=== PATIENT | male | born 1965 | race Caucasian/White ===

== ENCOUNTER → 2017-02-18 | Outpatient (CLI) | payer OTHER ==
[2017-02-18 09:14] VITALS: TEMP 98.8; BMI 50.3
[2017-02-18 09:39] VITALS: BP 145/82; PULSE 68; RESP 16
[2017-02-18 11:05] LABS: CHCM 33.1; HCT 45.1 % (39.0-53.0); HDW 2.45; MCH 29.2 pg (25.0-35.0); MCHC 33.2 g/dL (31.0-37.0); MCV 88.1 fL (80.0-100.0); Mean Platelet Volume 6.6; RBC 5.13 m/uL (4.30-5.90); RDW 13.2 % (11.5-15.5); WBC 9.7 k/uL (3.8-10.6)
[2017-02-18 11:14] LABS: INR 1.1 (<1.2); Partial Thromboplastin Time 22.5 sec (22.0-30.0); Prothrombin Time 10.7 sec (9.0-12.0)
[2017-02-18 12:15] LABS: ALT 42 U/L (21-72); AST 31 U/L (17-59); Alkaline Phosphatase 89 U/L (38-126); Anion Gap 10 mmol/L; Blood Urea Nitrogen 15 mg/dL (9-20); Calcium 9.1 mg/dL (8.4-10.2); Carbon Dioxide 24 mmol/L (22-30); Chloride 108 mmol/L (98-107); Cholesterol 209 mg/dL (<200); Glucose 101 mg/dL (74-99); HDL Cholesterol 40 mg/dL (40-60); Iron 99 ug/dL (49-181); Non-African American GFR(MDRD) >60 (>60 ml/min/1.73 sqM); Phosphorus 4.4 mg/dL (2.5-4.5); Potassium 4.2 mmol/L (3.5-5.1); Sodium 142 mmol/L (137-145); Total Bilirubin 0.5 mg/dL (0.2-1.3); Total Protein 6.8 g/dL (6.3-8.2)
[2017-02-18 12:25] LABS: % Iron Saturation 27.6 % (20-50); Total Iron Binding Capacity 359 ug/dL (261-462)
[2017-02-18 13:02] LABS: Hemoglobin A1C 5.3 % (4.2-6.1)
[2017-02-18 13:04] LABS: Vitamin B12 690 pg/mL (239-931)
[2017-02-23 17:37] LABS: Selenium 155 mcg/L (63-160)
--- NOTE | 2017-03-07 13:42 | P.PN ---
Progress Note - Text DATE OF SERVICE: 02/18/2017 CHIEF COMPLAINT: Followup sleeve gastrectomy. HISTORY OF PRESENT ILLNESS: Niles Bacon is a 50-year-old gentleman who is status post sleeve gastrectomy January 14, 2015. He is 2 years out from his sleeve gastrectomy. His highest weight was 607 pounds as of August 2014. His body mass index was as high as 87.3. Today he comes in weighing 351 pounds. He has lost 28 pounds in 1 year. He reports being fairly active on his job. His body mass index is reduced from 87.3 to 50.4 lifetime. His lifetime weight loss is 256 pounds. Total percent excess weight loss is 59%. He comes in today with persistent complaints of panniculitis. Since being in the program over 2 years ago, he takes daily prescribed antifungal powders to control his symptoms however now it has become progressively worse and poorly controlled. He seeking a panniculectomy. He's maintaining at least 90 g of protein intake. He is drinking alcoholic beverages since his tequila to self medicate for chronic pain of the neck including left shoulder and hands. He also reports chronic lower back pain from the weight of his pannus. PAST MEDICAL HISTORY: 1. Super morbid obesity, highest BMI 87.1 2. Depression. 3. Gastroesophageal reflux disease. 4. Hypertension. 5. Osteoarthritis. 6. Chronic lower back pain. 7. Thyroid disorder. 8. Anxiety. 9. 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 10. Panniculitis. PAST SURGICAL HISTORY: 1. EGD. 2. Status post sleeve gastrectomy. MEDICATIONS: 1. Multivitamin. 2. Drisdol. ALLERGIES: Denies. SOCIAL HISTORY: Lifelong nontobacco user. He is . FAMILY HISTORY: Pertinent for heart disease including morbid obesity. REVIEW OF SYSTEMS: MUSCULOSKELETAL: Developed sciatica. Reports severe lower back pain from weight of pannus. Also reports left shoulder pain and neck pain. GASTROINTESTINAL: Reports gastroesophageal reflux disease is resolved. No reports of dumping syndrome. PSYCH: History of bipolar disorder and depression. He is chemically sensitive. No suicidal ideation. CONSTITUTIONAL: Highest weight of 607 pounds. Highest body mass index of 87.1. [place] body weight of 173 pounds. Lifetime percent excess weight loss of 59 %. Initially weight in the bariatric program at 486 pounds. His lifetime weight loss is 256 pounds. Otherwise, from the time of his procedure his weight loss is 135 pounds. CARDIOVASCULAR: Denies any active hypertensive medications or medications for dyslipidemia. HEENT: No dysphagia. No troubles with vision or hearing. HEMATOLOGIC: Has a personal history of chronically elevated white blood cell count including chronic infections. Also has history of lupus in his family. ENDOCRINE: Denies any diabetes. He does have history of thyroid disorder. CARDIOVASCULAR: Denies any heart attack or recent chest pain. RESPIRATORY: Has obstructive sleep apnea, now improved since surgery. No reports of asthma. NEURO: Denies any stroke or seizure disorders. SKIN: Chronic panniculitis. No skin cancer. PHYSICAL EXAM: VITAL SIGNS: 5 foot 10, 351 pounds. Body mass index is 50.4 Vital Signs Temp 98.8 F 02/18/17 09:08 Pulse 68 02/18/17 09:08 Resp 16 02/18/17 09:08 BP 145/82 02/18/17 09:08 Pulse Ox GENERAL: Well-developed male in no acute distress. ABDOMEN: Pannus over 40+ pounds. Pannus extends over knees by over 12 inches. Hyperemia including hyperpigmentation identified. No palpable incisional hernias along prior bariatric site. Soft, nontender, nondistended. knees. Hyperemia consistent moderate panniculitis. HEENT: Hears conversational speech. Moist buccal mucosa. Extraocular movements were grossly intact. No nasal drainage. NECK: Supple without lymphadenopathy. CHEST: Unlabored respirations, equal bilateral excursions. CARDIOVASCULAR: Regular rate and rhythm. 2+ radial pulses. MUSCULOSKELETAL: Bilateral lower extremity edema with 1+. No clubbing cyanosis or edema. NEURO: No focal or lateralizing signs. Cranial nerves II-12 grossly intact. PSYCH: Appropriate affect. Alert and oriented to person, place, and time. LABS: Pending. ASSESSMENT: 1. Morbid obesity due to excess calories. 2. Body mass index lifetime reduced from 87.1 down to 50.4. 3. Status post sleeve gastrectomy. 4. Chronic leukocytosis. 5. Gastroesophageal reflux disease resolved. 6. Chronic panniculitis. 7. History of massive weight loss, lifetime over 256 pounds. 8. Hypertensive heart disease. 9. History of vitamin D deficiency. 10. Chronic osteoarthritis of the lower back with degenerative joint disease. 11. Obstructive sleep apnea. 12. Chronic lower back pain. 13. Secondary hyperparathyroidism. 14. Hypercholesterolemia. 15. 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 16. Alcohol abuse. 17. Insomnia. PLAN: 1. Upon further discussion regarding his tequila use, he is using this to self medicate for his chronic neck and back pain. Recommend referral to a pain center. 2. Separately, he reports increased numbness along the left shoulder and hand. This may be caused by a nerve radiculopathy. Recommend referral to orthospine or neuro medical communication specialist. 3. He is 1 year out from his last visit otherwise 2 years from his index operation of sleeve gastrectomy. Willl need bariatric labs. 4. He has long-standing panniculitis including moderate size pannus over 40+ pounds. He is at increased risk for blood loss including bleeding, infection, cosmetic deformity, need for further surgery, chronic pain and postoperative seroma. He does not any blood products. As such, recommend evaluation for underlying anemia. 5. He has chronic pain and would recommend correction and treatment of his chronic pain prior to his panniculectomy. 6. Inpatient hospitalization at minimum overnight with increased risks from super morbid obesity and potential blood loss. 7. Recommend 2 week high protein low caloric diet for optimal perioperative recovery. 8. Follow-up in [place]. ADDENDUM LABS: Chronic leukocytosis resolved. Elevated triglyceride, elevated total cholesterol, elevated LDL. Elevated PTH. Recommend calcium 1200 mg daily. Laboratory Last Values WBC 9.7 k/uL (3.8-10.6) 02/18/17 10:40 RBC 5.13 m/uL (4.30-5.90) 02/18/17 10:40 Hgb 15.0 gm/dL (13.0-17.5) 02/18/17 10:40 Hct 45.1 % (39.0-53.0) 02/18/17 10:40 MCV 88.1 fL (80.0-100.0) 02/18/17 10:40 MCH 29.2 pg (25.0-35.0) 02/18/17 10:40 MCHC 33.2 g/dL (31.0-37.0) 02/18/17 10:40 RDW 13.2 % (11.5-15.5) 02/18/17 10:40 Plt Count 323 k/uL (150-450) 02/18/17 10:40 PT 10.7 sec (9.0-12.0) 02/18/17 10:40 INR 1.1 (<1.2) 02/18/17 10:40 APTT 22.5 sec (22.0-30.0) 02/18/17 10:40 Sodium 142 mmol/L (137-145) 02/18/17 10:40 Potassium 4.2 mmol/L (3.5-5.1) 02/18/17 10:40 Chloride 108 mmol/L (98-107) H 02/18/17 10:40 Carbon Dioxide 24 mmol/L (22-30) 02/18/17 10:40 Anion Gap 10 mmol/L 02/18/17 10:40 BUN 15 mg/dL (9-20) 02/18/17 10:40 Creatinine 0.70 mg/dL (0.66-1.25) 02/18/17 10:40 Est GFR (MDRD) Af Amer >60 (>60 ml/min/1.73 sqM) 02/18/17 10:40 Est GFR (MDRD) Non-Af >60 (>60 ml/min/1.73 sqM) 02/18/17 10:40 Glucose 101 mg/dL (74-99) H 02/18/17 10:[address] Glu mg/dL 105 mg/dL 02/18/17 10:40 Hemoglobin A1c 5.3 % (4.2-6.1) 02/18/17 10:40 Calcium 9.1 mg/dL (8.4-10.2) 02/18/17 10:40 Phosphorus 4.4 mg/dL (2.5-4.5) 02/18/17 10:40 Magnesium 2.0 mg/dL (1.6-2.3) 02/18/17 10:40 Iron 99 ug/dL (49-181) 02/18/17 10:40 TIBC 359 ug/dL (261-462) 02/18/17 10:40 % Saturation 27.6 % (20-50) 02/18/17 10:40 Ferritin 45.4 ng/mL (22.0-322.0) 02/18/17 10:40 Total Bilirubin 0.5 mg/dL (0.2-1.3) 02/18/17 10:40 AST 31 U/L (17-59) 02/18/17 10:40 ALT 42 U/L (21-72) 02/18/17 10:40 Alkaline Phosphatase 89 U/L (38-126) 02/18/17 10:40 Total Protein 6.8 g/dL (6.3-8.2) 02/18/17 10:40 Albumin 4.2 g/dL (3.5-5.0) 02/18/17 10:40 Prealbumin 29.0 mg/dL (18.0-42.0) 02/18/17 10:40 Triglycerides 164 mg/dL (<150) H 02/18/17 10:40 Cholesterol 209 mg/dL (<200) H 02/18/17 10:40 LDL Cholesterol, Calc 136 mg/dL (0-99) H 02/18/17 10:40 HDL Cholesterol 40 mg/dL (40-60) 02/18/17 10:40 Vitamin A 67 ug/dL (38-106) 02/18/17 10:40 Vitamin B1 58 ug/L (38-122) 02/18/17 10:40 Vitamin B12 690 pg/mL (239-931) 02/18/17 10:40 Vitamin D 25-Hydroxy 52.3 ng/mL (30.0-100.0) 02/18/17 10:40 Folate 22.0 ng/mL 02/18/17 10:40 TSH 1.940 mIU/L (0.465-4.680) 02/18/17 10:40 PTH Intact 76.0 pg/mL (14.0-72.0) H 02/18/17 10:40 Copper 914 ug/L (665-1480) 02/18/17 10:40 Selenium 155 mcg/L (63-160) 02/18/17 10:40 Zinc 78 ug/dL (60-130) 02/18/17 10:40
== END | disposition home or self-care (01) ==
LOC: BARWHC3 08:52
PROVIDERS: ATTEND Surgery Plastic and Reconstructive Surgery
DX: E66.01 Morbid (severe) obesity due to excess calories (principal); D72.829 Elevated white blood cell count, unspecified; M79.3 Panniculitis, unspecified; I11.9 Hypertensive heart disease without heart failure; M51.36 Other intervertebral disc degeneration, lumbar region; M47.816 Spondylosis without myelopathy or radiculopathy, lumbar region; G47.33 Obstructive sleep apnea (adult) (pediatric); E78.00 Pure hypercholesterolemia, unspecified; F31.9 Bipolar disorder, unspecified; F10.10 Alcohol abuse, uncomplicated; E21.1 Secondary hyperparathyroidism, not elsewhere classified; D50.9 Iron deficiency anemia, unspecified; K90.9 Intestinal malabsorption, unspecified; E55.9 Vitamin D deficiency, unspecified; K74.1 Hepatic sclerosis; N19 Unspecified kidney failure; K50.90 Crohn's disease, unspecified, without complications; G47.00 Insomnia, unspecified; Z98.84 Bariatric surgery status; Z68.43 Body mass index [BMI] 50.0-59.9, adult
CPT/HCPCS: 84255; 84134; 84425; 80061; 80053; 82607; 82728; 83036; 82525; 82746; 83540; 83550; 83735; 84100; 84443; 84590; 84630; 85027; 85610; 85730; 82306; 83970; G0463; 99211

== ENCOUNTER → 2017-06-23 | Outpatient (CLI) | payer OTHER ==
[2017-06-23 13:49] VITALS: PULSE 56; RESP 18
--- NOTE | 2017-06-23 14:48 | P.HPIM ---
History of Present Illness H&P Date: 06/23/17 Chief Complaint: neck, arm, and left flank pain This is a 52-year-old patient referred by Dr. Mcarthur for chronic pain in neck and left arm, and low back with some radiation to right leg. Patient has undergone bariatric surgery and has lost over 300 pounds, but still has significant pannus in his abdomen and BMI is still greater than 45. Patient has been taking medications from primary care physician including [place] and Flexeril medications without relief. Patient denies adverse drug effects from medications. Patient also denies new-onset weakness, bowel/bladder incontinence , or any other signs or symptoms of cauda equina syndrome. There are no signs of acute intoxication, and no indications of medication diversion or overuse. Patient notes that pain worsens significantly with turning his head and lifting , and improves with rest and occasionally with medication. Patient has a history of self-medicating with alcohol in the past. Patient has used several types of medications for pain, including NSAIDS, OPIOIDS, TRAMADOL, and BENZODIAZEPINES. Patient HAS NOT had surgery. Patient HAS NOT had injections previously. Patient HAS NOT had physical therapy recently. In addition to above, 13-point review of systems is also negative for chest pain , shortness of breath, changes in vision, changes in hearing, new onset weakness , abdominal pain, diarrhea, extreme fatigue, malaise, fever, skin changes, homicidal or suicidal ideation, or bowel or bladder incontinence. Vital Signs: Reviewed in EMR Gen: WDWN, AAOx3, NAD HEENT: NCAT, EOMI, hearing grossly normal Pulm: resp unlabored Abd: soft, NT, ND Neck: supple, trachea midline ROM in flexion cervical spine: reduced ROM in extension cervical spine: reduced Cervical paravertebral tenderness: + Cervical Facet tenderness: + L side, neg R side Spurling's: + L side Upper extremity: decreased county director strength secondary to pain Thoracic spine: palpable mass over left proximal scapula, tender to palpation Neuro: CN II-XII grossly intact, muscle strength lower extremities PRESERVED Past Medical History Past Medical History: Diabetes Mellitus, Hypertension Additional Past Medical History / Comment(s): CHRONIC BACK PAIN which has increased significantly with major weight loss, sciatica, bronchitis, arthritis , borderline thyroid issues, History of Any Multi-Drug Resistant Organisms: None Reported Past Surgical History: No Surgical Hx Reported Additional Past Surgical History / Comment(s): EGD Past Anesthesia/Blood Transfusion Reactions: No Reported Reaction Additional Past Anesthesia/Blood Transfusion Reaction / Comment(s): HAS NEVER HAD GENERAL ANESTHESIA Past Psychological History: Anxiety, Bipolar, Depression, Panic Disorder Smoking Status: Never smoker Past Alcohol Use History: Rare Past Drug Use History: None Reported - Past Family History Father Family Medical History: Hypertension Additional Family Medical History / Comment(s): mental disease, violent disorders Mother Family Medical History: Hypertension Medications and Allergies Home Medications Medication Instructions Recorded Confirmed Type Multivitamins, Thera [Theragran] 1 each PO DAILY 02/14/15 06/23/17 History Cholecalciferol (Vitamin D3) 10,000 unit PO DAILY 02/18/17 06/23/17 History [Vitamin D3] Baclofen 10 mg PO BID PRN #60 tab 06/23/17 Rx Allergies Allergy/AdvReac Type Severity Reaction Status Date / Time No Known Allergies Allergy Verified 06/23/17 13:31 Physical Exam Vitals: Vital Signs Pulse Resp 06/23/17 13:36 56 L 18 Intake and Output 06/22/17 06/23/17 06/23/17 22:59 06:59 14:59 Other: Weight 156.036 kg Patient Weight 06/24/17 06:59 Weight 156.036 kg Results Comments: MRI cervical spine without contrast demonstrates a lipoma at the C5 through T1 levels with the left posterior subcutaneous tissues measuring 83 mm in greatest craniocaudal dimension, by 34 mm in greatest AP dimension, by 79 mm in greatest transverse dimensions. There is uncovertebral joint hypertrophy at the C3-C4, C4-C5, C5-C6, C6-C7 levels. There is also a moderate broad-based central extrusion with 4 mm of cranial and caudal migration of the disc at the C6-C7 level. There is mild central canal stenosis with severe left and moderate to severe right neural foraminal narrowing with mild to moderate uncovertebral joint hypertrophy. At the C4-C5 level there is also mild bilateral facet hypertrophy with severe right and moderate to severe left neural foraminal narrowing. Assessment and Plan (1) Morbid obesity with BMI of 45.0-49.9, adult Current Visit: Yes Status: Chronic Code(s): E66.01 - MORBID (SEVERE) OBESITY DUE TO EXCESS CALORIES; Z68.42 - BODY MASS INDEX (BMI) 45.0-49.9, ADULT SNOMED Code(s): 567285068 (2) Cervical spondylosis with myelopathy Current Visit: Yes Status: Chronic Code(s): M47.12 - OTHER SPONDYLOSIS WITH MYELOPATHY, CERVICAL REGION SNOMED Code(s): 54005780 (3) Panniculitis Current Visit: No Status: Chronic Code(s): M79.3 - PANNICULITIS, UNSPECIFIED SNOMED Code(s): 59452599 Plan: 1. Explanation: Opioid and psychological risk scores were reviewed. Diagnoses , prognoses, and multiple treatment options including but not limited to physical therapy, interventional therapies, adjuvant medical therapies, narcotic medication therapies, and surgery were discussed with the patient and all questions were answered to the patient's satisfaction. 2. Opioid agreement: no opioids prescribed today 3. Counseling: The patient was counseled extensively on BODY MASS INDEX, EXERCISE. Specifically, the patient was instructed regarding the importance of weight control, and exercise in the context of both chronic pain and overall health. 4. Procedures: consider left cervical MBB when patient completes elbow bursa surgery 5. Consultations: none 6. Investigations: none 7. Medications: baclofen 10 mg #60 with one refill for spasm 8. Disposition: f/u for re-eval in 6 weeks after elbow surgery Time with Patient: Greater than 30
== END | disposition home or self-care (01) ==
LOC: PNWHC3 13:01
PROVIDERS: ATTEND Anesthesiology
DX: G89.29 Other chronic pain (principal); M54.2 Cervicalgia; M47.12 Other spondylosis with myelopathy, cervical region; M79.3 Panniculitis, unspecified; E66.01 Morbid (severe) obesity due to excess calories; Z68.42 Body mass index [BMI] 45.0-49.9, adult; Z98.84 Bariatric surgery status
CPT/HCPCS: 99211

== ENCOUNTER → 2017-08-04 | Outpatient (CLI) | payer OTHER ==
[2017-08-04 13:18] VITALS: BP 153/83; PULSE 55; RESP 18; TEMP 98.6
--- NOTE | 2017-08-04 14:28 | P.PN ---
Progress Note - Text Progress Note Date: 08/04/17 This is a 52-year-old male with history of neck pain with radiation to the left upper extremity with numbness and tingling in the first 3 fingers. The patient feels that he is losing his fine hand movement. The MRI of the cervical spine showed severe neural foraminal stenosis at the C6-C7 level with cervical spondylosis too. 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 The patient feels that his pain is getting better however just mildly. He has very mild tenderness at the cervical paravertebral area and in the left trapezius muscle. He denies taking any anticoagulants. At this point and since the pain has been getting better I recommend that the patient rates for a few weeks and may try physical therapy but if this pain is still bothering him and then we can plan on doing cervical epidural steroid injection in the left paramedian approach at the C7-T1 level. We might have some technical problems with the injection due to the patient's large lipoma in the area. The procedure was explained to the patient including possible complications like infection spinal cord injury paralysis and even and he is agreeable to trying this procedure if his pain does not get better.
== END | disposition home or self-care (01) ==
LOC: PNWHC3 12:39
PROVIDERS: ATTEND Anesthesiology
DX: M99.71 Connective tissue and disc stenosis of intervertebral foramina of cervical region (principal); M47.812 Spondylosis without myelopathy or radiculopathy, cervical region; D17.79 Benign lipomatous neoplasm of other sites
CPT/HCPCS: 99211

== ENCOUNTER → 2018-04-06 | Outpatient (CLI) | payer OTHER ==
--- NOTE | 2018-04-06 16:24 | P.PN ---
Subjective Progress Note Date: 04/06/18 DATE OF SERVICE: 04/06/2018 CHIEF COMPLAINT: Follow-up sleeve gastrectomy. HISTORY OF PRESENT ILLNESS: Niles Bacon is a 52-year-old gentleman who is status post sleeve gastrectomy January 14, 2015. He is 3 years out from his sleeve gastrectomy. His highest weight was 607 pounds as of August 2014. His body mass index was as high as 87.3. Today he comes in weighing 341 pounds from 351 pounds, 1 year ago. He has lost another 9 pounds in 1 year. He has severe back pain from his pannus that extends below his knees. He has been on Nystatin powder beyond 2 years of treatment. He reports difficulty with grooming. His body mass index is reduced from 87.3 to 49.1 lifetime. His lifetime weight loss is 266 pounds. Total percent excess weight loss is 61%. PAST MEDICAL HISTORY: 1. Super morbid obesity, highest BMI 87.1 2. Depression. 3. Gastroesophageal reflux disease. 4. Hypertension. 5. Osteoarthritis. 6. Chronic lower back pain. 7. Thyroid disorder. 8. Anxiety. 9. 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 10. Panniculitis. PAST SURGICAL HISTORY: 1. EGD. 2. Status post sleeve gastrectomy. MEDICATIONS: 1. Multivitamin. 2. Drisdol. ALLERGIES: Denies. SOCIAL HISTORY: Lifelong nontobacco user. He is . FAMILY HISTORY: Pertinent for heart disease including morbid obesity. REVIEW OF SYSTEMS: MUSCULOSKELETAL: Developed sciatica. Reports severe lower back pain from weight of pannus. Also reports left shoulder pain and neck pain. GASTROINTESTINAL: Reports gastroesophageal reflux disease is resolved. No reports of dumping syndrome. PSYCH: History of bipolar disorder and depression. He is chemically sensitive. No suicidal ideation. CONSTITUTIONAL: Highest weight of 607 pounds. Highest body mass index of 87.1. [place] body weight of 173 pounds. CARDIOVASCULAR: Denies any active hypertensive medications or medications for dyslipidemia. HEENT: No dysphagia. No troubles with vision or hearing. HEMATOLOGIC: Has a personal history of chronically elevated white blood cell count including chronic infections. Also has history of lupus in his family. ENDOCRINE: Denies any diabetes. He does have history of thyroid disorder. CARDIOVASCULAR: Denies any heart attack or recent chest pain. RESPIRATORY: Has obstructive sleep apnea, now improved since surgery. No reports of asthma. NEURO: Denies any stroke or seizure disorders. SKIN: Chronic panniculitis. No skin cancer. PHYSICAL EXAM: VITAL SIGNS: 5 foot 10, 341 pounds. Body mass index is 49.1 Vital Signs Temp 98.1 F 04/06/18 17:09 Pulse 51 L 04/06/18 17:09 Resp BP 154/83 04/06/18 17:09 Pulse Ox GENERAL: Well-developed male in no acute distress. ABDOMEN: Pannus over 40+ pounds. Pannus extends over knees by over 12 inches. Hyperemia including hyperpigmentation identified. No palpable incisional hernias along prior bariatric site. Soft, nontender, nondistended. knees. Hyperemia consistent moderate panniculitis. HEENT: Hears conversational speech. Moist buccal mucosa. Extraocular movements were grossly intact. No nasal drainage. NECK: Supple without lymphadenopathy. CHEST: Unlabored respirations, equal bilateral excursions. CARDIOVASCULAR: Regular rate and rhythm. 2+ radial pulses. MUSCULOSKELETAL: Bilateral lower extremity edema with 1+. No clubbing cyanosis or edema. NEURO: No focal or lateralizing signs. Cranial nerves II-12 grossly intact. PSYCH: Appropriate affect. Alert and oriented to person, place, and time. SKIN: Well perfused. Good skin turgor. LABS: Pending. ASSESSMENT: 1. Morbid obesity due to excess calories. 2. Body mass index lifetime reduced from 87.1 down to 50.4. 3. Status post sleeve gastrectomy. 4. Chronic leukocytosis. 5. Gastroesophageal reflux disease resolved. 6. Chronic panniculitis. 7. History of massive weight loss, lifetime over 256 pounds. 8. Hypertensive heart disease. 9. History of vitamin D deficiency. 10. Chronic osteoarthritis of the lower back with degenerative joint disease. 11. Obstructive sleep apnea. 12. Chronic lower back pain. 13. Secondary hyperparathyroidism. 14. Hypercholesterolemia. 15. 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 16. Alcohol abuse. 17. Insomnia. PLAN: 1. Panniculectomy advised for chronic panniculitis despite medical treatment beyond 2 years. Additionally he has severe chronic lower back pain requiring pain specialist from the size of his pannus weighing over 40+ pounds. 2. Recommend 2 week protein diet for optimal recovery 3. Panniculectomy packet including benefits and risks of bleeding, flap failure , infection, need for further surgery were described. Additional images needed. 4. Recommend bariatric metabolic panel to correct iron deficiency including macro and micronutrient deficiencies. 5. Inpatient hospitalization also described 6. He is at high surgical risk for complications with BMI over 40 and size of pannus over 40+ pounds for postoperative seromas. Laboratory Last Values WBC 13.4 k/uL (3.8-10.6) H 04/06/18 16:42 RBC 5.33 m/uL (4.30-5.90) 04/06/18 16:42 Hgb 15.2 gm/dL (13.0-17.5) 04/06/18 16:42 Hct 46.3 % (39.0-53.0) 04/06/18 16:42 MCV 86.8 fL (80.0-100.0) 04/06/18 16:42 MCH 28.6 pg (25.0-35.0) 04/06/18 16:42 MCHC 32.9 g/dL (31.0-37.0) 04/06/18 16:42 RDW 13.5 % (11.5-15.5) 04/06/18 16:42 Plt Count 328 k/uL (150-450) 04/06/18 16:42 PT 10.4 sec (9.0-12.0) 04/06/18 16:42 INR 1.1 (<1.2) 04/06/18 16:42 APTT 23.6 sec (22.0-30.0) 04/06/18 16:42 Sodium 141 mmol/L (135-145) 04/06/18 16:42 Potassium 4.4 mmol/L (3.5-5.5) 04/06/18 16:42 Chloride 106 mmol/L (96-109) 04/06/18 16:42 Carbon Dioxide 27.4 mmol/L (21.6-31.8) 04/06/18 16:42 Anion Gap 7.60 mmol/L (4.00-12.00) 04/06/18 16:42 BUN 10.0 mg/dL (9.0-27.0) 04/06/18 16:42 Creatinine 0.7 mg/dL (0.6-1.5) 04/06/18 16:42 Est GFR (CKD-EPI)AfAm 127.5 (60.0-200.0) 04/06/18 16:42 Est GFR (CKD-EPI)NonAf 110.0 (60.0-200.0) 04/06/18 16:42 BUN/Creatinine Ratio 14.29 Ratio (12.00-20.00) 04/06/18 16:42 Glucose 90 mg/dL (70-110) 04/06/18 16:[address] Glu mg/dL 111 04/06/18 16:42 Hemoglobin A1c 5.5 % (4.0-6.0) 04/06/18 16:42 Calcium 9.1 mg/dL (8.7-10.3) 04/06/18 16:42 Phosphorus 4.2 mg/dL (2.4-5.1) 04/06/18 16:42 Magnesium 2.0 mg/dL (1.5-2.4) 04/06/18 16:42 Iron 70 ug/dL (65-175) 04/06/18 16:42 TIBC 397 ug/dL (228-460) 04/06/18 16:42 Iron Saturation 17.63 (15.00-50.00) 04/06/18 16:42 Ferritin 32.8 ng/mL (22.0-322.0) 04/06/18 16:42 Total Bilirubin 0.6 mg/dL (0.3-1.2) 04/06/18 16:42 AST 31 U/L (14-35) 04/06/18 16:42 ALT 23 U/L (10-49) 04/06/18 16:42 Alkaline Phosphatase 73 U/L (41-126) 04/06/18 16:42 Total Protein 6.5 g/dL (6.2-8.2) 04/06/18 16:42 Albumin 4.60 g/dL (3.80-4.90) 04/06/18 16:42 Globulin 1.9 g/dL (2.1-3.7) L 04/06/18 16:42 Albumin/Globulin Ratio 2.42 g/dL (1.20-2.10) H 04/06/18 16:42 Prealbumin 34.0 mg/dL (18.0-42.0) 04/06/18 16:42 Triglycerides 219.0 mg/dL (0.0-149.0) H 04/06/18 16:42 Cholesterol 194 mg/dL (0-200) 04/06/18 16:42 LDL Cholesterol, Calc 112.2 mg/dL (0.0-131.0) 04/06/18 16:42 VLDL Cholesterol, Calc 43.80 mg/dL (5.00-40.00) H 04/06/18 16:42 HDL Cholesterol 38.0 mg/dL (40.0-60.0) L 04/06/18 16:42 Cholesterol/HDL Ratio 5.11 04/06/18 16:42 Vitamin A 65 ug/dL (38-106) 04/06/18 16:42 Vitamin B1 96 ug/L (38-122) 04/06/18 16:42 Vitamin B12 1156.0 pg/mL (200.0-944.0) H 04/06/18 16:42 Vitamin D 25-Hydroxy 38.3 ng/mL (30.0-100.0) 04/06/18 16:42 Folate 23.0 ng/mL 04/06/18 16:42 TSH 1.360 uIU/mL (0.350-5.500) 04/06/18 16:42 PTH Intact 71.8 pg/mL (14.0-72.0) 04/06/18 16:42 Copper 1487 ug/L (665-1480) H 04/06/18 16:42 Selenium 155 mcg/L (63-160) 04/06/18 16:42 Zinc 77 ug/dL (60-130) 04/06/18 16:42 Objective - Labs CBC & Chem 7: 04/06/18 16:42 04/06/18 16:42
[2018-04-06 17:03] LABS: HCT 46.3 % (39.0-53.0); HGB 15.2 gm/dL (13.0-17.5); MCH 28.6 pg (25.0-35.0); MCHC 32.9 g/dL (31.0-37.0); MCV 86.8 fL (80.0-100.0); Mean Platelet Volume 7.6; Platelet Count 328 k/uL (150-450); RBC 5.33 m/uL (4.30-5.90); RDW 13.5 % (11.5-15.5); WBC 13.4 k/uL (3.8-10.6)
[2018-04-06 17:10] LABS: INR 1.1 (<1.2); Partial Thromboplastin Time 23.6 sec (22.0-30.0); Prothrombin Time 10.4 sec (9.0-12.0)
[2018-04-06 17:12] VITALS: BP 154/83; PULSE 51; TEMP 98.1; BMI 49.0
[2018-04-07 03:33] LABS: Iron Saturation 17.63 (15.00-50.00)
[2018-04-07 03:36] LABS: Albumin 4.6 g/dL (3.80-4.90); Albumin/Globulin Ratio 2.42 (1.20-2.10); Anion Gap 7.6 mmol/L (4.00-12.00); Calcium 9.1 mg/dL (8.7-10.3); Carbon Dioxide 27.4 mmol/L (21.6-31.8); Globulin 1.9 g/dL (2.1-3.7); LDL Cholesterol,Calculated 112.2 mg/dL (0.0-131.0); Phosphorus 4.2 mg/dL (2.4-5.1); Potassium 4.4 mmol/L (3.5-5.5); Total Bilirubin 0.6 mg/dL (0.3-1.2); Total Protein 6.5 g/dL (6.2-8.2); VLDL Calculation 43.8 mg/dL (5.00-40.00)
[2018-04-07 03:42] LABS: Vitamin D 25 Hydroxy 38.3 ng/mL (30.0-100.0)
[2018-04-07 03:57] LABS: Hemoglobin A1C 5.5 % (4.0-6.0); Parathyroid Hormone Intact 71.8 pg/mL (14.0-72.0)
[2018-04-07 12:21] LABS: Zinc, Serum 77 ug/dL (60-130)
[2018-04-08 05:45] LABS: Vitamin A 65 ug/dL (38-106)
[2018-04-08 12:02] LABS: Vitamin B1 96 ug/L (38-122)
[2018-04-09 13:46] LABS: Selenium 155 mcg/L (63-160)
== END | disposition home or self-care (01) ==
LOC: BARWHC3 14:49
PROVIDERS: ATTEND Surgery Plastic and Reconstructive Surgery
DX: M79.3 Panniculitis, unspecified (principal); E66.01 Morbid (severe) obesity due to excess calories; Z98.84 Bariatric surgery status
CPT/HCPCS: 84255; 84134; 84425; 80061; 80053; 82607; 82728; 82525; 82746; 83540; 83550; 83735; 84100; 84443; 84590; 84630; 85027; 85610; 85730; 82306; 83970; 83036; 36415; G0463; 99211

== ENCOUNTER → 2018-07-20 | Outpatient (CLI) | payer OTHER ==
[2018-07-20 16:02] VITALS: BP 165/82; PULSE 66; TEMP 98.1; BMI 48.9
--- NOTE | 2018-07-20 16:22 | P.PN ---
Subjective Progress Note Date: 07/20/18 DATE OF SERVICE: 07/20/2018 CHIEF COMPLAINT: Panniculitis HISTORY OF PRESENT ILLNESS: Niles Bacon is a 53-year-old gentleman who is status post sleeve gastrectomy January 14, 2015. He is 4 years out from his sleeve gastrectomy. His highest weight was 607 pounds as of August 2014. His body mass index was as high as 87.3. He comes in with severe panniculitis including weight of pannus over 40+ pounds. He has failed systemic and local treatments of his panniculitis. Additionally, the weight of his pannus pulls and displaces his lower back. His pannus interferes with his activities of daily living including dressing, bathing, and hygiene. He is evaluating for a panniculectomy Today he comes in weighing 340 pounds from 341 pounds, 4 months ago. He has lost 1 pounds. His body mass index is reduced from 87.3 to 49.1 lifetime. His lifetime weight loss is 267 pounds. Total percent excess weight loss is 61%. PAST MEDICAL HISTORY: 1. Super morbid obesity, highest BMI 87.1 2. Depression. 3. Gastroesophageal reflux disease. 4. Hypertension. 5. Osteoarthritis. 6. Chronic lower back pain. 7. Thyroid disorder. 8. Anxiety. 9. 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 10. Panniculitis. 11. Persistent leukocytosis PAST SURGICAL HISTORY: 1. EGD. 2. Status post sleeve gastrectomy. MEDICATIONS: 1. Multivitamin. 2. Drisdol. ALLERGIES: Denies. SOCIAL HISTORY: Lifelong nontobacco user. He is . FAMILY HISTORY: Pertinent for heart disease including morbid obesity. REVIEW OF SYSTEMS: MUSCULOSKELETAL: Has sciatica. Reports severe lower back pain from weight of pannus. GASTROINTESTINAL: Reports gastroesophageal reflux disease is resolved. No reports of dumping syndrome. PSYCH: History of bipolar disorder and depression. He is chemically sensitive. No suicidal ideation. CONSTITUTIONAL: Highest weight of 607 pounds. Highest body mass index of 87.1. [place] body weight of 173 pounds. CARDIOVASCULAR: Denies any active hypertensive medications or medications for dyslipidemia. HEENT: No dysphagia. No troubles with vision or hearing. HEMATOLOGIC: Has a personal history of chronically elevated white blood cell count including chronic infections. Also has history of lupus in his family. ENDOCRINE: Denies any diabetes. He does have history of thyroid disorder. CARDIOVASCULAR: Denies any heart attack or recent chest pain. RESPIRATORY: Has obstructive sleep apnea, now improved since surgery. No reports of asthma. NEURO: Denies any stroke or seizure disorders. SKIN: Chronic panniculitis. No skin cancer. PHYSICAL EXAM: VITAL SIGNS: 5 foot 10, 340 pounds. Body mass index is 48.9 Vital Signs Temp 98.1 F 07/20/18 14:45 Pulse 66 07/20/18 14:45 Resp BP 165/82 07/20/18 14:45 Pulse Ox GENERAL: Well-developed male in no acute distress. ABDOMEN: Pannus over 40+ pounds. Hyperemia consistent moderate panniculitis. Soft, non-distended. No palpable abdominal wall hernia. HEENT: Hears conversational speech. Moist buccal mucosa. Extraocular movements were grossly intact. No nasal drainage. NECK: Supple without lymphadenopathy. CHEST: Unlabored respirations, equal bilateral excursions. CARDIOVASCULAR: Regular rate and rhythm. 2+ radial pulses. MUSCULOSKELETAL: Bilateral lower extremity edema with 1+. No clubbing cyanosis or edema. NEURO: No focal or lateralizing signs. Cranial nerves II-12 grossly intact. PSYCH: Appropriate affect. Alert and oriented to person, place, and time. SKIN: Well perfused. Good skin turgor. LABS: Pending ASSESSMENT: 1. Morbid obesity due to excess calories. 2. Body mass index lifetime reduced from 87.1 down to 48.9. 3. Status post sleeve gastrectomy. 4. Chronic leukocytosis. 5. Gastroesophageal reflux disease resolved. 6. Chronic panniculitis. 7. History of massive weight loss, lifetime over 267 pounds. 8. Hypertensive heart disease. 9. History of vitamin D deficiency. 10. Chronic osteoarthritis of the lower back with degenerative joint disease. 11. Obstructive sleep apnea. 12. Chronic lower back pain. 13. Secondary hyperparathyroidism. 14. Hypercholesterolemia. 15. 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 16. Alcohol abuse. 17. Insomnia. PLAN: 1. Recommend panniculectomy for chronic panniculitis with concomittant severe lower back pain and uncontrolled symptoms despite systemic and local treatment including limitation of his activities of daily living. Anticipated resection of 40+ pounds described. 2. Recommend 2 week protein diet for optimal recovery 3. Risks of bleeding, needs for drains, flap failure, infection, need for further surgery were described. He is high risk for beth-operative complications with anticipated 40+ skin resection. 4. He also has persistent leukocytosis pre-existent and will need post-op antibiotics. 5. Inpatient hospitalization also described 6. He is Jehovah witness and wants no blood products 7. He reports high pain threshold where post-operative management was reviewed. Objective - Vital Signs Vital signs: Vital Signs Temp 98.1 F 07/20/18 14:45 Pulse 66 07/20/18 14:45 Resp BP 165/82 07/20/18 14:45 Pulse Ox Intake & Output 07/19/18 07/20/18 07/20/18 18:59 06:59 18:59 Weight 154.675 kg
== END | disposition home or self-care (01) ==
LOC: BARWHC3 14:43
PROVIDERS: ATTEND Surgery Plastic and Reconstructive Surgery
DX: E66.01 Morbid (severe) obesity due to excess calories (principal); K21.9 Gastro-esophageal reflux disease without esophagitis; M19.90 Unspecified osteoarthritis, unspecified site; G89.29 Other chronic pain; M54.5 Low back pain; F41.8 Other specified anxiety disorders; E07.9 Disorder of thyroid, unspecified; M79.3 Panniculitis, unspecified; D72.829 Elevated white blood cell count, unspecified; I11.9 Hypertensive heart disease without heart failure; R63.4 Abnormal weight loss; E55.9 Vitamin D deficiency, unspecified; G47.33 Obstructive sleep apnea (adult) (pediatric); N25.81 Secondary hyperparathyroidism of renal origin; E78.00 Pure hypercholesterolemia, unspecified; F10.10 Alcohol abuse, uncomplicated; Z98.84 Bariatric surgery status; Z79.899 Other long term (current) drug therapy; Z68.42 Body mass index [BMI] 45.0-49.9, adult
CPT/HCPCS: 99211

== ENCOUNTER → 2018-07-20 | Outpatient (CLI) | payer OTHER ==
[2018-07-20 15:25] LABS: ALT 39 U/L (21-72); AST 28 U/L (17-59); Albumin 4.2 g/dL (3.5-5.0); Alkaline Phosphatase 72 U/L (38-126); Anion Gap 6 mmol/L; Blood Urea Nitrogen 19 mg/dL (9-20); Calcium 9.1 mg/dL (8.4-10.2); Carbon Dioxide 29 mmol/L (22-30); Chloride 106 mmol/L (98-107); Glucose 94 mg/dL (74-99); Potassium 4.7 mmol/L (3.5-5.1); Sodium 141 mmol/L (137-145); Total Bilirubin 0.7 mg/dL (0.2-1.3); Total Protein 7.1 g/dL (6.3-8.2)
[2018-07-20 15:48] LABS: Basophils # (A) 0.1 k/uL (0-0.2); Basophils % (A) 1 %; Eosinophils # (A) 0.7 k/uL (0-0.7); Eosinophils % (A) 6 %; HCT 48.6 % (39.0-53.0); HGB 15.4 gm/dL (13.0-17.5); Lymphocytes # (A) 2.6 k/uL (1.0-4.8); Lymphocytes % (A) 24 %; MCH 27.6 pg (25.0-35.0); MCHC 31.6 g/dL (31.0-37.0); MCV 87.3 fL (80.0-100.0); Mean Platelet Volume 6.4; Monocytes # (A) 0.6 k/uL (0-1.0); Monocytes % (A) 6 %; Neutrophils # (A) 6.9 k/uL (1.3-7.7); Neutrophils % (A) 63 %; Platelet Count 333 k/uL (150-450); RBC 5.57 m/uL (4.30-5.90); RDW 13.6 % (11.5-15.5); WBC 11.1 k/uL (3.8-10.6)
== END | disposition home or self-care (01) ==
LOC: LABPAT 14:09
PROVIDERS: ATTEND Surgery Plastic and Reconstructive Surgery
DX: Z01.818 Encounter for other preprocedural examination (principal); Z01.812 Encounter for preprocedural laboratory examination
CPT/HCPCS: 80053; 85025; 93005

== ENCOUNTER → 2018-07-20 | Outpatient (CLI) | payer OTHER ==
--- NOTE | 2018-07-20 14:19 | XR ---
EXAMINATION TYPE: XR lumbar spine 2 or 3V DATE OF EXAM: 07/20/2018 CLINICAL HISTORY: pain TECHNIQUE: Three views of the lumbar spine are submitted. COMPARISON: None. FINDINGS: There are 5 lumbar type vertebral bodies identified. The lumbar spine shows satisfactory alignment w ithout evidence of acute fracture or dislocation. Vertebral body heights are within normal limits. Severe degenerative disc disease L3-4 through L5-S1. Vacuum disks noted. Ventral spondylosis and face t joint arthropathy noted. The overlying soft tissue appears unremarkable. IMPRESSION: No acute fracture or dislocation is seen in the lumbar spine. ICD 10 NO FRACTURE, INITIAL EVALUATION
== END ==
LOC: RADMRIMAIN 13:17
PROVIDERS: ATTEND Neurological Surgery
DX: G89.29 Other chronic pain (principal); M54.40 Lumbago with sciatica, unspecified side; M54.16 Radiculopathy, lumbar region
CPT/HCPCS: 72100

== ENCOUNTER 2018-07-25 07:19 | Inpatient (IN) | payer OTHER ==
--- NOTE | 2018-07-25 06:33 | P.GSHP ---
History of Present Illness H&P Date: 07/25/18 DATE OF SERVICE: 07/25/18 CHIEF COMPLAINT: Panniculitis. HISTORY OF PRESENT ILLNESS: Niles Bacon is a 53-year-old gentleman who is status post sleeve gastrectomy January 14, 2015. He is 3.5 years out from his sleeve gastrectomy. His highest weight was 607 pounds as of August 2014. His body mass index was as high as 87.3. Today he comes in weighing 339 pounds from 341 pounds, 4 months ago. He has lost another 2 pounds in 4 months. He has severe back pain from his pannus that extends below his knees. He has been on Nystatin powder beyond 2 years of treatment. He reports difficulty with grooming. His body mass index is reduced from 87.3 to 48.7 lifetime. His lifetime weight loss is 268 pounds. Total percent excess weight loss is 62%. PAST MEDICAL HISTORY: 1. Super morbid obesity, highest BMI 87.1 2. Depression. 3. Gastroesophageal reflux disease. 4. Hypertension. 5. Osteoarthritis. 6. Chronic lower back pain. 7. Thyroid disorder. 8. Anxiety. 9. 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 10. Panniculitis. PAST SURGICAL HISTORY: 1. EGD. 2. Status post sleeve gastrectomy. MEDICATIONS: 1. Multivitamin. 2. Drisdol. ALLERGIES: Denies. SOCIAL HISTORY: Lifelong nontobacco user. He is . FAMILY HISTORY: Pertinent for heart disease including morbid obesity. REVIEW OF SYSTEMS: MUSCULOSKELETAL: Developed sciatica. Reports severe lower back pain from weight of pannus. Also reports left shoulder pain and neck pain. GASTROINTESTINAL: Reports gastroesophageal reflux disease is resolved. No reports of dumping syndrome. PSYCH: History of bipolar disorder and depression. He is chemically sensitive. No suicidal ideation. CONSTITUTIONAL: Highest weight of 607 pounds. Highest body mass index of 87.1. [place] body weight of 173 pounds. CARDIOVASCULAR: Denies any active hypertensive medications or medications for dyslipidemia. HEENT: No dysphagia. No troubles with vision or hearing. HEMATOLOGIC: Has a personal history of chronically elevated white blood cell count including chronic infections. Also has history of lupus in his family. ENDOCRINE: Denies any diabetes. He does have history of thyroid disorder. CARDIOVASCULAR: Denies any heart attack or recent chest pain. RESPIRATORY: Has obstructive sleep apnea, now improved since surgery. No reports of asthma. NEURO: Denies any stroke or seizure disorders. SKIN: Chronic panniculitis. No skin cancer. PHYSICAL EXAM: VITAL SIGNS: 5 foot 10, 339 pounds. Body mass index is 48.8 GENERAL: Well-developed male in no acute distress. ABDOMEN: Pannus over 40+ pounds. Pannus extends over knees by over 12 inches. Hyperemia including hyperpigmentation identified. No palpable incisional hernias along prior bariatric site. Soft, nontender, nondistended. knees. Hyperemia consistent moderate panniculitis. HEENT: Hears conversational speech. Moist buccal mucosa. Extraocular movements were grossly intact. No nasal drainage. NECK: Supple without lymphadenopathy. CHEST: Unlabored respirations, equal bilateral excursions. CARDIOVASCULAR: Regular rate and rhythm. 2+ radial pulses. MUSCULOSKELETAL: Bilateral lower extremity edema with 1+. No clubbing cyanosis or edema. NEURO: No focal or lateralizing signs. Cranial nerves II-12 grossly intact. PSYCH: Appropriate affect. Alert and oriented to person, place, and time. SKIN: Well perfused. Good skin turgor. ASSESSMENT: 1. Morbid obesity due to excess calories. 2. Body mass index lifetime reduced from 87.1 down to 48.8 3. Status post sleeve gastrectomy. 4. Chronic leukocytosis. 5. Gastroesophageal reflux disease resolved. 6. Chronic panniculitis. 7. History of massive weight loss, lifetime over 268 pounds. 8. Hypertensive heart disease. 9. History of vitamin D deficiency. 10. Chronic osteoarthritis of the lower back with degenerative joint disease. 11. Obstructive sleep apnea. 12. Chronic lower back pain. 13. Secondary hyperparathyroidism. 14. Hypercholesterolemia. 15. 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 16. Alcohol abuse. 17. Insomnia. PLAN: 1. Panniculectomy advised for chronic panniculitis despite medical treatment beyond 2 years. Additionally he has severe chronic lower back pain requiring pain specialist from the size of his pannus weighing over 40+ pounds. 2. Recommend 2 week protein diet for optimal recovery 3. Panniculectomy packet including benefits and risks of bleeding, flap failure , infection, need for further surgery were described. Additional images needed. 4. Recommend bariatric metabolic panel to correct iron deficiency including macro and micronutrient deficiencies. 5. Inpatient hospitalization also described 6. He is at high surgical risk for complications with BMI over 40 and size of pannus over 40+ pounds for postoperative seromas. Past Medical History Past Medical History: Hypertension Additional Past Medical History / Comment(s): CHRONIC BACK PAIN which has increased significantly with major weight loss, sciatica, bronchitis, arthritis , borderline thyroid issues, NOT ON ANYTHING FOR B/P History of Any Multi-Drug Resistant Organisms: None Reported Past Surgical History: Bariatric Surgery Additional Past Surgical History / Comment(s): EGD. GASTRIC SLEEVE Past Anesthesia/Blood Transfusion Reactions: No Reported Reaction Additional Past Anesthesia/Blood Transfusion Reaction / Comment(s): HAS NEVER HAD GENERAL ANESTHESIA Smoking Status: Never smoker - Past Family History Father Family Medical History: Hypertension Additional Family Medical History / Comment(s): mental disease, violent disorders Mother Family Medical History: Hypertension Medications and Allergies Home Medications Medication Instructions Recorded Confirmed Type Multivitamins, Thera [Theragran] 1 each PO DAILY 02/14/15 07/20/18 History Cholecalciferol (Vitamin D3) 10,000 unit PO DAILY 02/18/17 07/20/18 History [Vitamin D3] Allergies Allergy/AdvReac Type Severity Reaction Status Date / Time No Known Allergies Allergy Verified 07/20/18 16:05
[~2018-07-25 07:19] MED LIST: DEXAMETHASONE SOD PHOSPHATE 10 MG/ML 1 ML VIAL IV ONE; ENOXAPARIN 40 MG/0.4 ML SYRINGE SQ ONE; HYDROmorphone 0.5 MG/0.5 ML SYRINGE IVP PRN; LIDOCAINE 1% 20 ML VIAL (10MG/ML) FOR IV START INTRADERMA PRN; MIDAZOLAM (PF) 2 MG/2 ML VIAL IV PRN; ONDANSETRON 4 MG/2 ML VIAL IVP ONE; ceFAZolin 3 GM in SODIUM CHLORIDE 0.9% 100 ML IVPB ONE; fentaNYL (PF) 50 MCG/ML 2 ML AMP IV PRN
[2018-07-25] MEDS: LACTATED RINGERS 1,000 ML IV SCH ×2 (08:30→21:30)
[2018-07-25] MEDS ORDERED: DEXAMETHASONE SOD PHOSPHATE 10 MG/ML 1 ML VIAL IV ONE (08:45)
[2018-07-25] MEDS ORDERED: ONDANSETRON 4 MG/2 ML VIAL IVP ONE (08:45)
[2018-07-25] MEDS ORDERED: SUCCINYLCHOLINE CHLORIDE 100 MG/5 ML SYR IV ONE (09:20)
[2018-07-25] MEDS ORDERED: HYDROmorphone (PF) 1 MG/ML ONE (09:20)
[2018-07-25] MEDS ORDERED: KETAMINE 10 MG/ML 20 ML VIAL ONE (09:20)
[2018-07-25] MEDS ORDERED: fentaNYL (PF) 50 MCG/ML 2 ML AMP ONE (09:20)
[2018-07-25] MEDS ORDERED: MIDAZOLAM 2 MG/2 ML VIAL ONE (09:20)
[2018-07-25] MEDS ORDERED: LIDOCAINE 1% INJ 10MG/ML (20 ML MDV) ONE (09:20)
[2018-07-25] MEDS ORDERED: PROPOFOL 10 MG/ML 20 ML VIAL IV ONE (09:20)
[2018-07-25] MEDS ORDERED: ROCURONIUM BROMIDE 10 MG/ML 10 ML VIAL IV ONE (09:20)
[2018-07-25] MEDS ORDERED: LACTATED RINGERS 1,000 ML IV ONE ×3 (11:00→13:27)
[2018-07-25] MEDS ORDERED: HYDROmorphone 1 MG/ML 1 ML SYRINGE IVP PRN (14:01)
[2018-07-25] MEDS ORDERED: ONDANSETRON 4 MG/2 ML VIAL IVP PRN (14:01)
--- NOTE | 2018-07-25 14:01 | P.OP ---
Date of Procedure: 07/25/18 Description of Procedure: SURGEON: ALAINA MAJANO MD PREOPERATIVE DIAGNOSES: 1. Morbid obesity due to excess calories. 2. Body mass index lifetime reduced from 87.1 down to 48.8 3. Status post sleeve gastrectomy. 4. Chronic leukocytosis. 5. Gastroesophageal reflux disease resolved. 6. Chronic panniculitis. 7. History of massive weight loss, lifetime over 268 pounds. 8. Hypertensive heart disease. 9. History of vitamin D deficiency. 10. Chronic osteoarthritis of the lower back with degenerative joint disease. 11. Obstructive sleep apnea. 12. Chronic lower back pain. 13. Secondary hyperparathyroidism. 14. Hypercholesterolemia. 15. 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 16. Alcohol abuse. 17. Insomnia. POSTOPERATIVE DIAGNOSES: 1. Morbid obesity due to excess calories. 2. Body mass index lifetime reduced from 87.1 down to 48.8 3. Status post sleeve gastrectomy. 4. Chronic leukocytosis. 5. Gastroesophageal reflux disease resolved. 6. Chronic panniculitis. 7. History of massive weight loss, lifetime over 268 pounds. 8. Hypertensive heart disease. 9. History of vitamin D deficiency. 10. Chronic osteoarthritis of the lower back with degenerative joint disease. 11. Obstructive sleep apnea. 12. Chronic lower back pain. 13. Secondary hyperparathyroidism. 14. Hypercholesterolemia. 15. 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 16. Alcohol abuse. 17. Insomnia. 18. Central adiposity OPERATION: 1. Panniculectomy, 33.3 pounds. ANESTHESIA: General ESTIMATED BLOOD LOSS: 200 mL SPECIMENS REMOVED: Pannus 33.3 pounds. COMPLICATIONS: None. CONDITION: Stable. DRAINS: Two #19 Jeff drains below abdominal flap extending through the pubis. OPERATIVE FINDINGS: 1. Pannus weighing 4.04 pounds, excised. INDICATIONS: Niles Bacon is a 53-year-old gentleman who is status post sleeve gastrectomy January 14, 2015. He is 3.5 years out from his sleeve gastrectomy. His highest weight was 607 pounds as of August 2014. His body mass index was as high as 87.3. Today he comes in weighing 339 pounds from 341 pounds, 4 months ago. He has lost another 2 pounds in 4 months. He has severe back pain from his pannus that extends below his knees. He has been on Nystatin powder beyond 2 years of treatment. He reports difficulty with grooming. His body mass index is reduced from 87.3 to 48.7 lifetime. His lifetime weight loss is 268 pounds. Total percent excess weight loss is 62%. Given his clinical symptoms, including massive weight loss, he elected for surgical intervention with a panniculectomy. Benefits and risks of the procedure including bleeding, infection, risk of flap failure, abdominal wall seromas, chronic pain were described at length. Informed consent was obtained. DESCRIPTION: In the preanesthesia care unit the patient was marked with an indelible marker. She had also been given heparin subcutaneously. The patient was brought into the operating room and laid in supine position. After general induction, a Red catheter was placed. The abdomen was then prepped and draped in standard sterile fashion using ChloraPrep. The skin was prepped as far laterally to the back, inferiorly to the upper thighs and superiorly to above the bilateral breasts. A timeout protocol was confirmed with the surgical team regarding patient's name , procedure to be performed, including preoperative medications. She had received Ancef 3 grams IV antibiotics. Once the time-out protocol was confirmed with the surgical team, the patient was re-marked with indelible marker whereby the midline of the xiphoid to the mons pubis was marked. The anterior/superior iliac spine along the bilateral hips was also marked. Approximately 8 cm above the pubis commissure a transverse incision was made for the inferior portion of the flap. Using a #10 blade, the incision was taken from the midline laterally to above the anterior/ superior iliac spine, initially on the left side of the patient and then on the right side of the patient. Electro-Bovie cautery was used to control for hemostasis. The dissection was taken down to the level of the fascia. Landmarks used were the xiphoid process as well as the bilateral costal margins for the superior margin. Care was taken to avoid any creation of dog ears during the dissection. Hemostasis was once again checked with electro-Bovie cautery and all defects were addressed. Attention was now brought to closure of the flap. Using stainless steel skin juanis, the midline was once again marked of the upper flap as well as the pubic commissure. The patient was placed in a flexed position of approximately 20 degrees at the hips. The pannus was extended inferiorly to the feet. The upper flap was created once the excess skin was excised. Again care was taken to avoid any dog ears along the lateral aspect of the incisions. Once excised, the pannus was weighed at 33.3 pounds. The upper and lower flaps were reapproximated at the midline and then laterally to the skin with skin juanis. Once reapproximated, the skin was closed in layers using 0 Vicryl for the superficial fascial system followed by running 3- 0 Monocryl for the deep dermis in a running subcuticular fashion. Prior to skin closure, two round #19 Jeff drains were placed underneath the flap and brought out just inferior to the incision along the pubis. Drain stitch using 2-0 nylon was placed. Once the incision was closed, bulb suction was attached. Hemostasis was checked. At the end of the procedure, the needle, sponge and instrument count was verified correct. Exofin tape was placed along the length of the incision. Optifoam dressings were applied over the incision and used as a drain sponge. The patient was then transferred to a hospital bed in a beach chair position. An abdominal binder was placed and marked. The patient was taken to the postanesthesia care unit in stable condition, awake and extubated.
[2018-07-25] MEDS ORDERED: NALOXONE 0.4 MG/ML 1 ML VIAL IV PRN (14:02)
[2018-07-25] MEDS ORDERED: HYDROmorphone 1 MG/ML 1 ML SYRINGE IVP ONE ×2 (14:19→14:25)
[2018-07-25 20:34] VITALS: RESP 16
[2018-07-25] MEDS: ACETAMINOPHEN IV (For NPO) 1,000 MG in EMPTY BAG 1 BAG IVPB SCH (22:04)
[2018-07-25] MEDS: ceFAZolin 3 GM in SODIUM CHLORIDE 0.9% 100 ML IVPB SCH (22:04)
[2018-07-25] MEDS: DEXTROSE 5%-0.9% NACL 1,000 ML IV SCH (22:05)
[2018-07-25 22:19] VITALS: BMI 48.0
[2018-07-26] MEDS: ACETAMINOPHEN IV (For NPO) 1,000 MG in EMPTY BAG 1 BAG IVPB SCH ×3 (02:31→13:15)
[2018-07-26] MEDS: DEXTROSE 5%-0.9% NACL 1,000 ML IV SCH ×2 (02:33→06:16)
[2018-07-26] MEDS: ceFAZolin 3 GM in SODIUM CHLORIDE 0.9% 100 ML IVPB SCH (04:22)
[2018-07-26] MEDS ORDERED: SODIUM FERRIC GLUCONAT-SUCROSE 125 MG in SODIUM CHLORIDE 0.9% 100 ML IVPB SCH (09:00)
[2018-07-26] MEDS ORDERED: ENOXAPARIN 40 MG/0.4 ML SYRINGE SQ SCH (09:00)
[2018-07-26] MEDS ORDERED: HYDROcodone/APAP 7.5-325MG 1 EACH TAB PO PRN (11:26)
--- NOTE | 2018-07-26 11:45 | P.DS ---
Providers Date of admission: 07/25/18 07:19 Expected date of discharge: 07/26/18 Attending physician: Dulce Mcarthur Primary care physician: [facility] Hospital Course: 53-year-old male who underwent panniculectomy on 07/25/[address] Mcarthur after massive weight loss of over 268 lbs and BMI reduction from 87.1 to 48.8. Patient is doing well postoperatively without immediate complications. Patients pain is tolerable. He is ambulating. Tolerating PO intake without nausea or vomiting. He is stable for discharge home today with NOEL drain x 2. Please see EMR for further hospital course details. DISCHARGE DIAGNOSIS: 1. Morbid obesity due to excess calories. 2. Body mass index lifetime reduced from 87.1 down to 48.8 3. Status post sleeve gastrectomy. 4. Chronic leukocytosis. 5. Gastroesophageal reflux disease resolved. 6. Chronic panniculitis. 7. History of massive weight loss, lifetime over 268 pounds. 8. Hypertensive heart disease. 9. History of vitamin D deficiency. 10. Chronic osteoarthritis of the lower back with degenerative joint disease. 11. Obstructive sleep apnea. 12. Chronic lower back pain. 13. Secondary hyperparathyroidism. 14. Hypercholesterolemia. 15. 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 16. Alcohol abuse. 17. Insomnia. 18. Central adiposity Nurse practitioner note has been reviewed by physician. Signing provider agrees with the documented findings, assessment, and plan of care. Plan - Discharge Summary Discharge Rx Participant: Yes New Discharge Prescriptions: New HYDROcodone/APAP 7.5-325MG [[place] 7.5-325] 1 tab PO Q4H PRN 3 Days #18 tab PRN Reason: Pain Docusate [Colace] 100 mg PO BID #30 capsule No Action Multivitamins, Thera [Theragran] 1 tab PO DAILY Cholecalciferol (Vitamin D3) [Vitamin D3] 10,000 unit PO DAILY Discharge Medication List Multivitamins, Thera [Theragran] 1 tab PO DAILY 02/14/15 [History] Cholecalciferol (Vitamin D3) [Vitamin D3] 10,000 unit PO DAILY 02/18/17 [History ] Docusate [Colace] 100 mg PO BID #30 capsule 07/26/18 [Rx] HYDROcodone/APAP 7.5-325MG [[place] 7.5-325] 1 tab PO Q4H PRN 3 Days #18 tab 07/26 [Rx] Follow up Appointment(s)/Referral(s): Dulce Mcarthur MD [STAFF PHYSICIAN] - 1 Week Patient Instructions/Handouts: [place]-Mckeon Drain Care (DC), [place] Drain Care (GEN) Activity/Diet/Wound Care/Special Instructions: No driving while taking [place] No lifting over 4 pounds Very light activity until you are reevaluated at your follow up appointment with your surgeon Keep a log of your NOEL drainage daily DO NOT REMOVE ABDOMINAL BINDER No showering. No baths No laying completely flat. Elevate your head 45 degrees while laying down.
[2018-07-26 14:29] VITALS: BP 176/74; PULSE 57; TEMP 97.7
[2018-07-26] MEDS: LACTATED RINGERS 1,000 ML IV SCH (15:13)
[2018-07-26 17:06] LABS: Basophils % (A) 0 %; Eosinophils # (A) 0.3 k/uL (0-0.7); Eosinophils % (A) 2 %; Lymphocytes # (A) 2.5 k/uL (1.0-4.8); Lymphocytes % (A) 20 %; MCH 28.5 pg (25.0-35.0); MCHC 31.7 g/dL (31.0-37.0); MCV 89.9 fL (80.0-100.0); Mean Platelet Volume 6.9; Monocytes # (A) 0.9 k/uL (0-1.0); Monocytes % (A) 7 %; Neutrophils # (A) 8.8 k/uL (1.3-7.7); Neutrophils % (A) 70 %; Platelet Count 272 k/uL (150-450); RBC 4.33 m/uL (4.30-5.90); RDW 13.8 % (11.5-15.5); WBC 12.7 k/uL (3.8-10.6)
[2018-07-26 17:08] LABS: HGB 12.4 gm/dL (13.0-17.5)
== END 2018-07-26 19:00 | disposition home or self-care (01) | DRG 607 ==
LOC: 2ORMAIN 07:19 → 4SSUR 17:45
PROVIDERS: ADMIT Surgery Plastic and Reconstructive Surgery; ATTEND Surgery Plastic and Reconstructive Surgery
PROC: 0HB7XZZ Excision of Abdomen Skin, External Approach (ICD-10-PCS; principal; 2018-07-25 08:55)
DX: M79.3 Panniculitis, unspecified (principal); N25.81 Secondary hyperparathyroidism of renal origin; E65 Localized adiposity; D72.829 Elevated white blood cell count, unspecified; E66.01 Morbid (severe) obesity due to excess calories; E78.00 Pure hypercholesterolemia, unspecified; F10.10 Alcohol abuse, uncomplicated; F31.9 Bipolar disorder, unspecified; G47.00 Insomnia, unspecified; G47.33 Obstructive sleep apnea (adult) (pediatric); G89.29 Other chronic pain; I11.9 Hypertensive heart disease without heart failure; K21.9 Gastro-esophageal reflux disease without esophagitis; M47.9 Spondylosis, unspecified; M54.30 Sciatica, unspecified side; Z82.49 Family history of ischemic heart disease and other diseases of the circulatory system; Z98.84 Bariatric surgery status; R63.4 Abnormal weight loss; E55.9 Vitamin D deficiency, unspecified; E07.9 Disorder of thyroid, unspecified
CPT/HCPCS: 85025; 86850; 86900; 86901

== ENCOUNTER → 2018-08-10 | Outpatient (CLI) | payer OTHER ==
[2018-08-10 16:50] VITALS: BP 189/109; PULSE 76; RESP 16; TEMP 98.2; BMI 45.8
--- NOTE | 2018-08-10 17:28 | P.PN ---
Subjective Progress Note Date: 08/10/18 DATE OF SERVICE: 08/10/2018 CHIEF COMPLAINT: Panniculitis HISTORY OF PRESENT ILLNESS: Niles Bacno is a 53-year-old gentleman who is status post sleeve gastrectomy January 14, 2015. He is 4 years out from his sleeve gastrectomy. His highest weight was 607 pounds as of August 2014. His body mass index was as high as 87.3. He had severe panniculitis and now is status post panniculectomy of 33 pounds skin removal. He is 2 weeks out from his panniculectomy. He is retaining fluid. No fevers or chills. He reports generalized swelling. Today he comes in weighing 318 pounds from 340 pounds, 3 weeks ago. He has lost 22 pounds. His body mass index is reduced from 87.3 to 45.8. His lifetime weight loss is 289 pounds. Total percent excess weight loss is 67%. PHYSICAL EXAM: VITAL SIGNS: 5 foot 10, 318 pounds. Body mass index is 45.8 Vital Signs Temp 98.2 F 08/10/18 16:34 Pulse 76 08/10/18 16:34 Resp 16 08/10/18 16:34 BP 189/109 08/10/18 16:34 Pulse Ox GENERAL: Well-developed male in no acute distress. ABDOMEN: Dressing removed of external OptiFoam. No cellulitis. NOEL serosanguinous. HEENT: Hears conversational speech. Moist buccal mucosa. Extraocular movements were grossly intact. No nasal drainage. NECK: Supple without lymphadenopathy. CHEST: Unlabored respirations, equal bilateral excursions. CARDIOVASCULAR: Regular rate and rhythm. 2+ radial pulses. MUSCULOSKELETAL: Bilateral lower extremity edema with 2+. No clubbing cyanosis or edema. NEURO: No focal or lateralizing signs. Cranial nerves II-12 grossly intact. PSYCH: Appropriate affect. Alert and oriented to person, place, and time. SKIN: Well perfused. Good skin turgor. ASSESSMENT: 1. Morbid obesity due to excess calories. 2. Body mass index lifetime reduced from 87.1 down to 45.8. 3. Status post sleeve gastrectomy. 4. Chronic leukocytosis. 5. Gastroesophageal reflux disease resolved. 6. Chronic panniculitis resolved with panniculectomy, 33 pounds 7. History of massive weight loss, lifetime over 289 pounds. 8. Hypertensive heart disease. 9. History of vitamin D deficiency. 10. Chronic osteoarthritis of the lower back with degenerative joint disease. 11. Obstructive sleep apnea. 12. Chronic lower back pain. 13. Secondary hyperparathyroidism. 14. Hypercholesterolemia. 15. 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 16. Alcohol abuse. 17. Insomnia. PLAN: 1. Dressing changed done. 2. Follow-up in 1 week. 3. Continue NOEL drains. Objective - Vital Signs Vital signs: Vital Signs Temp 98.2 F 08/10/18 16:34 Pulse 76 08/10/18 16:34 Resp 16 08/10/18 16:34 BP 189/109 08/10/18 16:34 Pulse Ox Intake & Output 08/09/18 08/10/18 08/10/18 18:59 06:59 18:59 Weight 144.696 kg
== END ==
LOC: BARWHC3 14:41
PROVIDERS: ATTEND Surgery Plastic and Reconstructive Surgery
DX: E66.01 Morbid (severe) obesity due to excess calories (principal); D72.829 Elevated white blood cell count, unspecified; I11.9 Hypertensive heart disease without heart failure; E55.9 Vitamin D deficiency, unspecified; G47.33 Obstructive sleep apnea (adult) (pediatric); G89.29 Other chronic pain; M47.896 Other spondylosis, lumbar region; E21.1 Secondary hyperparathyroidism, not elsewhere classified; E78.00 Pure hypercholesterolemia, unspecified; F31.9 Bipolar disorder, unspecified; F10.10 Alcohol abuse, uncomplicated; G47.00 Insomnia, unspecified; Z98.84 Bariatric surgery status; Z68.42 Body mass index [BMI] 45.0-49.9, adult
CPT/HCPCS: 99211

== ENCOUNTER → 2018-08-24 | Outpatient (CLI) | payer OTHER ==
--- NOTE | 2018-08-24 15:12 | P.PN ---
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 He is 4 years out from his sleeve gastrectomy. His highest weight was 607 pounds as of August 2014. His body mass index was as high as 87.3. He is status post panniculectomy of 33 pounds, 07/25/18. He is 1 month out from his panniculectomy. Today, he has lost more weight and is feeling great. NOEL left 75 mL and right of 25 mL. Daily amount 100+ daily serosanguinous. No infection. Today he comes in weighing 317 pounds from 318 pounds, 2 weeks ago. He has lost 1 pound in 2 weeks. His body mass index is reduced from 87.3 to 45.6. His lifetime weight loss is 290 pounds. Total percent excess weight loss is 67%. PHYSICAL EXAM: VITAL SIGNS: 5 foot 10, 318 pounds. Body mass index is 45.8 Vital Signs Temp 98.2 F 08/24/18 14:00 Pulse 55 L 08/24/18 14:00 Resp BP 159/89 08/24/18 14:00 Pulse Ox GENERAL: Well-developed male in no acute distress. ABDOMEN: Dressing and abdominal binder changed. HEENT: Hears conversational speech. Moist buccal mucosa. Extraocular movements were grossly intact. No nasal drainage. NECK: Supple without lymphadenopathy. CHEST: Unlabored respirations, equal bilateral excursions. CARDIOVASCULAR: Regular rate and rhythm. 2+ radial pulses. MUSCULOSKELETAL: Bilateral lower extremity edema with 1+. No clubbing cyanosis or edema. NEURO: No focal or lateralizing signs. Cranial nerves II-12 grossly intact. PSYCH: Appropriate affect. Alert and oriented to person, place, and time. SKIN: Well perfused. Good skin turgor. ASSESSMENT: 1. Morbid obesity due to excess calories. 2. Body mass index lifetime reduced from 87.1 down to 45.6. 3. Status post sleeve gastrectomy. 4. Chronic panniculitis resolved with panniculectomy, 33 pounds 5. History of massive weight loss, lifetime over 290 pounds. PLAN: 1. Follow up next week with nurse visit 2. Will need OptiFoam dressing 3. Recommend new large binder
[2018-08-25 12:27] VITALS: BP 159/89; PULSE 55; TEMP 98.2; BMI 45.6
== END | disposition home or self-care (01) ==
LOC: BARWHC3 13:30
PROVIDERS: ATTEND Surgery Plastic and Reconstructive Surgery
DX: E66.01 Morbid (severe) obesity due to excess calories (principal); R63.4 Abnormal weight loss; Z98.84 Bariatric surgery status; Z68.42 Body mass index [BMI] 45.0-49.9, adult
CPT/HCPCS: 99212

== ENCOUNTER → 2018-09-07 | Outpatient (CLI) | payer OTHER ==
[2018-09-07 13:20] VITALS: BP 169/91; PULSE 62; RESP 18; TEMP 98.9; BMI 44.8
--- NOTE | 2018-09-07 14:38 | P.PN ---
Subjective Progress Note Date: 09/07/18 DATE OF SERVICE: 09/07/2018 CHIEF COMPLAINT: Panniculitis HISTORY OF PRESENT ILLNESS: Niles Bacon is a 53-year-old gentleman who status post panniculectomy of 33 pounds, 07/25/18. He almost 2 months out from his panniculectomy. No infection. He needs another binder to fit snug. He has inadequate protein intake of 60 g. He needs at least 90 to 100 g. NOEL is still 60 to 100 daily. He reports chronic swimmers ears. His highest weight was 607 pounds as of August 2014. His body mass index was as high as 87.3. Today he comes in weighing 317 pounds from 318 pounds, 2 weeks ago. He has lost 1 pound in 2 weeks. His body mass index is reduced from 87.3 to 45.6. His lifetime weight loss is 290 pounds. Total percent excess weight loss is 67%. PHYSICAL EXAM: VITAL SIGNS: 5 foot 10, 318 pounds. Body mass index is 45.8 Vital Signs Temp 98.9 F 09/07/18 13:16 Pulse 62 09/07/18 13:16 Resp 18 09/07/18 13:16 BP 169/91 09/07/18 13:16 Pulse Ox 98 09/07/18 13:16 GENERAL: Well-developed male in no acute distress. ABDOMEN: Dressing changed around NOEL serosangiunous. HEENT: Hears conversational speech. Moist buccal mucosa. Extraocular movements were grossly intact. No nasal drainage. NECK: Supple without lymphadenopathy. CHEST: Unlabored respirations, equal bilateral excursions. CARDIOVASCULAR: Regular rate and rhythm. 2+ radial pulses. MUSCULOSKELETAL: Bilateral lower extremity edema with 1+. No clubbing cyanosis or edema. NEURO: No focal or lateralizing signs. Cranial nerves II-12 grossly intact. PSYCH: Appropriate affect. Alert and oriented to person, place, and time. SKIN: Well perfused. Good skin turgor. ASSESSMENT: 1. Morbid obesity due to excess calories. 2. Body mass index lifetime reduced from 87.1 down to 44.9. 3. Status post sleeve gastrectomy. 4. Chronic panniculitis resolved with panniculectomy, 33 pounds 5. History of massive weight loss, lifetime over 295 pounds. PLAN: 1. Follow up in 1 week. 2. Needs blood work for anemia Laboratory Last Values WBC 13.9 k/uL (3.8-10.6) H 09/07/18 14:50 RBC 4.98 m/uL (4.30-5.90) 09/07/18 14:50 Hgb 13.5 gm/dL (13.0-17.5) 09/07/18 14:50 Hct 42.1 % (39.0-53.0) 09/07/18 14:50 MCV 84.4 fL (80.0-100.0) D 09/07/18 14:50 MCH 27.0 pg (25.0-35.0) 09/07/18 14:50 MCHC 32.0 g/dL (31.0-37.0) 09/07/18 14:50 RDW 13.0 % (11.5-15.5) 09/07/18 14:50 Plt Count 463 k/uL (150-450) H 09/07/18 14:50 Sodium 142 mmol/L (135-145) 09/07/18 14:50 Potassium 4.6 mmol/L (3.5-5.5) 09/07/18 14:50 Chloride 106 mmol/L (96-109) 09/07/18 14:50 Carbon Dioxide 28.3 mmol/L (21.6-31.8) 09/07/18 14:50 Anion Gap 7.70 mmol/L (4.00-12.00) 09/07/18 14:50 BUN 15.0 mg/dL (9.0-27.0) 09/07/18 14:50 Creatinine 0.8 mg/dL (0.6-1.5) 09/07/18 14:50 Est GFR (CKD-EPI)AfAm 119.9 (60.0-200.0) 09/07/18 14:50 Est GFR (CKD-EPI)NonAf 103.4 (60.0-200.0) 09/07/18 14:50 BUN/Creatinine Ratio 18.75 Ratio (12.00-20.00) 09/07/18 14:50 Glucose 88 mg/dL (70-110) 09/07/18 14:50 Calcium 9.3 mg/dL (8.7-10.3) 09/07/18 14:50 Total Bilirubin 0.2 mg/dL (0.2-1.2) 09/07/18 14:50 AST 25 U/L (14-35) 09/07/18 14:50 ALT 23 U/L (10-49) 09/07/18 14:50 Alkaline Phosphatase 87 U/L (41-126) 09/07/18 14:50 Total Protein 6.0 g/dL (6.2-8.2) L 09/07/18 14:50 Albumin 4.20 g/dL (3.80-4.90) 09/07/18 14:50 Globulin 1.8 g/dL (1.6-3.3) 09/07/18 14:50 Albumin/Globulin Ratio 2.33 g/dL (1.60-3.17) 09/07/18 14:50 Objective - Vital Signs Vital signs: Vital Signs Temp 98.9 F 09/07/18 13:16 Pulse 62 09/07/18 13:16 Resp 18 09/07/18 13:16 BP 169/91 09/07/18 13:16 Pulse Ox 98 09/07/18 13:16 Intake & Output 09/06/18 09/07/18 09/07/18 18:59 06:59 18:59 Weight 141.793 kg - Labs CBC & Chem 7: 09/07/18 14:50 09/07/18 14:50
[2018-09-07 15:40] LABS: HCT 42.1 % (39.0-53.0); HGB 13.5 gm/dL (13.0-17.5); Mean Platelet Volume 7.4; Platelet Count 463 k/uL (150-450); RBC 4.98 m/uL (4.30-5.90); WBC 13.9 k/uL (3.8-10.6)
[2018-09-07 15:48] LABS: MCV 84.4 fL (80.0-100.0)
[2018-09-08 01:48] LABS: Albumin 4.2 g/dL (3.80-4.90); Albumin/Globulin Ratio 2.33 (1.60-3.17); Anion Gap 7.7 mmol/L (4.00-12.00); Calcium 9.3 mg/dL (8.7-10.3); Carbon Dioxide 28.3 mmol/L (21.6-31.8); Globulin 1.8 g/dL (1.6-3.3); Potassium 4.6 mmol/L (3.5-5.5); Total Bilirubin 0.2 mg/dL (0.2-1.2)
== END | disposition home or self-care (01) ==
LOC: BARWHC3 12:39
PROVIDERS: ATTEND Surgery Plastic and Reconstructive Surgery
DX: Z48.817 Encounter for surgical aftercare following surgery on the skin and subcutaneous tissue (principal); E66.01 Morbid (severe) obesity due to excess calories; R63.4 Abnormal weight loss; R77.9 Abnormality of plasma protein, unspecified; Z68.41 Body mass index [BMI] 40.0-44.9, adult; Z98.84 Bariatric surgery status
CPT/HCPCS: 80053; 85027; 36415; G0463; 99211

== ENCOUNTER → 2018-09-28 | Outpatient (CLI) | payer OTHER ==
[2018-09-28 15:38] VITALS: BP 176/90; PULSE 83; TEMP 98.6; BMI 45.6
--- NOTE | 2018-09-28 18:22 | P.PN ---
Subjective Progress Note Date: 09/28/18 Patient over 2 months out from panniculectomy still with moderate drainage of 50 to 100 mL serous bilateral JPs. He reports not feeling well. He reports being sick from an ear infection for over a month which is cause nausea including vomiting. No reports of fevers or chills. NOEL serous. JPs were stripped. ChloraPrep placed along the NOEL sites. Rest of incisions well granulated. No palpable seroma. Abdominal binder refitted snug and marked. Explicit instructions of tight fitting binder advised to decreased drainage from JPs. Patient encouraged to follow up primary care provider to treat ear infection including diuresis for generalized swelling. JPs to be discontinued next week. Objective - Vital Signs Vital signs: Vital Signs Temp 98.6 F 09/28/18 15:35 Pulse 83 09/28/18 15:35 Resp BP 176/90 09/28/18 15:35 Pulse Ox Intake & Output 09/27/18 09/28/18 09/28/18 18:59 06:59 18:59 Weight 144.242 kg
== END | disposition home or self-care (01) ==
LOC: BARWHC3 13:19
PROVIDERS: ATTEND Surgery Plastic and Reconstructive Surgery
DX: Z48.817 Encounter for surgical aftercare following surgery on the skin and subcutaneous tissue (principal); H66.90 Otitis media, unspecified, unspecified ear; R11.2 Nausea with vomiting, unspecified; Z98.890 Other specified postprocedural states; Z97.8 Presence of other specified devices
CPT/HCPCS: 99212

== ENCOUNTER → 2018-10-05 | Outpatient (CLI) | payer OTHER ==
[2018-10-05 14:25] VITALS: BP 175/91; PULSE 64; RESP 16; TEMP 98.5; BMI 45.9
--- NOTE | 2018-10-05 14:45 | P.PN ---
Subjective Progress Note Date: 10/05/18 DATE OF SERVICE: 10/05/2018 CHIEF COMPLAINT: Panniculitis HISTORY OF PRESENT ILLNESS: Niles Bacon is a 53-year-old gentleman who status post panniculectomy of 33 pounds, 07/25/18. He is doing much better. Drainage from NOEL is moderately decreased. NOEL drains are serous. He is on a diuretic with moderate improvement of his swelling. He is almost 3 months out from his panniculectomy. His highest weight was 607 pounds as of August 2014. His body mass index was as high as 87.3. Today he comes in weighing 319 pounds from 317 pounds, 1 week ago. He has gained 2 pounds in 1 week. His body mass index is reduced from 87.3 to 45.9. His lifetime weight loss is 288 pounds. Total percent excess weight loss is 66%. PHYSICAL EXAM: VITAL SIGNS: 5 foot 10, 319 pounds. Body mass index is 45.9 Vital Signs Temp 98.5 F 10/05/18 14:22 Pulse 64 10/05/18 14:22 Resp 16 10/05/18 14:22 BP 175/91 10/05/18 14:22 Pulse Ox GENERAL: Well-developed male in no acute distress. ABDOMEN: No cellulitis. NOEL serous and removed. No seromas. Abdominal binder re- positioned. HEENT: Hears conversational speech. Moist buccal mucosa. Extraocular movements were grossly intact. No nasal drainage. NECK: Supple without lymphadenopathy. CHEST: Unlabored respirations, equal bilateral excursions. CARDIOVASCULAR: Regular rate and rhythm. 2+ radial pulses. MUSCULOSKELETAL: Bilateral lower extremity edema with 2+. No clubbing cyanosis or edema. NEURO: No focal or lateralizing signs. Cranial nerves II-12 grossly intact. PSYCH: Appropriate affect. Alert and oriented to person, place, and time. SKIN: Well perfused. Good skin turgor. ASSESSMENT: 1. Morbid obesity due to excess calories. 2. Body mass index lifetime reduced from 87.1 down to 45.9 3. Status post sleeve gastrectomy. 4. Chronic panniculitis resolved with panniculectomy, 33 pounds 5. History of massive weight loss, lifetime over 288 pounds. PLAN: 1. Follow up next week for seroma evaluation post NOEL drain removal Objective - Vital Signs Vital signs: Vital Signs Temp 98.5 F 10/05/18 14:22 Pulse 64 10/05/18 14:22 Resp 16 10/05/18 14:22 BP 175/91 10/05/18 14:22 Pulse Ox Intake & Output 10/04/18 10/05/18 10/05/18 18:59 06:59 18:59 Weight 145.15 kg
== END | disposition home or self-care (01) ==
LOC: BARWHC3 13:47
PROVIDERS: ATTEND Surgery Plastic and Reconstructive Surgery
DX: Z48.815 Encounter for surgical aftercare following surgery on the digestive system (principal); E66.01 Morbid (severe) obesity due to excess calories; Z68.42 Body mass index [BMI] 45.0-49.9, adult; Z98.84 Bariatric surgery status; Z98.890 Other specified postprocedural states
CPT/HCPCS: 99202

== ENCOUNTER → 2018-10-12 | Outpatient (CLI) | payer OTHER ==
[2018-10-12 13:11] VITALS: BP 170/104; PULSE 74; TEMP 98.4; BMI 46.0
--- NOTE | 2018-10-12 14:31 | P.PN ---
Subjective Progress Note Date: 10/12/18 DATE OF SERVICE: 10/12/2018 CHIEF COMPLAINT: Panniculitis HISTORY OF PRESENT ILLNESS: Niles Bacon is a 53-year-old gentleman who status post panniculectomy of 33 pounds, 07/25/18. He reports constantly swelling of the lower extremities. He is drinking a bottle of wine every 1 to 2 days. His bowel movements are usually weekly. His highest weight was 607 pounds as of August 2014. His body mass index was as high as 87.3. Today he comes in weighing 320 pounds from 319 pounds, 1 week ago. He has gained 1 pound in 1 week. His body mass index is reduced from 87.3 to 46.1. His lifetime weight loss is 287 pounds. Total percent excess weight loss is 66% lifetime. PHYSICAL EXAM: VITAL SIGNS: 5 foot 10, 320 pounds. Body mass index is 46.1 Vital Signs Temp 98.4 F 10/12/18 13:06 Pulse 74 10/12/18 13:06 Resp BP 170/104 10/12/18 13:06 Pulse Ox GENERAL: Well-developed male in no acute distress. ABDOMEN: No cellulitis. Very minimal fluid. HEENT: Hears conversational speech. Moist buccal mucosa. Extraocular movements were grossly intact. No nasal drainage. NECK: Supple without lymphadenopathy. CHEST: Unlabored respirations, equal bilateral excursions. CARDIOVASCULAR: Regular rate and rhythm. 2+ radial pulses. MUSCULOSKELETAL: Bilateral lower extremity edema with 2+. NEURO: No focal or lateralizing signs. Cranial nerves II-12 grossly intact. PSYCH: Appropriate affect. Alert and oriented to person, place, and time. SKIN: Well perfused. Good skin turgor. ASSESSMENT: 1. Morbid obesity due to excess calories. 2. Body mass index lifetime reduced from 87.1 down to 46.1 3. Status post sleeve gastrectomy. 4. Chronic panniculitis resolved with panniculectomy, 33 pounds 5. History of massive weight loss, lifetime over 287 pounds. 6. Alcohol addiction. PLAN: 1. Recommend Lasix for generalized edema. 2. He has constipation. Recommend Miralax 3. Follow up in 2 weeks for any issues. Objective - Vital Signs Vital signs: Vital Signs Temp 98.4 F 05/08/19 13:06 Pulse 74 10/12/18 13:06 Resp BP 170/104 10/12/18 13:06 Pulse Ox Intake & Output 10/11/18 10/12/18 10/12/18 18:59 06:59 18:59 Weight 145.603 kg
== END ==
LOC: BARWHC3 12:42
PROVIDERS: ATTEND Surgery Plastic and Reconstructive Surgery
DX: E66.01 Morbid (severe) obesity due to excess calories (principal); R63.4 Abnormal weight loss; F10.20 Alcohol dependence, uncomplicated; K59.00 Constipation, unspecified; R60.0 Localized edema; Z98.84 Bariatric surgery status; Z68.42 Body mass index [BMI] 45.0-49.9, adult
CPT/HCPCS: 99212

== ENCOUNTER 2019-07-21 19:03 | Inpatient (IN) | payer OTHER ==
[2019-07-21] MEDS ORDERED: HEPARIN SODIUM,PORCINE 5,000 UNIT/ML 1 ML VIAL IV PRN (19:14)
[2019-07-21] MEDS ORDERED: HEPARIN SOD,PORK IN 0.45% NACL 25,000 UNIT in 0.45% NACL 1 250ML.BAG IV SCH (19:15)
[2019-07-21] MEDS ORDERED: HYDROmorphone 1 MG/ML 1 ML SYRINGE IVP STA (19:32)
[2019-07-21] MEDS ORDERED: ONDANSETRON 4 MG/2 ML VIAL IVP STA (19:32)
[2019-07-21] MEDS ORDERED: NITROGLYCERIN OINT 1 INCH/GM PACKET TOPICAL STA (19:32)
--- NOTE | 2019-07-21 19:36 | ED ---
Chest Pain HPI - General Chief Complaint: Chest Pain Stated Complaint: Chest Pain Time Seen by Provider: 07/21/19 19:06 Source: patient, RN/MD, EMS, RN notes reviewed, old records reviewed Mode of arrival: EMS - History of Present Illness Initial Comments: This is a 54-year-old male with a history of obesity status post. Surgery and panniculectomy as well as history diabetes and hypertension who states having intermittent chest pains for past several days some of the leg retrosternal pressure heaviness with some radiation to his neck and now is RSV states she also has neck problems or he has pain it radiates. The chest pain currently he states is reproducible which is different than the burning type indigestion or reflux-type pain he thought he was having. He was seen at [facility] only have evidence of a non-ST elevation myocardial infarction EKG showed no acute ST elevations he did have a troponin however of 4.44. He was transferred here for further evaluation. He's been having intermittent chest pain since then however is difficult to ascertain if there from the chest wall or of a cardiac origin. No current fevers chills nausea vomiting sweats or other symptoms he was given nitroglycerin at the other facility it did for brief period time drop his blood pressure he was given fluids. He's also was given aspirin. He is currently on heparin. MD Complaint: chest pain - Related Data Home Medications Medication Instructions Recorded Confirmed Calcium/Vitamin D3(Unknown Dose) 1 tab PO AC-TID 07/21/19 07/21/19 Liquid Chlorophyll 15 ml PO BID 07/21/19 07/21/19 Multivitamins, Thera [Multivitamin 1 tab PO AC-TID 07/21/19 07/21/19 (formulary)] Psyllium Husk 100% [Metamucil 6 gm PO BID 07/21/19 07/21/19 Packet] Vitamin A(Unknown Dose) 1 tab PO AC-TID 07/21/19 07/21/19 Allergies Allergy/AdvReac Type Severity Reaction Status Date / Time Milk Containing Products AdvReac Mild Nausea & Verified 07/21/19 19:42 [Dairy] Vomiting & Diarrhea Review of Systems ROS Statement: Those systems with pertinent positive or pertinent negative responses have been documented in the HPI. ROS Other: All systems not noted in ROS Statement are negative. EKG Findings - EKG Results: EKG: interpreted by ERMD, sinus rhythm (Sinus rhythm of 59 SC interval 124 QRS duration 90 QT since QTC 420/[address]-T wave configuration this is compared with an EKG dated 07/20/18 which looks consistent except for some flattening of the T-wave in V4 5 and 6.) Past Medical History Past Medical History: Hypertension Additional Past Medical History / Comment(s): CHRONIC BACK PAIN which has increased significantly with major weight loss, sciatica, bronchitis, arthritis, borderline thyroid issues, NOT ON ANYTHING FOR B/P History of Any Multi-Drug Resistant Organisms: None Reported Past Surgical History: Bariatric Surgery Additional Past Surgical History / Comment(s): EGD. GASTRIC SLEEVE PANNICULECTOMY 07-25-18 Past Anesthesia/Blood Transfusion Reactions: No Reported Reaction Additional Past Anesthesia/Blood Transfusion Reaction / Comment(s): HAS NEVER HAD GENERAL ANESTHESIA Past Psychological History: Anxiety, Bipolar, Depression, Panic Disorder Smoking Status: Never smoker Past Alcohol Use History: Rare Past Drug Use History: None Reported - Past Family History Father Family Medical History: Hypertension Additional Family Medical History / Comment(s): mental disease, violent disorders Mother Family Medical History: Hypertension General Exam - General Exam Comments Initial Comments: This is a well-developed well-nourished awake alert oriented 3 male General appearance: alert, in no apparent distress Head exam: Present: atraumatic, normocephalic, normal inspection Eye exam: Present: normal appearance, PERRL, EOMI. Absent: scleral icterus, conjunctival injection, periorbital swelling ENT exam: Present: normal exam, mucous membranes moist Neck exam: Present: normal inspection. Absent: tenderness, meningismus, lymphadenopathy Respiratory exam: Present: normal lung sounds bilaterally, chest wall tenderness (Reproducible tenderness palpation of the costosternal margins bilaterally no step-off or crepitation). Absent: respiratory distress, wheezes, rales, rhonchi, stridor Cardiovascular Exam: Present: normal rhythm, bradycardia, normal heart sounds. Absent: systolic murmur, diastolic murmur, rubs, gallop, clicks GI/Abdominal exam: Present: soft, normal bowel sounds. Absent: distended, tenderness, guarding, rebound, rigid Extremities exam: Present: normal inspection, full ROM, normal capillary refill. Absent: tenderness, pedal edema, joint swelling, calf tenderness Back exam: Present: normal inspection Neurological exam: Present: alert, oriented X3, CN II-XII intact Psychiatric exam: Present: normal affect, normal mood Skin exam: Present: warm, dry, intact, normal color. 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 I did discuss case with Dr. Boland and also with Dr. Harry. Patient be admitted continue with heparin low- dose aspirin low-dose beta katalina continued inpatient evaluation. Disposition Clinical Impression: Acute non-ST elevation myocardial infarction (NSTEMI) Disposition: ADMITTED IP TO THIS HOSP Condition: Fair Referrals: Rashid Price MD [Primary Care Provider] - 1-2 days
[2019-07-21] MEDS ORDERED: NITROGLYCERIN SL TABS 0.4 MG TAB SUBLINGUAL PRN (20:09)
[2019-07-21] MEDS: METOPROLOL TARTRATE 25 MG TAB PO SCH (20:29)
[2019-07-21] MEDS ORDERED: LORazepam 2 MG/ML INJ IV STA ×2 (20:54→22:19)
[2019-07-22] MEDS: NITROGLYCERIN OINT 1 INCH/GM PACKET TOPICAL SCH ×5 (00:03→17:06)
[2019-07-22] MEDS: MORPHINE SULFATE 4 MG/ML SYRINGE IVP PRN ×3 (00:03→12:43)
[2019-07-22 02:07] LABS: Basophils # (A) 0.1 k/uL (0-0.2); Basophils % (A) 1 %; Eosinophils # (A) 0.2 k/uL (0-0.7); Eosinophils % (A) 2 %; HCT 43.1 % (39.0-53.0); HGB 13.7 gm/dL (13.0-17.5); Lymphocytes # (A) 2.5 k/uL (1.0-4.8); Lymphocytes % (A) 20 %; MCH 26.6 pg (25.0-35.0); MCHC 31.8 g/dL (31.0-37.0); MCV 83.8 fL (80.0-100.0); Mean Platelet Volume 7.4; Monocytes # (A) 0.7 k/uL (0-1.0); Monocytes % (A) 6 %; Neutrophils % (A) 70 %; Platelet Count 312 k/uL (150-450); RBC 5.14 m/uL (4.30-5.90); RDW 13.6 % (11.5-15.5); WBC 12.8 k/uL (3.8-10.6)
[2019-07-22 02:15] LABS: Partial Thromboplastin Time 29.3 sec (22.0-30.0); Prothrombin Time 10.5 sec (9.0-12.0)
[2019-07-22 06:23] LABS: Basophils # (A) 0.1 k/uL (0-0.2); Basophils % (A) 0 %; Eosinophils # (A) 0.2 k/uL (0-0.7); Eosinophils % (A) 1 %; HCT 42.3 % (39.0-53.0); HGB 13.5 gm/dL (13.0-17.5); Lymphocytes # (A) 2.3 k/uL (1.0-4.8); Lymphocytes % (A) 19 %; MCH 26.9 pg (25.0-35.0); MCV 84.2 fL (80.0-100.0); Mean Platelet Volume 7.5; Monocytes # (A) 0.7 k/uL (0-1.0); Monocytes % (A) 6 %; Neutrophils # (A) 8.5 k/uL (1.3-7.7); Neutrophils % (A) 71 %; Platelet Count 329 k/uL (150-450); RBC 5.03 m/uL (4.30-5.90); RDW 13.4 % (11.5-15.5)
[2019-07-22 06:32] LABS: Cholesterol 173 mg/dL (<200); HDL Cholesterol 32 mg/dL (40-60); LDL Cholesterol,Calculated 115 mg/dL (0-99); Triglycerides 130 mg/dL (<150)
[2019-07-22] MEDS ORDERED: ATORVASTATIN 80 MG TAB PO STA (08:00)
[2019-07-22] MEDS ORDERED: HYDROmorphone 0.5 MG/0.5 ML SYRINGE IVP STA (08:03)
[2019-07-22] MEDS ORDERED: ALPRAZolam 0.25 MG TAB PO PRN (08:09)
[2019-07-22] MEDS: METOPROLOL TARTRATE 25 MG TAB PO SCH (08:15)
[2019-07-22] MEDS ORDERED: SODIUM CHLORIDE 0.9% 1,000 ML in EMPTY BAG 1 BAG IV ONE (08:30)
[2019-07-22] MEDS ORDERED: ASPIRIN 81 MG PO SCH (09:00)
[2019-07-22] MEDS ORDERED: ASPIRIN 325 MG TAB PO SCH (09:00)
[2019-07-22 09:07] LABS: Basophils # (A) 0.1 k/uL (0-0.2); Basophils % (A) 0 %; Eosinophils # (A) 0.2 k/uL (0-0.7); Eosinophils % (A) 2 %; HCT 41.5 % (39.0-53.0); HGB 13.5 gm/dL (13.0-17.5); Lymphocytes # (A) 2.8 k/uL (1.0-4.8); Lymphocytes % (A) 21 %; MCH 27.2 pg (25.0-35.0); MCHC 32.5 g/dL (31.0-37.0); MCV 83.7 fL (80.0-100.0); Monocytes # (A) 0.6 k/uL (0-1.0); Monocytes % (A) 5 %; Neutrophils # (A) 9.7 k/uL (1.3-7.7); Neutrophils % (A) 71 %; Platelet Count 332 k/uL (150-450); RBC 4.96 m/uL (4.30-5.90); RDW 13.3 % (11.5-15.5); WBC 13.7 k/uL (3.8-10.6)
[2019-07-22 09:28] LABS: ALT 25 U/L (4-49); AST 131 U/L (17-59); African American GFR (CKD) >90 (>60 ml/min/1.73 sqM); Albumin 3.7 g/dL (3.5-5.0); Alkaline Phosphatase 82 U/L (38-126); Anion Gap 8 mmol/L; Blood Urea Nitrogen 11 mg/dL (9-20); Calcium 8.5 mg/dL (8.4-10.2); Carbon Dioxide 24 mmol/L (22-30); Chloride 106 mmol/L (98-107); Glucose 100 mg/dL (74-99); Non-African American GFR(CKD) >90 (>60 ml/min/1.73 sqM); Sodium 138 mmol/L (137-145); Total Bilirubin 0.7 mg/dL (0.2-1.3); Total Protein 6.4 g/dL (6.3-8.2)
[2019-07-22] MEDS ORDERED: SODIUM CHLORIDE 0.9% 1,000 ML IV ONE (10:13)
[2019-07-22] MEDS ORDERED: VERAPAMIL 2.5 MG/ML 2 ML AMP ONE (10:14)
[2019-07-22] MEDS ORDERED: LIDOCAINE 1% INJ 10MG/ML (20 ML MDV) ONE (10:14)
[2019-07-22] MEDS ORDERED: HEPARIN SODIUM 1,000 UN/ML (10ML VL) ONE (10:14)
[2019-07-22] MEDS ORDERED: MIDAZOLAM 2 MG/2 ML VIAL IVP ONE (10:30)
[2019-07-22] MEDS ORDERED: LIDOCAINE 1% INJ 10MG/ML (20 ML MDV) SQ ONE (10:33)
[2019-07-22] MEDS ORDERED: fentaNYL (PF) 50 MCG/ML 2 ML AMP ONE (10:35)
[2019-07-22] MEDS: VERAPAMIL SYRINGE (5 MG/10 ML) INTRAARTER ONE ×2 (10:35→11:43)
[2019-07-22] MEDS ORDERED: fentaNYL (PF) 50 MCG/ML 2 ML AMP IVP ONE (10:40)
[2019-07-22] MEDS ORDERED: HEPARIN SODIUM 1,000 UN/ML (10ML VL) IV ONE (10:40)
[2019-07-22] MEDS ORDERED: BIVALIRUDIN BOLUS 250 MG/50 ML IV ONE (10:59)
[2019-07-22] MEDS ORDERED: BIVALIRUDIN 250 MG in SODIUM CHLORIDE 0.9% 50 ML IV ONE ×2 (11:00→11:21)
[2019-07-22] MEDS ORDERED: IOPAMIDOL-370 100ML BTL INJ ONE ×2 (11:01→11:50)
[2019-07-22] MEDS: niCARdipine Syringe (1,000 mcg/10 mL) INTRACORON ONE ×2 (11:20→11:25)
[2019-07-22] MEDS ORDERED: IOPAMIDOL-370 125ML BTL INJ ONE (11:24)
[2019-07-22] MEDS ORDERED: TICAGRELOR 90 MG TAB ONE (11:39)
[2019-07-22] MEDS ORDERED: TICAGRELOR 90 MG TAB PO ONE (11:43)
[2019-07-22] MEDS ORDERED: LOSARTAN 50 MG TAB PO SCH (12:00)
[2019-07-22] MEDS: SODIUM CHLORIDE 0.9% 1,000 ML IV SCH (12:14)
--- NOTE | 2019-07-22 14:39 | ECHOF ---
Referral Reason:Chest Pain, EKG changes MEASUREMENTS -------- HEIGHT: 157.5 cm WEIGHT: 143.3 kg BP: RVIDd: 3.6 cm (< 3.3) IVSd: 1.8 cm (0.6 - 1.1) LVIDd: 5.5 cm (3.9 - 5.3) LVPWd: 1.8 cm (0.6 - 1.1) IVSs: 2.1 cm LVIDs: 4.2 cm LVPWs: 1.5 cm LA Diam: 4.5 cm (2.7 - 3.8) LAESV Index (A-L): 33.76 ml/m Ao Diam: 3.8 cm (2.0 - 3.7) AV Cusp: 2.1 cm (1.5 - 2.6) LA Diam: 4.2 cm (2.7 - 3.8) MV EXCURSION: 22.126 mm (> 18.000) MV EF SLOPE: 114 mm/s (70 - 150) EPSS: 0.4 cm MV E Ismael: 0.74 m/s MV DecT: 262 ms MV A Ismael: 0.74 m/s MV E/A Ratio: 1.00 RAP: 5.00 mmHg FINDINGS -------- Sinus rhythm. Morbid Obesity There is severe concentric left ventricular hypertrophy. Overall left ventricular systolic function is mildly impaired with, an EF between 45 - 50 %. Inferior basal Hypokinesis The right ventricle is normal in size. The left atrium is mildly dilated. LA is moderately dilated 34-39 ml/m2 The right atrial size is normal. The aortic valve is trileaflet, and appears structurally normal. No aortic stenosis or regurgitation. Mild mitral annular calcification present. Mild mitral regurgitation is present. Mild tricuspid regurgitation present. Right ventricular systolic pressure is normal at < 35 mmHg. There is no evidence of pulmonary hypertension. There is no pulmonic regurgitation present. The aortic root size is normal. There is no pericardial effusion. CONCLUSIONS -------- 1. Sinus rhythm. 2. Morbid Obesity 3. There is severe concentric left ventricular hypertrophy. 4. Overall left ventricular systolic function is mildly impaired with, an EF between 45 - 50 %. 5. Inferior basal Hypokinesis 6. The right ventricle is normal in size. 7. The left atrium is mildly dilated. 8. LA is moderately dilated 34-39 ml/m2 9. The right atrial size is normal. 10. The aortic valve is trileaflet, and appears structurally normal. No aortic stenosis or regurgitat ion. 11. Mild mitral annular calcification present. 12. Mild mitral regurgitation is present. 13. Mild tricuspid regurgitation present. 14. Right ventricular systolic pressure is normal at < 35 mmHg. 15. There is no evidence of pulmonary hypertension. 16. There is no pulmonic regurgitation present. 17. The aortic root size is normal. 18. There is no pericardial effusion. TRIMMING CASER: Samantha Real RDCS
[2019-07-22] MEDS: CALCIUM CARB-VIT D 500MG-200UN 1 EACH TAB PO SCH (17:06)
[2019-07-22] MEDS: MULTIVITAMINS, THERA 1 EACH TAB PO SCH (17:06)
[2019-07-22 19:04] LABS: Appearance,Urine Clear (Clear); Bilirubin,Urine Negative (Negative); Blood,Urine Negative (Negative); Color,Urine Light Yellow; Glucose,Urine (UA) Negative (Negative); Ketones,Urine Trace (Negative); Leukocyte Esterase,Urine Negative (Negative); Nitrite,Urine Negative (Negative); PH, Urine 6.5 (5.0-8.0); Protein,Urine Negative (Negative); Specific Gravity,Urine 1.023 (1.001-1.035); Urobilinogen,Urine <2.0 mg/dL (<2.0)
--- NOTE | 2019-07-22 19:52 | HP ---
HISTORY AND PHYSICAL DATE OF SERVICE: 07/22/2019 CHIEF COMPLAINT: Chest pain. HISTORY OF PRESENT ILLNESS: This 54-year-old gentleman with a past medical history of multiple medical problems such as history of hypertension, history of chronic back pain, history of bariatric surgery, anxiety, bipolar depression, panic disorder, being followed by Dr. Rashid Price in the outpatient setting is complaining of chest pain which is felt in the anterior chest for the past several days. The pain was present on rest also. The patient also had upper GI reflux-like symptoms. The pain is radiating to the neck also. Because of increasing pain yesterday, the patient came to [facility] and was thought to have non ST elevation myocardial infarction. Patient was initially seen in [facility]. The troponins were more than 4.4. The patient was transferred to [facility] and admitted for further evaluation and treatment. Currently, EKG showed nonspecific ST-T changes, ( ) sharp waves also. A 2D echo with Doppler showed ejection fraction 45-50% with inferior basilar hypokinesia. The patient underwent cardiac catheterization and OM stenting and at this time detailed reports are pending. PAST MEDICAL HISTORY: History of hypertension, history of chronic back pain, history of bariatric surgery, DJD, anxiety, bipolar depression, panic disorder. HOME MEDICATIONS: 1. Vitamin A one p.o. t.i.d. 2. Psyllium husk. 3. Multivitamin one daily. 4. Liquid chlorophyll. 5. Calcium with vitamin D p.o. t.i.d. ALLERGIES: MILK. FAMILY HISTORY: History of hypertension, mental disorder, ( ) disorder. SOCIAL HISTORY: No history of smoking, occasional alcohol intake. REVIEW OF SYSTEMS: ENT No history of diminished hearing or vision. CARDIOVASCULAR As mentioned earlier. RESPIRATORY As mentioned earlier. GI No nausea, vomiting, or diarrhea. No dysuria. NERVOUS No numbness or weakness. ALLERGY/IMMUNOLOGY No asthma or hayfever. MUSCULOSKELETAL As mentioned earlier. HEMATOLOGY/ONCOLOGY Negative. ENDOCRINE No history of diabetes or hypothyroidism. SKIN Negative. CONSTITUTIONAL As mentioned earlier. PSYCHIATRY As mentioned earlier. PHYSICAL EXAMINATION: Alert and oriented x3. Pulse 66, blood pressure 164/82, respiration 20, temperature normal, pulse ox 94% on room air skin: HEENT: Conjunctivae normal. Oral mucosa moist. NECK: No jugular venous distention. No lymph node enlargement. CARDIOVASCULAR: S1, S2. RESPIRATORY: Diminished breath sounds at the bases. A few scattered rhonchi and crackles. ABDOMEN: Soft, obese, nontender. No mass palpable. LEGS: No edema, no swelling. NERVOUS SYSTEM: Higher functions mentioned earlier. Moves all four limbs. No focal deficits. LYMPHATICS: No lymph node in neck or axilla. SKIN: No rash. JOINTS: No active deforming arthropathy. LABS: WBC 12.8, glucose 100, AST is 131, LDL is 115, troponin is 10.800. ASSESSMENT: 1. Acute [id number]-elevation myocardial infarction status post cardiac catheterization and stenting. 2. Increased WBC, possibly reactive. 3. Increased AST. 4. Hyperlipidemia. 5. Obesity with body mass index of 45.4. 6. Hypertension. 7. Chronic back pain. degenerative joint disease. 8. History of sciatica. 9. History of borderline thyroid issues. 10.History of bariatric surgery. 11.History of gastric sleeve and panniculectomy. 12.History of anxiety, bipolar depression, panic disorder. RECOMMENDATIONS AND DISCUSSION: In this 54-year-old gentleman who presented with multiple complex medical issues, will monitor the patient closely, continue the current medication, continue symptomatic treatment. Otherwise, at this time continue with the acute coronary syndrome protocol. Continue with dual antiplatelet treatment. Otherwise, proton pump inhibitors and DVT prophylaxis. We will follow the patient closely. The patient will be asked to follow up with Dr. Price and Cardiology after discharge. MMODL / IJN: [id number] /
[2019-07-22] MEDS: ZOLPIDEM 5 MG TAB PO SCH (21:17)
[2019-07-22] MEDS: METOPROLOL TARTRATE 12.5 MG TAB PO SCH (21:17)
[2019-07-22] MEDS: PSYLLIUM HUSK 100% 6 GM PACKET PO SCH (21:18)
[2019-07-22] MEDS: ATORVASTATIN 80 MG TAB PO SCH (21:18)
--- NOTE | 2019-07-22 23:54 | CONS ---
CONSULTATION Mr. Bacon was seen by me early this morning. This is a gentleman who was transferred from [facility]. He is quite obese and apparently had more than 600 pounds of weight and underwent a gastric sleeve surgery and panniculectomy in 2019 and since then he is down to 306 pounds or so. He has hypertension, but has not been taking any medications for that. For about a week or so, he has been having nondescript chest tightness and pressure, then it became a constant ache. He thought it was some epigastric hiatal hernia problems and then thought he had a cold, but eventually went to the walk-in clinic, underwent a blood test. The troponin was 4.4. He was transferred yesterday to [facility] Emergency Room. In the ER, he was pain free, was started on a heparin drip. Subsequently, troponin went up to 10. This morning he became more diaphoretic, had precordial T-wave inversion in leads V4, V5 and V6. He was advised prompt cardiac catheterization and I explained to him the rationale, risks, benefits, and options and I also spoke to his by phone. PAST MEDICAL HISTORY: 1. Hypertension, untreated by his own choice. 2. History of morbid obesity status post gastric sleeve surgery and panniculectomy in 2019. 3. Hypertension. 4. Episodes of bronchitis. 5. No evidence of any diabetes or myocardial infarction. ALLERGIES: Patient is allergic to some MILK PRODUCTS. MEDICATIONS: He just takes some calcium supplements and vitamins. No prescription medications. PHYSICAL EXAMINATION: Blood pressure is 130/70, pulse rate was about 70 per minute. HEENT unremarkable. Fundus was not examined by me. Neck is supple. There is no JVD. No carotid bruit. Heart exam reveals S1, S2 heard normally. Short systolic murmur at left sternal border. Lungs are clear. Abdomen is soft, nontender. Lower extremities reveal normal pulses. No edema. Central nervous system was normal. EKG revealed sinus mechanism. Initial EKG revealed some T-wave flattening and now there is more prominent T-wave inversion in lead V4, V5, V6. Troponin levels are elevated up to 10. IMPRESSION: 1. Acute non ST elevation myocardial infarction. 2. Morbid obesity status post gastric sleeve surgery and panniculectomy. 3. Hypertension, untreated. RECOMMENDATIONS: I initiated him on aspirin, continue the IV heparin, placed him on a beta katalina and also on Lipitor. Advised prompt cardiac cath, possible PCI. I explained this to the patient in detail. Talked to his by phone and will proceed with cardiac cath after my evaluation. GUERO / ABDIAZIZ: [id number] /
--- NOTE | 2019-07-23 00:13 | CC ---
CARDIAC CATHETERIZATION REPORT DATE OF SERVICE: 07/22/2019. PROCEDURE: 1. Left heart catheterization and coronary angiography. 2. PTCA and stenting of high first obtuse marginal branch of circumflex with a drug- eluting stent. 3. PTCA of second obtuse marginal branch of circumflex. SEDATION: Moderate conscious sedation time was 69 minutes. The patient was administered Versed. Oxygen saturation, hemodynamics, EKG were monitored closely. He also received some fentanyl as well. CLINICAL INFORMATION: Mr. Niles Bacon is a 54-year-old morbidly obese patient with hypertension, came into the hospital with chest pain, transferred from [place], was found to have a troponin elevation, advised prompt cardiac catheterization after due discussion. PROCEDURE NOTE: Under local anesthesia and strict aseptic precautions, a 6-Yemeni sheath was placed in the right radial artery. Using a JL3.5 and JR4 catheters, I performed coronary angiography and the same right catheter was used to check LV pressures. LV gram was not performed. I noted that the patient had significant disease and proceeded to perform PCI of a totally occluded first and second obtuse marginal branch in the same setting. CARDIAC CATHETERIZATION FINDINGS: The left ventricular end-diastolic pressure was 12 mmHg without any gradient across aortic valve. CORONARY ANGIOGRAPHY FINDINGS: RIGHT CORONARY ARTERY: This is a technically dominant vessel large in caliber and distribution. No significant disease in the proximal and midportion. Distally bifurcates into small PLV and a large PDA. The PDA at its origin and proximally right after the origin has about 80% stenosis, fair caliber vessel, supplies a fair amount of myocardium and gives off septal branches. PDA therefore has a 70% to 80% eccentric lesion right after its origin. PLV is a small caliber, small distribution vessel. LEFT MAIN CORONARY ARTERY: Short patent disease-free vessel that bifurcates into LAD and circumflex. LEFT ANTERIOR DESCENDING CORONARY ARTERY: Good caliber vessel extends along the anterior wall. In the midportion gives off a diagonal branch that has minor irregularities. In the midportion the diagonal has about a 30% to 40% narrowing. The LAD runs all the way to the apex supplying a sizable amount of myocardium. No significant disease in the entire LAD system or the diagonal system. LEFT POSTERIOR CIRCUMFLEX CORONARY ARTERY: Technically, probably a nondominant system but significant caliber and distribution. The first obtuse marginal comes off very high and this is totally occluded and seen as a stump. The second obtuse marginal is also seen as a stump, appears to be a smaller vessel relatively. The 2 obtuse marginal branches are occluded. There is a small obtuse marginal after which there is a very large obtuse marginal that runs laterally, has no significant disease. Just before his large obtuse marginal, the groove branch continues in the AV groove and distally bifurcates into 2 branches. Just before the bifurcation of this groove branch which is of fair caliber, there is 80-90 percent stenosis and there is also some independent disease noted in both the branches as well. This 90% stenosis in the circumflex marginal is in the groove branch that is before the bifurcation and also involves the ostium of one of the branches. Both of these are of fair caliber and distribution. LEFT VENTRICULOGRAM: This was not performed. FINAL IMPRESSION: This patient has a total occlusion of first and second obtuse marginal branches, 70-80 percent stenosis in the PDA branch of RCA, the circumflex groove branch has a 90% stenosis after which 2 small branches are coming off and these are small branches and the lesion is at the bifurcation lesion. The main circumflex marginal is free of significant disease. The first two obtuse marginal branches are occluded. RECOMMENDATIONS: I recommended PCI of the circumflex marginal branches. Proceed performed in the same setting. PCI PROCEDURE DETAILS: PROCEDURE NOTE: This patient received Angiomax bolus and infusion. He also received Brilinta 180 mg orally. I used a JL3.5 guide catheter of 6-Yemeni caliber to cannulate the left coronary artery. I used a run-through wire. With this, I was able to cross the second obtuse marginal and used a 2.25 caliber 12 mm balloon and gave multiple inflations. This vessel opened up very well, but there is no more than a 2-2.25 caliber vessel small in caliber and distribution, but there was good MAXX-3 flow with the residual stenosis of no more than 30%. I then turned my attention to the first obtuse marginal which was somewhat difficult to cannulate. I was able to slowly get through the first obtuse marginal and kept the wire distally, gave multiple inflations. The whole vessel was laden with thrombus. After a number of dilatations, there was improvement in the vessel. I then gave some nicardipine intracoronary as well as nitroglycerin. I deployed an 18 mm long 2.5 caliber Xience stent with excellent angiographic result. Distally, I dilated with a 2.25 caliber 12 mm Trek balloon. After multiple inflations, there was excellent angiographic result with a MAXX-3 flow was noted. The patient was free of any chest discomfort. It appears that both of these circumflex marginal vessels were culprit vessels. Excellent angiographic result was achieved. The sheath was taken out and a TR band applied as per protocol. The saturation of the fingers of the right hand of about 95%. Excellent angiographic result was achieved. Results were discussed with the patient, and several friends and family. I will do staged intervention of the other 2 vessels probably at a later stage. Patient received a substantial amount of contrast. We will check renal function tomorrow. Prognosis remains guarded. MMODL / IJN: [id number] /
[2019-07-23] MEDS: NITROGLYCERIN OINT 1 INCH/GM PACKET TOPICAL SCH ×4 (01:35→18:04)
[2019-07-23] MEDS: SODIUM CHLORIDE 0.9% 1,000 ML IV SCH (01:37)
[2019-07-23 05:39] LABS: Basophils % (A) 0 %; Eosinophils # (A) 0.2 k/uL (0-0.7); Eosinophils % (A) 2 %; HCT 39.3 % (39.0-53.0); HGB 12.6 gm/dL (13.0-17.5); Lymphocytes # (A) 2.3 k/uL (1.0-4.8); Lymphocytes % (A) 19 %; MCH 26.9 pg (25.0-35.0); MCHC 32.1 g/dL (31.0-37.0); MCV 83.9 fL (80.0-100.0); Mean Platelet Volume 7.1; Monocytes # (A) 0.7 k/uL (0-1.0); Monocytes % (A) 6 %; Neutrophils # (A) 8.4 k/uL (1.3-7.7); Neutrophils % (A) 70 %; Platelet Count 320 k/uL (150-450); RBC 4.69 m/uL (4.30-5.90); RDW 13.5 % (11.5-15.5)
[2019-07-23 05:50] LABS: African American GFR (CKD) >90 (>60 ml/min/1.73 sqM); Anion Gap 3 mmol/L; Blood Urea Nitrogen 10 mg/dL (9-20); Calcium 8.3 mg/dL (8.4-10.2); Carbon Dioxide 27 mmol/L (22-30); Chloride 108 mmol/L (98-107); Glucose 91 mg/dL (74-99); Non-African American GFR(CKD) >90 (>60 ml/min/1.73 sqM); Sodium 138 mmol/L (137-145)
[2019-07-23] MEDS: LOSARTAN 50 MG TAB PO SCH (09:08)
[2019-07-23] MEDS: TICAGRELOR 90 MG TAB PO SCH ×2 (09:08→22:23)
[2019-07-23] MEDS: METOPROLOL TARTRATE 12.5 MG TAB PO SCH (09:09)
[2019-07-23] MEDS: CALCIUM CARB-VIT D 500MG-200UN 1 EACH TAB PO SCH ×3 (09:09→18:04)
[2019-07-23] MEDS: MULTIVITAMINS, THERA 1 EACH TAB PO SCH ×3 (09:09→18:04)
[2019-07-23] MEDS: ASPIRIN 81 MG PO SCH (09:09)
[2019-07-23] MEDS: PSYLLIUM HUSK 100% 6 GM PACKET PO SCH ×2 (09:09→22:23)
--- NOTE | 2019-07-23 09:38 | PN ---
PROGRESS NOTE Mr. Bacon is doing better today. He had some mild chest pain yesterday. I performed stenting of major circumflex marginal and dilatation of the second obtuse marginal. He had a groove branch circumflex lesion bifurcation and also RCA lesion which will be addressed later. He received more than 250 mL of dye. Therefore I will not perform the procedure today. We will give him till tomorrow. Vitals are stable. No JVD. EKG and labs are good. S1-S2 heard normally but distantly. Lungs are clear. Abdomen and lower extremity exam was unchanged. Right radial site is clean and dry with a good pulse, but there is some tenderness. Plan is to continue current medical regimen, perform cardiac cath and proceed with intervention of the RCA and maybe of the branches of the circumflex which are small and have bifurcating lesions. Discussed my thoughts in detail with the patient. GUERO / MERLINN: [id number] /
[2019-07-23] MEDS ORDERED: HYDROmorphone 0.5 MG/0.5 ML SYRINGE IVP PRN (11:01)
[2019-07-23 11:09] VITALS: BMI 45.4
[2019-07-23] MEDS: HYDROmorphone 0.5 MG/0.5 ML SYRINGE IVP PRN (11:10)
--- NOTE | 2019-07-23 11:57 | P.PN ---
Progress Note - Text Patient has seen and examined for second time this morning secondary to ongoing chest discomfort. His pain is atypical and mostly located in his back. No EKG evidence of worsening ischemia. He is scheduled to undergo PCI of the distal RCA and circumflex artery with Dr. Harry tomorrow. He is to be nothing by mouth after midnight tonight. Dilaudid 0.5 mg every 4 hours when necessary for ongoing pain.
[2019-07-23] MEDS ORDERED: CALCIUM CARBONATE 500 MG CHEWABLE PO PRN (17:53)
[2019-07-23] MEDS ORDERED: MAGNESIUM HYDROXIDE 2,400 MG/10 ML CUP PO PRN (22:15)
--- NOTE | 2019-07-23 22:16 | PN ---
PROGRESS NOTE DATE OF SERVICE: 07/23/2019 This 54-year-old gentleman was admitted with acute qzh-DI-egbpkiu-elevation myocardial infarction underwent cardiac catheterization and stenting. The patient being closely monitored. Cardiology following the patient closely. The patient had some chest discomfort this morning, thought to be atypical per Cardiology. The patient is scheduled to undergo PCI of the distal RCA and circumflex. 2D echo with Doppler showed ejection fraction 45-50 percent. PAST MEDICAL HISTORY: Reviewed. REVIEW OF SYSTEMS: Cardiovascular system: As mentioned. RESPIRATORY: As mentioned earlier. GI no nausea or vomiting. : No dysuria or retention. CENTRAL NERVOUS SYSTEM: No numbness or weakness. CURRENT MEDICATIONS: Reviewed and include: 1. Xanax 0.5 q.6h p.r.n. 2. Aspirin 81 mg. 3. Lipitor 80 mg q.h.s. 4. Os-Natanael with vitamin D. 5. Dilaudid 0.5 mg q.4 p.r.n. 6. Cozaar. 7. Lopressor. 8. Multivitamins 1 p.o. daily. 9. Nitro-Bid ointment. 10.Ambien. 11.Doses reviewed. PHYSICAL EXAMINATION: Pulse 64. Blood pressure 161/88, respiration 20, temperature is 98.4, pulse ox 94% on room air. HEENT is conjunctivae normal. NECK: No JVD. CARDIOVASCULAR: S1, S2 muffled. RESPIRATION: Breath sounds diminished in the bases. Bilateral scattered rhonchi and crackles. ABDOMEN: Soft, nontender. LEGS are no edema. No swelling. CENTRAL NERVOUS SYSTEM: No focal deficits. LABS: At this time shows WBC 12, hemoglobin 12.2, sodium 138, potassium 4 and troponin is noted, 9.370. ASSESSMENT: 1. Acute crl-KH-sfvjbrn-elevation myocardial infarction status post cardiac catheterization and stenting. 2. Awaiting stenting of the distal RCA and circumflex artery. 3. Congestive heart failure with chronic systolic dysfunction ejection fraction 45% to 50%. 4. Increased WBC possibly reactive. 5. Increased AST. 6. Hyperlipidemia. 7. Obesity with body mass index of 45.5. 8. Hypertension. 9. Chronic back pain, degenerative joint disease, history of sciatica. 10.History of borderline thyroid issues. 11.History of bariatric surgery. 12.History of gastric sleeve and panniculectomy. 13.History of anxiety, bipolar, bipolar depression, panic disorder. 14.Hyperlipidemia. RECOMMENDATIONS AND DISCUSSION: This 54-year-old gentleman who presented with multiple complex medical issues, we will monitor the patient closely. Continue the current medications, management and symptomatic treatment. Otherwise, we will increase the dose of metoprolol. Closely follow with Cardiology. Continue the rest of medications. Continue with Lipitor. Continue the Brilinta. Otherwise, prognosis guarded because of multiple complex medical issues and further recommendations to follow. MMODL / IJN: [id number] /
[2019-07-23] MEDS: ZOLPIDEM 5 MG TAB PO SCH (22:23)
[2019-07-23] MEDS: ATORVASTATIN 80 MG TAB PO SCH (22:23)
[2019-07-23] MEDS: METOPROLOL TARTRATE 25 MG TAB PO SCH (22:23)
[2019-07-24] MEDS: NITROGLYCERIN OINT 1 INCH/GM PACKET TOPICAL SCH ×4 (01:54→20:07)
[2019-07-24] MEDS ORDERED: SODIUM CHLORIDE 0.9% 1,000 ML in EMPTY BAG 1 BAG IV ONE (04:00)
[2019-07-24] MEDS: MULTIVITAMINS, THERA 1 EACH TAB PO SCH ×3 (06:28→20:06)
[2019-07-24] MEDS: TICAGRELOR 90 MG TAB PO SCH ×2 (06:28→21:27)
[2019-07-24] MEDS: METOPROLOL TARTRATE 25 MG TAB PO SCH ×2 (06:28→21:27)
[2019-07-24] MEDS: CALCIUM CARB-VIT D 500MG-200UN 1 EACH TAB PO SCH ×3 (06:28→20:06)
[2019-07-24] MEDS: ASPIRIN 81 MG PO SCH (06:28)
[2019-07-24 06:30] LABS: Basophils % (A) 0 %; Eosinophils # (A) 0.3 k/uL (0-0.7); Eosinophils % (A) 2 %; HCT 41.7 % (39.0-53.0); HGB 13.5 gm/dL (13.0-17.5); Lymphocytes % (A) 23 %; MCH 27.3 pg (25.0-35.0); MCHC 32.4 g/dL (31.0-37.0); MCV 84.3 fL (80.0-100.0); Mean Platelet Volume 7.3; Monocytes # (A) 0.8 k/uL (0-1.0); Monocytes % (A) 6 %; Neutrophils # (A) 8.8 k/uL (1.3-7.7); Neutrophils % (A) 67 %; Platelet Count 336 k/uL (150-450); RBC 4.95 m/uL (4.30-5.90); RDW 13.7 % (11.5-15.5); WBC 13.3 k/uL (3.8-10.6)
[2019-07-24] MEDS: PSYLLIUM HUSK 100% 6 GM PACKET PO SCH ×2 (06:30→21:27)
[2019-07-24] MEDS: LOSARTAN 50 MG TAB PO SCH (06:30)
[2019-07-24 06:40] LABS: African American GFR (CKD) >90 (>60 ml/min/1.73 sqM); Anion Gap 6 mmol/L; Blood Urea Nitrogen 11 mg/dL (9-20); Calcium 8.9 mg/dL (8.4-10.2); Carbon Dioxide 28 mmol/L (22-30); Chloride 106 mmol/L (98-107); Glucose 92 mg/dL (74-99); Non-African American GFR(CKD) >90 (>60 ml/min/1.73 sqM); Potassium 4.4 mmol/L (3.5-5.1); Sodium 140 mmol/L (137-145)
[2019-07-24] MEDS ORDERED: VERAPAMIL 2.5 MG/ML 2 ML AMP ONE (10:43)
[2019-07-24] MEDS ORDERED: LIDOCAINE 1% INJ 10MG/ML (20 ML MDV) ONE (10:43)
[2019-07-24] MEDS ORDERED: LIDOCAINE 1% INJ 10MG/ML (20 ML MDV) SQ ONE (11:19)
[2019-07-24] MEDS ORDERED: MIDAZOLAM 2 MG/2 ML VIAL IVP ONE (11:19)
[2019-07-24] MEDS ORDERED: BIVALIRUDIN 250 MG in SODIUM CHLORIDE 0.9% 50 ML IV ONE ×2 (11:21→11:54)
[2019-07-24] MEDS ORDERED: VERAPAMIL SYRINGE (5 MG/10 ML) INTRAARTER ONE (11:22)
[2019-07-24] MEDS ORDERED: fentaNYL (PF) 50 MCG/ML 2 ML AMP ONE (11:25)
[2019-07-24] MEDS ORDERED: BIVALIRUDIN BOLUS 250 MG/50 ML IV ONE (11:26)
[2019-07-24] MEDS ORDERED: IV FLUID CONTINUATION 1,000 ML IV ONE (11:35)
[2019-07-24] MEDS ORDERED: fentaNYL (PF) 50 MCG/ML 2 ML AMP IVP ONE (11:35)
[2019-07-24] MEDS ORDERED: NITROGLYCERIN 1000MCG/10ML SYRINGE INTRACORON ONE ×2 (11:50→12:30)
[2019-07-24] MEDS ORDERED: IOPAMIDOL-370 100ML BTL INJ ONE ×3 (11:54→12:37)
[2019-07-24] MEDS ORDERED: TICAGRELOR 90 MG TAB ONE (12:34)
[2019-07-24] MEDS ORDERED: TICAGRELOR 90 MG TAB PO ONE (12:38)
[2019-07-24] MEDS: HYDROmorphone 0.5 MG/0.5 ML SYRINGE IVP PRN (15:05)
[2019-07-24] MEDS: SODIUM CHLORIDE 0.9% 1,000 ML IV SCH ×2 (15:20→23:44)
[2019-07-24] MEDS: ALPRAZolam 0.5 MG TAB PO PRN (18:35)
[2019-07-24] MEDS ORDERED: amLODIPine 5 MG TAB PO SCH (21:00)
--- NOTE | 2019-07-24 21:20 | PN ---
PROGRESS NOTE DATE OF SERVICE: 07/24/2019 This 54-year-old gentleman who was admitted with acute dai-UQ-bfzgiys-elevation myocardial infarction had a past cardiac stenting today. The patient had stenting of the distal RCA and circumflex also through a radial approach. No chest pain. No palpitations. No fever. Cardiology is following the patient closely. EXAM: Alert and oriented x3. Pulse is 50, blood pressure 175/87, respiration 18, temperature 97.4, pulse ox 98% on room air. HEENT: Conjunctivae normal. Oral mucosa moist. NECK: No jugular venous distention. No lymph node enlargement. CARDIOVASCULAR: S1, S2. RESPIRATORY: Diminished breath sounds at the bases. No rhonchi, no crackles. ABDOMEN: Soft, obese, nontender. LEGS: No edema, no swelling. NERVOUS SYSTEM: No focal deficits. LABS: WBC 13.3, sodium 140, potassium 4.4. Troponin 9.370. ( ) is 115. ASSESSMENT: 1. Acute cvq-VI-xbewmvq-elevation myocardial infarction status post cardiac catheterization and stenting x3. 2. History of congestive heart failure with chronic systolic dysfunction, ejection fraction 40-50%. 3. Increased WBC, possibly reactive. 4. Increased AST. 5. Hyperlipidemia. 6. Obesity with body mass index of 45.5. 7. Hypertension. 8. Chronic back pain, degenerative joint disease and history of sciatica. 9. History of borderline thyroid issues. 10.History of bariatric surgery. 11.History of gastric sleeve and panniculectomy. 12.History of anxiety, bipolar depression, panic disorder. 13.History of hyperlipidemia. RECOMMENDATIONS AND DISCUSSION: Recommend to continue current management, continue symptomatic treatment, continue with dual antiplatelet treatment. Continue with Lipitor. Continue the rest of medications. Closely follow with Cardiology. Further recommendations to follow. MMODL / IJN: [id number] /
[2019-07-24] MEDS: ATORVASTATIN 80 MG TAB PO SCH (21:27)
[2019-07-24] MEDS: ZOLPIDEM 5 MG TAB PO SCH (21:27)
[2019-07-25] MEDS: NITROGLYCERIN OINT 1 INCH/GM PACKET TOPICAL SCH ×4 (00:52→16:56)
[2019-07-25] MEDS: ALPRAZolam 0.5 MG TAB PO PRN (02:10)
[2019-07-25] MEDS: MULTIVITAMINS, THERA 1 EACH TAB PO SCH ×3 (06:16→16:53)
[2019-07-25] MEDS: CALCIUM CARB-VIT D 500MG-200UN 1 EACH TAB PO SCH ×3 (06:17→16:53)
[2019-07-25 06:22] LABS: Basophils % (A) 0 %; Eosinophils # (A) 0.2 k/uL (0-0.7); Eosinophils % (A) 3 %; HCT 35.9 % (39.0-53.0); HGB 11.8 gm/dL (13.0-17.5); Lymphocytes % (A) 22 %; MCH 27.4 pg (25.0-35.0); MCHC 32.8 g/dL (31.0-37.0); MCV 83.6 fL (80.0-100.0); Mean Platelet Volume 7.2; Monocytes # (A) 0.5 k/uL (0-1.0); Monocytes % (A) 5 %; Neutrophils # (A) 6.2 k/uL (1.3-7.7); Neutrophils % (A) 68 %; Platelet Count 292 k/uL (150-450); RBC 4.29 m/uL (4.30-5.90); RDW 13.5 % (11.5-15.5); WBC 9.1 k/uL (3.8-10.6)
[2019-07-25 06:36] LABS: African American GFR (CKD) >90 (>60 ml/min/1.73 sqM); Anion Gap 4 mmol/L; Blood Urea Nitrogen 11 mg/dL (9-20); Calcium 8.2 mg/dL (8.4-10.2); Carbon Dioxide 26 mmol/L (22-30); Chloride 109 mmol/L (98-107); Glucose 87 mg/dL (74-99); Non-African American GFR(CKD) >90 (>60 ml/min/1.73 sqM); Potassium 4.1 mmol/L (3.5-5.1); Sodium 139 mmol/L (137-145)
[2019-07-25] MEDS: PSYLLIUM HUSK 100% 6 GM PACKET PO SCH (08:07)
[2019-07-25] MEDS: ASPIRIN 81 MG PO SCH (08:07)
[2019-07-25] MEDS: METOPROLOL TARTRATE 25 MG TAB PO SCH (08:07)
[2019-07-25] MEDS: TICAGRELOR 90 MG TAB PO SCH (08:07)
[2019-07-25] MEDS: LOSARTAN 50 MG TAB PO SCH (08:07)
[2019-07-25 08:18] VITALS: RESP 20
--- NOTE | 2019-07-25 12:45 | PTCA ---
PERCUTANEOUSTRANS CORORONARY ANGIOGRAPHY DATE OF SERVICE: 07/24/2019 PROCEDURE: 1. Coronary angiography to check patency of a previously stented first obtuse marginal branch of circumflex. 2. PTCA and stenting of PDA branch of the dominant RCA. 3. PTCA and stenting of a bifurcation lesion of a circumflex groove branch of decent caliber. Moderate conscious sedation time was 79 minutes. Patient was administered Versed. Oxygen saturation, hemodynamics and EKG were monitored closely. CLINICAL INFORMATION: Mr. Bacon was initially seen by me on 07/22/2019 and I performed stenting of a first totally occluded obtuse marginal and dilated the second obtuse marginal in the setting of a non-ST elevation ND. He had a significant PDA lesion and also a 99% bifurcation lesion of the groove branch which was a large caliber groove branch. He was advised intervention, brought in for the procedure. PROCEDURE NOTE: Under local anesthesia and strict aseptic precautions, a 6-Danish introducer was placed in the right radial artery. A standard right Kevin guide catheter was used to cannulate the right coronary artery. I had difficulty switched over to a JR4. With a JR4, I was able to get a reasonable guide support. A run-through wire was used to cross the lesion. Without predilatation in the PDA lesion, I deployed a 12 mm long 3.0 caliber drug-eluting Xience stent with excellent angiographic result. I post- dilated this with a 3.0 NC Trek balloon at 12 atmospheres. Excellent angiographic result was achieved. Patient had mild chest discomfort and subtle inferior ST elevation. I then turned my attention to the left system. A JL3.5 guide catheter was used to cannulate the left system, left coronary artery. I advanced the same run-through wire and kept it in the obtuse marginal branch that came off from the groove branch. I then used a Whisper wire and kept this in the whisper wire with a J-tip and a steep curve and with this wire, I was able to keep it in the groove branch. I dilated the OM at the bifurcation with a 2.5 caliber 12 mm NC Trek balloon. I then deployed a 2.5, 12 mm Xience stent at 12 atmospheres. Patient had an excellent angiographic result of the obtuse marginal. The groove branch which was relatively small of the 2 branches had an excellent flow, but there was a focal lesion of about 50% as it came off from the stent where that when the vessel was jailed. However, there was a MAXX-3 flow, excellent brisk and the lesion were about 50% and therefore I did not do any intervention of that lesion at all. Both the wires were taken out. Final angiograms were taken. The results were excellent. The sheath was taken out and a TR band applied as per protocol. Patient was sent to the room in a stable condition. Saturation of the fingers of the right hand was 94%. Results were discussed with the patient and a friend. His or other family members were not available. Excellent angiographic result without complication was achieved and drug-eluting stent was deployed 2.5 caliber 12 mm length in the circumflex and a 3.0, 12 mm Xience stent in the PDA branch of RCA. MMAMARIS / IJN: [id number] / MTDD
--- NOTE | 2019-07-25 14:39 | P.PN ---
Subjective Progress Note Date: 07/25/19 This is a 54-year-old gentleman who was originally transferred from [facility], history of hypertension, hyperlipidemia, presented with symptoms of chest discomfort, was found to rule in for non-Q-wave myocardial infarction. He was taken to the cardiac catheterization lab on Wednesday underwent PTCA and stenting of the first obtuse marginal branch of the circumflex as well as PTCA of second obtuse marginal branch of the circumflex. Yesterday the patient underwent stenting of the PDA branch of the RCA and stenting of the bifurcation lesion of the circumflex. He was seen and examined this morning, denied any chest discomfort, hemodynamically stable. Blood pressure 164/80 with a heart rate in the 60s, 94% on room air. White blood cell count 9.1, hemoglobin 11.8, platelet count 292. Sodium 139, potassium 4.1, BUN 11, creatinine 0.6 Objective - Vital Signs Vital signs: Vital Signs Temp 98.5 F 07/25/19 08:00 Pulse 61 07/25/19 11:24 Resp 20 07/25/19 11:24 BP 164/80 07/25/19 11:24 Pulse Ox 94 L 07/25/19 11:24 Intake & Output 07/24/19 07/25/19 07/25/19 18:59 06:59 18:59 Intake Total 2269 1178 240 Output Total 240 Balance 2269 938 240 Weight 143.9 kg Intake: IV 385 Intake, IV Titration 1144 858 Amount Sodium Chloride 0.9% 1, 1144 858 000 ml @ 143 mls/hr IV . Q7H [facility] Rx#:[id number] Oral 740 320 240 Output: Urine 240 Other: # Voids 1 1 1 - Exam PHYSICAL EXAMINATION: GENERAL: 84-year-old gentleman in no acute distress at the time of my examination HEENT: Head is atraumatic, normocephalic. Pupils equal, round. Sclera anicteric. Conjunctiva are clear. Mucous membranes of the mouth are moist. Neck is supple. There is no elevated jugular venous pressure. No carotid bruit is heard. HEART EXAMINATION: [eart S1, S2 normal. No murmur or gallop heard.] CHEST EXAMINATION:[Lungs are clear to auscultation and precussion. No chest wall tenderness is noted on palpation or with deep breathing.] ABDOMEN: [Soft, obese, nontender. Bowel sounds are heard. No organomegaly noted] EXTREMITIES:[2+ peripheral pulses with no evidence of peripheral edema and no ca lf tenderness noted] right radial site clean and dry, good distal pulse. NEUROLOGIC [atient is awake, alert and oriented 3. . - Labs CBC & Chem 7: 07/25/19 05:36 07/25/19 05:36 Labs: Abnormal Lab Results - Last 24 Hours (Table) 07/25/19 07/25/19 Range/Units 05:36 05:36 RBC 4.29 L (4.30-5.90) m/uL Hgb 11.8 L (13.0-17.5) gm/dL Hct 35.9 L (39.0-53.0) % Chloride 109 H (98-107) mmol/L Creatinine 0.63 L (0.66-1.25) mg/dL Calcium 8.2 L (8.4-10.2) mg/dL Assessment and Plan Plan: Assessment and plan #1 non-Q-wave myocardial infarction, status post stenting of high obtuse marginal branch of the circumflex and second obtuse marginal branch of the circumflex, yesterday the patient underwent PTCA and stenting of the PDA branch of the dominant RCA and stenting of the bifurcation lesion of the circumflex. #2 obesity #3 hypertension #4 hyperlipidemia Plan patient may be able to be discharged home today from our perspective on dual antiplatelet therapy. Patient however does not have coverage for Brilinta, we will touch base with Dr. Scooter Harry regarding what he wishes to do in that regard. He has been educated regarding his medication. A follow-up appointment will be made with Dr. Scooter Harry in the office on August 07. DNP note has been reviewed, I agree with a documented findings and plan of care. Patient was seen and examined.
[2019-07-25 17:24] VITALS: BP 145/81; PULSE 50; TEMP 98.1
--- NOTE | 2019-07-26 08:38 | P.DS ---
Providers Date of admission: 07/21/19 20:09 Expected date of discharge: 07/25/19 Attending physician: Aryan Boland Consults: 07/21/19 20:09 Consult Physician Urgent Consulting Provider: Erick Harry Consult Reason/Comments: NSTEMI Do you want consulting provider notified?: Already Contacted Primary care physician: [facility] Course: Final diagnosis Acute non-ST segment elevation myocardial infarction status post cardiac catheterization and stenting 3 History of congestive heart failure with chronic systolic dysfunction, ejection fraction 40-50% Increased WBC, possibly reactive Increased AST Hyperlipidemia next line obesity with body mass index of 45.5 Hypertension Chronic back pain, degenerative joint disease and history of sciatica next line history of borderline thyroid issues history of bariatric surgery History of gastric sleeve and panniculectomy History of anxiety, bipolar depression, panic disorder History of hyperlipidemia Discharge disposition Patient is being discharged in a stable condition with guarded prognosis to home and will follow-up with Dr. Rashid Price in the outpatient setting upon discharge. Patient will also be following up with Dr. Harry cardiology in one week. Patient will continue on Brilinta upon discharge. Total time taken is 35 minutes. History of present illness This is a 54-year-old male who was recently admitted with acute non-ST segment elevation myocardial infarction status post cardiac stenting of the distal RCA and circumflex through radial approach and is being closely monitored. Patient is maintained on Brilinta and was given a prescription for 1 month free and will continue with this medication until follow-up with Dr. Harry and at that point may switched to Plavix. Patient will also continue on metoprolol along with low-dose aspirin in the outpatient setting. Patient will follow-up with Dr. Rashid Price upon discharge. Currently patient's condition is stable and is ready for discharge today. No reports of chest pain, shortness of breath, or palpitations. Patient is afebrile. Patient is tolerating diet with no reports of nausea or vomiting. Patient would like to go home today. On exam vital signs are stable. Temp is 98.5 F, pulse is 57, respirations are 20, blood pressure is 157/98, oxygen saturation is 93% on room air. Cardio S1, S2 are muffled. Respiratory system shows diminished breath sounds at the bases with no wheezing or rhonchi noted. Abdomen is soft, obese, nontender. Nervous system shows no focal deficits. Please refer to medication reconciliation sheet for a list of medications. Patient Condition at Discharge: Stable Plan - Discharge Summary Discharge Rx Participant: Yes New Discharge Prescriptions: New Aspirin 81 mg PO DAILY 30 Days #30 chew Losartan [Cozaar] 100 mg PO DAILY 30 Days #30 tab Atorvastatin [Lipitor] 80 mg PO HS 30 Days #30 tab Metoprolol Tartrate [Lopressor] 25 mg PO BID 30 Days #60 tab Nitroglycerin Sl Tabs [Nitrostat] 0.4 mg SUBLINGUAL Q5M PRN #30 tab PRN Reason: Chest Pain amLODIPine [Norvasc] 5 mg PO HS 30 Days #30 tab Ticagrelor [Brilinta] 90 mg PO BID #60 tab Continue Vitamin A(Unknown Dose) 1 tab PO AC-TID Psyllium Husk 100% [Metamucil Packet] 6 gm PO BID Calcium/Vitamin D3(Unknown Dose) 1 tab PO AC-TID Multivitamins, Thera [Multivitamin (formulary)] 1 tab PO AC-TID Liquid Chlorophyll 15 ml PO BID Discharge Medication List Calcium/Vitamin D3(Unknown Dose) 1 tab PO AC-TID 07/21/19 [History] Liquid Chlorophyll 15 ml PO BID 07/21/19 [History] Multivitamins, Thera [Multivitamin (formulary)] 1 tab PO AC-TID 07/21/19 [History] Psyllium Husk 100% [Metamucil Packet] 6 gm PO BID 07/21/19 [History] Vitamin A(Unknown Dose) 1 tab PO AC-TID 07/21/19 [History] Aspirin 81 mg PO DAILY 30 Days #30 chew 07/25/19 [Rx] Atorvastatin [Lipitor] 80 mg PO HS 30 Days #30 tab 07/25/19 [Rx] Losartan [Cozaar] 100 mg PO DAILY 30 Days #30 tab 07/25/19 [Rx] Metoprolol Tartrate [Lopressor] 25 mg PO BID 30 Days #60 tab 07/25/19 [Rx] Nitroglycerin Sl Tabs [Nitrostat] 0.4 mg SUBLINGUAL Q5M PRN #30 tab 07/25/19 [Rx] Ticagrelor [Brilinta] 90 mg PO BID #60 tab 07/25/19 [Rx] amLODIPine [Norvasc] 5 mg PO HS 30 Days #30 tab 07/25/19 [Rx] Follow up Appointment(s)/Referral(s): Erick Harry MD [STAFF PHYSICIAN] - 08/01/19 2:00 pm (Wednesday with ANALYST.) Rehab Ruchi COLE,Cardiac [NON-STAFF] - 1 Week (After discharge, you will follow- up with your molded goods inspector trimmer. Once you have obtained a prescription for cardiac rehab and have completed a stress test, please call [phone] to set up an evaluation.) Rashid Price MD [Primary Care Provider] - 08/02/19 1:00 pm (Wednesday -earliest available appointment) Patient Instructions/Handouts: *Surgery [facility] - After Heart Catheterization - Modern Greek Studies Professor Instructions, Heart Healthy Diet (DC), After Radial Heart Catheterization (GEN) Activity/Diet/Wound Care/Special Instructions: Activity Limited until follow-up Follow-up with primary care provider upon discharge Follow-up with cardiology as discussed and scheduled Continue current diet Prior authorization initiated for [employer] though cover my meds. case ID # [id number] Discharge Disposition: HOME SELF-CARE
== END 2019-07-25 18:34 | disposition home or self-care (01) | DRG 247 ==
LOC: EC 19:03 → 3SCARD 20:09
PROVIDERS: ADMIT Hospitalist; ATTEND Hospitalist
PROC: 4A023N7 Measurement of Cardiac Sampling and Pressure, Left Heart, Percutaneous Approach (ICD-10-PCS; 2019-07-22 10:00)
PROC: B2111ZZ Fluoroscopy of Multiple Coronary Arteries using Low Osmolar Contrast (ICD-10-PCS; 2019-07-22 10:00)
PROC: 027135Z Dilation of Coronary Artery, Two Arteries with Two Drug-eluting Intraluminal Devices, Percutaneous Approach (ICD-10-PCS; principal; 2019-07-25)
DX: I21.4 Non-ST elevation (NSTEMI) myocardial infarction (principal); Z68.42 Body mass index [BMI] 45.0-49.9, adult; I50.22 Chronic systolic (congestive) heart failure; E78.5 Hyperlipidemia, unspecified; E66.01 Morbid (severe) obesity due to excess calories; K21.9 Gastro-esophageal reflux disease without esophagitis; I11.0 Hypertensive heart disease with heart failure; F41.0 Panic disorder [episodic paroxysmal anxiety]; I25.10 Atherosclerotic heart disease of native coronary artery without angina pectoris; E11.9 Type 2 diabetes mellitus without complications; F32.9 Major depressive disorder, single episode, unspecified; G89.29 Other chronic pain; M19.90 Unspecified osteoarthritis, unspecified site; M54.30 Sciatica, unspecified side; I25.82 Chronic total occlusion of coronary artery; Z81.8 Family history of other mental and behavioral disorders; Z91.011 Allergy to milk products; Z98.890 Other specified postprocedural states; Z90.89 Acquired absence of other organs; Z98.84 Bariatric surgery status; Z82.49 Family history of ischemic heart disease and other diseases of the circulatory system
CPT/HCPCS: 80048; 80053; 80061; 81003; 84484; 85025; 85610; 85730; 92921; 93005; 93306; 93458; 96365; 96375; 99285

== ENCOUNTER → 2019-12-07 | Outpatient (CLI) | payer OTHER ==
--- NOTE | 2019-12-07 15:23 | CONS ---
CONSULTATION DATE OF SERVICE: 12/07/2019 This patient is an 84-year-old gentleman who has been evaluated in [facility] for obstructive sleep apnea-hypopnea syndrome. HISTORY OF PRESENT ILLNESS/SLEEP-WAKE EVALUATION: Patient has history of obstructive sleep apnea diagnosed 3 years ago. At that time he was treated with CPAP, underwent bariatric surgery and lost about 300 pounds after the surgery. He does not have his machine any more. He has not used it for more than 3 years. At present he snores loudly, has witnessed episodes by his of stopped breathing during sleep. He wakes up from sleep 8 times with more than 8 episodes of nocturia. He grinds his teeth and has dry mouth, panic attacks, palpitations, heartburn, restless legs and sweating during the night. In the morning the patient wakes up tired, has difficulties paying attention, falling asleep during the day, worries about his sleep, has problems with memory, concentration, irritability, depression, anxiety, claustrophobia and sexual dysfunction. During the day he feels significantly sleepy takes a nap around 3 or 5 p.m. [place] Sleepiness Scale is significantly increased at 16. PAST MEDICAL HISTORY: Hypertension, coronary artery disease, hyperlipidemia. PAST SURGICAL HISTORY: Bariatric surgery, 3 stent insertions to the heart. SOCIAL HISTORY: Negative for smoking. Alcohol consumption occasional. FAMILY HISTORY: Heart problems, stroke. REVIEW OF SYSTEMS: Multiple awakenings from sleep, sleepiness during the day, snoring, episodes of stopped breathing during sleep. MEDICATIONS: Baby aspirin, nitroglycerin on a p.r.n. basis, Xanax, Lipitor, Cozaar, losartan, amlodipine, clopidogrel, metoprolol. PHYSICAL EXAMINATION: GENERAL: A pleasant 54-year-old gentleman without distress. VITAL SIGNS: BP 189/105, HR 64, RR 16, height 5 feet 10 inches, weight 329, BMI 47.2, temperature 98.8, oxygen saturation at room air 98%. HEENT: PERRLA, EOMI. Evaluation of oropharynx showed tongue protrudes midline. Low position of soft palate. NECK: Supple. No JVD. Thyroid is not palpable. LUNGS: Clear to percussion and to auscultation. Good air exchange. No wheezing or rhonchi. HEART: S1, S2 regular. No murmurs, gallops or rubs. ABDOMEN: Obese. EXTREMITIES: No clubbing or cyanosis. TRASH COLLECTOR SUPERVISOR: Awake, alert, and oriented X3. Cranial nerves 2 to 7 intact. There is no fasciculation or atrophy. noted. No focal deficits observed. IMPRESSIONS: 1. Loud snoring, witnessed episodes of stopped breathing during sleep, multiple awakenings from sleep (more than 8 times with nocturia), sleepiness, [place] Sleepiness Scale 16, wide neck at 19 inches in circumference, history of obstructive sleep apnea in the past; obstructive sleep apnea-hypopnea syndrome. 2. Obesity with body mass index of 47.2. According to the patient, he lost about 300 pounds after bariatric surgery. 3. Coronary artery disease, status post 3 stent insertions. 4. Hypertension. 5. Hyperlipidemia. PLAN: 1. Polysomnography for evaluation of patient's breathing during sleep. 2. CPAP/BiPAP titration if sleep study confirms obstructive sleep apnea-hypopnea syndrome. 3. Preferable position during sleep on the side. 4. No driving if patient feels any sleepiness. 5. I will see patient for follow up visit to explain results of testing and following plan. Thank you very much for referring this patient for consultation. Sincerely, Naman Sams MD, PhD, FAASM Diplomat of [place] [employer] [place] [employer] Tape Librarian of [facility] [place] MMODL / MERLINN: [id number] /
== END | disposition home or self-care (01) ==
LOC: SLEEP 11:06
PROVIDERS: ATTEND Internal Medicine
DX: G47.33 Obstructive sleep apnea (adult) (pediatric) (principal); E66.9 Obesity, unspecified; I25.10 Atherosclerotic heart disease of native coronary artery without angina pectoris; I10 Essential (primary) hypertension; E78.5 Hyperlipidemia, unspecified; Z68.42 Body mass index [BMI] 45.0-49.9, adult; Z95.1 Presence of aortocoronary bypass graft; Z98.84 Bariatric surgery status; Z79.02 Long term (current) use of antithrombotics/antiplatelets

== ENCOUNTER 2019-12-12 17:28 | Inpatient (IN) | payer OTHER ==
[2019-12-12] MEDS ORDERED: PANTOPRAZOLE 40 MG/10 ML VIAL IVP STA (17:36)
[2019-12-12] MEDS ORDERED: SODIUM CHLORIDE 0.9% 1,000 ML IV STA ×2 (17:36→17:54)
[2019-12-12 17:43] LABS: Glucose,Whole Blood 152 mg/dL (75-99)
--- NOTE | 2019-12-12 17:43 | ED ---
GI Bleed HPI - General Stated complaint: weakness/hemorrhaging blood Time Seen by Provider: 12/12/19 17:28 Source: patient, EMS, RN notes reviewed, old records reviewed Mode of arrival: EMS - History of Present Illness Initial comments: This is a 55-year-old male with a history of morbid obesity status post bariatric surgery couple years ago who states she has been feeling well for past several days he started vomiting blood today he was found be lightheaded dizzy pale diaphoretic with a blood pressure in the 70 systolic. He did seem to respond to IV fluid bolus. He does admit to having black colored stools. No history of GI bleeding. No other modifying factors at this time other than the patient is a Gnosticism and does not want blood products. MD complaint: gross hematemesis, melena - Related Data Home Medications Medication Instructions Recorded Confirmed Calcium/Vitamin D3(Unknown Dose) 1 tab PO AC-TID 07/21/19 07/21/19 Liquid Chlorophyll 15 ml PO BID 07/21/19 07/21/19 Multivitamins, Thera [Multivitamin 1 tab PO AC-TID 07/21/19 07/21/19 (formulary)] Psyllium Husk 100% [Metamucil 6 gm PO BID 07/21/19 07/21/19 Packet] Vitamin A(Unknown Dose) 1 tab PO AC-TID 07/21/19 07/21/19 Previous Rx's Medication Instructions Recorded Aspirin 81 mg PO DAILY 30 Days #30 chew 07/25/19 Atorvastatin [Lipitor] 80 mg PO HS 30 Days #30 tab 07/25/19 Losartan [Cozaar] 100 mg PO DAILY 30 Days #30 tab 07/25/19 Metoprolol Tartrate [Lopressor] 25 mg PO BID 30 Days #60 tab 07/25/19 Nitroglycerin Sl Tabs [Nitrostat] 0.4 mg SUBLINGUAL Q5M PRN #30 tab 07/25/19 Ticagrelor [Brilinta] 90 mg PO BID #60 tab 07/25/19 amLODIPine [Norvasc] 5 mg PO HS 30 Days #30 tab 07/25/19 Allergies Allergy/AdvReac Type Severity Reaction Status Date / Time No Known Allergies Allergy Verified 12/12/19 17:33 Review of Systems ROS Statement: Those systems with pertinent positive or pertinent negative responses have been documented in the HPI. ROS Other: All systems not noted in ROS Statement are negative. Past Medical History Past Medical History: Hypertension Additional Past Medical History / Comment(s): CHRONIC BACK PAIN which has increased significantly with major weight loss, sciatica, bronchitis, arthritis, borderline thyroid issues, NOT ON ANYTHING FOR B/P History of Any Multi-Drug Resistant Organisms: None Reported Past Surgical History: Bariatric Surgery Additional Past Surgical History / Comment(s): EGD. GASTRIC SLEEVE PANNI CULECTOMY 07-25-18 Past Anesthesia/Blood Transfusion Reactions: No Reported Reaction Additional Past Anesthesia/Blood Transfusion Reaction / Comment(s): HAS NEVER HAD GENERAL ANESTHESIA Past Psychological History: Anxiety, Bipolar, Depression, Panic Disorder Additional Psychological History / Comment(s): UNDER CONTROL AT THIS TIME Smoking Status: Never smoker Past Alcohol Use History: Rare Past Drug Use History: None Reported - Past Family History Father Family Medical History: Hypertension Additional Family Medical History / Comment(s): mental disease, violent disorders Mother Family Medical History: Hypertension General Exam - General Exam Comments Initial Comments: Is a well-developed well-nourished awake alert oriented 3 male General appearance: alert, anxious Head exam: Present: atraumatic, normocephalic, normal inspection Eye exam: Present: normal appearance, PERRL, EOMI. Absent: scleral icterus, conjunctival injection, periorbital swelling ENT exam: Present: mucous membranes dry Neck exam: Present: normal inspection. Absent: tenderness, meningismus, lymphadenopathy Respiratory exam: Present: normal lung sounds bilaterally. Absent: respiratory distress, wheezes, rales, rhonchi, stridor Cardiovascular Exam: Present: regular rate, normal rhythm, normal heart sounds. Absent: systolic murmur, diastolic murmur, rubs, gallop, clicks GI/Abdominal exam: Present: soft, normal bowel sounds. Absent: distended, tenderness, guarding, rebound, rigid Extremities exam: Present: normal inspection, full ROM, normal capillary refill. Absent: tenderness, pedal edema, joint swelling, calf tenderness Back exam: Present: normal inspection Neurological exam: Present: alert, oriented X3, CN II-XII intact Psychiatric exam: Present: normal affect, normal mood Skin exam: Present: warm, dry, intact, pallor. Absent: rash Course Vital Signs 07/07/20 07/07/20 07/07/20 17:34 17:45 18:10 Temperature 99 F Pulse Rate 83 85 79 Respiratory 18 18 18 Rate Blood Pressure 125/84 86/47 93/63 O2 Sat by Pulse 98 98 100 Oximetry 12/12/19 18:34 Temperature Pulse Rate 77 Respiratory 18 Rate Blood Pressure 114/55 O2 Sat by Pulse 99 Oximetry - Reevaluation(s) Reevaluation #1: 12/12/19 18:58 I did reevaluate patient several occasions blood pressure is improved after IV fluids. His color has improved. He is feeling much improved. Medical Decision Making - Medical Decision Making I did discuss findings with the patient's family patient will be admitted case is discussed also with Dr. Reyes and with Dr. Willoughby covering for Dr. Cohen. - Lab Data Result diagrams: 12/12/19 17:41 12/12/19 17:41 Lab Results 12/12/19 12/12/19 12/12/19 Range/Units 17:41 17:41 17:41 WBC 14.0 H (3.8-10.6) k/uL RBC 4.09 L (4.30-5.90) m/uL Hgb 10.6 L (13.0-17.5) gm/dL Hct 34.4 L (39.0-53.0) % MCV 84.2 (80.0-100.0) fL MCH 25.8 (25.0-35.0) pg MCHC 30.7 L (31.0-37.0) g/dL RDW 14.1 (11.5-15.5) % Plt Count 389 (150-450) k/uL Neutrophils % 75 % Lymphocytes % 20 % Monocytes % 3 % Eosinophils % 1 % Basophils % 0 % Neutrophils # 10.5 H (1.3-7.7) k/uL Lymphocytes # 2.8 (1.0-4.8) k/uL Monocytes # 0.5 (0-1.0) k/uL Eosinophils # 0.1 (0-0.7) k/uL Basophils # 0.0 (0-0.2) k/uL Hypochromasia Slight PT 10.4 (9.0-12.0) sec INR 1.0 (<1.2) APTT 20.7 L (22.0-30.0) sec Sodium 141 (137-145) mmol/L Potassium 4.3 (3.5-5.1) mmol/L Chloride 115 H (98-107) mmol/L Carbon Dioxide 19 L (22-30) mmol/L Anion Gap 7 mmol/L BUN 46 H (9-20) mg/dL Creatinine 0.67 (0.66-1.25) mg/dL Est GFR (CKD-EPI)AfAm >90 (>60 ml/min/1.73 sqM) Est GFR (CKD-EPI)NonAf >90 (>60 ml/min/1.73 sqM) Glucose 151 H (74-99) mg/dL POC Glucose (mg/dL) (75-99) mg/dL POC Glu Safety Professional ID Calcium 8.0 L (8.4-10.2) mg/dL Magnesium 2.2 (1.6-2.3) mg/dL Total Bilirubin 0.3 (0.2-1.3) mg/dL AST 21 (17-59) U/L ALT 17 (4-49) U/L Alkaline Phosphatase 56 (38-126) U/L Creatine Kinase 135 (55-170) U/L Troponin I (0.000-0.034) ng/mL Total Protein 5.5 L (6.3-8.2) g/dL Albumin 3.3 L (3.5-5.0) g/dL Gastric Occult Blood (Negative) Blood Type Blood Type Recheck Bld Type Recheck Status Antibody Screen Spec Expiration Date 12/12/19 12/12/19 12/12/19 Range/Units 17:41 17:41 17:41 WBC (3.8-10.6) k/uL RBC (4.30-5.90) m/uL Hgb (13.0-17.5) gm/dL Hct (39.0-53.0) % MCV (80.0-100.0) fL MCH (25.0-35.0) pg MCHC (31.0-37.0) g/dL RDW (11.5-15.5) % Plt Count (150-450) k/uL Neutrophils % % Lymphocytes % % Monocytes % % Eosinophils % % Basophils % % Neutrophils # (1.3-7.7) k/uL Lymphocytes # (1.0-4.8) k/uL Monocytes # (0-1.0) k/uL Eosinophils # (0-0.7) k/uL Basophils # (0-0.2) k/uL Hypochromasia PT (9.0-12.0) sec INR (<1.2) APTT (22.0-30.0) sec Sodium (137-145) mmol/L Potassium (3.5-5.1) mmol/L Chloride (98-107) mmol/L Carbon Dioxide (22-30) mmol/L Anion Gap mmol/L BUN (9-20) mg/dL Creatinine (0.66-1.25) mg/dL Est GFR (CKD-EPI)AfAm (>60 ml/min/1.73 sqM) Est GFR (CKD-EPI)NonAf (>60 ml/min/1.73 sqM) Glucose (74-99) mg/dL POC Glucose (mg/dL) 152 H (75-99) mg/dL POC Glu Safety Professional ID Elaine Skinner Calcium (8.4-10.2) mg/dL Magnesium (1.6-2.3) mg/dL Total Bilirubin (0.2-1.3) mg/dL AST (17-59) U/L ALT (4-49) U/L Alkaline Phosphatase (38-126) U/L Creatine Kinase (55-170) U/L Troponin I <0.012 (0.000-0.034) ng/mL Total Protein (6.3-8.2) g/dL Albumin (3.5-5.0) g/dL Gastric Occult Blood (Negative) Blood Type O Positive Blood Type Recheck O Pos Bld Type Recheck Status No Antibody Screen NEGATIVE Spec Expiration Date 12/15/2019 - 234012/12/19 Range/Units 17:51 WBC (3.8-10.6) k/uL RBC (4.30-5.90) m/uL Hgb (13.0-17.5) gm/dL Hct (39.0-53.0) % MCV (80.0-100.0) fL MCH (25.0-35.0) pg MCHC (31.0-37.0) g/dL RDW (11.5-15.5) % Plt Count (150-450) k/uL Neutrophils % % Lymphocytes % % Monocytes % % Eosinophils % % Basophils % % Neutrophils # (1.3-7.7) k/uL Lymphocytes # (1.0-4.8) k/uL Monocytes # (0-1.0) k/uL Eosinophils # (0-0.7) k/uL Basophils # (0-0.2) k/uL Hypochromasia PT (9.0-12.0) sec INR (<1.2) APTT (22.0-30.0) sec Sodium (137-145) mmol/L Potassium (3.5-5.1) mmol/L Chloride (98-107) mmol/L Carbon Dioxide (22-30) mmol/L Anion Gap mmol/L BUN (9-20) mg/dL Creatinine (0.66-1.25) mg/dL Est GFR (CKD-EPI)AfAm (>60 ml/min/1.73 sqM) Est GFR (CKD-EPI)NonAf (>60 ml/min/1.73 sqM) Glucose (74-99) mg/dL POC Glucose (mg/dL) (75-99) mg/dL POC Glu Safety Professional ID Calcium (8.4-10.2) mg/dL Magnesium (1.6-2.3) mg/dL Total Bilirubin (0.2-1.3) mg/dL AST (17-59) U/L ALT (4-49) U/L Alkaline Phosphatase (38-126) U/L Creatine Kinase (55-170) U/L Troponin I (0.000-0.034) ng/mL Total Protein (6.3-8.2) g/dL Albumin (3.5-5.0) g/dL Gastric Occult Blood Positive (Negative) Blood Type Blood Type Recheck Bld Type Recheck Status Antibody Screen Spec Expiration Date - EKG Data -: EKG Interpreted by Me EKG shows normal: sinus rhythm (Sinus rhythm at 86. 104 QRS duration 80 QT since QTC 392/457 nonspecific T-wave configuration PVC noted) - Radiology Data Radiology results: report reviewed (I did review the imaging and report or some evidence of elevated right hemidiaphragm.), image reviewed Critical Care Time Critical Care Time: Yes Total Critical Care Time: 35 Critical Care Time: 35 minutes of critical care time which includes his presentation with history p hysical labs x-rays multiple reevaluation the patient discussed with the admitting physician and consult discussed with family. Review of old charting documentation of the above Disposition Clinical Impression: Upper GI bleed, Hypotensive episode Disposition: ADMITTED IP TO THIS [facility] Condition: Fair Referrals: Rashid Price MD [Primary Care Provider] - 1-2 days
[2019-12-12 17:52] LABS: Basophils % (A) 0 %; Eosinophils # (A) 0.1 k/uL (0-0.7); Eosinophils % (A) 1 %; HCT 34.4 % (39.0-53.0); HGB 10.6 gm/dL (13.0-17.5); Hypochromasia Slight; Lymphocytes # (A) 2.8 k/uL (1.0-4.8); Lymphocytes % (A) 20 %; MCH 25.8 pg (25.0-35.0); MCHC 30.7 g/dL (31.0-37.0); MCV 84.2 fL (80.0-100.0); Mean Platelet Volume 7.6; Monocytes # (A) 0.5 k/uL (0-1.0); Monocytes % (A) 3 %; Neutrophils # (A) 10.5 k/uL (1.3-7.7); Neutrophils % (A) 75 %; Platelet Count 389 k/uL (150-450); RBC 4.09 m/uL (4.30-5.90); RDW 14.1 % (11.5-15.5)
[2019-12-12 18:00] LABS: ALT 17 U/L (4-49); AST 21 U/L (17-59); African American GFR (CKD) >90 (>60 ml/min/1.73 sqM); Albumin 3.3 g/dL (3.5-5.0); Alkaline Phosphatase 56 U/L (38-126); Anion Gap 7 mmol/L; Blood Urea Nitrogen 46 mg/dL (9-20); Carbon Dioxide 19 mmol/L (22-30); Chloride 115 mmol/L (98-107); Creatine Kinase 135 U/L (55-170); Glucose 151 mg/dL (74-99); Magnesium 2.2 mg/dL (1.6-2.3); Non-African American GFR(CKD) >90 (>60 ml/min/1.73 sqM); Potassium 4.3 mmol/L (3.5-5.1); Sodium 141 mmol/L (137-145); Total Bilirubin 0.3 mg/dL (0.2-1.3); Total Protein 5.5 g/dL (6.3-8.2)
[2019-12-12 18:06] LABS: Partial Thromboplastin Time 20.7 sec (22.0-30.0); Prothrombin Time 10.4 sec (9.0-12.0)
--- NOTE | 2019-12-12 18:09 | XR ---
EXAMINATION TYPE: XR chest 1V portable DATE OF EXAM: 12/12/2019 COMPARISON: 07/21/2019 HISTORY: Chest pain TECHNIQUE: FINDINGS: There is no heart failure nor confluent pneumonic infiltrate. There is mild elevation of th e right diaphragm. Costophrenic angles are clear. There are chest leads. IMPRESSION: There is mild elevation of the right diaphragm that appears worse than last exam and coul d relate to some partial paralysis. Normal heart. No heart failure.
[2019-12-12] MEDS ORDERED: ONDANSETRON 4 MG/2 ML VIAL IVP PRN (19:04)
[2019-12-12] MEDS ORDERED: NALOXONE 0.4 MG/ML 1 ML VIAL IV PRN (19:04)
[2019-12-12] MEDS: SODIUM CHLORIDE 0.9% 1,000 ML IV SCH ×2 (19:21→21:26)
[2019-12-12] MEDS ORDERED: NITROGLYCERIN SL TABS 0.4 MG TAB SUBLINGUAL PRN (19:44)
[2019-12-12] MEDS: ATORVASTATIN 80 MG TAB PO SCH (21:24)
[2019-12-12] MEDS: CLOPIDOGREL 75 MG TAB PO SCH (21:24)
[2019-12-12] MEDS: METOPROLOL TARTRATE 12.5 MG TAB PO SCH (21:25)
[2019-12-12] MEDS: PANTOPRAZOLE 40 MG/10 ML VIAL IV SCH (21:25)
[2019-12-13 00:21] LABS: Basophils % (A) 0 %; Eosinophils # (A) 0.1 k/uL (0-0.7); Eosinophils % (A) 1 %; HCT 30.3 % (39.0-53.0); HGB 9.4 gm/dL (13.0-17.5); Hypochromasia Slight; Lymphocytes # (A) 2.5 k/uL (1.0-4.8); Lymphocytes % (A) 18 %; MCH 25.9 pg (25.0-35.0); MCHC 31.2 g/dL (31.0-37.0); MCV 83.1 fL (80.0-100.0); Mean Platelet Volume 7.1; Monocytes # (A) 0.6 k/uL (0-1.0); Monocytes % (A) 5 %; Neutrophils # (A) 10.1 k/uL (1.3-7.7); Neutrophils % (A) 75 %; Platelet Count 340 k/uL (150-450); RBC 3.64 m/uL (4.30-5.90); RDW 14.3 % (11.5-15.5); WBC 13.4 k/uL (3.8-10.6)
[2019-12-13] MEDS: MULTIVITAMINS, THERA 1 EACH TAB PO SCH ×3 (06:29→17:15)
[2019-12-13 06:49] LABS: Basophils % (A) 0 %; Eosinophils % (A) 0 %; HCT 30.4 % (39.0-53.0); HGB 9.2 gm/dL (13.0-17.5); Hypochromasia Slight; Lymphocytes # (A) 2.3 k/uL (1.0-4.8); Lymphocytes % (A) 17 %; MCH 25.4 pg (25.0-35.0); MCHC 30.3 g/dL (31.0-37.0); MCV 83.8 fL (80.0-100.0); Mean Platelet Volume 7.6; Monocytes # (A) 0.6 k/uL (0-1.0); Monocytes % (A) 4 %; Neutrophils # (A) 10.1 k/uL (1.3-7.7); Neutrophils % (A) 77 %; Platelet Count 350 k/uL (150-450); RBC 3.62 m/uL (4.30-5.90); RDW 14.3 % (11.5-15.5); WBC 13.2 k/uL (3.8-10.6)
[2019-12-13] MEDS ORDERED: SODIUM CHLORIDE 0.9% 2,000 ML IV ONE (06:58)
[2019-12-13] MEDS: PANTOPRAZOLE 40 MG/10 ML VIAL IV SCH ×2 (08:24→20:37)
[2019-12-13] MEDS: SODIUM CHLORIDE 0.9% 1,000 ML IV SCH ×4 (08:24→20:25)
[2019-12-13] MEDS: METOPROLOL TARTRATE 12.5 MG TAB PO SCH ×2 (08:24→20:36)
[2019-12-13] MEDS: LOSARTAN 50 MG TAB PO SCH (08:24)
[2019-12-13] MEDS: amLODIPine 5 MG TAB PO SCH (08:24)
[2019-12-13] MEDS ORDERED: IV FLUID CONTINUATION 1,000 ML IV ONE (15:41)
[2019-12-13] MEDS ORDERED: LIDOCAINE 1% INJ 10MG/ML (20 ML MDV) ONE (15:41)
[2019-12-13] MEDS ORDERED: PROPOFOL 10 MG/ML 20 ML VIAL IV ONE (15:41)
--- NOTE | 2019-12-13 15:56 | P.PCN ---
Date of Procedure: 12/13/19 Description of Procedure: PREOPERATIVE DIAGNOSIS: Gastrointestinal bleeding Chronic antiplatelet therapy Epigastric abdominal pain. Status post sleeve gastrectomy. Gastroesophageal reflux disease. POSTOPERATIVE DIAGNOSIS: Gastrointestinal bleeding Chronic antiplatelet therapy Epigastric abdominal pain. Status post sleeve gastrectomy. Gastroesophageal reflux disease. Diaphragmatic hiatal hernia without obstruction. OPERATION: Esophagogastroduodenoscopy SURGEON: Dulce Mcarthur MD ANESTHESIA: MAC. INDICATIONS: The patient is a 54-year-old male who presents with gastrointestinal bleeding, gastric abdominal pain including antiplatelet therapy. He has a history of sleeve gastrectomy. He is over 5 years out from his bariatric procedure. Benefits and risks of the procedure were described. Informed consent was obtained. DESCRIPTION: The patient was brought into the endoscopy suite and laid in the left lateral decubitus position. An Olympus gastroscope was passed along the posterior oropharynx down to the distal esophagus where the squamocolumnar junction was at 40 cm from the incisors with chronic erosive esophagitis, LA grade C with ulceration. The stomach was entered where he had a 3-cm hiatal hernia with a diaphragmatic hiatus found at 43 cm. The sleeve reservoir dilated allowing easy retroflexion of the scope. No gastric or duodenal ulcers were identified. No recent stigmata of bleeding was identified. The first through third portion of the duodenum was examined and unremarkable. The scope was easily retroflexed along the antrum. The stomach was desufflated. The patient tolerated the procedure well. FINDINGS: No acute ulceration found along sleeve. No corkscrewing sleeve gastrectomy. Squamocolumnar junction at 40 cm from the incisors. Diaphragmatic hiatus at 43 cm. Dilated gastric reservoir with prior history of sleeve gastrectomy allowing easy retroflexion of the gastroscope Hiatal hernia 3 cm, sliding. LA grade C erosive esophagitis. No active duodenitis. No active chronic gastritis. RECOMMENDATIONS: 1. Recommend colonoscopy for history of gastrointestinal bleeding. 2. May have source of bleeding within the small bowel 3. Recommend Protonix 40 mg twice daily
[2019-12-13] MEDS ORDERED: PEG 3350-NA SULF,BICARB,CL/KCL 4,000 ML BOTTLE PO ONE ×2 (18:00→19:00)
--- NOTE | 2019-12-13 20:02 | P.HPIM ---
History of Present Illness H&P Date: 12/13/19 Chief Complaint: GI bleed History of presenting complaint: This is a pleasant 54-year-old patient of Dr. Price. Chronic stable medical conditions include hypertension, chronic low back pain, history of gastric sleeve with panic colectomy in July 2018 and has lost close to 300 pounds. Also coronary artery disease with stent. 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 Patient presents with vomiting some blood. Also been having dark stools what he described this for about a month. He felt it to get better on its own. Some abdominal discomfort. Dr. Cohen was consulted for the same. Patient admitted nothing by mouth. Given IV fluids. Patient is on aspirin and Plavix. Review of systems: GEN.: Tired EYES: None HEENT: None NECK: None RESPIRATORY: None CARDIOVASCULAR: None GASTROINTESTINAL: As above GENITOURINARY: None MUSCULOSKELETAL: Back pain LYMPHATICS: None HEMATOLOGICAL: None PSYCHIATRY: None NEUROLOGICAL: None Past medical history to include: Hypertension, chronic back pain, sciatica, coronary artery disease with stent, gastric sleeve with panic colectomy in July 2018 has lost 200 pounds. 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 Physical examination: VITAL SIGNS: 99.2, 87, 16, 116/62, 95% room air GENERAL: [BMI 49.7, laying in bed, but tired EYES: Pupils equal. Conjunctiva normal. HEENT: External appearance of nose and ears normal, oral cavity grossly normal. NECK: JVD not raised; masses not palpable. HEART: First and second heart sounds are normal; no edema. LUNGS: Respiratory rate normal; clear to auscultation. ABDOMEN: Soft, minimal epigastric tenderness liver spleen not palpable, no masses palpable. PSYCH: Alert and oriented x3; mood and affect normal. NEUROLOGICAL: Cranial nerves grossly intact; no facial asymmetry, power and sensation grossly intact. LYMPHATICS: No lymph nodes palpable in the axilla and neck INVESTIGATIONS, reviewed in the clinical context: White count 14 hemoglobin 10.6 platelets 389 potassium 4.3 bun 46 creatinine 0.67 Troponin I less than 0.012 Gastric occult blood positive, Dimitry 19 PCR-not detected EKG tracing personally reviewed by me-sinus rhythm with nonspecific T-wave changes Assessment: -This is a patient been having dark stools were closed 2 months. Also now presenting with some hematemesis. Patient is on aspirin and Plavix. -Sleeve gastrectomy patient's loss 300 pounds since then -Morbid obesity BMI 49.7 -Hyperlipidemia -Essential hypertension Plan: Patient's antiplatelet agents were held. Home medications resumed. IV fluids. Dr. Cohen was consulted with reviewed her endoscopy. She'll be done this afternoon. Given history of stent and GI bleed we'll consult cardiology for the same. Care was discussed with the patient question were answered. Past Medical History Past Medical History: Hypertension Additional Past Medical History / Comment(s): CHRONIC BACK PAIN which has increased significantly with major weight loss, sciatica, bronchitis, arthritis, borderline thyroid issues, NOT ON ANYTHING FOR B/P History of Any Multi-Drug Resistant Organisms: None Reported Past Surgical History: Bariatric Surgery, Heart Catheterization With Stent Additional Past Surgical History / Comment(s): EGD. GASTRIC SLEEVE PANNICULECTOMY 07-25-18 Past Anesthesia/Blood Transfusion Reactions: No Reported Reaction Additional Past Anesthesia/Blood Transfusion Reaction / Comment(s): HAS NEVER HAD GENERAL ANESTHESIA Date of Last Stent Placement:: July 2019 Past Psychological History: Anxiety, Bipolar, Depression, Panic Disorder Additional Psychological History / Comment(s): UNDER CONTROL AT THIS TIME Smoking Status: Never smoker Past Alcohol Use History: Rare Past Drug Use History: None Reported - Past Family History Father History Unknown: Yes Family Medical History: Hypertension Additional Family Medical History / Comment(s): mental disease, violent disorders Mother History Unknown: Yes Family Medical History: Hypertension Medications and Allergies Home Medications Medication Instructions Recorded Confirmed Type Multivitamins, Thera [Multivitamin 1 tab PO AC-TID 07/21/19 12/12/19 History (formulary)] Aspirin 81 mg PO DAILY 30 Days #30 chew 07/25/19 12/12/19 Rx Atorvastatin [Lipitor] 80 mg PO HS 30 Days #30 tab 07/25/19 12/12/19 Rx Nitroglycerin Sl Tabs [Nitrostat] 0.4 mg SUBLINGUAL Q5M PRN #30 tab 07/25/19 12/12/19 Rx Clopidogrel [Plavix] 75 mg PO HS 12/12/19 12/12/19 History Losartan Potassium 50 mg PO DAILY 12/12/19 12/12/19 History Metoprolol Tartrate [Lopressor] 12.5 mg PO BID 12/12/19 12/12/19 History amLODIPine [Norvasc] 5 mg PO DAILY 12/12/19 12/12/19 History Allergies Allergy/AdvReac Type Severity Reaction Status Date / Time No Known Allergies Allergy Verified 12/12/19 19:06 Physical Exam Vitals: Vital Signs Temp Pulse Pulse Resp BP BP Pulse Ox 12/13/19 13:07 72 16 117/65 97 12/13/19 08:20 99.2 F 87 16 116/62 95 12/13/19 03:25 98.6 F 80 18 143/72 97 12/12/19 23:06 99.3 F 81 16 153/77 98 12/12/19 20:25 73 16 121/58 97 12/12/19 20:00 98.2 F 18 114/63 99 12/12/19 18:34 77 18 114/55 99 12/12/19 18:10 79 18 93/63 100 12/12/19 17:45 85 18 86/47 98 12/12/19 17:34 99 F 83 18 125/84 98 Intake and Output 12/12/19 12/13/19 12/13/19 22:59 06:59 14:59 Other: Voiding Method Toilet Toilet # Bowel Movements 2 Weight 148.325 kg 157 kg Results CBC & Chem 7: 12/13/19 05:41 12/12/19 17:41 Labs: Abnormal Lab Results - Last 24 Hours (Table) 12/12/19 12/12/19 12/12/19 Range/Units 17:41 17:41 17:41 WBC 14.0 H (3.8-10.6) k/uL RBC 4.09 L (4.30-5.90) m/uL Hgb 10.6 L (13.0-17.5) gm/dL Hct 34.4 L (39.0-53.0) % MCHC 30.7 L (31.0-37.0) g/dL Neutrophils # 10.5 H (1.3-7.7) k/uL APTT 20.7 L (22.0-30.0) sec Chloride 115 H (98-107) mmol/L Carbon Dioxide 19 L (22-30) mmol/L BUN 46 H (9-20) mg/dL Glucose 151 H (74-99) mg/dL POC Glucose (mg/dL) (75-99) mg/dL Calcium 8.0 L (8.4-10.2) mg/dL Total Protein 5.5 L (6.3-8.2) g/dL Albumin 3.3 L (3.5-5.0) g/dL 12/12/19 12/13/19 12/13/19 Range/Units 17:41 00:10 05:41 WBC 13.4 H 13.2 H (3.8-10.6) k/uL RBC 3.64 L 3.62 L (4.30-5.90) m/uL Hgb 9.4 L 9.2 L (13.0-17.5) gm/dL Hct 30.3 L 30.4 L (39.0-53.0) % MCHC 30.3 L (31.0-37.0) g/dL Neutrophils # 10.1 H 10.1 H (1.3-7.7) k/uL APTT (22.0-30.0) sec Chloride (98-107) mmol/L Carbon Dioxide (22-30) mmol/L BUN (9-20) mg/dL Glucose (74-99) mg/dL POC Glucose (mg/dL) 152 H (75-99) mg/dL Calcium (8.4-10.2) mg/dL Total Protein (6.3-8.2) g/dL Albumin (3.5-5.0) g/dL Thrombosis Risk Factor Assmnt - Choose All That Apply Any of the Below Risk Factors Present?: Yes Each Factor Represents 1 point: Obesity (BMI >25) Other Risk Factors: No Other congenital or acquired thrombophilia - If yes, enter type in comment: No Thrombosis Risk Factor Assessment Total Risk Factor Score: 1 Thrombosis Risk Factor Assessment Level: Low Risk
[2019-12-13] MEDS: ATORVASTATIN 80 MG TAB PO SCH (20:36)
[2019-12-13] MEDS: CLOPIDOGREL 75 MG TAB PO SCH (21:13)
--- NOTE | 2019-12-13 21:56 | P.GSCN ---
History of Present Illness Consult date: 12/13/19 History of present illness: CHIEF COMPLAINT: GI bleed HISTORY OF PRESENT ILLNESS: Niles Bacon is a 54-year-old gentleman who reports at least 1 week history of recent epigastric abdominal pain as well as dark red stools. His history significant for recent cardiac stent placement in July 2019, 5 months ago for recent myocardial infarction. He had been placed on Plavix and aspirin. He reports developing epigastric pain including gastric upset from his medications and had discontinued his Plavix for almost one month until being told by his turn down man to restart his medications. He confirms not taking any omeprazole during this timeframe. He reports having dizziness followed by blood in the stool upon presentation to the emergency room. He also reports possible previous transient ischemia attacks and is seeing neurologists regarding symptoms. General surgery is consulted for history of gastrointestinal bleed. Separately he is status post sleeve gastrectomy January 14, 2015. He is 5 years out from his sleeve gastrectomy. His highest weight was 607 pounds as of August 2014. His body mass index was as high as 87.3. He is status post panniculectomy 1 year ago July 2018 excision of 33 pounds of skin. He had been lost to follow-up to the bariatric center for the past year. Today he comes in weighing 345 pounds from 320 pounds, 1 year ago. He has gained 25 pounds in 1 year. His body mass index is reduced from 87.3 to 49.7 lifetime. His lifetime weight loss is 262 pounds. Total percent excess weight loss is 60%. PAST MEDICAL HISTORY: 1. Super morbid obesity, highest BMI 87.1 2. Depression. 3. Gastroesophageal reflux disease. 4. Hypertension. 5. Osteoarthritis. 6. Chronic lower back pain. 7. Thyroid disorder. 8. Anxiety. 9. 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 10. Panniculitis. 11. Persistent leukocytosis 12. Myocardial infarction PAST SURGICAL HISTORY: 1. EGD. 2. Status post sleeve gastrectomy. 3. Panniculectomy, 2018 MEDICATIONS: Home Medications Medication Instructions Recorded Confirmed Multivitamins, Thera [Multivitamin 1 tab PO AC-TID 07/21/19 12/12/19 (formulary)] Clopidogrel [Plavix] 75 mg PO HS 12/12/19 12/12/19 Losartan Potassium 50 mg PO DAILY 12/12/19 12/12/19 Metoprolol Tartrate [Lopressor] 12.5 mg PO BID 12/12/19 12/12/19 amLODIPine [Norvasc] 5 mg PO DAILY 12/12/19 12/12/19 Previous Rx's Medication Instructions Recorded Aspirin 81 mg PO DAILY 30 Days #30 chew 07/25/19 Atorvastatin [Lipitor] 80 mg PO HS 30 Days #30 tab 07/25/19 Nitroglycerin Sl Tabs [Nitrostat] 0.4 mg SUBLINGUAL Q5M PRN #30 tab 07/25/19 ALLERGIES: Denies. SOCIAL HISTORY: Lifelong nontobacco user. He is . FAMILY HISTORY: Pertinent for heart disease including morbid obesity. REVIEW OF SYSTEMS: MUSCULOSKELETAL: Has sciatica. Reports severe lower back pain from weight of pannus. GASTROINTESTINAL: Reports gastroesophageal reflux disease. No reports of dumping syndrome. History of epigastric abdominal pain with antiplatelet therapy PSYCH: History of bipolar disorder and depression. He is chemically sensitive. No suicidal ideation. CONSTITUTIONAL: Highest weight of 607 pounds. Highest body mass index of 87.1. [place] body weight of 173 pounds. CARDIOVASCULAR: Recent myocardial infarction July 2019, 4 months ago with stent placement. HEENT: No dysphagia. No troubles with vision or hearing. HEMATOLOGIC: Has a personal history of chronically elevated white blood cell count including chronic infections. Also has history of lupus in his family. ENDOCRINE: Denies any diabetes. He does have history of thyroid disorder. CARDIOVASCULAR: Denies any heart attack or recent chest pain. RESPIRATORY: Has obstructive sleep apnea, now improved since surgery. No reports of asthma. NEURO: Reports transient ischemic attack and including chronic pain syndrome with occasional upper extremity weakness. SKIN: Chronic panniculitis. No skin cancer. PHYSICAL EXAM: VITAL SIGNS: 5 foot 10, 345 pounds. Body mass index is 49.7 Vital Signs Temp 98.8 F 12/13/19 16:10 Pulse 74 12/13/19 16:10 Resp 16 12/13/19 16:10 BP 144/70 12/13/19 16:10 Pulse Ox 99 12/13/19 16:10 GENERAL: Well-developed male in no acute distress. ABDOMEN: Soft, non-distended. No palpable abdominal wall hernia. HEENT: Hears conversational speech. Moist buccal mucosa. Extraocular movements were grossly intact. No nasal drainage. NECK: Supple without lymphadenopathy. CHEST: Unlabored respirations, equal bilateral excursions. CARDIOVASCULAR: Regular rate and rhythm. 2+ radial pulses. MUSCULOSKELETAL: Bilateral lower extremity edema with 1+. No clubbing cyanosis or edema. NEURO: No focal or lateralizing signs. Cranial nerves II-12 grossly intact. PSYCH: Appropriate affect. Alert and oriented to person, place, and time. SKIN: Well perfused. Good skin turgor. LABS: Hemoglobin down 10.6 and 9.2. WBC down 14.2-13.2 baseline. Occult blood positive. Coronavirus negative. ECHO: Ejection fraction 45-50%. Inferior basal hypokinesis. Severe concentric left ventricular hypertrophy MEDICAL REPORT: Cardiac stent 3, stenting of PDA, stenting of bifurcation of circumflex, stenting first obtuse marginal branch EKG: Demonstrates premature atrial complexes with aberrant conduction ASSESSMENT: 1. Gastrointestinal bleed 2. History of sleeve gastrectomy 3. History of chronic antiplatelet therapy 4. Morbid obesity due to excess calories. 5. Body mass index lifetime reduced from 87.1 down to 47.9. 6. Chronic leukocytosis. 7. History of massive weight loss, lifetime over 262 pounds. 8. Hypertensive heart disease. 9. History of vitamin D deficiency. 10. Chronic osteoarthritis of the lower back with degenerative joint disease. 11. Obstructive sleep apnea. 12. Chronic lower back pain. 13. Secondary hyperparathyroidism. 14. Hypercholesterolemia. 15. 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 16. Alcohol abuse. 17. Insomnia. 18. Ischemic cardiomyopathy 19. History of cardiac stenting PLAN: 1. He reports recent epigastric abdominal pain especially with using antiplatelet therapy and not using omeprazole in the interim. He is high risk for gastric ulcers including small bowel ulceration. 2. Recommend upper endoscopy for control of upper GI bleed. 3. Recommend Protonix 40 mg twice daily for gastrointestinal bleeding 4. With his recent cardiac stent placement including myocardial infarction, he is elevated risk for perioperative complications Past Medical History Past Medical History: Hypertension Additional Past Medical History / Comment(s): CHRONIC BACK PAIN which has increased significantly with major weight loss, sciatica, bronchitis, arthritis, borderline thyroid issues, NOT ON ANYTHING FOR B/P History of Any Multi-Drug Resistant Organisms: None Reported Past Surgical History: Bariatric Surgery, Heart Catheterization With Stent Additional Past Surgical History / Comment(s): EGD. GASTRIC SLEEVE PANNICULECTOMY 07-25-18 Past Anesthesia/Blood Transfusion Reactions: No Reported Reaction Additional Past Anesthesia/Blood Transfusion Reaction / Comm: HAS NEVER HAD GENERAL ANESTHESIA Date of Last Stent Placement:: July 2019 Past Psychological History: Anxiety, Bipolar, Depression, Panic Disorder Additional Psychological History / Comment(s): UNDER CONTROL AT THIS TIME Smoking Status: Never smoker Past Alcohol Use History: Rare Past Drug Use History: None Reported - Past Family History Father History Unknown: Yes Family Medical History: Hypertension Additional Family Medical History / Comment(s): mental disease, violent disorders Mother History Unknown: Yes Family Medical History: Hypertension Medications and Allergies Home Medications Medication Instructions Recorded Confirmed Type Multivitamins, Thera [Multivitamin 1 tab PO AC-TID 07/21/19 12/12/19 History (formulary)] Aspirin 81 mg PO DAILY 30 Days #30 chew 07/25/19 12/12/19 Rx Atorvastatin [Lipitor] 80 mg PO HS 30 Days #30 tab 07/25/19 12/12/19 Rx Nitroglycerin Sl Tabs [Nitrostat] 0.4 mg SUBLINGUAL Q5M PRN #30 tab 07/25/19 12/12/19 Rx Clopidogrel [Plavix] 75 mg PO HS 12/12/19 12/12/19 History Losartan Potassium 50 mg PO DAILY 12/12/19 12/12/19 History Metoprolol Tartrate [Lopressor] 12.5 mg PO BID 12/12/19 12/12/19 History amLODIPine [Norvasc] 5 mg PO DAILY 12/12/19 12/12/19 History Allergies Allergy/AdvReac Type Severity Reaction Status Date / Time No Known Allergies Allergy Verified 12/12/19 19:06 Surgical - Exam Vital Signs Temp Pulse Resp BP Pulse Ox 99 F 83 18 125/84 98 12/12/19 17:34 12/12/19 17:34 12/12/19 17:34 12/12/19 17:34 12/12/19 17:34 Results - Labs 12/13/19 05:41 12/12/19 17:41 Abnormal Lab Results - Last 24 Hours (Table) 12/13/19 12/13/19 Range/Units 00:10 05:41 WBC 13.4 H 13.2 H (3.8-10.6) k/uL RBC 3.64 L 3.62 L (4.30-5.90) m/uL Hgb 9.4 L 9.2 L (13.0-17.5) gm/dL Hct 30.3 L 30.4 L (39.0-53.0) % MCHC 30.3 L (31.0-37.0) g/dL Neutrophils # 10.1 H 10.1 H (1.3-7.7) k/uL Assessment and Plan (1) History of sleeve gastrectomy Current Visit: Yes Status: Acute Code(s): Z90.3 - ACQUIRED ABSENCE OF STOMACH [PART OF] SNOMED Code(s): 237931575394883 (2) Upper GI bleed Current Visit: Yes Status: Acute Code(s): K92.2 - GASTROINTESTINAL HEMORRHAGE, UNSPECIFIED SNOMED Code(s): 87734495 (3) Stented coronary artery Current Visit: No Status: Acute Code(s): Z95.5 - PRESENCE OF CORONARY ANGIOPLASTY IMPLANT AND GRAFT SNOMED Code(s): 816728380 (4) Depression Current Visit: No Status: Chronic Code(s): F32.9 - MAJOR DEPRESSIVE DISORDER, SINGLE EPISODE, UNSPECIFIED SNOMED Code(s): 21512047 (5) Morbid obesity with BMI of 45.0-49.9, adult Current Visit: No Status: Chronic Code(s): E66.01 - MORBID (SEVERE) OBESITY DUE TO EXCESS CALORIES; Z68.42 - BODY MASS INDEX (BMI) 45.0-49.9, ADULT SNOMED Code(s): 345783854
[2019-12-14] MEDS: SODIUM CHLORIDE 0.9% 1,000 ML IV SCH ×3 (06:06→17:26)
[2019-12-14] MEDS ORDERED: PROPOFOL 10 MG/ML 20 ML VIAL IV ONE (10:00)
[2019-12-14] MEDS ORDERED: IV FLUID CONTINUATION 1,000 ML IV ONE (10:05)
--- NOTE | 2019-12-14 10:21 | P.PCN ---
Date of Procedure: 12/14/19 Description of Procedure: PREOPERATIVE DIAGNOSIS: Gastrointestinal bleeding POSTOPERATIVE DIAGNOSIS: Gastrointestinal bleeding OPERATION: Colonoscopy to the cecum, ileocecal valve and appendiceal orifice. SURGEON: Dulce Mcarthur MD. ANESTHESIA: MAC. INDICATIONS: The patient is a 54-year-old male who presents for with dark stools, gastrointestinal bleeding. Upper endoscopy yesterday was unremarkable. Benefits and risks were described and informed consent was obtained. DESCRIPTION OF PROCEDURE: The patient had undergone NulYtely prep. He had been brought into the operating room and laid in the left lateral decubitus position. After adequate intravenous sedation, the rectum was examined with 2% lidocaine jelly. No external hemorrhoids were encountered. The rectal tone was within normal limits. No lesions were palpated in the rectal vault. An Olympus colonoscope was advanced until the cecum, ileocecal valve and appendiceal orifice were clearly viewed. The prep was good. Dark residual effluent was found along the ileocecal valve consistent with a upper GI bleed. The scope was removed with visualization of each mucosal fold. No scattered diverticulosis was encountered. No colonic polyps were found. No evidence of focal colitis was found. Retroflexion of the scope demonstrated grade 1 internal hemorrhoids without active bleeding or inflammation. The colon was desufflated. The patient had tolerated the procedure well. Withdrawal time was over 6 minutes. FINDINGS: Aronchick preparation quality scale 2 (1-5) Internal hemorrhoids, grade 1 No external prolapsed hemorrhoids. No arteriovenous malformations. No adenomatous polyps. No focal colitis. No active gastrointestinal bleed of the colon identified. Dark residual effluent was found along the ileocecal valve consistent with a upper GI bleed. RECOMMENDATIONS: Lower endoscopy as needed Recommend capsule endoscopy Diet as tolerated
[2019-12-14] MEDS: IOPAMIDOL CONTRAST (ORAL USE) VIAL PO PRN ×2 (11:07→12:14)
[2019-12-14] MEDS: amLODIPine 5 MG TAB PO SCH (11:10)
[2019-12-14] MEDS: METOPROLOL TARTRATE 12.5 MG TAB PO SCH ×2 (11:10→20:50)
[2019-12-14] MEDS: PANTOPRAZOLE 40 MG TABLET PO SCH ×2 (11:10→17:24)
[2019-12-14] MEDS: LOSARTAN 50 MG TAB PO SCH (11:10)
--- NOTE | 2019-12-14 13:05 | CT ---
EXAMINATION TYPE: CT abdomen pelvis w con DATE OF EXAM: 12/14/2019 COMPARISON: None HISTORY: GI Bleed, hypotensive episode CT DLP: 3410 mGycm CONTRAST: CT scan of the abdomen and pelvis is performed with Oral Contrast and with IV Contrast, patient injec luz marina with 100 ml mL of Isovue 300. FINDINGS: LUNG BASES-: No visible nodule. No infiltrate. Small hiatal hernia noted. LIVER/GB: No calcified gallstones. No space occupying hepatic lesion. Biliary tree is of normal ca liber. PANCREAS: No inflammation. No distinct mass. SPLEEN: No splenic enlargement. No lesion seen. ADRENALS: Left adrenal nodule measures 3.3 cm and may reflect an adenoma. The right adrenal gland is unremarkable. No thickening. KIDNEYS/BLADDER: No hydronephrosis. 3 mm nonobstructing calculus lower pole left kidney. No addition al calculi seen. 1 cm cyst upper pole right kidney. Urinary bladder grossly unremarkable. BOWEL: Normal appendix. Normal bowel caliber. No inflammation. GENITAL ORGANS: No gross abnormality. LYMPH NODES: No greater than 1cm abdominal or pelvic lymph nodes are appreciated. AORTA: No significant abnormality. OSSEOUS STRUCTURES: No significant abnormality is seen. OTHER: No significant additional abnormality is seen. IMPRESSION: 1. No acute process identified to account for the patient's symptoms.
--- NOTE | 2019-12-14 13:36 | P.CRDCN ---
History of Present Illness Consult date: 12/14/19 Requesting physician: Dwayne Reyes Chief complaint: GI bleed History of present illness: This is a 54-year-old gentleman with history of obesity and prior bariatric surgery, hypertension, hyperlipidemia, coronary artery disease with stenting of the first and second OM in July of this year. Into the patient, after he had his stenting procedures he developed some abdominal discomfort and nausea. He had stopped taking his aspirin and Plavix for approximate month duration, symptoms seemed to improve and then again patient went back on those medications. He presents to the hospital now with symptoms of vomiting blood, he also had associated dizziness lightheadedness and syncope. Blood pressure during this episode 70 systolic. Patient also states he's been noticing black stools at home for approximate one week duration. He is a Jehovah witness and will not take any blood products because of this. Denies any chest pain no shortness of breath. He underwent an EGD yesterday didn't not reveal any acute ulceration, hiatal hernia, grade seed erosive esophagitis noted. Blood pressure 108/56, heart rate in the 60s, afebrile. White blood cell count 13.2, hemoglobin 9.2, platelet count 350. Sodium 141, potassium 4.3, BUN 46, creatinine 0.6. Troponin 0.012. Still for occult blood positive and coronavirus not detected. At the time of my examination patient states that he feels weak and tired, no other complaints. Aspirin and Plavix are currently on hold and patient is scheduled to undergo a lower GI. Past Medical History Past Medical History: Hypertension Additional Past Medical History / Comment(s): CHRONIC BACK PAIN which has increased significantly with major weight loss, sciatica, bronchitis, arthritis, borderline thyroid issues, NOT ON ANYTHING FOR B/P History of Any Multi-Drug Resistant Organisms: None Reported Past Surgical History: Bariatric Surgery, Heart Catheterization With Stent Additional Past Surgical History / Comment(s): EGD. GASTRIC SLEEVE PANNICULECTOMY 07-25-18 Past Anesthesia/Blood Transfusion Reactions: No Reported Reaction Additional Past Anesthesia/Blood Transfusion Reaction / Comment(s): HAS NEVER HAD GENERAL ANESTHESIA Date of Last Stent Placement:: July 2019 Past Psychological History: Anxiety, Bipolar, Depression, Panic Disorder Additional Psychological History / Comment(s): UNDER CONTROL AT THIS TIME Smoking Status: Never smoker Past Alcohol Use History: Rare Past Drug Use History: None Reported - Past Family History Father History Unknown: Yes Family Medical History: Hypertension Additional Family Medical History / Comment(s): mental disease, violent disorders Mother History Unknown: Yes Family Medical History: Hypertension Medications and Allergies Home Medications Medication Instructions Recorded Confirmed Type Multivitamins, Thera [Multivitamin 1 tab PO AC-TID 07/21/19 12/12/19 History (formulary)] Aspirin 81 mg PO DAILY 30 Days #30 chew 07/25/19 12/12/19 Rx Atorvastatin [Lipitor] 80 mg PO HS 30 Days #30 tab 07/25/19 12/12/19 Rx Nitroglycerin Sl Tabs [Nitrostat] 0.4 mg SUBLINGUAL Q5M PRN #30 tab 07/25/19 12/12/19 Rx Clopidogrel [Plavix] 75 mg PO HS 12/12/19 12/12/19 History Losartan Potassium 50 mg PO DAILY 12/12/19 12/12/19 History Metoprolol Tartrate [Lopressor] 12.5 mg PO BID 12/12/19 12/12/19 History amLODIPine [Norvasc] 5 mg PO DAILY 12/12/19 12/12/19 History Allergies Allergy/AdvReac Type Severity Reaction Status Date / Time No Known Allergies Allergy Verified 12/12/19 19:06 Physical Exam Vitals: Vital Signs Temp Pulse Resp BP Pulse Ox 12/14/19 08:30 97.7 F 80 16 128/80 97 12/14/19 04:00 98.4 F 67 14 107/55 98 12/14/19 00:00 87 12 131/60 99 12/13/19 20:00 98.9 F 62 12 125/58 98 12/13/19 16:10 98.8 F 74 16 144/70 99 Intake and Output 12/13/19 12/14/19 12/14/19 22:59 06:59 14:59 Intake Total 605 290 Balance 605 290 Intake: IV 25 50 Oral 580 240 Other: Voiding Method Toilet # Voids 3 1 # Bowel Movements 2 Weight 149.4 kg PHYSICAL EXAMINATION: GENERAL: 54-year-old gentleman in no acute distress at the time of my examination HEENT: Head is atraumatic, normocephalic. Pupils equal, round. Sclera anicteric. Conjunctiva are clear. Mucous membranes of the mouth are moist. Neck is supple. There is no elevated jugular venous pressure. No carotid bruit is heard. HEART EXAMINATION: Heart S1, S2 normal. No murmur or gallop heard. CHEST EXAMINATION: Lungs are clear to auscultation and precussion. No chest wall tenderness is noted on palpation or with deep breathing. ABDOMEN: Soft, nontender. Bowel sounds are heard. No organomegaly noted. EXTREMITIES: 2+ peripheral pulses with no evidence of peripheral edema and no calf tenderness noted. NEUROLOGIC patient is awake, alert and oriented 3 . . Results 12/13/19 05:41 12/12/19 17:41 Current Medications Generic Name Dose Route Start Last Admin Trade Name Freq PRN Reason Stop Dose Admin Amlodipine Besylate 5 mg 12/13/19 09:00 12/14/19 11:10 Norvasc PO 5 mg DAILY ELADIO Administration Atorvastatin Calcium 80 mg 12/12/19 21:00 12/13/19 20:36 Lipitor PO 80 mg HS ELADIO Administration Sodium Chloride 1,000 mls @ 130 mls/hr 12/12/19 19:15 12/14/19 11:11 Saline 0.9% IV 130 mls/hr .Q7H42M ELADIO Administration Losartan Potassium 50 mg 12/13/19 09:00 12/14/19 11:10 Cozaar PO 50 mg DAILY ELADIO Administration Metoprolol Tartrate 12.5 mg 12/12/19 21:00 12/14/19 11:10 Lopressor PO 12.5 mg BID ELADIO Administration Naloxone HCl 0.2 mg 12/12/19 19:04 Narcan IV Q2M PRN Opioid Reversal Nitroglycerin 0.4 mg 12/12/19 19:44 Nitrostat SUBLINGUAL Q5M PRN Chest Pain Ondansetron HCl 4 mg 12/12/19 19:04 12/12/19 21:25 Zofran IVP 4 mg Q8HR PRN Administration Nausea And Vomiting Pantoprazole Sodium 40 mg 12/14/19 07:30 12/14/19 11:10 Protonix PO 40 mg AC-BID ELADIO Administration Intake and Output 12/13/19 12/14/19 12/14/19 22:59 06:59 14:59 Intake Total 605 290 Balance 605 290 Intake: IV 25 50 Oral 580 240 Other: Voiding Method Toilet # Voids 3 1 # Bowel Movements 2 Weight 149.4 kg 12/13/19 05:41 12/12/19 17:41 EKG Interpretations (text) EKG shows a normal sinus rhythm with occasional PVC. Assessment and Plan Plan: Assessment and plan #1 GI bleed #2 sleep gastrectomy, for which patient has lost approximately 300 pounds of weight #3 morbid obesity #4 hypertension #5 hyperlipidemia #6 coronary artery disease with stenting of the first OM and PTCA of the second OM in July of this year Plan Patient will undergo a lower GI workup. Aspirin and Plavix continue to be on hold. It has been 5 months since the patient has had his stenting, Once cleared by GI service we will at least resume his aspirin. Further recommendations to follow. DNP note has been reviewed, I agree with a documented findings and plan of care. Patient was seen and examined.
--- NOTE | 2019-12-14 14:12 | P.PN ---
Subjective Progress Note Date: 12/14/19 CHIEF COMPLAINT: Gastrointestinal bleeding HISTORY OF PRESENT ILLNESS: The patient is a 54-year-old male who was admitted secondary to gastrointestinal bleed including epigastric abdominal pain and tr ansient hypotensive episode. He completed an upper endoscopy yesterday which was unremarkable for acute gastric or duodenal ulcers. He has history of antiplatelet therapy with Plavix and aspirin. He reported dark stools as a result. Colonoscopy was completed. No acute diverticular bleeding or colon source of bleed was found. Dark effluent was confirmed at the ileocecal valve of potentially upper GI versus small bowel bleeding. His is at bedside. ROS: No reports of vomiting. No fevers or chills. No new chest pain. No productive sputum PHYSICAL EXAM: VITAL SIGNS: Reviewed CONSTITUTIONAL: Well developed and in no acute distress. EYES: Conjuctivae without sclera icterus. Extraocular movements grossly intact. HEAD, EARS, NOSE, THROAT: Moist buccal mucosa. Head is atraumatic, normocephalic. Hears conversational speech. No nasal drainage. NECK: Supple. No thyroidomegaly. RESPIRATORY: Non-labored respirations and equal bilateral excursions. CARDIOVASCULAR: Palpable 2+ radial pulses. ABDOMEN: Protuberant. Soft. No peritonitis. Epigastric tenderness MUSCULOSKELETAL: No gross deformity of the lower extremities noted. No clubbing. No cyanosis. SKIN: Good skin turgor. Well perfused. NEUROLOGIC: Cranial nerves II through XII grossly intact. No focal or latera lizing signs. PSYCH: Appropriate affect. Alert and oriented to person, place and time. CLINICAL LABS: White blood cell count normal at 13.2 with hemoglobin 9.2. ASSESSMENT: 1. Gastrointestinal bleed 2. Chronic antiplatelet therapy 3. Chronic leukocytosis PLAN: 1. He had reported epigastric down pain for which a CT of the abdomen and pelvis has been ordered. 2. Recommend heart healthy diet to follow after computed tomography scan 3. Consultation to gastroenterology for small bowel capsule advised 4. Recommend Protonix or omeprazole for history of gastrointestinal bleed Objective - Vital Signs Vital signs: Vital Signs Temp 97.7 F 12/14/19 08:30 Pulse 80 12/14/19 08:30 Resp 16 12/14/19 08:30 BP 128/80 12/14/19 08:30 Pulse Ox 97 12/14/19 08:30 Intake & Output 12/13/19 12/14/19 12/14/19 18:59 06:59 18:59 Intake Total 3385 290 Balance 3385 290 Weight 149.4 kg Intake: IV 25 50 Intake, IV Titration 2780 Amount Sodium Chloride 0.9% 1, 780 000 ml @ 130 mls/hr IV . Q7H42M ELADIO Rx#:[id number] Sodium Chloride 0.9% 1, 2000 000 ml @ 999 mls/hr IV . Q1H1M ELADIO Rx#:[id number] Oral 580 240 Other: Voiding Method Toilet # Voids 3 1 # Bowel Movements 1 2 - Labs CBC & Chem 7: 12/13/19 05:41 12/12/19 17:41 Assessment and Plan (1) History of sleeve gastrectomy Current Visit: Yes Status: Acute Code(s): Z90.3 - ACQUIRED ABSENCE OF STOMACH [PART OF] SNOMED Code(s): 407305133707111 (2) Upper GI bleed Current Visit: Yes Status: Acute Code(s): K92.2 - GASTROINTESTINAL HEMORRHAGE, UNSPECIFIED SNOMED Code(s): 87760055 (3) Stented coronary artery Current Visit: No Status: Acute Code(s): Z95.5 - PRESENCE OF CORONARY ANGIOPLASTY IMPLANT AND GRAFT SNOMED Code(s): 214912824 (4) Depression Current Visit: No Status: Chronic Code(s): F32.9 - MAJOR DEPRESSIVE DISOR TYSHAWN, SINGLE EPISODE, UNSPECIFIED SNOMED Code(s): 24214917 (5) Morbid obesity with BMI of 45.0-49.9, adult Current Visit: No Status: Chronic Code(s): E66.01 - MORBID (SEVERE) OBESITY DUE TO EXCESS CALORIES; Z68.42 - BODY MASS INDEX (BMI) 45.0-49.9, ADULT SNOMED Code(s): 390120631
--- NOTE | 2019-12-14 18:01 | P.PN ---
Progress Note - Text Progress Note Date: 12/14/19 Chief Complaint: GI bleed History of presenting complaint: This is a pleasant 54-year-old patient of Dr. Price. Chronic stable medical conditions include hypertension, chronic low back pain, history of gastric sleeve with panniculectomy in July 2018 and has lost close to 300 pounds. Also coronary artery disease with stent-July 2019. 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 Patient presents with vomiting some blood. Also been having dark stools what he described this for about a month. He he was hoping for 2 get better on its own. Some abdominal discomfort. Patient has been on aspirin and Plavix. Admitted with GI bleed. EGD showed some esophagitis. Today-laying in bed. Saw the patient does morning. Awaiting colonoscopic this afternoon. at the bedside. No further bleeding. Review of systems: Was done for constitutional, cardiovascular, GI, pulmonary. relevant finding as above Active Medications Amlodipine Besylate (Norvasc) 5 mg PO DAILY [facility] Last Admin: 12/14/19 11:10 Dose: 5 mg Documented by: Atorvastatin Calcium (Lipitor) 80 mg PO HS [facility] Last Admin: 12/13/19 20:36 Dose: 80 mg Documented by: Sodium Chloride (Saline 0.9%) 1,000 mls @ 130 mls/hr IV .Q7H42M [facility] Last Admin: 12/14/19 17:26 Dose: 130 mls/hr Documented by: Losartan Potassium (Cozaar) 50 mg PO DAILY [facility] Last Admin: 12/14/19 11:10 Dose: 50 mg Documented by: Metoprolol Tartrate (Lopressor) 12.5 mg PO BID [facility] Last Admin: 12/14/19 11:10 Dose: 12.5 mg Documented by: Naloxone HCl (Narcan) 0.2 mg IV Q2M PRN PRN Reason: Opioid Reversal Nitroglycerin (Nitrostat) 0.4 mg SUBLINGUAL Q5M PRN PRN Reason: Chest Pain Ondansetron HCl (Zofran) 4 mg IVP Q8HR PRN PRN Reason: Nausea And Vomiting Last Admin: 12/12/19 21:25 Dose: 4 mg Documented by: Pantoprazole Sodium (Protonix) 40 mg PO AC-BID [facility] Last Admin: 12/14/19 17:24 Dose: 40 mg Documented by: Physical examination: VITAL SIGNS: 97, 66, 16, 128/59, 99% room air GENERAL: Laying in bed, awake, comfortable EYES: Pupils equal. Conjunctiva normal. HEENT: External appearance of nose and ears normal, oral cavity grossly normal. NECK: JVD not raised; masses not palpable. HEART: First and second heart sounds are normal; no edema. LUNGS: Respiratory rate normal; clear to auscultation. ABDOMEN: Soft, minimal epigastric tenderness liver spleen not palpable, no masses palpable. PSYCH: Alert and oriented x3; mood and affect normal. INVESTIGATIONS, reviewed in the clinical context: White count 14 hemoglobin 10.6 platelets 389 potassium 4.3 bun 46 creatinine 0.67 Troponin I less than 0.012 Gastric occult blood positive, COVID 19 PCR-not detected EKG tracing personally reviewed by me-sinus rhythm with nonspecific T-wave changes EGD-LA grade C erosive esophagitis sliding hiatal hernia. Assessment: -This is a patient been having dark stools were closed 2 months. Also now presenting with some hematemesis. Patient is on aspirin and Plavix. EGD showed grade C esophagitis. -Sleeve gastrectomy patient's loss 300 pounds since then -Morbid obesity BMI 49.7 -Hyperlipidemia -Essential hypertension -LA grade C esophagitis -Coronary artery disease with stent in July 2019 Plan: Discussed with the patient and . Later this afternoon patient underwent a colonoscope he. Found to have some dark effluent from the ileocecal valve. Discussed with GI-patient for capsule camera study tomorrow.
[2019-12-14] MEDS: ATORVASTATIN 80 MG TAB PO SCH (20:50)
--- NOTE | 2019-12-15 05:27 | P.CONS ---
History of Present Illness - Reason for Consult Consult date: 12/14/19 Melena Requesting physician: Dulce Mcarthur - Chief Complaint Dark stool - History of Present Illness 54-year-old male with past medical history significant for hypertension, chronic lower back pain, prior gastric sleeve, panniculectomy in 07/2018 and CAD who presented to the hospital due to concerns over dark stool and an episode of dark colored emesis. The patient reports dark colored bowel movements over the past 1 month. He also reports some associated epigastric pain and one episode of dark colored emesis. The patient underwent endoscopic evaluation with EGD on 12/13/2019 significant only for esophagitis and colonoscopy on 12/14/2019 with findings of dark hemolyzed blood with no active bleeding or source of bleeding and some hemorrhoids. Laboratory evaluation significant for hemoglobin of 9.2 from 10.6 yesterday with WBC 13.2, platelet count 350,000, INR 1, total bilirubin 0.5, alkaline phosphatase 56, AST 21 and ALT 17. Computed tomography scan of the abdomen performed in evaluation negative for any acute intra- abdominal process. Review of Systems REVIEW OF SYSTEMS: CONSTITUTIONAL: Denies any fevers, chills, weight change or fatigue. CARDIOVASCULAR: Denies any chest pain, palpitations high or low blood pressures RESPIRATORY: Denies any shortness of breath, hemoptysis or cough. GENITOURINARY: No dysuria or hematuria. MUSCULOSKELETAL: No weakness reported. SKIN: Denies any new rashes or lesions, jaundice or pallor. PSYCHIATRIC: Denies any depression or anxiety, but does have a history of bipolar disorder. NEUROLOGY: Denies headache, denies any new focal deficits. EARS/NOSE/THROAT: No recent hearing change, congestion, nasal discharge or sore throat. EYES: No pain in eyes, discharge or change in vision. GASTROINTESTINAL: As per HPI. Past Medical History Past Medical History: Hypertension Additional Past Medical History / Comment(s): CHRONIC BACK PAIN which has increased significantly with major weight loss, sciatica, bronchitis, arthritis, borderline thyroid issues, NOT ON ANYTHING FOR B/P History of Any Multi-Drug Resistant Organisms: None Reported Past Surgical History: Bariatric Surgery, Heart Catheterization With Stent Additional Past Surgical History / Comment(s): EGD. GASTRIC SLEEVE PANNICULECTOMY 07-25-18 Past Anesthesia/Blood Transfusion Reactions: No Reported Reaction Additional Past Anesthesia/Blood Transfusion Reaction / Comm: HAS NEVER HAD GENERAL ANESTHESIA Date of Last Stent Placement:: July 2019 Past Psychological History: Anxiety, Bipolar, Depression, Panic Disorder Additional Psychological History / Comment(s): UNDER CONTROL AT THIS TIME Smoking Status: Never smoker Past Alcohol Use History: Rare Past Drug Use History: None Reported - Past Family History Father History Unknown: Yes Family Medical History: Hypertension Additional Family Medical History / Comment(s): mental disease, violent disorders Mother History Unknown: Yes Family Medical History: Hypertension Medications and Allergies Home Medications Medication Instructions Recorded Confirmed Type Multivitamins, Thera [Multivitamin 1 tab PO AC-TID 07/21/19 12/12/19 History (formulary)] Aspirin 81 mg PO DAILY 30 Days #30 chew 07/25/19 12/12/19 Rx Atorvastatin [Lipitor] 80 mg PO HS 30 Days #30 tab 07/25/19 12/12/19 Rx Nitroglycerin Sl Tabs [Nitrostat] 0.4 mg SUBLINGUAL Q5M PRN #30 tab 07/25/19 12/12/19 Rx Clopidogrel [Plavix] 75 mg PO HS 12/12/19 12/12/19 History Losartan Potassium 50 mg PO DAILY 12/12/19 12/12/19 History Metoprolol Tartrate [Lopressor] 12.5 mg PO BID 12/12/19 12/12/19 History amLODIPine [Norvasc] 5 mg PO DAILY 12/12/19 12/12/19 History Allergies Allergy/AdvReac Type Severity Reaction Status Date / Time No Known Allergies Allergy Verified 12/12/19 19:06 Physical Exam Vitals: Vital Signs Temp Pulse Resp BP Pulse Ox 12/14/19 08:30 97.7 F 80 16 128/80 97 12/14/19 04:00 98.4 F 67 14 107/55 98 12/14/19 00:00 87 12 131/60 99 12/13/19 20:00 98.9 F 62 12 125/58 98 12/13/19 16:10 98.8 F 74 16 144/70 99 Intake and Output 12/13/19 12/14/19 12/14/19 22:59 06:59 14:59 Intake Total 605 290 Balance 605 290 Intake: IV 25 50 Oral 580 240 Other: Voiding Method Toilet # Voids 3 1 # Bowel Movements 2 Weight 149.4 kg On physical examination, patient appears comfortable in no apparent distress. HEAD: Normocephalic, atraumatic. EYES: No scleral icterus. No conjunctival injection. MOUTH: No lesions, tongue midline. NECK: Trachea midline, no gross abnormalities. CHEST: Clear to auscultation with no wheezing or rhonchi appreciated. HEART: Regular rate and rhythm. ABDOMEN: Soft, obese and nontender to palpation. Bowel sounds are positive. No organomegaly. No guarding or rigidity. EXTREMITIES: No pedal edema. SKIN: No rashes, no jaundice. NEUROLOGIC: Alert and oriented x3. No focal deficits. Results CBC & Chem 7: 12/13/19 05:41 12/12/19 17:41 CT scan - abdomen: report reviewed (Computed tomography scan of the abdomen negative for any acute intra-abdominal process) Assessment and Plan (1) Melena Narrative/Plan: 54-year-old male with multiple medical comorbidities including prior sleeve gastrectomy who presented to the hospital due to concerns of dark-colored stool, abdominal pain and an episode of coffee-ground emesis. Patient has undergone extensive evaluation with computed tomography scan of the abdomen negative for any acute intra-abdominal process, EGD showing only esophagitis, and colonoscopy significant only for hemorrhoids with hemolyzed blood with no active bleeding noted. Consult was placed for video capsule endoscopy to rule out GI bleed. Current Visit: Yes Status: Acute Code(s): K92.1 - MELENA SNOMED Code(s): 8071572 (2) History of sleeve gastrectomy Current Visit: Yes Status: Acute Code(s): Z90.3 - ACQUIRED ABSENCE OF STOMACH [PART OF] SNOMED Code(s): 177946337047142 Plan: Supportive care Clear liquid diet Nothing by mouth after midnight Magnesium citrate ordered Plan for video capsule endoscopy tomorrow Continue to monitor hemoglobin and hematocrit and transfuse as needed Surgical service following the patient Thank you for allowing us to participate in the care of the patient
[2019-12-15] MEDS: PANTOPRAZOLE 40 MG TABLET PO SCH ×2 (06:21→17:39)
[2019-12-15] MEDS: SODIUM CHLORIDE 0.9% 1,000 ML IV SCH ×3 (06:21→15:21)
[2019-12-15] MEDS ORDERED: SIMETHICONE 40 MG/0.6 ML DROPS 2,000 MG/30 ML BOTTLE PO ONE (07:59)
[2019-12-15 09:42] LABS: Basophils % (A) 0 %; Eosinophils # (A) 0.3 k/uL (0-0.7); Eosinophils % (A) 3 %; HCT 22.9 % (39.0-53.0); Hypochromasia Slight; Lymphocytes # (A) 2.4 k/uL (1.0-4.8); Lymphocytes % (A) 29 %; MCH 27.1 pg (25.0-35.0); MCHC 32.3 g/dL (31.0-37.0); Mean Platelet Volume 7.2; Monocytes # (A) 0.4 k/uL (0-1.0); Monocytes % (A) 5 %; Neutrophils # (A) 5.1 k/uL (1.3-7.7); Neutrophils % (A) 62 %; Platelet Count 298 k/uL (150-450); RBC 2.73 m/uL (4.30-5.90); RDW 14.9 % (11.5-15.5); WBC 8.3 k/uL (3.8-10.6)
[2019-12-15 09:43] LABS: HGB 7.4 gm/dL (13.0-17.5)
--- NOTE | 2019-12-15 10:16 | PN ---
PROGRESS NOTE DATE OF SERVICE: 12/15/2019 Patient is a 54-year-old pleasant white male admitted to the hospital with dark-colored stools and anemia with a hemoglobin of 9.2 g/dL. He underwent an upper endoscopy by Dr. Mcarthur on 12/13/2019 that showed esophagitis and a colonoscopy the following day which showed some dark blood in the right colon. The patient is scheduled for a small bowel capsule endoscopy today. Patient denies any symptoms. He has some abdominal discomfort. No abdominal pain. No nausea, vomiting. PHYSICAL EXAMINATION: Appears comfortable, in no apparent distress. VITAL SIGNS: Stable. Blood pressure 133/86, pulse rate 89, afebrile. HEENT: Examination unremarkable, conjunctivae are pink, sclerae nonicteric, oral cavity no lesions. NECK: No JVD or lymph node enlargement. CHEST: Clear to auscultation. HEART: Regular rate and rhythm. ABDOMEN: Soft, bowel sounds are positive, no organomegaly. EXTREMITIES: No pedal edema. SKIN: No rashes. NEUROLOGIC: Alert and oriented x3. No focal deficits. LABS: From today are still pending. Yesterday hemoglobin is 9.2. IMPRESSION: Acute gastrointestinal bleed with dark-colored stools, status post EGD colonoscopy by Dr. Mcarthur in the last 2 days that showed esophagitis and some dark blood in the right colon, hence possibility of small bowel source of bleeding is being considered. Hemoglobin stable. No further episodes of bleeding. He was on aspirin and Plavix which are currently on hold. RECOMMENDATIONS: Will proceed with a small bowel capsule endoscopy today. Patient understands risks, benefits, and complications of the procedure. Further recommendations will follow based on the results. Thank you for this consultation. MMODL / IJN: [id number] /
[2019-12-15] MEDS ORDERED: SODIUM FERRIC GLUCONAT-SUCROSE 125 MG in SODIUM CHLORIDE 0.9% 100 ML IVPB ONE (11:59)
[2019-12-15] MEDS ORDERED: SODIUM CHLORIDE 0.9% 2,000 ML IV ONE (12:52)
--- NOTE | 2019-12-15 12:57 | P.PN ---
Subjective Progress Note Date: 12/15/19 CHIEF COMPLAINT: Gastrointestinal bleeding HISTORY OF PRESENT ILLNESS: The patient is a 54-year-old male who was admitted secondary to gastrointestinal bleed including epigastric abdominal pain and tr ansient hypotensive episode. He reports his dark stools has improved overnight. He is undergoing small bowel endoscopy. Separate concerns include moderate persistent thirst including decreased urine output per patient. No acute abdominal pain at this time. He was tolerating diet. ROS: No reports of vomiting. No fevers or chills. No new chest pain. No productive sputum PHYSICAL EXAM: VITAL SIGNS: Reviewed CONSTITUTIONAL: Well developed and in no acute distress. EYES: Conjuctivae without sclera icterus. Extraocular movements grossly intact. HEAD, EARS, NOSE, THROAT: Moist buccal mucosa. Head is atraumatic, normocephalic. Hears conversational speech. No nasal drainage. NECK: Supple. No thyroidomegaly. RESPIRATORY: Non-labored respirations and equal bilateral excursions. CARDIOVASCULAR: Palpable 2+ radial pulses. ABDOMEN: Protuberant. Soft. No peritonitis. Nontender MUSCULOSKELETAL: No gross deformity of the lower extremities noted. No clubbing. No cyanosis. SKIN: Good skin turgor. Well perfused. NEUROLOGIC: Cranial nerves II through XII grossly intact. No focal or lateralizing signs. PSYCH: Appropriate affect. Alert and oriented to person, place and time. CLINICAL LABS: White blood cell count down from 13.2-8.3. Hemoglobin dropped from 9.2-7.4. ASSESSMENT: 1. Gastrointestinal bleed 2. Chronic antiplatelet therapy 3. Chronic leukocytosis 4. Restoration, refusing blood products 5. Chronic thirst PLAN: 1. Patient reports that his dark stools has moderately improved however he complains of moderate thirst and change in the dark-colored urine as well as decreased urine output. I ordered 2 L normal saline bolus 2. Hemoglobin has declined 2 g, small bowel endoscopy pending 3. Patient is a Restoration and adjuncts for blood products advised. May benefit from hematology consultation for recommendations. 4. Recommend recheck basic metabolic panel including creatinine for oliguria 5. Also, patient's glucose is elevated, with patient's symptoms of thirst, check hemoglobin A1c for diabetes Objective - Vital Signs Vital signs: Vital Signs Temp 98.5 F 12/15/19 08:20 Pulse 58 L 07/10/20 11:00 Resp 16 12/15/19 11:00 BP 142/80 12/15/19 11:00 Pulse Ox 98 12/15/19 11:00 Intake & Output 12/14/19 12/15/19 12/15/19 18:59 06:59 18:59 Intake Total 770 1780 390 Balance 770 1780 390 Weight 149.4 kg Intake: IV 50 1300 390 Sodium Chloride 0.9% 1, 1300 390 000 ml @ 130 mls/hr IV . Q7H42M [facility] Rx#:[id number] Oral 720 480 Other: Voiding Method Toilet Toilet Toilet # Voids 1 2 - Labs CBC & Chem 7: 12/15/19 09:05 12/12/19 17:41 Labs: Abnormal Lab Results - Last 24 Hours (Table) 12/15/19 Range/Units 09:05 RBC 2.73 L (4.30-5.90) m/uL Hgb 7.4 L D (13.0-17.5) gm/dL Hct 22.9 L (39.0-53.0) % Assessment and Plan (1) History of sleeve gastrectomy Current Visit: Yes Status: Acute Code(s): Z90.3 - ACQUIRED ABSENCE OF STOMACH [PART OF] SNOMED Code(s): 594704062220170 (2) Upper GI bleed Current Visit: Yes Status: Acute Code(s): K92.2 - GASTROINTESTINAL HEMORRHAGE, UNSPECIFIED SNOMED Code(s): 61318238 (3) Stented coronary artery Current Visit: No Status: Acute Code(s): Z95.5 - PRESENCE OF CORONARY ANGIOPLASTY IMPLANT AND GRAFT SNOMED Code(s): 057904866 (4) Depression Current Visit: No Status: Chronic Code(s): F32.9 - MAJOR DEPRESSIVE DISORDER, SINGLE EPISODE, UNSPECIFIED SNOMED Code(s): 59470720 (5) Morbid obesity with BMI of 45.0-49.9, adult Current Visit: No Status: Chronic Code(s): E66.01 - MORBID (SEVERE) OBESITY DUE TO EXCESS CALORIES; Z68.42 - BODY MASS INDEX (BMI) 45.0-49.9, ADULT SNOMED Code(s): 656193864
[2019-12-15] MEDS: LOSARTAN 50 MG TAB PO SCH (13:05)
[2019-12-15] MEDS: amLODIPine 5 MG TAB PO SCH (13:05)
[2019-12-15] MEDS: METOPROLOL TARTRATE 12.5 MG TAB PO SCH ×2 (13:05→22:27)
--- NOTE | 2019-12-15 14:09 | P.PN ---
Subjective Progress Note Date: 12/15/19 This is a 54-year-old gentleman with history of obesity and prior bariatric surgery, hypertension, hyperlipidemia, coronary artery disease with stenting of the first and second OM in July of this year. Into the patient, after he had his stenting procedures he developed some abdominal discomfort and nausea. He had stopped taking his aspirin and Plavix for approximate month duration, symptoms seemed to improve and then again patient went back on those medications. He presents to the hospital now with symptoms of vomiting blood, he also had associated dizziness lightheadedness and syncope. Blood pressure during this episode 70 systolic. Patient also states he's been noticing black stools at home for approximate one week duration. He is a Jehovah witness and will not take any blood products because of this. Denies any chest pain no shortness of breath. He underwent an EGD yesterday didn't not reveal any acute ulceration, hiatal hernia, grade seed erosive esophagitis noted. Blood pressure 108/56, heart rate in the 60s, afebrile. White blood cell count 13.2, hemoglobin 9.2, platelet count 350. Sodium 141, potassium 4.3, BUN 46, creatinine 0.6. Troponin 0.012. Still for occult blood positive and coronavirus not detected. At the time of my examination patient states that he feels weak and tired, no other complaints. Aspirin and Plavix are currently on hold and patient is scheduled to undergo a lower GI. 12/15/2019 Patient was seen and examined this morning, no more dark stools. Feels very weak and tired. He denies any chest pain. EGD and colonoscopy did not reveal any significant findings and patient is currently undergoing small bowel capsule study. Aspirin and Plavix continue to be on hold. Blood pressure today 142/80 with a heart rate in the 50s, 98% on room air. White blood cell count 8.3, hemoglobin 7.4, platelet count 298. Objective - Vital Signs Vital signs: Vital Signs Temp 98.5 F 12/15/19 08: Pulse 58 L 12/15/19 11:00 Resp 16 12/15/19 11:00 BP 142/80 12/15/19 11:00 Pulse Ox 98 12/15/19 11:00 Intake & Output 07/09/20 07/10/20 07/10/20 18:59 06:59 18:59 Intake Total 770 1780 590 Balance 770 1780 590 Weight 149.4 kg Intake: IV 50 1300 390 Sodium Chloride 0.9% 1, 1300 390 000 ml @ 130 mls/hr IV . Q7H42M [facility] Rx#:[id number] Oral 720 480 200 Other: Voiding Method Toilet Toilet Toilet # Voids 1 2 - Exam PHYSICAL EXAMINATION: GENERAL: 54-year-old gentleman in no acute distress at the time of my examination HEENT: Head is atraumatic, normocephalic. Pupils equal, round. Sclera anicteric. Conjunctiva are clear. Mucous membranes of the mouth are moist. Neck is supple. There is no elevated jugular venous pressure. No carotid bruit is heard. HEART EXAMINATION: Heart S1, S2 normal. No murmur or gallop heard. CHEST EXAMINATION: Lungs are clear to auscultation and precussion. No chest wall tenderness is noted on palpation or with deep breathing. ABDOMEN: Soft, nontender. Bowel sounds are heard. No organomegaly noted. EXTREMITIES: 2+ peripheral pulses with no evidence of peripheral edema and no calf tenderness noted. NEUROLOGIC patient is awake, alert and oriented 3 . - Labs CBC & Chem 7: 12/15/19 09:05 12/12/19 17:41 Labs: Abnormal Lab Results - Last 24 Hours (Table) 12/15/19 Range/Units 09:05 RBC 2.73 L (4.30-5.90) m/uL Hgb 7.4 L D (13.0-17.5) gm/dL Hct 22.9 L (39.0-53.0) % Assessment and Plan Plan: Assessment and plan #1 GI bleed #2 sleep gastrectomy, for which patient has lost approximately 300 pounds of weight #3 morbid obesity #4 hypertension #5 hyperlipidemia #6 coronary artery disease with stenting of the first OM and PTCA of the second OM in July of this year Plan Patient is currently undergoing a small bowel capsule study today. Once he is cleared from GI perspective we will need to start the patient back on antiplatelet therapy, at least on Plavix daily. DNP note has been reviewed, I agree with a documented findings and plan of care. Patient was seen and examined.
[2019-12-15 15:46] LABS: HCT 24.3 % (39.0-53.0); HGB 7.5 gm/dL (13.0-17.5); Hypochromasia Slight; MCH 25.9 pg (25.0-35.0); MCV 83.6 fL (80.0-100.0); Mean Platelet Volume 7.8; Platelet Count 302 k/uL (150-450); RBC 2.91 m/uL (4.30-5.90); RDW 15.1 % (11.5-15.5); WBC 9.8 k/uL (3.8-10.6)
[2019-12-15 16:10] LABS: African American GFR (CKD) >90 (>60 ml/min/1.73 sqM); Anion Gap 6 mmol/L; Blood Urea Nitrogen 9 mg/dL (9-20); Calcium 8.2 mg/dL (8.4-10.2); Carbon Dioxide 25 mmol/L (22-30); Chloride 108 mmol/L (98-107); Glucose 98 mg/dL (74-99); Non-African American GFR(CKD) >90 (>60 ml/min/1.73 sqM); Potassium 3.8 mmol/L (3.5-5.1); Sodium 139 mmol/L (137-145)
[2019-12-15] MEDS: ATORVASTATIN 80 MG TAB PO SCH (22:27)
--- NOTE | 2019-12-15 22:32 | P.PN ---
Progress Note - Text Progress Note Date: 12/15/19 Chief Complaint: GI bleed History of presenting complaint: This is a pleasant 54-year-old patient of Dr. Price. Chronic stable medical conditions include hypertension, chronic low back pain, history of gastric sleeve with panniculectomy in July 2018 and has lost close to 300 pounds. Also coronary artery disease with stent-July 2019. 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 Patient presents with vomiting some blood. Also been having dark stools what he described this for about a month. He he was hoping for 2 get better on its own. Some abdominal discomfort. Patient has been on aspirin and Plavix. Admitted with GI bleed. EGD showed some esophagitis. Colonoscopy unremarkable Today-underwent a small bowel capsule study today. Patient became to go home. No further GI bleed. Review of systems: Was done for constitutional, cardiovascular, GI, pulmonary. relevant finding as above Active Medications Amlodipine Besylate (Norvasc) 5 mg PO DAILY [facility] Last Admin: 12/15/19 13:05 Dose: 5 mg Documented by: Atorvastatin Calcium (Lipitor) 80 mg PO HS [facility] Last Admin: 12/14/19 20:50 Dose: 80 mg Documented by: Sodium Chloride (Saline 0.9%) 1,000 mls @ 130 mls/hr IV .Q7H42M [facility] Last Admin: 12/15/19 15:21 Dose: Not Given Documented by: Losartan Potassium (Cozaar) 50 mg PO DAILY [facility] Last Admin: 12/15/19 13:05 Dose: 50 mg Documented by: Metoprolol Tartrate (Lopressor) 12.5 mg PO BID [facility] Last Admin: 12/15/19 13:05 Dose: 12.5 mg Documented by: Naloxone HCl (Narcan) 0.2 mg IV Q2M PRN PRN Reason: Opioid Reversal Nitroglycerin (Nitrostat) 0.4 mg SUBLINGUAL Q5M PRN PRN Reason: Chest Pain Ondansetron HCl (Zofran) 4 mg IVP Q8HR PRN PRN Reason: Nausea And Vomiting Last Admin: 12/12/19 21:25 Dose: 4 mg Documented by: Pantoprazole Sodium (Protonix) 40 mg PO AC-BID [facility] Last Admin: 12/15/19 17:39 Dose: 40 mg Documented by: Physical examination: VITAL SIGNS: 98.5, 56, 16, 131/81, 97% room air GENERAL: Laying in bed, awake, comfortable EYES: Pupils equal. Conjunctiva normal. HEENT: External appearance of nose and ears normal, oral cavity grossly normal. NECK: JVD not raised; masses not palpable. HEART: First and second heart sounds are normal; no edema. LUNGS: Respiratory rate normal; clear to auscultation. ABDOMEN: Soft, minimal epigastric tenderness liver spleen not palpable, no masses palpable. PSYCH: Alert and oriented x3; mood and affect normal. INVESTIGATIONS, reviewed in the clinical context: Hemoglobin 7.5 Previous testing White count 14 hemoglobin 10.6 platelets 389 potassium 4.3 bun 46 creatinine 0.67 Troponin I less than 0.012 Gastric occult blood positive, COVID 19 PCR-not detected EKG tracing personally reviewed by me-sinus rhythm with nonspecific T-wave changes EGD-LA grade C erosive esophagitis sliding hiatal hernia. Assessment: -This is a patient been having dark stools were close 2 months. Also now presenting with some hematemesis. Patient is on aspirin and Plavix. EGD showed grade C esophagitis. -Acute GI bleed blood loss anemia -Sleeve gastrectomy patient's loss 300 pounds since then -Morbid obesity BMI 49.7 -Hyperlipidemia -Essential hypertension -LA grade C esophagitis -Coronary artery disease with stent in July 2019 -Yazdanism Plan: -Patient had a small bowel capsule endoscopy study done today. Results will not be available until tomorrow afternoon. Patient is very insistent going home to the point of leaving AMA. Has been to talk with the patient takes patient on the importance of taking back in with the results. It will not be prudent to start the patient back on Plavix if it does not known if the patient still havin g a slow bleeding. Also discussed with Dr. Lyndon Henderson. Patient finally convinced to stay back. We'll hold back on resuming Plavix until results of the capsule Study available tomorrow. Total time spent today about 50 minutes with over 30 minutes of discussion.
[2019-12-16] MEDS: SODIUM CHLORIDE 0.9% 1,000 ML IV SCH ×2 (02:45→12:43)
[2019-12-16 04:04] LABS: Hemoglobin A1C 5.7 % (4.0-6.0)
[2019-12-16] MEDS: PANTOPRAZOLE 40 MG TABLET PO SCH (06:56)
[2019-12-16 07:52] LABS: HCT 25.7 % (39.0-53.0); HGB 8.2 gm/dL (13.0-17.5); Hypochromasia Slight; MCH 27.2 pg (25.0-35.0); MCHC 32.1 g/dL (31.0-37.0); MCV 84.8 fL (80.0-100.0); Mean Platelet Volume 7.5; Platelet Count 376 k/uL (150-450); RBC 3.03 m/uL (4.30-5.90); RDW 15.2 % (11.5-15.5); WBC 9.4 k/uL (3.8-10.6)
[2019-12-16] MEDS: METOPROLOL TARTRATE 12.5 MG TAB PO SCH (08:14)
[2019-12-16] MEDS: LOSARTAN 50 MG TAB PO SCH (08:14)
[2019-12-16] MEDS: amLODIPine 5 MG TAB PO SCH (08:14)
[2019-12-16 12:11] VITALS: RESP 20
--- NOTE | 2019-12-16 13:15 | P.PN ---
Subjective Progress Note Date: 12/16/19 Principal diagnosis: GI bleed Patient doing well today. Denies melanotic stools or rectal bleeding. Denies abdominal pain. He is anxious to go home today. Hemoglobin today improved at 8.2. Objective - Vital Signs Vital signs: Vital Signs Temp 98 F 12/16/19 08:00 Pulse 52 L 12/16/19 08:00 Resp 20 12/16/19 08:00 BP 131/64 12/16/19 08:00 Pulse Ox 98 12/16/19 08:00 Intake & Output 12/15/19 12/16/19 12/16/19 18:59 06:59 18:59 Intake Total 710 960 100 Output Total 500 Balance 710 460 100 Weight 147.6 kg Intake: IV 390 Sodium Chloride 0.9% 1, 390 000 ml @ 130 mls/hr IV . Q7H42M [facility] Rx#:[id number] Oral 320 960 100 Output: Urine 500 Other: Voiding Method Toilet Toilet Toilet # Voids 3 2 - Exam Abdomen: Soft, nontender, nondistended - Labs CBC & Chem 7: 12/16/19 06:51 12/15/19 15:22 Labs: Abnormal Lab Results - Last 24 Hours (Table) 12/15/19 12/15/19 12/16/19 Range/Units 15:22 15:22 06:51 RBC 2.91 L 3.03 L (4.30-5.90) m/uL Hgb 7.5 L 8.2 L (13.0-17.5) gm/dL Hct 24.3 L 25.7 L (39.0-53.0) % Chloride 108 H (98-107) mmol/L Calcium 8.2 L (8.4-10.2) mg/dL Assessment and Plan (1) Melena Narrative/Plan: 54-year-old male with evidence of recent bleeding. Doing well today. Stable for discharge from my point of view. Current Visit: Yes Status: Acute Code(s): K92.1 - MELENA SNOMED Code(s): 2 075304
--- NOTE | 2019-12-16 13:53 | P.PN ---
Subjective Progress Note Date: 12/16/19 This is a 54-year-old gentleman with history of obesity and prior bariatric surgery, hypertension, hyperlipidemia, coronary artery disease with stenting of the first and second OM in July of this year. Into the patient, after he had his stenting procedures he developed some abdominal discomfort and nausea. He had stopped taking his aspirin and Plavix for approximate month duration, symptoms seemed to improve and then again patient went back on those medications. He presents to the hospital now with symptoms of vomiting blood, he also had associated dizziness lightheadedness and syncope. Blood pressure during this episode 70 systolic. Patient also states he's been noticing black stools at home for approximate one week duration. He is a Jehovah witness and will not take any blood products because of this. Denies any chest pain no shortness of breath. He underwent an EGD yesterday didn't not reveal any acute ulceration, hiatal hernia, grade seed erosive esophagitis noted. Blood pressure 108/56, heart rate in the 60s, afebrile. White blood cell count 13.2, hemoglobin 9.2, platelet count 350. Sodium 141, potassium 4.3, BUN 46, creatinine 0.6. Troponin 0.012. Still for occult blood positive and coronavirus not detected. At the time of my examination patient states that he feels weak and tired, no other complaints. Aspirin and Plavix are currently on hold and patient is scheduled to undergo a lower GI. 12/15/2019 Patient was seen and examined this morning, no more dark stools. Feels very weak and tired. He denies any chest pain. EGD and colonoscopy did not reveal any significant findings and patient is currently undergoing small bowel capsule study. Aspirin and Plavix continue to be on hold. Blood pressure today 142/80 with a heart rate in the 50s, 98% on room air. White blood cell count 8.3, hemoglobin 7.4, platelet count 298. 7/: Yesterday, patient underwent capsule endoscopy and is waiting report. He denies any blood in his stools or rectal bleeding. He denies any abdominal pain. No nausea or vomiting. His hemoglobin today is at 8.2 and stable. Patient has been afebrile, heart rate in the 50s, blood pressure 126/64 and pulse ox 97% on room air. He is anxious to be discharged home. Physical examination GENERAL: 54-year-old gentleman in no acute distress at the time of my examination HEENT: Head is atraumatic, normocephalic. Pupils equal, round. Sclera anicteric. Conjunctiva are clear. Mucous membranes of the mouth are moist. Neck is supple. There is no elevated jugular venous pressure. No carotid bruit is heard. HEART EXAMINATION: Heart S1, S2 normal. No murmur or gallop heard. CHEST EXAMINATION: Lungs are clear to auscultation and precussion. No chest wall tenderness is noted on palpation or with deep breathing. ABDOMEN: Soft, nontender. Bowel sounds are heard. No organomegaly noted. EXTREMITIES: 2+ peripheral pulses with no evidence of peripheral edema and no calf tenderness noted. NEUROLOGIC patient is awake, alert and oriented 3 . Assessment #1 GI bleed #2 sleep gastrectomy, for which patient has lost approximately 300 pounds of weight #3 morbid obesity #4 hypertension #5 hyperlipidemia #6 coronary artery disease with stenting of the first OM and PTCA of the second OM in July of this year Plan Patient may resume Plavix and aspirin at discharge Patient is cleared for discharge home from cardiology Nurse practitioner note has been reviewed, I agree with documented findings and plan of care. Patient was seen and examined. Objective - Vital Signs Vital signs: Vital Signs Temp 98.4 F 12/16/19 04:00 Pulse 50 L 12/16/19 04:00 Resp 16 12/16/19 04:00 BP 126/64 12/16/19 04:00 Pulse Ox 97 12/16/19 04:00 Intake & Output 12/15/19 12/16/19 12/16/19 18:59 06:59 18:59 Intake Total 710 960 100 Output Total 500 Balance 710 460 100 Weight 147.6 kg Intake: IV 390 Sodium Chloride 0.9% 1, 390 000 ml @ 130 mls/hr IV . Q7H42M [facility] Rx#:[id number] Oral 320 960 100 Output: Urine 500 Other: Voiding Method Toilet Toilet # Voids 3 - Labs CBC & Chem 7: 12/16/19 06:51 12/15/19 15:22 Labs: Abnormal Lab Results - Last 24 Hours (Table) 12/15/19 12/15/19 12/16/19 Range/Units 15:22 15:22 06:51 RBC 2.91 L 3.03 L (4.30-5.90) m/uL Hgb 7.5 L 8.2 L (13.0-17.5) gm/dL Hct 24.3 L 25.7 L (39.0-53.0) % Chloride 108 H (98-107) mmol/L Calcium 8.2 L (8.4-10.2) mg/dL
[2019-12-16 14:41] VITALS: BP 169/99; PULSE 64; TEMP 98.5
--- NOTE | 2019-12-16 21:45 | PN ---
PROGRESS NOTE DATE OF SERVICE: 12/16/2019 Patient is a 54-year-old pleasant white male with history of coronary artery disease status post stent placement four months ago, on aspirin and Plavix, admitted to the hospital with acute GI bleed. He underwent an EGD/colonoscopy by Dr. Mcarthur that showed some gastritis and old blood in the right colon, but no obvious source of bleeding identified. He underwent a small bowel capsule endoscopy yesterday. In the meantime patient is doing well. He denies any further symptoms, no bleeding. PHYSICAL EXAMINATION: Appears comfortable. Vital signs are stable. Blood pressure 122/86, pulse 64 per minute, temperature 98.5. HEENT examination unremarkable. Conjunctivae pink, sclerae anicteric. Oral cavity no lesions. NECK: No JVD or lymph node enlargement. CHEST: Clear to auscultation. HEART: Regular rate and rhythm. ABDOMEN: Soft. Bowel sounds are positive. No organomegaly. EXTREMITIES: No pedal edema. SKIN: No rashes. NEUROLOGIC: Alert and oriented x3. No focal deficits. LABS: Hemoglobin is 8.2, WBC 10.4, platelets normal. Rest of the labs are within normal limits. IMPRESSION: 1. Acute gastrointestinal bleed with a hemoglobin of 9.2, status post EGD/colonoscopy by Dr. Mcarthur two days ago that was unremarkable except for blood noted in the right colon, but no obvious source of bleeding identified. He did have a small bowel capsule endoscopy yesterday that was completely unremarkable. 2. History of coronary artery disease on aspirin and Plavix, currently on hold for the last four days. Hemoglobin remains stable. No further episodes of bleeding. RECOMMENDATIONS: Discussed with the patient small bowel capsule endoscopy results. At this time there is no active bleeding noted. Hemoglobin remains stable. We can restart aspirin and Plavix and he can be discharged home. If he has any bleeding he was advised to come to the ER. Thank you for this consultation. MMODL / IJN: [id number] /
--- NOTE | 2019-12-16 23:24 | P.DS ---
Providers Date of admission: 12/12/19 19:04 Expected date of discharge: 12/16/19 Attending physician: Dwayne Reyes Consults: 12/12/19 19:05 Consult Physician Urgent Consulting Provider: Dulce Mcarthur Consult Reason/Comments: She had bleed, history of gastric sleeve Do you want consulting provider notified?: Yes 12/13/19 20:07 Consult Physician Routine Consulting Provider: Verenice Davies Consult Reason/Comments: CAD/Antiplatelet agents, GI bleed Do you want consulting provider notified?: Yes 12/14/19 10:21 Consult Physician Routine Consulting Provider: Delmar Wu Consult Reason/Comments: Capsule endoscopy negative upper and lower scopes Do you want consulting provider notified?: Yes Primary care physician: [facility] Course: Chief Complaint: GI bleed History of presenting complaint: This is a pleasant 54-year-old patient of Dr. Price. Chronic stable medical conditions include hypertension, chronic low back pain, history of gastric sleeve with panniculectomy in July 2018 and has lost close to 300 pounds. Also coronary artery disease with stent-July 2019. 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 Patient presents with vomiting some blood. Also been having dark stools what he described this for about a month. He he was hoping for 2 get better on its own. Some abdominal discomfort. Patient has been on aspirin and Plavix. Admitted with GI bleed. EGD showed some esophagitis. Colonoscopy unremarkable. Today-Discussed results of small bowel capsule study with Dr. Lyndon Henderson. No bleeding noted. Discussed results with the patient and in detail. Plavix being resumed. Care discussed in detail with the patient. No bleeding Discussion and discharge planning more than 35 minutes Consultation: Dr. Lyndon Henderson from GI Dr. Cohen from general surgery Dr. Garber from cardiology associates Physical examination: VITAL SIGNS: 98.5, 64, 20, 169/99, 98% room air GENERAL: Sitting up,, comfortable EYES: Pupils equal. Conjunctiva normal. HEENT: External appearance of nose and ears normal, oral cavity grossly normal. NECK: JVD not raised; masses not palpable. HEART: First and second heart sounds are normal; no edema. LUNGS: Respiratory rate normal; clear to auscultation. ABDOMEN: Soft, minimal epigastric tenderness liver spleen not palpable, no masses palpable. PSYCH: Alert and oriented x3; mood and affect normal. INVESTIGATIONS, reviewed in the clinical context: Hemoglobin 8.2 Previous testing White count 14 hemoglobin 10.6 platelets 389 potassium 4.3 bun 46 creatinine 0.67 Troponin I less than 0.012 Gastric occult blood positive, COVID 19 PCR-not detected EKG tracing personally reviewed by me-sinus rhythm with nonspecific T-wave changes EGD-LA grade C erosive esophagitis sliding hiatal hernia. Assessment: -This is a patient been having dark stools were close 2 months. Also now presenting with some hematemesis. Patient is on aspirin and Plavix. EGD showed grade C esophagitis. -Acute GI bleed blood loss anemia -Sleeve gastrectomy patient's loss 300 pounds since then -Morbid obesity BMI 49.7 -Hyperlipidemia -Essential hypertension -LA grade C esophagitis -Coronary artery disease with stent in July 2019 -[place] Disposition: Home Patient Condition at Discharge: Stable Plan - Discharge Summary Discharge Rx Participant: Yes New Discharge Prescriptions: New Famotidine [Pepcid] 20 mg PO BID #60 tablet Continue Multivitamins, Thera [Multivitamin (formulary)] 1 tab PO AC-TID Atorvastatin [Lipitor] 80 mg PO HS 30 Days #30 tab Nitroglycerin Sl Tabs [Nitrostat] 0.4 mg SUBLINGUAL Q5M PRN #30 tab PRN Reason: Chest Pain Clopidogrel [Plavix] 75 mg PO HS Metoprolol Tartrate [Lopressor] 12.5 mg PO BID Losartan Potassium 50 mg PO DAILY Discontinued Aspirin 81 mg PO DAILY 30 Days #30 chew amLODIPine [Norvasc] 5 mg PO DAILY Discharge Medication List Multivitamins, Thera [Multivitamin (formulary)] 1 tab PO AC-TID 07/21/19 [History] Atorvastatin [Lipitor] 80 mg PO HS 30 Days #30 tab 07/25/19 [Rx] Nitroglycerin Sl Tabs [Nitrostat] 0.4 mg SUBLINGUAL Q5M PRN #30 tab 07/25/19 [Rx] Clopidogrel [Plavix] 75 mg PO HS 12/12/19 [History] Losartan Potassium 50 mg PO DAILY 12/12/19 [History] Metoprolol Tartrate [Lopressor] 12.5 mg PO BID 12/12/19 [History] Famotidine [Pepcid] 20 mg PO BID #60 tablet 12/16/19 [Rx] Follow up Appointment(s)/Referral(s): dr elba [Other] - 1 Week Rashid Price MD [Primary Care Provider] - 1-2 days (Please call on wednesdayDecember 17 to schedule a follow up appointment with your primary care provider.) Delmar Wu MD [STAFF PHYSICIAN] - 2 Weeks (please call the office on WednesdayDecember 17 to schedule a follow up appointment in 2 weeks.) Patient Instructions/Handouts: Gastrointestinal Bleeding (GEN), Hypotension (GEN) Activity/Diet/Wound Care/Special Instructions: cbc- 7 days Discharge Disposition: HOME SELF-CARE
== END 2019-12-16 15:15 | disposition home or self-care (01) | DRG 381 ==
LOC: EC 17:28 → 3SCARD 19:04
PROVIDERS: ADMIT Hospitalist; ATTEND Hospitalist
PROC: 0DJ08ZZ Inspection of Upper Intestinal Tract, Via Natural or Artificial Opening Endoscopic (ICD-10-PCS; principal; 2019-12-13 07:50)
PROC: 0DJD8ZZ Inspection of Lower Intestinal Tract, Via Natural or Artificial Opening Endoscopic (ICD-10-PCS; 2019-12-14)
DX: K22.11 Ulcer of esophagus with bleeding (principal); Z68.42 Body mass index [BMI] 45.0-49.9, adult; N25.81 Secondary hyperparathyroidism of renal origin; D62 Acute posthemorrhagic anemia; E66.01 Morbid (severe) obesity due to excess calories; F31.9 Bipolar disorder, unspecified; F41.9 Anxiety disorder, unspecified; K44.9 Diaphragmatic hernia without obstruction or gangrene; E78.5 Hyperlipidemia, unspecified; D50.0 Iron deficiency anemia secondary to blood loss (chronic); E78.00 Pure hypercholesterolemia, unspecified; F41.0 Panic disorder [episodic paroxysmal anxiety]; G47.33 Obstructive sleep apnea (adult) (pediatric); G47.00 Insomnia, unspecified; G89.29 Other chronic pain; M54.30 Sciatica, unspecified side; K21.9 Gastro-esophageal reflux disease without esophagitis; M54.5 Low back pain; M79.3 Panniculitis, unspecified; I25.5 Ischemic cardiomyopathy; I11.9 Hypertensive heart disease without heart failure; E55.9 Vitamin D deficiency, unspecified; M47.9 Spondylosis, unspecified; F10.10 Alcohol abuse, uncomplicated; I25.10 Atherosclerotic heart disease of native coronary artery without angina pectoris; K64.8 Other hemorrhoids; Z11.59 Encounter for screening for other viral diseases; Z79.02 Long term (current) use of antithrombotics/antiplatelets; Z82.49 Family history of ischemic heart disease and other diseases of the circulatory system; Z81.8 Family history of other mental and behavioral disorders; Z95.5 Presence of coronary angioplasty implant and graft; I25.2 Old myocardial infarction; Z98.84 Bariatric surgery status; Z79.899 Other long term (current) drug therapy; Z79.82 Long term (current) use of aspirin; Z86.73 Personal history of transient ischemic attack (TIA), and cerebral infarction without residual deficits; Z90.49 Acquired absence of other specified parts of digestive tract; Z98.890 Other specified postprocedural states
CPT/HCPCS: 36415; 43235; 45378; 71045; 74177; 80048; 80053; 82271; 82550; 83036; 83735; 84484; 85025; 85027; 85610; 85730; 86850; 86900; 86901; 91110; 96361; 96374; 99291

== ENCOUNTER → 2020-04-03 | Outpatient (CLI) | payer OTHER ==
--- NOTE | 2020-04-03 16:44 | SFUN ---
SLEEP CENTER FOLLOW UP NOTE DATE OF SERVICE: 04/03/2020 A 54-year-old gentleman who has been followed in the Sleep Center for treatment of obstructive sleep apnea-hypopnea syndrome. Recently, patient had polysomnogram which showed obstructive sleep apnea with apnea- hypopnea index 25.2 and significant oxygen desaturation. Patient had CPAP titration and subsequently was started on treatment with CPAP. Today is his first visit after he started to use his CPAP equipment. He does not snore with the machine, feels better with the machine. Strong Sleepiness Scale today is 10. I checked CPAP unit, pressure is 9 cm of water. Usage is 29/30 nights and 16/30 nights for more than 4 hours. Average usage 4.3 hours per night. Leak is 24 L/minute, which is borderline. Patient using full-face mask. Apnea-hypopnea index is 0.6, which is perfect. CURRENT MEDICATIONS: Xanax, Lipitor, Cozaar, losartan, amlodipine, clopidogrel, metoprolol, nitroglycerin. PHYSICAL EXAM: Patient in no distress. BP 187/83 but no chest pain, headache, or shortness of breath. HR 63, RR 15, weight 337.2, temperature 98.5, oxygen saturation at room air 98%. OROPHARYNX: Low position of soft palate. LAUNCH MANAGER: Weakness of the right leg with numbness. IMPRESSION: 1. Obstructive sleep apnea-hypopnea syndrome; apnea-hypopnea index 25.2 on full control with CPAP. Patient demonstrated borderline compliance with treatment, benefitting from treatment. 2. Obesity. 3. Hypertension. 4. Coronary artery disease, status post stent insertion and history of MS. 5. History of mini-stroke. 6. History of multiple intervertebral disc problems. 7. Right leg weakness. 8. Hyperlipidemia. PLAN: 1. Patient will continue to use PAP equipment every night for the whole night. 2. Sleep hygiene with regular time in bed for at least 7-1/2 to 8 hours. 3. Precautions related to driving. No driving if feeling sleepiness. 4. I will maintain all necessary prescription for PAP supplies including mask, tube, filters. 5. Aggressive losing weight program. 6. No driving if feeling sleepiness. 7. Followup visit in 6 months or earlier if patient has any problems. Thank you very much for allowing me to participate in the management of your patient. Sincerely, Naman Sams MD, PhD, FAASM Diplomat of [place] [employer] [place] [employer] Hand [employer]iler [employer] [facility] [place] MMODL / MERLINN: [id number] /
== END | disposition home or self-care (01) ==
LOC: SLEEP 10:14
PROVIDERS: ATTEND Internal Medicine
DX: G47.33 Obstructive sleep apnea (adult) (pediatric) (principal); E66.9 Obesity, unspecified; I10 Essential (primary) hypertension; I25.10 Atherosclerotic heart disease of native coronary artery without angina pectoris; I25.2 Old myocardial infarction; M62.81 Muscle weakness (generalized); E78.5 Hyperlipidemia, unspecified; Z86.79 Personal history of other diseases of the circulatory system; Z79.899 Other long term (current) drug therapy; Z95.5 Presence of coronary angioplasty implant and graft; Z99.89 Dependence on other enabling machines and devices

== ENCOUNTER 2020-04-17 07:34 | Inpatient (IN) | payer OTHER ==
[2020-04-17] MEDS ORDERED: NITROGLYCERIN OINT 1 INCH/GM PACKET TOPICAL STA (07:40)
[2020-04-17] MEDS ORDERED: HYDROmorphone 1 MG/ML 1 ML SYRINGE IVP STA (07:42)
--- NOTE | 2020-04-17 07:42 | ED ---
General Adult HPI - General Chief complaint: Chest Pain Stated complaint: chest pain Time Seen by Provider: 04/17/20 07:35 Source: patient, EMS, RN notes reviewed Mode of arrival: EMS Limitations: no limitations - History of Present Illness Initial comments: Patient is a pleasant 54-year-old male presenting to the emergency Department with complaints of chest discomfort. Onset of symptoms was a couple of days ago. Symptoms were waxing and waning however were persistent over the past few hours. Discomfort is somewhat severe at this time rated 8/10. Patient did receive aspirin and nitroglycerin by EMS without improvement of symptoms. Patient received morphine that improved his symptoms 8/10. Discomfort is difficult to describe. Discomfort does radiate up to the neck and the left arm. There is mild dyspnea and mild nausea. Patient was sweaty earlier. Patient does have history of similar symptoms around 9 months ago and needed 3 stents at that time. No leg pain or leg swelling. - Related Data Home Medications Medication Instructions Recorded Confirmed Multivitamins, Thera [Multivitamin 1 tab PO AC-TID 07/21/19 12/12/19 (formulary)] Clopidogrel [Plavix] 75 mg PO HS 12/12/19 12/12/19 Losartan Potassium 50 mg PO DAILY 12/12/19 12/12/19 Metoprolol Tartrate [Lopressor] 12.5 mg PO BID 12/12/19 12/12/19 Previous Rx's Medication Instructions Recorded Atorvastatin [Lipitor] 80 mg PO HS 30 Days #30 tab 07/25/19 Nitroglycerin Sl Tabs [Nitrostat] 0.4 mg SUBLINGUAL Q5M PRN #30 tab 07/25/19 Omeprazole [PriLOSEC] 40 mg PO BID #60 cap 12/16/19 Allergies Allergy/AdvReac Type Severity Reaction Status Date / Time No Known Allergies Allergy Verified 12/12/19 19:06 Review of Systems ROS Statement: Those systems with pertinent positive or pertinent negative responses have been documented in the HPI. ROS Other: All systems not noted in ROS Statement are negative. Constitutional: Denies: fever Eyes: Denies: eye pain ENT: Denies: ear pain Respiratory: Reports: as per HPI. Denies: cough Cardiovascular: Reports: as per HPI, chest pain Endocrine: Denies: fatigue Gastrointestinal: Reports: nausea. Denies: abdominal pain, vomiting Genitourinary: Denies: dysuria Musculoskeletal: Denies: back pain Skin: Denies: rash Neurological: Denies: weakness Past Medical History Past Medical History: Hypertension Additional Past Medical History / Comment(s): CHRONIC BACK PAIN which has increased significantly with major weight loss, sciatica, bronchitis, arthritis, borderline thyroid issues, NOT ON ANYTHING FOR B/P History of Any Multi-Drug Resistant Organisms: None Reported Past Surgical History: Bariatric Surgery, Heart Catheterization With Stent Additional Past Surgical History / Comment(s): EGD. GASTRIC SLEEVE PANNICULECTOMY 07-25-18 Past Anesthesia/Blood Transfusion Reactions: No Reported Reaction Additional Past Anesthesia/Blood Transfusion Reaction / Comment(s): HAS NEVER H AD GENERAL ANESTHESIA Date of Last Stent Placement:: July 2019 Past Psychological History: Anxiety, Bipolar, Depression, Panic Disorder Smoking Status: Never smoker Past Alcohol Use History: Rare Past Drug Use History: None Reported - Past Family History Father History Unknown: Yes Family Medical History: Hypertension Additional Family Medical History / Comment(s): mental disease, violent disorders Mother History Unknown: Yes Family Medical History: Hypertension General Exam Limitations: no limitations General appearance: alert Head exam: Present: normocephalic Eye exam: Present: normal appearance Neck exam: Present: normal inspection Respiratory exam: Present: normal lung sounds bilaterally. Absent: chest wall tenderness Cardiovascular Exam: Present: regular rate, normal rhythm, normal heart sounds Expanded Peripheral pulses: 2+: Radial (R), Radial (L), Dorsalis Pedis (R), Dorsalis Pedis (L) GI/Abdominal exam: Present: soft. Absent: tenderness Extremities exam: Present: normal inspection. Absent: pedal edema, calf tende rness Back exam: Present: normal inspection Neurological exam: Present: alert Psychiatric exam: Present: normal affect, normal mood Skin exam: Present: normal color Course Vital Signs 04/17/20 07:35 Temperature 98.0 F Pulse Rate 61 Respiratory 16 Rate Blood Pressure 130/107 O2 Sat by Pulse 99 Oximetry EKG Findings - EKG Comments: EKG Findings:: Sinus bradycardia 59. Frequent premature atrial complexes. IN 132. QRS 84. QT 442. QTC 437. Left axis. Inferior Q waves. No acute ST change. Medical Decision Making - Medical Decision Making Patient reevaluated and near symptom-free at this time. Patient and family updated on results and plan. Hemoglobin appears stable for patient. Patient did stop some of his medication secondary to non-tolerance and hematemesis in the past. Dr. Boland has been paged for admission, covering for Dr. Price. Cardiology will be placed on consult. Troponin will be rechecked. - Lab Data Result diagrams: 04/17/20 07:44 04/17/20 07:44 Lab Results 04/17/20 04/17/20 04/17/20 Range/Units 07:44 07:44 07:44 WBC 9.4 (3.8-10.6) k/uL RBC 4.67 (4.30-5.90) m/uL Hgb 8.4 L (13.0-17.5) gm/dL Hct 28.9 L (39.0-53.0) % MCV 61.9 L (80.0-100.0) fL MCH 18.0 L (25.0-35.0) pg MCHC 29.1 L (31.0-37.0) g/dL RDW 18.7 H (11.5-15.5) % Plt Count 420 (150-450) k/uL MPV 6.8 Neutrophils % 57 % Lymphocytes % 29 % Monocytes % 6 % Eosinophils % 5 % Basophils % 1 % Neutrophils # 5.3 (1.3-7.7) k/uL Lymphocytes # 2.7 (1.0-4.8) k/uL Monocytes # 0.6 (0-1.0) k/uL Eosinophils # 0.5 (0-0.7) k/uL Basophils # 0.1 (0-0.2) k/uL Hypochromasia Marked Poikilocytosis Slight Anisocytosis Slight Microcytosis Marked PT 10.6 (9.0-12.0) sec INR 1.0 (<1.2) APTT 22.0 (22.0-30.0) sec D-Dimer 0.45 (<0.60) mg/L FEU Sodium 140 (137-145) mmol/L Potassium 4.3 (3.5-5.1) mmol/L Chloride 110 H (98-107) mmol/L Carbon Dioxide 25 (22-30) mmol/L Anion Gap 5 mmol/L BUN 14 (9-20) mg/dL Creatinine 0.68 (0.66-1.25) mg/dL Est GFR (CKD-EPI)AfAm >90 (>60 ml/min/1.73 sqM) Est GFR (CKD-EPI)NonAf >90 (>60 ml/min/1.73 sqM) Glucose 103 H (74-99) mg/dL Calcium 8.4 (8.4-10.2) mg/dL Magnesium 2.1 (1.6-2.3) mg/dL Total Bilirubin 0.4 (0.2-1.3) mg/dL AST 25 (17-59) U/L ALT 16 (4-49) U/L Alkaline Phosphatase 62 (38-126) U/L Troponin I (0.000-0.034) ng/mL Total Protein 6.3 (6.3-8.2) g/dL Albumin 3.6 (3.5-5.0) g/dL 04/17/20 Range/Units 07:44 WBC (3.8-10.6) k/uL RBC (4.30-5.90) m/uL Hgb (13.0-17.5) gm/dL Hct (39.0-53.0) % MCV (80.0-100.0) fL MCH (25.0-35.0) pg MCHC (31.0-37.0) g/dL RDW (11.5-15.5) % Plt Count (150-450) k/uL MPV Neutrophils % % Lymphocytes % % Monocytes % % Eosinophils % % Basophils % % Neutrophils # (1.3-7.7) k/uL Lymphocytes # (1.0-4.8) k/uL Monocytes # (0-1.0) k/uL Eosinophils # (0-0.7) k/uL Basophils # (0-0.2) k/uL Hypochromasia Poikilocytosis Anisocytosis Microcytosis PT (9.0-12.0) sec INR (<1.2) APTT (22.0-30.0) sec D-Dimer (<0.60) mg/L FEU Sodium (137-145) mmol/L Potassium (3.5-5.1) mmol/L Chloride (98-107) mmol/L Carbon Dioxide (22-30) mmol/L Anion Gap mmol/L BUN (9-20) mg/dL Creatinine (0.66-1.25) mg/dL Est GFR (CKD-EPI)AfAm (>60 ml/min/1.73 sqM) Est GFR (CKD-EPI)NonAf (>60 ml/min/1.73 sqM) Glucose (74-99) mg/dL Calcium (8.4-10.2) mg/dL Magnesium (1.6-2.3) mg/dL Total Bilirubin (0.2-1.3) mg/dL AST (17-59) U/L ALT (4-49) U/L Alkaline Phosphatase (38-126) U/L Troponin I 0.049 H* (0.000-0.034) ng/mL Total Protein (6.3-8.2) g/dL Albumin (3.5-5.0) g/dL - Radiology Data Radiology results: image reviewed (Chest x-ray shows no acute process) Disposition Clinical Impression: Chest pain Disposition: ADMITTED IP TO THIS HOSP Is patient prescribed a controlled substance at d/c from ED?: No Referrals: Rashid Price MD [Primary Care Provider] - 1-2 days Decision Time: 08:57
[2020-04-17 07:57] LABS: Anisocytosis Slight; Basophils # (A) 0.1 k/uL (0-0.2); Basophils % (A) 1 %; Eosinophils # (A) 0.5 k/uL (0-0.7); Eosinophils % (A) 5 %; HCT 28.9 % (39.0-53.0); HGB 8.4 gm/dL (13.0-17.5); Hypochromasia Marked; Lymphocytes # (A) 2.7 k/uL (1.0-4.8); Lymphocytes % (A) 29 %; MCHC 29.1 g/dL (31.0-37.0); MCV 61.9 fL (80.0-100.0); Mean Platelet Volume 6.8; Microcytosis Marked; Monocytes # (A) 0.6 k/uL (0-1.0); Monocytes % (A) 6 %; Neutrophils # (A) 5.3 k/uL (1.3-7.7); Neutrophils % (A) 57 %; Platelet Count 420 k/uL (150-450); Poikilocytosis Slight; RBC 4.67 m/uL (4.30-5.90); RDW 18.7 % (11.5-15.5); WBC 9.4 k/uL (3.8-10.6)
[2020-04-17 08:10] LABS: ALT 16 U/L (4-49); AST 25 U/L (17-59); African American GFR (CKD) >90 (>60 ml/min/1.73 sqM); Albumin 3.6 g/dL (3.5-5.0); Alkaline Phosphatase 62 U/L (38-126); Anion Gap 5 mmol/L; Blood Urea Nitrogen 14 mg/dL (9-20); Calcium 8.4 mg/dL (8.4-10.2); Carbon Dioxide 25 mmol/L (22-30); Chloride 110 mmol/L (98-107); Glucose 103 mg/dL (74-99); Magnesium 2.1 mg/dL (1.6-2.3); Non-African American GFR(CKD) >90 (>60 ml/min/1.73 sqM); Potassium 4.3 mmol/L (3.5-5.1); Sodium 140 mmol/L (137-145); Total Bilirubin 0.4 mg/dL (0.2-1.3); Total Protein 6.3 g/dL (6.3-8.2)
[2020-04-17 08:13] LABS: D-Dimer 0.45 mg/L FEU (<0.60); Prothrombin Time 10.6 sec (9.0-12.0)
--- NOTE | 2020-04-17 08:15 | XR ---
EXAMINATION TYPE: XR chest 2V DATE OF EXAM: 04/17/2020 COMPARISON: 12/12/2019 HISTORY: 54-year-old male with chest pain TECHNIQUE: PA and lateral views FINDINGS: The cardiomediastinal silhouette, aorta, and pulmonary vasculature are within normal limits. Strandy atelectasis at the left base. Otherwise, lungs and pleural spaces are clear. IMPRESSION: No acute cardiopulmonary process.
[2020-04-17] MEDS ORDERED: ASPIRIN 81 MG PO STA (08:57)
[2020-04-17] MEDS ORDERED: NITROGLYCERIN SL TABS 0.4 MG TAB SUBLINGUAL PRN ×2 (08:57→13:08)
[2020-04-17] MEDS ORDERED: HYDROcodone/APAP 5-325MG 1 EACH TAB PO PRN (13:08)
[2020-04-17] MEDS ORDERED: FLUTICASONE 50MCG/SPRAY NASAL 16GM EA NOSTRIL PRN (13:08)
[2020-04-17] MEDS: PANTOPRAZOLE 40 MG/10 ML VIAL IVP SCH (13:38)
[2020-04-17] MEDS: NITROGLYCERIN OINT 1 INCH/GM PACKET TOPICAL SCH ×3 (13:38→23:18)
[2020-04-17] MEDS: METOPROLOL SUCCINATE (ER) 25 MG TAB.ER.24H PO SCH (13:43)
--- NOTE | 2020-04-17 14:41 | US ---
EXAMINATION TYPE: US gallbladder DATE OF EXAM: 04/17/2020 COMPARISON: NONE CLINICAL HISTORY: 54-year-old male with abdominal pain, rule out gallstones TECHNIQUE: Multiple sonographic images of the right upper quadrant are obtained. 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 Gallbladder: wnl. No gallstones or abnormal distention. Evidence for sonographic Gonzalez's sign: no CBD: Borderline dilated at 7 mm. Right Kidney: No hydronephrosis. IMPRESSION: 1. Technically limited exam due to patient body habitus and bowel gas. 2. Visualized portions of the liver show a heterogeneous echotexture. This could represent hepatic st eatosis or other nonspecific hepatocellular disease. 3. No gallstones or acute cholecystitis. 4. Bile duct measures borderline dilated at 7 mm. Correlate with alkaline phosphatase and bilirubin l evels to exclude early biliary obstruction.
--- NOTE | 2020-04-17 14:55 | P.HPIM ---
History of Present Illness 54-year-old male came in with comments of retrosternal chest pain 8/10 in severity sharp in nature radiating to the left, as well as bilateral shoulder blades Brody still has gallbladder patient's symptoms are mostly after food wh enever he is hungry whenever he tries to eat his symptoms get worse. Symptoms of nonexertional was complaining of some diaphoresis. Patient had similar chest pain mentioned when that he received stents patient had a catheterization and stenting in month of August after which patient had a GI bleed because of which patient was a switched to only Plavix. Patient is presently on Plavix. Patient denied any fever chills nausea vomiting. Patient has constant chest pain presently has a nitro patch with some improvement in his pain. Patient is found to have mildly elevated troponins of 0.049 and 0.155. Patient was started on IV heparin and subsequently admitted. Patient is unsure whether he has acid reflux symptoms he says he sure feels like that. Patient had bariatric surgery in the past. Patient is a [employer]. had stents to first and second obtuse marginal branchs of circumflex Review of Systems REVIEW OF SYSTEMS: CONSTITUTIONAL: No fever, no malaise, no fatigue. HEENT: No recent visual problems or hearing problems. Denied any sore throat. CARDIOVASCULAR: No orthopnea, PND, no palpitations, no syncope. PULMONARY: No shortness of breath, no cough, no hemoptysis. GASTROINTESTINAL: No diarrhea, no nausea, no vomiting, no abdominal pain. NEUROLOGICAL: No headaches, no weakness, no numbness. HEMATOLOGICAL: Denies any bleeding or petechiae. GENITOURINARY: Denies any burning micturition, frequency, or urgency. MUSCULOSKELETAL/RHEUMATOLOGICAL: Denies any joint pain, swelling, or any muscle pain. ENDOCRINE: Denies any polyuria or polydipsia. The rest of the 14-point review of systems is negative. Past Medical History Past Medical History: Hypertension Additional Past Medical History / Comment(s): CHRONIC BACK PAIN which has increased significantly with major weight loss, sciatica, bronchitis, arthritis, borderline thyroid issues, NOT ON ANYTHING FOR B/P History of Any Multi-Drug Resistant Organisms: None Reported Past Surgical History: Bariatric Surgery, Heart Catheterization With Stent Additional Past Surgical History / Comment(s): EGD. GASTRIC SLEEVE PANNICULECTOMY 07-25-18 Past Anesthesia/Blood Transfusion Reactions: No Reported Reaction Additional Past Anesthesia/Blood Transfusion Reaction / Comment(s): HAS NEVER HAD GENERAL ANESTHESIA Date of Last Stent Placement:: July 2019 Past Psychological History: Anxiety, Bipolar, Depression, Panic Disorder Smoking Status: Never smoker Past Alcohol Use History: Rare Past Drug Use History: None Reported - Past Family History Father History Unknown: Yes Family Medical History: Hypertension Additional Family Medical History / Comment(s): mental disease, violent disorders Mother History Unknown: Yes Family Medical History: Hypertension Medications and Allergies Home Medications Medication Instructions Recorded Confirmed Type Nitroglycerin Sl Tabs [Nitrostat] 0.4 mg SUBLINGUAL Q5M PRN #30 tab 07/25/19 04/17/20 Rx Clopidogrel [Plavix] 75 mg PO HS 12/12/19 04/17/20 History Losartan Potassium 50 mg PO DAILY 12/12/19 04/17/20 History Metoprolol Tartrate [Lopressor] 25 mg PO DAILY 12/12/19 04/17/20 History Aspirin EC [Ecotrin Low Dose] 81 mg PO DAILY 04/17/20 04/17/20 History Atorvastatin [Lipitor] 40 mg PO HS 04/17/20 04/17/20 History Fluticasone Nasal [place] [Flonase 1 spr EA NOSTRIL DAILY PRN 04/17/20 04/17/20 History Nasal [place]] HYDROcodone/APAP 5-325MG [[place] 1 tab PO Q8H PRN 04/17/20 04/17/20 History 5-325] amLODIPine [Norvasc] 5 mg PO DAILY 04/17/20 04/17/20 History Allergies Allergy/AdvReac Type Severity Reaction Status Date / Time No Known Allergies Allergy Verified 04/17/20 09:09 Physical Exam Vitals: Vital Signs Temp Pulse Resp BP Pulse Ox 04/17/20 13:46 85 16 144/85 98 04/17/20 11:44 98.7 F 73 17 140/71 98 04/17/20 10:35 59 L 16 143/79 96 04/17/20 08:59 64 16 140/71 98 04/17/20 07:35 98.0 F 61 16 130/107 99 Intake and Output 04/16/20 04/17/20 04/17/20 22:59 06:59 14:59 Other: Weight 148.325 kg PHYSICAL EXAMINATION: GENERAL: The patient is alert and oriented x3, not in any acute distress. Obese HEENT: Pupils are round and equally reacting to light. EOMI. No scleral icterus. No conjunctival pallor. Normocephalic, atraumatic. No pharyngeal erythema. No thyromegaly. CARDIOVASCULAR: S1 and S2 present. No murmurs, rubs, or gallops. PULMONARY: Chest is clear to auscultation, no wheezing or crackles. ABDOMEN: Soft, nontender, nondistended, normoactive bowel sounds. No palpable organomegaly. MUSCULOSKELETAL: No joint swelling or deformity. EXTREMITIES: No cyanosis, clubbing, or pedal edema. NEUROLOGICAL: Gross neurological examination did not reveal any focal deficits. SKIN: No rashes. Results CBC & Chem 7: 04/17/20 07:44 04/17/20 07:44 Labs: Abnormal Lab Results - Last 24 Hours (Table) 04/17/20 04/17/20 04/17/20 Range/Units 07:44 07:44 07:44 Hgb 8.4 L (13.0-17.5) gm/dL Hct 28.9 L (39.0-53.0) % MCV 61.9 L (80.0-100.0) fL MCH 18.0 L (25.0-35.0) pg MCHC 29.1 L (31.0-37.0) g/dL RDW 18.7 H (11.5-15.5) % Chloride 110 H (98-107) mmol/L Glucose 103 H (74-99) mg/dL Troponin I 0.049 H* (0.000-0.034) ng/mL 04/17/20 Range/Units 11:11 Hgb (13.0-17.5) gm/dL Hct (39.0-53.0) % MCV (80.0-100.0) fL MCH (25.0-35.0) pg MCHC (31.0-37.0) g/dL RDW (11.5-15.5) % Chloride (98-107) mmol/L Glucose (74-99) mg/dL Troponin I 0.155 H* (0.000-0.034) ng/mL Assessment and Plan Plan: Possibility of non-ST elevation myocardial infarction: Patient will be evaluated by cardiology continue with aspirin and Plavix. She is presently not on IV heparin. Because of his recent GI bleed and patient being a [employer] and patient is concerned about GI bleed because of which I'll let the cardiology evaluated the patient before starting on IV heparin. -Possibility of cholelithiasis cannot be ruled out at this time will order ultrasound of the gallbladder casting his symptoms -Possibility of gastroesophageal reflux disease patient will be started on Protonix -Coronary artery disease -Bipolar disorder -Depression -Obesity patient had a gastric sleeve in the past with a loss of about 300 pounds of weight. -Hyperlipidemia hypertension
[2020-04-17] MEDS: ATORVASTATIN 40 MG TAB PO SCH (20:41)
[2020-04-17] MEDS: CLOPIDOGREL 75 MG TAB PO SCH (20:41)
[2020-04-18] MEDS: NITROGLYCERIN OINT 1 INCH/GM PACKET TOPICAL SCH ×2 (05:42→12:37)
[2020-04-18 06:18] LABS: Cholesterol 149 mg/dL (<200); HDL Cholesterol 29 mg/dL (40-60); LDL Cholesterol,Calculated 94 mg/dL (0-99); Triglycerides 132 mg/dL (<150)
[2020-04-18 08:08] LABS: Anisocytosis Slight; Basophils % (A) 0 %; Eosinophils # (A) 0.3 k/uL (0-0.7); Eosinophils % (A) 3 %; HCT 29.5 % (39.0-53.0); Hypochromasia Marked; Lymphocytes # (A) 2.1 k/uL (1.0-4.8); Lymphocytes % (A) 21 %; MCH 17.3 pg (25.0-35.0); MCHC 27.2 g/dL (31.0-37.0); MCV 63.7 fL (80.0-100.0); Mean Platelet Volume 6.8; Microcytosis Marked; Monocytes # (A) 0.6 k/uL (0-1.0); Monocytes % (A) 6 %; Neutrophils # (A) 6.7 k/uL (1.3-7.7); Neutrophils % (A) 68 %; Platelet Count 429 k/uL (150-450); Poikilocytosis Slight; RBC 4.63 m/uL (4.30-5.90); RDW 18.7 % (11.5-15.5); WBC 9.9 k/uL (3.8-10.6)
[2020-04-18 08:24] LABS: African American GFR (CKD) >90 (>60 ml/min/1.73 sqM); Anion Gap 2 mmol/L; Blood Urea Nitrogen 10 mg/dL (9-20); Calcium 8.3 mg/dL (8.4-10.2); Carbon Dioxide 28 mmol/L (22-30); Chloride 110 mmol/L (98-107); Glucose 95 mg/dL (74-99); Non-African American GFR(CKD) >90 (>60 ml/min/1.73 sqM); Potassium 4.3 mmol/L (3.5-5.1); Sodium 140 mmol/L (137-145)
[2020-04-18] MEDS ORDERED: ASPIRIN 325 MG TAB PO SCH (09:00)
[2020-04-18] MEDS ORDERED: ASPIRIN 81 MG PO SCH (09:00)
[2020-04-18] MEDS: PANTOPRAZOLE 40 MG/10 ML VIAL IVP SCH (09:09)
[2020-04-18] MEDS: LOSARTAN 50 MG TAB PO SCH (09:10)
[2020-04-18] MEDS: METOPROLOL SUCCINATE (ER) 25 MG TAB.ER.24H PO SCH (09:12)
--- NOTE | 2020-04-18 10:00 | ECHOF ---
Referral Reason:cp MEASUREMENTS -------- HEIGHT: 177.8 cm WEIGHT: 148.3 kg BP: 140/71 IVSd: 1.9 cm (0.6 - 1.1) LVIDd: 5.6 cm (3.9 - 5.3) LVPWd: 2.0 cm (0.6 - 1.1) IVSs: 2.2 cm LVIDs: 4.2 cm LVPWs: 2.7 cm RVIDd: 4.3 cm (< 3.3) LAESV Index (A-L): 33.20 ml/m Ao Diam: 3.4 cm (2.0 - 3.7) AV Cusp: 2.3 cm (1.5 - 2.6) EPSS: 1.0 cm MV E Ismael: 1.00 m/s MV DecT: 292 ms MV A Ismael: 0.49 m/s MV E/A Ratio: 2.06 RAP: 5.00 mmHg RVSP: 29.77 mmHg MV EF SLOPE: 113.81 mm/s (70 - 150) MV EXCURSION: 22.26 mm (> 18.000) FINDINGS -------- Sinus rhythm. This was a technically difficult study with suboptimal apical views. The left ventricular size is normal. There is severe concentric left ventricular hypertrophy. Ove rall left ventricular systolic function is mildly impaired with, an EF between 45 - 50 %. Basal inf erior LV wall motion is hypokinetic. The right ventricle is moderate to severely enlarged. LA is midly dilated 29-33ml/m2. The right atrial size is normal. 5.0mg of Lumason was utilized for enhancement of images Interatrial and interventricular septum intact. The aortic valve is trileaflet and appears structurally normal. There is no evidence of aortic regu rgitation. There is no evidence of aortic stenosis. Mild mitral regurgitation is present. Mild tricuspid regurgitation present. There is no evidence of pulmonary hypertension. The right v entricular systolic pressure, as measured by Doppler, is 29.77mmHg. There is no pulmonic regurgitation present. The aortic root size is normal. IVC Not well visulized. There is no pericardial effusion. CONCLUSIONS -------- 1. The left ventricular size is normal. 2. There is severe concentric left ventricular hypertrophy. 3. Overall left ventricular systolic function is mildly impaired with, an EF between 45 - 50 %. 4. Basal inferior LV wall motion is hypokinetic. 5. The right ventricle is moderate to severely enlarged. 6. LA is midly dilated 29-33ml/m2. 7. Mild mitral regurgitation is present. 8. Mild tricuspid regurgitation present. FULL ROLL INSPECTOR: Tiffanie Shetty RDCS
--- NOTE | 2020-04-18 10:00 | P.CRDCN ---
History of Present Illness Consult date: 04/17/20 Chief complaint: Chest pain History of present illness: This is a 54-year-old gentleman with history of obesity and prior bariatric surgery, hypertension, hyperlipidemia, coronary artery disease with stenting of the first and second OM in July of this year. Subsequent to that patient was admitted to the hospital in December with GI bleeding, his aspirin was discontinued at that time and patient was continued on Plavix. According to the patient, he has not been taking his Plavix regularly either. He presented to the hospital on this occasion with symptoms of chest discomfort, which she described as a pressure sensation radiating through to his back, symptoms reminded him of what he had at the time of his stenting. Blood pressure on arrival here 177/82 with a heart rate in the 70s, temperature 96.9. White blood cell count 9.4, hemoglobin 8.4, platelet count 420. D-dimer 0.45, sodium 140, potassium 4.3, BUN 14, creatinine 0.6. Troponins 0.04, 0.15. EKG on arrival here showed a normal sinus rhythm with PACs, nonspecific ST-T wave changes. Patient would benefit from receiving a blood transfusion, however because he is Jehovah witness he is refusing to have any blood products. We will put the patient back on his Plavix, Lipitor, losartan, metoprolol. Check a third subsequent troponin, and also check his CBC in the morning. At present the patient is chest pain-free. Past Medical History Past Medical History: Hypertension Additional Past Medical History / Comment(s): CHRONIC BACK PAIN which has increased significantly with major weight loss, sciatica, bronchitis, arthritis, borderline thyroid issues, NOT ON ANYTHING FOR B/P History of Any Multi-Drug Resistant Organisms: None Reported Past Surgical History: Bariatric Surgery, Heart Catheterization With Stent Additional Past Surgical History / Comment(s): EGD. GASTRIC SLEEVE PANNICULECTOMY 07-25- Past Anesthesia/Blood Transfusion Reactions: No Reported Reaction Additional Past Anesthesia/Blood Transfusion Reaction / Comment(s): HAS NEVER HAD GENERAL ANESTHESIA Date of Last Stent Placement:: July 2019 Past Psychological History: Anxiety, Bipolar, Depression, Panic Disorder Additional Psychological History / Comment(s): UNDER CONTROL AT THIS TIME Smoking Status: Never smoker Past Alcohol Use History: Rare Past Drug Use History: None Reported - Past Family History Father History Unknown: Yes Family Medical History: Hypertension Additional Family Medical History / Comment(s): mental disease, violent disorders Mother History Unknown: Yes Family Medical History: Hypertension Medications and Allergies Home Medications Medication Instructions Recorded Confirmed Type Nitroglycerin Sl Tabs [Nitrostat] 0.4 mg SUBLINGUAL Q5M PRN #30 tab 07/25/19 04/17/20 Rx Clopidogrel [Plavix] 75 mg PO HS 12/12/19 04/17/20 History Losartan Potassium 50 mg PO DAILY 12/12/19 04/17/20 History Metoprolol Tartrate [Lopressor] 25 mg PO DAILY 12/12/19 04/17/20 History Aspirin EC [Ecotrin Low Dose] 81 mg PO DAILY 04/17/20 04/17/20 History Atorvastatin [Lipitor] 40 mg PO HS 04/17/20 04/17/20 History Fluticasone Nasal [place] [Flonase 1 spr EA NOSTRIL DAILY PRN 04/17/20 04/17/20 History Nasal [place]] HYDROcodone/APAP 5-325MG [[place] 1 tab PO Q8H PRN 04/17/20 04/17/20 History 5-325] amLODIPine [Norvasc] 5 mg PO DAILY 04/17/20 04/17/20 History Allergies Allergy/AdvReac Type Severity Reaction Status Date / Time No Known Allergies Allergy Verified 04/17/20 09:09 Physical Exam Vitals: Vital Signs Temp Pulse Pulse Resp BP BP Pulse Ox 04/18/20 08:00 98.4 F 56 L 16 151/69 99 04/18/20 00:01 98.0 F 58 L 18 168/76 97 04/17/20 21:20 98.2 F 58 L 18 157/77 95 04/17/20 18:19 64 161/74 98 04/17/20 15:00 96.9 F L 71 18 177/83 97 04/17/20 13:46 85 16 144/85 98 04/17/20 11:44 98.7 F 73 17 140/71 98 04/17/20 10:35 59 L 16 143/79 96 Intake and Output 04/17/20 04/18/20 04/18/20 22:59 06:59 14:59 Intake Total 540 360 Balance 540 360 Intake: Oral 540 360 Other: # Voids 3 Weight 148.325 kg 148.3 kg PHYSICAL EXAMINATION: GENERAL: 54-year-old gentleman in no acute distress at the time of my examination HEENT: Head is atraumatic, normocephalic. Pupils equal, round. Sclera anicteric. Conjunctiva are clear. Mucous membranes of the mouth are moist. Neck is supple. There is no elevated jugular venous pressure. No carotid bruit is heard. HEART EXAMINATION: Heart S1, S2 normal. No murmur or gallop heard. CHEST EXAMINATION: Lungs are clear to auscultation and precussion. No chest wall tenderness is noted on palpation or with deep breathing. ABDOMEN: Soft, obese, nontender. Bowel sounds are heard. No organomegaly noted. EXTREMITIES: 2+ peripheral pulses with no evidence of peripheral edema and no calf tenderness noted. NEUROLOGIC patient is awake, alert and oriented 3 . Results 04/18/20 07:41 04/18/20 07:41 Cardiac Enzymes 04/17/20 04/17/20 Range/Units 11:11 14:55 Troponin I 0.155 H* 0.238 H* (0.000-0.034) ng/mL Lipids 04/17/20 Range/Units 07:44 Triglycerides 132 (<150) mg/dL Cholesterol 149 (<200) mg/dL HDL Cholesterol 29 L (40-60) mg/dL CBC 04/18/20 Range/Units 07:41 WBC 9.9 (3.8-10.6) k/uL RBC 4.63 (4.30-5.90) m/uL Hgb 8.0 L (13.0-17.5) gm/dL Hct 29.5 L (39.0-53.0) % Plt Count 429 (150-450) k/uL Comprehensive Metabolic Panel 04/18/20 Range/Units 07:41 Sodium 140 (137-145) mmol/L Potassium 4.3 (3.5-5.1) mmol/L Chloride 110 H (98-107) mmol/L Carbon Dioxide 28 (22-30) mmol/L BUN 10 (9-20) mg/dL Creatinine 0.68 (0.66-1.25) mg/dL Glucose 95 (74-99) mg/dL Calcium 8.3 L (8.4-10.2) mg/dL Current Medications Generic Name Dose Route Start Last Admin Trade Name Freq PRN Reason Stop Dose Admin Hydrocodone Bitart/Acetaminophen 1 each 04/17/20 13:08 Hydrocodone/Apap 5-325mg 1 Each Tab PO Q8H PRN Pain Atorvastatin Calcium 40 mg 04/17/20 21:00 04/17/20 20:41 Atorvastatin 40 Mg Tab PO 40 mg HS ELADIO Administration Clopidogrel Bisulfate 75 mg 04/17/20 21:00 04/17/20 20:41 Clopidogrel 75 Mg Tab PO 75 mg HS ELADIO Administration Fluticasone Propionate 1 spray 04/17/20 13:08 Fluticasone 50mcg/[place] Nasal 16gm EA NOSTRIL DAILY PRN Congestion Losartan Potassium 50 mg 04/18/20 09:00 04/18/20 09:10 Losartan 50 Mg Tab PO 50 mg DAILY ELADIO Administration Metoprolol Succinate 25 mg 04/17/20 13:15 04/18/20 09:12 Metoprolol Succinate (Er) 25 Mg Tab.Er.24h PO 25 mg DAILY ELADIO Administration Nitroglycerin 1 inch 04/17/20 12:00 04/18/20 05:42 Nitroglycerin Oint 1 Inch/Gm Packet TOPICAL 1 inch Q6HR ELADIO Administration Nitroglycerin 0.4 mg 04/17/20 13:08 Nitroglycerin Sl Tabs 0.4 Mg Tab SUBLINGUAL Q5M PRN Chest Pain Pantoprazole Sodium 40 mg 04/17/20 13:15 04/18/20 09:09 Pantoprazole 40 Mg/10 Ml Vial IVP 40 mg DAILY ELADIO Administration Sodium Chloride 10 ml 04/17/20 09:00 04/18/20 09:09 Sodium Chloride 0.9% Flush 10 Ml Syringe IV 10 ml BID ELADIO Administration Intake and Output 04/17/20 04/18/20 04/18/20 22:59 06:59 14:59 Intake Total 540 360 Balance 540 360 Intake: Oral 540 360 Other: # Voids 3 Weight 148.325 kg 148.3 kg 04/18/20 07:41 04/18/20 07:41 EKG Interpretations (text) EKG shows a normal sinus rhythm with occasional PACs, nonspecific ST-T wave changes Assessment and Plan Plan: Assessment and plan #1 chest pain, possible acute coronary syndrome #2 anemia, hemoglobin 8.4, patient admitted in December with an acute GI bleed, he underwent an EGD/colonoscopy by Dr. Cohen in December which showed some gastritis and old blood in the right colon but no obvious source of bleeding identified. He also underwent a small bowel With No Significant Findings. #3 obesity #4 hypertension #5 hyperlipidemia #6 coronary artery disease with stenting of the first OM and PTCA of the second OM in July of this year #7 noncompliance Plan We will obtain an echocardiogram with Doppler study, resume the patient's Plavix, Lipitor, beta katalina, and losartan. Because the patient is a Jehovah witness, he is refusing any type of blood products at this time. Further recommendations to follow. DNP note has been reviewed, I agree with a documented findings and plan of care. Patient was seen and examined.
--- NOTE | 2020-04-18 10:58 | P.PN ---
Subjective Patient is a 54-year-old male with a known history of coronary artery disease is admitted for non-ST elevation myocardial infarction, ruled out gallstones. Patient is presently not on an any heparin because of concerns of GI bleed. Patient in the past had a GI bleed secondary to aspirin and Plavix. Patient is a Mu-ism with borderline hemoglobin of around 8 because of which there is a concern that due to antiplatelet therapy heparin will cause more bleeding and because of the lack of option of blood transfusion patient is not being started on heparin although patient is presently on Dilantin therapy, cardiology evaluated the patient and the consulted gastroenterology to assess his risk of further GI bleed before patient can undergo cardiac catheterization and stenting if needed Constitutional: Denied any fatigue denied any fever. Cardio vascular: Patient still has mild chest pressure Gastrointestinal denied any nausea vomiting Pulmonary: Denied any shortness of breath cough Neurologic denied any new focal deficits All inpatient medications were reviewed and appropriate changes in these medications as dictated in the interval history and assessment and plan. Objective - Vital Signs Vital signs: Vital Signs Temp 98.4 F 04/18/20 08:00 Pulse 56 L 04/18/20 08:00 Resp 16 04/18/20 08:00 BP 151/69 04/18/20 08:00 Pulse Ox 99 04/18/20 08:00 Intake & Output 04/17/20 04/18/20 04/18/20 18:59 06:59 18:59 Intake Total 540 360 Balance 540 360 Weight 148.325 kg 148.3 kg Intake: Oral 540 360 Other: # Voids 3 - Exam PHYSICAL EXAMINATION: GENERAL: The patient is alert and oriented x3, not in any acute distress. Obese HEENT: Pupils are round and equally reacting to light. EOMI. No scleral icterus. Does have conjunctival pallor. Normocephalic, atraumatic. No pharyngeal erythema. No thyromegaly. CARDIOVASCULAR: S1 and S2 present. No murmurs, rubs, or gallops. PULMONARY: Chest is clear to auscultation, no wheezing or crackles. ABDOMEN: Soft, nontender, nondistended, normoactive bowel sounds. No palpable organomegaly. MUSCULOSKELETAL: No joint swelling or deformity. EXTREMITIES: No cyanosis, clubbing, or pedal edema. NEUROLOGICAL: Gross neurological examination did not reveal any focal deficits. SKIN: No rashes. - Labs CBC & Chem 7: 04/18/20 07:41 04/18/20 07:41 Labs: Abnormal Lab Results - Last 24 Hours (Table) 04/17/20 04/17/20 04/17/20 Range/Units 07:44 11:11 14:55 Hgb (13.0-17.5) gm/dL Hct (39.0-53.0) % MCV (80.0-100.0) fL MCH (25.0-35.0) pg MCHC (31.0-37.0) g/dL RDW (11.5-15.5) % Chloride (98-107) mmol/L Calcium (8.4-10.2) mg/dL Troponin I 0.155 H* 0.238 H* (0.000-0.034) ng/mL HDL Cholesterol 29 L (40-60) mg/dL 04/18/20 04/18/20 Range/Units 07:41 07:41 Hgb 8.0 L (13.0-17.5) gm/dL Hct 29.5 L (39.0-53.0) % MCV 63.7 L (80.0-100.0) fL MCH 17.3 L (25.0-35.0) pg MCHC 27.2 L (31.0-37.0) g/dL RDW 18.7 H (11.5-15.5) % Chloride 110 H (98-107) mmol/L Calcium 8.3 L (8.4-10.2) mg/dL Troponin I (0.000-0.034) ng/mL HDL Cholesterol (40-60) mg/dL Assessment and Plan Plan: Possibility of non-ST elevation myocardial infarction: Patient is presently on Dilantin platelet therapy and not on IV heparin because of above-mentioned reasons cardiology evaluated the patient. -Ruled out out cholelithiasis -Possibility of gastroesophageal reflux disease patient will be started on P rotonix -Coronary artery disease -Bipolar disorder -Depression -Obesity patient had a gastric sleeve in the past with a loss of about 300 pounds of weight. -Hyperlipidemia hypertension
--- NOTE | 2020-04-18 12:11 | P.PN ---
Subjective Progress Note Date: 04/18/20 This is a 54-year-old gentleman with history of obesity and prior bariatric surgery, hypertension, hyperlipidemia, coronary artery disease with stenting of the first and second OM in July of this year. Subsequent to that patient was admitted to the hospital in December with GI bleeding, his aspirin was discontinued at that time and patient was continued on Plavix. According to the patient, he has not been taking his Plavix regularly either. He presented to the hospital on this occasion with symptoms of chest discomfort, which she described as a pressure sensation radiating through to his back, symptoms reminded him of what he had at the time of his stenting. Blood pressure on arrival here 177/82 with a heart rate in the 70s, temperature 96.9. White blood cell count 9.4, hemoglobin 8.4, platelet count 420. D-dimer 0.45, sodium 140, potassium 4.3, BUN 14, creatinine 0.6. Troponins 0.04, 0.15. EKG on arrival here showed a normal sinus rhythm with PACs, nonspecific ST-T wave changes. Patient would benefit from receiving a blood transfusion, however because he is Jehovah witness he is refusing to have any blood products. We will put the patient back on his Plavix, Lipitor, losartan, metoprolol. Check a third subsequent troponin, and also check his CBC in the morning. At present the patient is chest pain-free. 04/18/2020 Patient was seen and examined this morning, denied any chest discomfort. Blood pressure 150/60 with a heart rate in the 50s to 60s, 99% on room air. White blood cell count 9.9, hemoglobin 8.0, platelet count 429. Sodium 140, potassium 4.3, BUN 10, creatinine 0.6. Patient has been resumed on his Plavix, patient will be seen by GI service today. In the meantime we will continue with his current medical therapy, no cardiac catheterization at this time. Based on the patient's recurrent noncompliance with taking his medications, it is a concern that he may not take his aspirin and Plavix again on discharge. He has been advised regarding the importance of taking his Plavix on a regular basis. We will start him on some iron tablets. Objective - Vital Signs Vital signs: Vital Signs Temp 98.4 F 04/18/20 08:00 Pulse 62 04/18/20 11:56 Resp 18 04/18/20 11:56 BP 154/76 04/18/20 11:56 Pulse Ox 95 04/18/20 11:56 Intake & Output 04/17/20 04/18/20 04/18/20 18:59 06:59 18:59 Intake Total 540 360 Balance 540 360 Weight 148.325 kg 148.3 kg Intake: Oral 540 360 Other: # Voids 3 - Exam PHYSICAL EXAMINATION: GENERAL: 54-year-old gentleman in no acute distress at the time of my examination HEENT: Head is atraumatic, normocephalic. Pupils equal, round. Sclera an icteric. Conjunctiva are clear. Mucous membranes of the mouth are moist. Neck is supple. There is no elevated jugular venous pressure. No carotid bruit is heard. HEART EXAMINATION: Heart S1, S2 normal. No murmur or gallop heard. CHEST EXAMINATION: Lungs are clear to auscultation and precussion. No chest wall tenderness is noted on palpation or with deep breathing. ABDOMEN: Soft, obese, nontender. Bowel sounds are heard. No organomegaly noted. EXTREMITIES: 2+ peripheral pulses with no evidence of peripheral edema and no calf tenderness noted. NEUROLOGIC patient is awake, alert and oriented 3 . - Labs CBC & Chem 7: 04/18/20 07:41 04/18/20 07:41 Labs: Abnormal Lab Results - Last 24 Hours (Table) 04/17/20 04/17/20 04/17/20 Range/Units 07:44 11:11 14:55 Hgb (13.0-17.5) gm/dL Hct (39.0-53.0) % MCV (80.0-100.0) fL MCH (25.0-35.0) pg MCHC (31.0-37.0) g/dL RDW (11.5-15.5) % Chloride (98-107) mmol/L Calcium (8.4-10.2) mg/dL Troponin I 0.155 H* 0.238 H* (0.000-0.034) ng/mL HDL Cholesterol 29 L (40-60) mg/dL 04/18/20 04/18/20 Range/Units 07:41 07:41 Hgb 8.0 L (13.0-17.5) gm/dL Hct 29.5 L (39.0-53.0) % MCV 63.7 L (80.0-100.0) fL MCH 17.3 L (25.0-35.0) pg MCHC 27.2 L (31.0-37.0) g/dL RDW 18.7 H (11.5-15.5) % Chloride 110 H (98-107) mmol/L Calcium 8.3 L (8.4-10.2) mg/dL Troponin I (0.000-0.034) ng/mL HDL Cholesterol (40-60) mg/dL Assessment and Plan Plan: Assessment and plan #1 chest pain, possible acute coronary syndrome #2 anemia, hemoglobin 8.4, patient admitted in December with an acute GI bleed, he underwent an EGD/colonoscopy by Dr. Cohen in December which showed some gastritis and old blood in the right colon but no obvious source of bleeding identified. He also underwent a small bowel With No Significant Findings. #3 obesity #4 hypertension #5 hyperlipidemia #6 coronary artery disease with stenting of the first OM and PTCA of the second OM in July of this year #7 recurrent noncompliance Plan Echocardiogram with Doppler study was performed which revealed an ejection fraction of 45-50%. We will add iron tablets to the patient's medication regime, continue the Plavix along with his other medications. Discontinue the Nitropaste and start the patient on some Imdur. No plan for coronary i ntervention at this time. DNP note has been reviewed, I agree with a documented findings and plan of care. Patient was seen and examined.
[2020-04-18] MEDS: FERROUS SULFATE 325 MG TAB PO SCH ×2 (12:39→17:46)
[2020-04-18] MEDS: ISOSORBIDE MONONITRATE ER 30 MG TAB.ER.24H PO SCH (12:39)
[2020-04-18] MEDS: ACETAMINOPHEN TAB 325 MG TAB PO PRN ×2 (12:53→20:32)
[2020-04-18] MEDS: ATORVASTATIN 40 MG TAB PO SCH (20:32)
[2020-04-18] MEDS: CLOPIDOGREL 75 MG TAB PO SCH (20:33)
[2020-04-19] MEDS: FERROUS SULFATE 325 MG TAB PO SCH ×2 (06:39→20:13)
--- NOTE | 2020-04-19 06:44 | P.CONS ---
History of Present Illness - Reason for Consult Consult date: 04/18/20 anemia Requesting physician: Harini Malagon - Chief Complaint Chest pain - History of Present Illness 54-year-old male with a medical history significant for hypertension, chronic lower back pain, prior sleeve gastrectomy, panniculectomy and coronary artery disease who presented to the hospital due to concerns over her chest pain and a non-ST elevation NE. Currently the patient is being managed by the cardiology service. There are concerns over the patient discontinuing his aspirin and Plavix at home over concerns over GI blood loss. The patient has been restarted on his medications and currently symptomatically has improved. Previously he has had a workup in December [address] Mcarthur performed an EGD on 12/13/2019 significant for esophagitis and then a colonoscopy in 12/14/2019 significant only for dark-colored blood in the bowel. At that time gastroenterology was consulted for video capsule endoscopy which was unremarkable. Currently WBC 9.9, hemoglobin 8 with microcytic indices the patient has been restarted on iron therapy. He denies any abdominal pain or signs or symptoms of GI bleeding at this time. Review of Systems REVIEW OF SYSTEMS: CONSTITUTIONAL: Denies any fevers, chills, weight change or fatigue. CARDIOVASCULAR: Denies any chest pain, palpitations high or low blood pressures, but the patient had reported chest pain on presentation currently being treated for a non-ST elevation NE. RESPIRATORY: Denies any shortness of breath, hemoptysis or cough. GENITOURINARY: No dysuria or hematuria. MUSCULOSKELETAL: No weakness reported. SKIN: Denies any new rashes or lesions, jaundice or pallor. PSYCHIATRIC: Denies any depression or anxiety. NEUROLOGY: Denies headache, denies any new focal deficits. EARS/NOSE/THROAT: No recent hearing change, congestion, nasal discharge or sore throat. EYES: No pain in eyes, discharge or change in vision. GASTROINTESTINAL: As per HPI. Past Medical History Past Medical History: Hypertension Additional Past Medical History / Comment(s): CHRONIC BACK PAIN which has increased significantly with major weight loss, sciatica, bronchitis, arthritis, borderline thyroid issues, NOT ON ANYTHING FOR B/P History of Any Multi-Drug Resistant Organisms: None Reported Past Surgical History: Bariatric Surgery, Heart Catheterization With Stent Additional Past Surgical History / Comment(s): EGD. GASTRIC SLEEVE PANNICULECTOMY 2-18-19 Past Anesthesia/Blood Transfusion Reactions: No Reported Reaction Additional Past Anesthesia/Blood Transfusion Reaction / Comm: HAS NEVER HAD GENERAL ANESTHESIA Date of Last Stent Placement:: July 2019 Past Psychological History: Anxiety, Bipolar, Depression, Panic Disorder Additional Psychological History / Comment(s): UNDER CONTROL AT THIS TIME Smoking Status: Never smoker Past Alcohol Use History: Rare Past Drug Use History: None Reported - Past Family History Father History Unknown: Yes Family Medical History: Hypertension Additional Family Medical History / Comment(s): mental disease, violent disorders Mother History Unknown: Yes Family Medical History: Hypertension Medications and Allergies Home Medications Medication Instructions Recorded Confirmed Type Nitroglycerin Sl Tabs [Nitrostat] 0.4 mg SUBLINGUAL Q5M PRN #30 tab 07/25/19 04/17/20 Rx Clopidogrel [Plavix] 75 mg PO HS 12/12/19 04/17/20 History Losartan Potassium 50 mg PO DAILY 12/12/19 04/17/20 History Metoprolol Tartrate [Lopressor] 25 mg PO DAILY 12/12/19 04/17/20 History Aspirin EC [Ecotrin Low Dose] 81 mg PO DAILY 04/17/20 04/17/20 History Atorvastatin [Lipitor] 40 mg PO HS 04/17/20 04/17/20 History Fluticasone Nasal [place] [Flonase 1 spr EA NOSTRIL DAILY PRN 04/17/20 04/17/20 History Nasal [place]] HYDROcodone/APAP 5-325MG [[place] 1 tab PO Q8H PRN 04/17/20 04/17/20 History 5-325] amLODIPine [Norvasc] 5 mg PO DAILY 04/17/20 04/17/20 History Allergies Allergy/AdvReac Type Severity Reaction Status Date / Time No Known Allergies Allergy Verified 04/17/20 09:09 Physical Exam Vitals: Vital Signs Temp Pulse Resp BP Pulse Ox 04/18/20 11:56 62 18 154/76 95 04/18/20 08:00 98.4 F 56 L 16 151/69 99 04/18/20 00:01 98.0 F 58 L 18 168/76 97 04/17/20 21:20 98.2 F 58 L 18 157/77 95 04/17/20 18:19 64 161/74 98 04/17/20 15:00 96.9 F L 71 18 177/83 97 Intake and Output 04/17/20 04/18/20 04/18/20 22:59 06:59 14:59 Intake Total 540 360 Balance 540 360 Intake: Oral 540 360 Other: # Voids 3 Weight 148.325 kg 148.3 kg On physical examination, patient appears comfortable in no apparent distress. HEAD: Normocephalic, atraumatic. EYES: No scleral icterus. No conjunctival injection. MOUTH: No lesions, tongue midline. NECK: Trachea midline, no gross abnormalities. CHEST: Clear to auscultation with no wheezing or rhonchi appreciated. HEART: Regular rate and rhythm. ABDOMEN: Soft, obese. Bowel sounds are positive. No organomegaly. No guarding or rigidity. EXTREMITIES: No pedal edema. SKIN: No rashes, no jaundice. NEUROLOGIC: Alert and oriented x3. No focal deficits. Results CBC & Chem 7: 04/18/20 07:41 04/18/20 07:41 Labs: Abnormal Lab Results - Last 24 Hours (Table) 04/17/20 04/17/20 04/18/20 Range/Units 07:44 14:55 07:41 Hgb 8.0 L (13.0-17.5) gm/dL Hct 29.5 L (39.0-53.0) % MCV 63.7 L (80.0-100.0) fL MCH 17.3 L (25.0-35.0) pg MCHC 27.2 L (31.0-37.0) g/dL RDW 18.7 H (11.5-15.5) % Chloride (98-107) mmol/L Calcium (8.4-10.2) mg/dL Troponin I 0.238 H* (0.000-0.034) ng/mL HDL Cholesterol 29 L (40-60) mg/dL 04/18/20 Range/Units 07:41 Hgb (13.0-17.5) gm/dL Hct (39.0-53.0) % MCV (80.0-100.0) fL MCH (25.0-35.0) pg MCHC (31.0-37.0) g/dL RDW (11.5-15.5) % Chloride 110 H (98-107) mmol/L Calcium 8.3 L (8.4-10.2) mg/dL Troponin I (0.000-0.034) ng/mL HDL Cholesterol (40-60) mg/dL US - abdomen: report reviewed (ultrasound technically limited due to body habitus) Assessment and Plan (1) Microcytic anemia Narrative/Plan: 54-year-old male with multiple medical comorbidities who came to the hospital due to chest pain and is currently being treated for a non-ST elevation NE. He has been restarted on his medications and symptomatically improved. The patient had previously been seen in December with concerns of dark-colored stool he had EGD and colonoscopy with the surgical service with findings of esophagitis and dark-colored blood in the colon, gastroenterology was consulted at that time with video capsule endoscopy unremarkable. Hemoglobin currently stable at 8 from 8.4 yesterday. Patient has been restarted on iron therapy as well as his aspirin and Plavix. Current Visit: Yes Status: Acute Code(s): D50.9 - IRON DEFICIENCY ANEMIA, UNSPECIFIED SNOMED Code(s): 613142397 (2) History of sleeve gastrectomy Current Visit: No Status: Acute Code(s): Z90.3 - ACQUIRED ABSENCE OF STOMACH [PART OF] SNOMED Code(s): 975409958825754 Plan: supportive care Okay for diet Continue to monitor hemoglobin and hematocrit and transfuse as needed Continue iron therapy no plans for endoscopic therapy at this time. Case has been discussed with the cardiology service who are not planning any intervention at this time, they are currently planning to continue medical therapy continue daily Protonix Continue to monitor for any signs or symptoms of GI bleeding Thank you for allowing us to participate in the care of the patient
[2020-04-19 09:18] LABS: African American GFR (CKD) >90 (>60 ml/min/1.73 sqM); Anion Gap 5 mmol/L; Blood Urea Nitrogen 12 mg/dL (9-20); Calcium 8.6 mg/dL (8.4-10.2); Carbon Dioxide 25 mmol/L (22-30); Chloride 110 mmol/L (98-107); Glucose 95 mg/dL (74-99); Non-African American GFR(CKD) >90 (>60 ml/min/1.73 sqM); Potassium 4.3 mmol/L (3.5-5.1); Sodium 140 mmol/L (137-145)
[2020-04-19 09:21] LABS: Anisocytosis Slight; HCT 32.7 % (39.0-53.0); HGB 8.7 gm/dL (13.0-17.5); Hypochromasia Marked; MCH 17.6 pg (25.0-35.0); MCHC 26.7 g/dL (31.0-37.0); MCV 65.9 fL (80.0-100.0); Mean Platelet Volume 6.3; Microcytosis Marked; Platelet Count 406 k/uL (150-450); Poikilocytosis Slight; RBC 4.96 m/uL (4.30-5.90); RDW 18.9 % (11.5-15.5); WBC 9.9 k/uL (3.8-10.6)
[2020-04-19] MEDS: METOPROLOL SUCCINATE (ER) 25 MG TAB.ER.24H PO SCH (10:02)
[2020-04-19] MEDS: PANTOPRAZOLE 40 MG TABLET PO SCH (10:03)
[2020-04-19] MEDS: LOSARTAN 50 MG TAB PO SCH (10:03)
[2020-04-19] MEDS: ISOSORBIDE MONONITRATE ER 30 MG TAB.ER.24H PO SCH (10:07)
--- NOTE | 2020-04-19 12:27 | P.PN ---
Subjective Patient is a 54-year-old male with a known history of coronary artery disease is admitted for non-ST elevation myocardial infarction, ruled out gallstones. Patient is presently not on an any heparin because of concerns of GI bleed. Patient in the past had a GI bleed secondary to aspirin and Plavix. Patient is a Judaism with borderline hemoglobin of around 8 because of which there is a concern that due to antiplatelet therapy heparin will cause more bleeding and because of the lack of option of blood transfusion patient is not being started on heparin although patient is presently on Dilantin therapy, cardiology evaluated the patient and the consulted gastroenterology to assess his risk of further GI bleed before patient can undergo cardiac catheterization and stenting if needed 04/19/2020 Patient was still having on and off chest pain patient will probably undergo cardiac catheterization today, patient was evaluated by gastroenterology. Constitutional: Denied any fatigue denied any fever. Cardio vascular: Patient still has mild chest pressure Gastrointestinal denied any nausea vomiting Pulmonary: Denied any shortness of breath cough Neurologic denied any new focal deficits All inpatient medications were reviewed and appropriate changes in these medications as dictated in the interval history and assessment and plan. Objective - Vital Signs Vital signs: Vital Signs Temp 97.9 F 04/19/20 07:35 Pulse 56 L 04/19/20 11:57 Resp 16 04/19/20 11:57 BP 126/64 04/19/20 11:57 Pulse Ox 97 04/19/20 11:57 Intake & Output 04/18/20 04/19/20 04/19/20 18:59 06:59 18:59 Intake Total 200 450 Balance 200 450 Weight 143.8 kg Intake: Oral 200 450 Other: Voiding Method Toilet # Voids 2 - Exam PHYSICAL EXAMINATION: GENERAL: The patient is alert and oriented x3, not in any acute distress. Obese HEENT: Pupils are round and equally reacting to light. EOMI. No scleral icterus. Does have conjunctival pallor. Normocephalic, atraumatic. No pharyngeal erythem a. No thyromegaly. CARDIOVASCULAR: S1 and S2 present. No murmurs, rubs, or gallops. PULMONARY: Chest is clear to auscultation, no wheezing or crackles. ABDOMEN: Soft, nontender, nondistended, normoactive bowel sounds. No palpable organomegaly. MUSCULOSKELETAL: No joint swelling or deformity. EXTREMITIES: No cyanosis, clubbing, or pedal edema. NEUROLOGICAL: Gross neurological examination did not reveal any focal deficits. SKIN: No rashes. - Labs CBC & Chem 7: 04/19/20 08:42 04/19/20 08:42 Labs: Abnormal Lab Results - Last 24 Hours (Table) 04/19/20 04/19/20 Range/Units 08:42 08:42 Hgb 8.7 L (13.0-17.5) gm/dL Hct 32.7 L (39.0-53.0) % MCV 65.9 L (80.0-100.0) fL MCH 17.6 L (25.0-35.0) pg MCHC 26.7 L (31.0-37.0) g/dL RDW 18.9 H (11.5-15.5) % Chloride 110 H (98-107) mmol/L Assessment and Plan Plan: Possibility of non-ST elevation myocardial infarction: Patient is presently on dual platelet therapy and not on IV heparin because of above-mentioned reasons cardiology evaluated the patient.hospital had a catheterization today. -Ruled out out cholelithiasis -Possibility of gastroesophageal reflux disease patient will be started on Protonix -Coronary artery disease -Bipolar disorder -Depression -Obesity patient had a gastric sleeve in the past with a loss of about 300 pounds of weight. -Hyperlipidemia hypertension
--- NOTE | 2020-04-19 13:35 | P.PN ---
Subjective Progress Note Date: 04/19/20 This is a 54-year-old gentleman with history of obesity and prior bariatric surgery, hypertension, hyperlipidemia, coronary artery disease with stenting of the first and second OM in July of this year. Subsequent to that patient was admitted to the hospital in December with GI bleeding, his aspirin was discontinued at that time and patient was continued on Plavix. According to the patient, he has not been taking his Plavix regularly either. He presented to the hospital on this occasion with symptoms of chest discomfort, which she described as a pressure sensation radiating through to his back, symptoms reminded him of what he had at the time of his stenting. Blood pressure on arrival here 177/82 with a heart rate in the 70s, temperature 96.9. White blood cell count 9.4, hemoglobin 8.4, platelet count 420. D-dimer 0.45, sodium 140, potassium 4.3, BUN 14, creatinine 0.6. Troponins 0.04, 0.15. EKG on arrival here showed a normal sinus rhythm with PACs, nonspecific ST-T wave changes. Patient would benefit from receiving a blood transfusion, however because he is Jehovah witness he is refusing to have any blood products. We will put the patient back on his Plavix, Lipitor, losartan, metoprolol. Check a third subsequent troponin, and also check his CBC in the morning. At present the patient is chest pain-free. 04/18/2020 Patient was seen and examined this morning, denied any chest discomfort. Blood pressure 150/60 with a heart rate in the 50s to 60s, 99% on room air. White blood cell count 9.9, hemoglobin 8.0, platelet count 429. Sodium 140, potassium 4.3, BUN 10, creatinine 0.6. Patient has been resumed on his Plavix, patient will be seen by GI service today. In the meantime we will continue with his current medical therapy, no cardiac catheterization at this time. Based on the patient's recurrent noncompliance with taking his medications, it is a concern that he may not take his aspirin and Plavix again on discharge. He has been advised regarding the importance of taking his Plavix on a regular basis. We will start him on some iron tablets. 04/19/2020 Patient was seen and examined this morning, got up earlier this morning to have a shower, on return to his bed, patient was complaining of moderate to severe midsternal chest pressure and tightness which radiated to his left arm and up into his jaw. EKG was performed at that time which did reveal some ST changes in the lateral leads. Patient was kept nothing by mouth for possible cardiac catheterization, hiatal lengthy discussion with the patient this morning regarding the importance of taking his antiplatelet therapy as directed, should he require repeat stenting. Patient was cleared by GI service to proceed with cardiac catheterization if necessary. We will page Dr. VERA Harry regarding proceeding with cardiac catheterization today. Blood pressure 126/60 with a heart rate in the 50s, 97% on room air. Labratory data from today, white blood cell count 9.9, hemoglobin 8.7, platelet count 46. Sodium 140, potassium 4.3, BUN 12, creatinine 0.7. Objective - Vital Signs Vital signs: Vital Signs Temp 97.9 F 04/19/20 07:35 Pulse 56 L 04/19/20 11:57 Resp 16 04/19/20 11:57 BP 126/64 04/19/20 11:57 Pulse Ox 97 04/19/20 11:57 Intake & Output 04/18/20 04/19/20 04/19/20 18:59 06:59 18:59 Intake Total 200 450 Balance 200 450 Weight 143.8 kg Intake: Oral 200 450 Other: Voiding Method Toilet # Voids 2 - Exam PHYSICAL EXAMINATION: GENERAL: 54-year-old gentleman in no acute distress at the time of my examination HEENT: Head is atraumatic, normocephalic. Pupils equal, round. Sclera anicteric. Conjunctiva are clear. Mucous membranes of the mouth are moist. Neck is supple. There is no elevated jugular venous pressure. No carotid bruit is heard. HEART EXAMINATION: Heart S1, S2 normal. No murmur or gallop heard. CHEST EXAMINATION: Lungs are clear to auscultation and precussion. No chest wall tenderness is noted on palpation or with deep breathing. ABDOMEN: Soft, obese, nontender. Bowel sounds are heard. No organomegaly noted. EXTREMITIES: 2+ peripheral pulses with no evidence of peripheral edema and no calf tenderness noted. NEUROLOGIC patient is awake, alert and oriented 3 . - Labs CBC & Chem 7: 04/19/20 08:42 04/19/20 08:42 Labs: Abnormal Lab Results - Last 24 Hours (Table) 04/19/20 04/19/20 Range/Units 08:42 08:42 Hgb 8.7 L (13.0-17.5) gm/dL Hct 32.7 L (39.0-53.0) % MCV 65.9 L (80.0-100.0) fL MCH 17.6 L (25.0-35.0) pg MCHC 26.7 L (31.0-37.0) g/dL RDW 18.9 H (11.5-15.5) % Chloride 110 H (98-107) mmol/L Assessment and Plan Plan: Assessment and plan #1 chest pain, acute coronary syndrome #2 anemia, hemoglobin 8.7, patient admitted in December with an acute GI bleed, he underwent an EGD/colonoscopy by Dr. Cohen in December which showed some gastritis and old blood in the right colon but no obvious source of bleeding identified. He also underwent a small bowel With No Significant Findings. #3 obesity #4 hypertension #5 hyperlipidemia #6 coronary artery disease with stenting of the first OM and PTCA of the second OM in July of this year #7 recurrent noncompliance Plan Because of the recurrence in the chest discomfort with evidence of EKG changes, Dr. Bright will speak with Dr. Scooter Harry regarding proceeding with cardiac catheterization today. Further recommendations to follow. DNP note has been reviewed, I agree with a documented findings and plan of care. Patient was seen and examined.
[2020-04-19] MEDS ORDERED: METOPROLOL TARTRATE 25 MG TAB PO STA (13:46)
[2020-04-19] MEDS ORDERED: HYDROmorphone 0.5 MG/0.5 ML SYRINGE IVP STA (13:46)
[2020-04-19] MEDS ORDERED: NITROGLYCERIN SL TABS 0.4 MG TAB SUBLINGUAL STA (13:47)
[2020-04-19] MEDS ORDERED: NITROGLYCERIN-D5W PMX 50 MG in DEXTROSE/WATER 1 250ML.BAG IV SCH (14:15)
[2020-04-19] MEDS ORDERED: HEPARIN SODIUM,PORCINE 30 ML 30 ML ONE (14:24)
[2020-04-19] MEDS ORDERED: VERAPAMIL 2.5 MG/ML 2 ML AMP ONE (14:24)
[2020-04-19] MEDS ORDERED: HEPARIN SODIUM 1,000 UN/ML (10ML VL) ONE (14:24)
[2020-04-19] MEDS ORDERED: LIDOCAINE 1% INJ 10MG/ML (20 ML MDV) ONE (14:24)
[2020-04-19] MEDS ORDERED: LIDOCAINE 1% INJ 10MG/ML (20 ML MDV) SQ ONE (15:31)
[2020-04-19] MEDS ORDERED: MIDAZOLAM 2 MG/2 ML VIAL IVP ONE (15:31)
[2020-04-19] MEDS: VERAPAMIL SYRINGE (5 MG/10 ML) INTRAARTER ONE ×2 (15:32→16:13)
[2020-04-19] MEDS ORDERED: IV FLUID CONTINUATION 1,000 ML IV ONE (15:35)
[2020-04-19] MEDS ORDERED: BIVALIRUDIN BOLUS 250 MG/50 ML IV ONE (15:55)
[2020-04-19] MEDS ORDERED: BIVALIRUDIN 250 MG in SODIUM CHLORIDE 0.9% 50 ML IV ONE (15:57)
[2020-04-19] MEDS ORDERED: CLOPIDOGREL 75 MG TAB ONE (16:04)
[2020-04-19] MEDS ORDERED: IOPAMIDOL-370 100ML BTL INJ ONE (16:04)
[2020-04-19] MEDS ORDERED: ASPIRIN 81 MG ONE (16:12)
[2020-04-19] MEDS ORDERED: CLOPIDOGREL 75 MG TAB PO ONE (16:13)
[2020-04-19] MEDS ORDERED: IOPAMIDOL-370 50ML BTL INJ ONE (16:13)
[2020-04-19] MEDS ORDERED: ASPIRIN 81 MG PO ONE (16:13)
--- NOTE | 2020-04-19 18:37 | CC ---
CARDIAC CATHETERIZATION REPORT DATE OF SERVICE: April 19, 2020. PROCEDURE: 1. Left heart catheterization and coronary angiography. 2. PTCA and stenting of the major diagonal branch with a drug-eluting stent. PERFORMED BY: Dr. Roger Harry. SEDATION: Moderate conscious sedation time was 40 minutes. Patient was administered Versed. His oxygen saturation, hemodynamics and EKG were monitored closely. CLINICAL INFORMATION: Mr. Niles Bacon is a morbidly obese 54-year-old gentleman with bipolar disorder, hypertension, hyperlipidemia, and a non-ST elevation [place] in July after which he had stenting of a totally occluded high first obtuse marginal branch. He also had a dilatation of the second obtuse marginal branch which was a balloon angioplasty only. The following 48 hours, I performed stenting of a mid circumflex which was a bifurcation lesion and also the PDA branch of the dominant RCA. He was discharged was doing well, but developed GI bleeding and extensive workup and was only on Plavix without aspirin, came to the hospital with chest pain, had troponin elevation suggestive of non-ST elevation [place] but hemoglobin was 8.3. Patient is a Jehovah's witness and refuses all blood transfusions or any blood products. He was advised cardiac catheterization and if indicated PCI after due discussion regarding risks, benefits, and options. PROCEDURE NOTE: Under local anesthesia and strict aseptic precautions, a 6-Yi introducer was placed in the right radial artery. Using JR4 and JL 3.5 catheters, I performed diagnostic coronary angiography and also checked LV pressures with the same right Kevin catheter. I did not do an LV gram. Following the cardiac cath, I performed intervention of the major diagonal branch with a drug-eluting stent. Subsequently, the sheath was taken out and TR band applied as per protocol. A large TR band was used. Excellent hemostasis was secured. Saturation of the fingers of the right hand was 96%. CARDIAC CATH FINDINGS: The left ventricular end-diastolic pressure was about 10-11 mmHg without any gradient across the aortic valve. CORONARY ANGIOGRAPHY FINDINGS: RIGHT CORONARY ARTERY: Technically a very dominant vessel, has no significant disease in the proximal and midportion. The origin of the PDA that was stented is widely patent with brisk flow. The stented PDA branch of RCA is widely patent, has minor irregularities in other vessels and this is a dominant vessel. LEFT MAIN CORONARY ARTERY: Short patent disease-free vessel that bifurcates into LAD and circumflex. LEFT ANTERIOR DESCENDING CORONARY ARTERY: Good caliber vessel extends along the anterior wall, gives off a good-sized diagonal branch in the midportion. The diagonal branch in the midportion has what seems to be a very tight eccentric lesion of about 95% and this is in the midportion of the diagonal branch. There is a small branch that comes from this diagonal, a secondary branch right at this is a 95% stenosis. The mid major diagonal has a 95% lesion with haziness suggestive of thrombus and there is a small secondary branch that comes off. The LAD itself has minor irregularities. No other significant disease. LEFT POSTERIOR CIRCUMFLEX CORONARY ARTERY: This is a probably a codominant/nondominant vessel. The first obtuse marginal that was stented is patent. Second obtuse marginal that was dilated is very small and has good flow. The mid circumflex that was stented after a large obtuse marginal branch is widely patent. There is a branch that comes off at the site of stenting which was jailed. There is MAXX-3 flow. The stented segments in the circumflex system were widely patent. LV-gram was not performed. FINAL IMPRESSION: This patient has a right dominant system, widely patent PDA branch of RCA, 1st obtuse marginal branch of circumflex, mid circumflex at a bifurcation are all widely patent. The second obtuse marginal that was dilated is also patent. The LAD has no significant disease, but diagonal has a 95% mid lesion with haziness which I believe is the culprit lesion. RECOMMENDATIONS: I recommended PCI of major diagonal and proceeded to perform this in the same setting. PCI PROCEDURE DETAILS: I used a JL3, 6-Yi guide catheter to cannulate the left coronary artery and a run- through wire to cross the lesion. The patient received Angiomax bolus and infusion. He also received 300 mg of Plavix. He was already on Plavix 75 mg daily. Without predilatation, a 2.5 caliber, 12 mm Xience stent was deployed at 10 atmospheres. Patient had mild chest discomfort but no EKG changes. Excellent angiographic result was achieved. The side branch flow was preserved. Results were discussed with the patient and I also spoke to the by phone. Excellent angiographic result without complication is noted. The patient was sent to the room in a stable condition. MMODL / IJN: [id number] /
[2020-04-19] MEDS: SODIUM CHLORIDE 0.9% 1,000 ML IV SCH (19:39)
[2020-04-19] MEDS ORDERED: ATORVASTATIN 80 MG TAB PO SCH (21:00)
[2020-04-20] MEDS: FERROUS SULFATE 325 MG TAB PO SCH (06:44)
[2020-04-20] MEDS: SODIUM CHLORIDE 0.9% 1,000 ML IV SCH (07:01)
[2020-04-20 08:33] LABS: Anisocytosis Slight; HCT 32.5 % (39.0-53.0); HGB 8.9 gm/dL (13.0-17.5); Hypochromasia Marked; MCHC 27.3 g/dL (31.0-37.0); MCV 65.8 fL (80.0-100.0); Microcytosis Marked; Platelet Count 417 k/uL (150-450); Poikilocytosis Slight; RBC 4.94 m/uL (4.30-5.90); RDW 19.3 % (11.5-15.5); WBC 10.3 k/uL (3.8-10.6)
[2020-04-20 08:47] LABS: African American GFR (CKD) >90 (>60 ml/min/1.73 sqM); Anion Gap 7 mmol/L; Blood Urea Nitrogen 15 mg/dL (9-20); Calcium 8.6 mg/dL (8.4-10.2); Carbon Dioxide 22 mmol/L (22-30); Chloride 111 mmol/L (98-107); Glucose 106 mg/dL (74-99); Non-African American GFR(CKD) >90 (>60 ml/min/1.73 sqM); Potassium 4.3 mmol/L (3.5-5.1); Sodium 140 mmol/L (137-145)
[2020-04-20] MEDS ORDERED: ASPIRIN 81 MG PO SCH (09:00)
[2020-04-20] MEDS ORDERED: CLOPIDOGREL 75 MG TAB PO SCH (09:00)
[2020-04-20 09:06] VITALS: BP 136/76; PULSE 64; RESP 16; TEMP 99
[2020-04-20] MEDS: PANTOPRAZOLE 40 MG TABLET PO SCH (09:10)
[2020-04-20] MEDS: LOSARTAN 50 MG TAB PO SCH (09:10)
[2020-04-20] MEDS: METOPROLOL SUCCINATE (ER) 25 MG TAB.ER.24H PO SCH (09:11)
--- NOTE | 2020-04-20 09:50 | P.PN ---
Subjective Progress Note Date: 04/20/20 This is a 54-year-old gentleman with history of obesity and prior bariatric surgery, hypertension, hyperlipidemia, coronary artery disease with stenting of the first and second OM in July of this year. Subsequent to that patient was admitted to the hospital in December with GI bleeding, his aspirin was discontinued at that time and patient was continued on Plavix. According to the patient, he has not been taking his Plavix regularly either. He presented to the hospital on this occasion with symptoms of chest discomfort, which she described as a pressure sensation radiating through to his back, symptoms reminded him of what he had at the time of his stenting. Blood pressure on arrival here 177/82 with a heart rate in the 70s, temperature 96.9. White blood cell count 9.4, hemoglobin 8.4, platelet count 420. D-dimer 0.45, sodium 140, potassium 4.3, BUN 14, creatinine 0.6. Troponins 0.04, 0.15. EKG on arrival here showed a normal sinus rhythm with PACs, nonspecific ST-T wave changes. Patient would benefit from receiving a blood transfusion, however because he is Jehovah witness he is refusing to have any blood products. We will put the patient back on his Plavix, Lipitor, losartan, metoprolol. Check a third subsequent troponin, and also check his CBC in the morning. At present the patient is chest pain-free. 04/18/2020 Patient was seen and examined this morning, denied any chest discomfort. Blood pressure 150/60 with a heart rate in the 50s to 60s, 99% on room air. White blood cell count 9.9, hemoglobin 8.0, platelet count 429. Sodium 140, potassium 4.3, BUN 10, creatinine 0.6. Patient has been resumed on his Plavix, patient will be seen by GI service today. In the meantime we will continue with his current medical therapy, no cardiac catheterization at this time. Based on the patient's recurrent noncompliance with taking his medications, it is a concern that he may not take his aspirin and Plavix again on discharge. He has been advised regarding the importance of taking his Plavix on a regular basis. We will start him on some iron tablets. 04/19/2020 Patient was seen and examined this morning, got up earlier this morning to have a shower, on return to his bed, patient was complaining of moderate to severe midsternal chest pressure and tightness which radiated to his left arm and up into his jaw. EKG was performed at that time which did reveal some ST changes in the lateral leads. Patient was kept nothing by mouth for possible cardiac catheterization, hiatal lengthy discussion with the patient this morning regarding the importance of taking his antiplatelet therapy as directed, should he require repeat stenting. Patient was cleared by GI service to proceed with cardiac catheterization if necessary. We will page Dr. VERA Harry regarding proceeding with cardiac catheterization today. Blood pressure 126/60 with a heart rate in the 50s, 97% on room air. Labratory data from today, white blood cell count 9.9, hemoglobin 8.7, platelet count 46. Sodium 140, potassium 4.3, BUN 12, creatinine 0.7. 04/20/2020 Patient was taken to the cardiac catheterization lab yesterday afternoon by Dr. Scooter Harry underwent angioplasty and stenting of the major diagonal branch. He was seen and examined this morning, denied any chest discomfort in his breathing is stable. EKG shows normal sinus rhythm with no new changes from post-PCI. Blood pressure 136/70 with a heart rate in the 60s, 97% on room air. White blood cell count 10.3, hemoglobin 8.9, platelet count 417. Sodium 140, potassium 4.3, BUN 15, creatinine 0.8. Objective - Vital Signs Vital signs: Vital Signs Temp 99 F 04/20/20 08:00 Pulse 64 04/20/20 08:00 Resp 16 04/20/20 08:00 BP 136/76 04/20/20 08:00 Pulse Ox 97 04/20/20 08:00 Intake & Output 04/19/20 04/20/20 04/20/20 18:59 06:59 18:59 Intake Total 280 450 240 Output Total 400 Balance -120 450 240 Weight 144 kg Intake: IV 80 Oral 200 450 240 Output: Urine 400 Other: Voiding Method Toilet # Voids 1 2 1 - Exam PHYSICAL EXAMINATION: GENERAL: 54-year-old gentleman in no acute distress at the time of my examination HEENT: Head is atraumatic, normocephalic. Pupils equal, round. Sclera anicteric. Conjunctiva are clear. Mucous membranes of the mouth are moist. Neck is supple. There is no elevated jugular venous pressure. No carotid bruit is heard. HEART EXAMINATION: Heart S1, S2 normal. No murmur or gallop heard. CHEST EXAMINATION: Lungs are clear to auscultation and precussion. No chest wall tenderness is noted on palpation or with deep breathing. ABDOMEN: Soft, obese, nontender. Bowel sounds are heard. No organomegaly noted. EXTREMITIES: 2+ peripheral pulses with no evidence of peripheral edema and no calf tenderness noted. Right radial site clean and dry, good distal pulse. NEUROLOGIC patient is awake, alert and oriented 3 . - Labs CBC & Chem 7: 04/20/20 07:37 04/20/20 07:37 Labs: Abnormal Lab Results - Last 24 Hours (Table) 04/20/20 04/20/20 Range/Units 07:37 07:37 Hgb 8.9 L (13.0-17.5) gm/dL Hct 32.5 L (39.0-53.0) % MCV 65.8 L (80.0-100.0) fL MCH 18.0 L (25.0-35.0) pg MCHC 27.3 L (31.0-37.0) g/dL RDW 19.3 H (11.5-15.5) % Chloride 111 H (98-107) mmol/L Glucose 106 H (74-99) mg/dL Assessment and Plan Plan: Assessment and plan #1 chest pain, acute coronary syndrome, status post PTCA and stenting of the major diagonal branch #2 anemia, hemoglobin 8.7, patient admitted in December with an acute GI bleed, he underwent an EGD/colonoscopy by Dr. Cohen in December which showed some gastritis and old blood in the right colon but no obvious source of bleeding identified. He also underwent a small bowel With No Significant Findings. #3 obesity #4 hypertension #5 hyperlipidemia #6 coronary artery disease with stenting of the first OM and PTCA of the second OM in July of this year #7 recurrent noncompliance Plan From cardiology's perspective patient may be able to be discharged home today. We'll make him a follow-up appointment with Dr. Scooter Harry in the office post discharge. He has been instructed regarding the importance of taking all of his medications on a regular basis. Discharge medications include aspirin 81 mg daily, Lipitor 80 mg daily, Plavix 75 mg daily, Imdur 30 mg daily, Cozaar 50 mg daily, metoprolol 25 mg daily, sublingual nitroglycerin as needed for chest pain. DNP note has been reviewed, I agree with a documented findings and plan of care. Patient was seen and examined.
--- NOTE | 2020-04-20 11:53 | PN ---
PROGRESS NOTE DATE OF SERVICE: 04/20/2020 Patient is a 54-year-old white male admitted to the hospital with chest pain, severe symptomatic anemia with a hemoglobin of 8.5 g/dL and severe microcytosis consistent with iron deficiency anemia. He was seen by Dr. Wu on consultation 2 days ago. Apparently, patient did have an EGD and colonoscopy by Dr. Mcarthur in December of this year followed by small bowel capsule endoscopy, all of which revealed severe esophagitis. The patient underwent cardiac catheterization for non ST elevated DC. He was noted to have occlusion and had angioplasty with a CBD stent placement. He is doing much better today. He denies any chest pain. He reports no abdominal pain. No nausea, no vomiting. No rectal bleeding or melena. PHYSICAL EXAMINATION: He appears comfortable. No apparent distress. VITAL SIGNS: Vital signs stable. Blood pressure is 136/76, pulse rate 64, temperature 99. HEENT: Examination unremarkable. Conjunctivae are pink. Sclerae anicteric. Oral cavity no lesions. NECK: No JVD or lymph node enlargement. CHEST: Clear to auscultation. HEART: Regular rate and rhythm. ABDOMEN: Soft. Bowel sounds are positive. No organomegaly. EXTREMITIES: No pedal edema. NEUROLOGIC: Alert and oriented x3. No focal deficits. LABS: From today WBC 8.9, MCV 66. WBC and platelets are normal. IMPRESSION: 1. Microcytic hypochromic anemia secondary to iron deficiency, but clinically no evidence of active bleeding. He did have an EGD and colonoscopy as well as small bowel capsule endoscopy in December of this year as mentioned above. Hemoglobin currently remains stable. 2. Acute myocardial infarction, status post cardiac cath with percutaneous transluminal coronary angioplasty and stent placement yesterday by Dr. Roger Harry. Presently remains on aspirin and Plavix. Clinically no active bleeding. 3. History of hypertension. 4. History of hyperlipidemia. RECOMMENDATIONS: 1. Continue with aspirin and Plavix. 2. Monitor CBC daily. 3. Continue with iron supplements twice daily. 4. Monitor CBC on a frequent basis. 5. Follow up in the office in 3-4 weeks following discharge from the hospital to monitor CBC. Thank you for this consultation. MMODL / IJN: [id number] /
--- NOTE | 2020-04-20 16:11 | P.DS ---
Providers Date of admission: 04/19/20 14:49 Attending physician: Aryan Boland Consults: 04/17/20 08:57 Consult Physician Urgent Consulting Provider: Santosh Harris Consult Reason/Comments: cp Do you want consulting provider notified?: Yes 04/17/20 15:09 Consult Physician Urgent Consulting Provider: Delmar Wu Consult Reason/Comments: anemia Do you want consulting provider notified?: Yes Primary care physician: [facility] Course: Patient is a 54-year-old male with a known history of coronary artery disease is admitted for non-ST elevation myocardial infarction, ruled out gallstones. Patient is presently not on an any heparin because of concerns of GI bleed. Patient in the past had a GI bleed secondary to aspirin and Plavix. Patient is a Yazidism with borderline hemoglobin of around 8 because of which there is a concern that due to antiplatelet therapy heparin will cause more bleeding and because of the lack of option of blood transfusion patient is not being started on heparin although patient is presently on Dilantin therapy, cardiology evaluated the patient and the consulted gastroenterology to assess his risk of further GI bleed before patient can undergo cardiac catheterization and stenting if needed 04/19/2020 Patient was still having on and off chest pain patient will probably undergo cardiac catheterization today, patient was evaluated by gastroenterology. 04/20/2020 Patient had stenting of the major diagonal branch clinically doing well is being discharged PHYSICAL EXAMINATION: GENERAL: The patient is alert and oriented x3, not in any acute distress. Obese HEENT: Pupils are round and equally reacting to light. EOMI. No scleral icterus. Does have conjunctival pallor. Normocephalic, atraumatic. No pharyngeal erythema. No thyromegaly. CARDIOVASCULAR: S1 and S2 present. No murmurs, rubs, or gallops. PULMONARY: Chest is clear to auscultation, no wheezing or crackles. ABDOMEN: Soft, nontender, nondistended, normoactive bowel sounds. No palpable organomegaly. MUSCULOSKELETAL: No joint swelling or deformity. EXTREMITIES: No cyanosis, clubbing, or pedal edema. NEUROLOGICAL: Gross neurological examination did not reveal any focal deficits. SKIN: No rashes. Assessment and Plan Plan: Possibility of non-ST elevation myocardial infarction:patient had cardiac catheterization and stenting and patient is presently on dual anti-platelet therapy -Ruled out out cholelithiasis -Coronary artery disease -Bipolar disorder -Depression -Obesity patient had a gastric sleeve in the past with a loss of about 300 pounds of weight. -Hyperlipidemia hypertension Plan - Discharge Summary Discharge Rx Participant: No New Discharge Prescriptions: New Isosorbide Mononitrate ER [Imdur] 30 mg PO DAILY #30 tab.er.24h Ferrous Sulfate [Iron (65 MG Elemental)] 325 mg PO BID-W/MEALS #60 tab Nitroglycerin Sl Tabs [Nitrostat] 0.4 mg SUBLINGUAL Q5M PRN #25 tab PRN Reason: Chest Pain Continue Clopidogrel [Plavix] 75 mg PO HS Metoprolol Tartrate [Lopressor] 25 mg PO DAILY Losartan Potassium 50 mg PO DAILY Aspirin EC [Ecotrin Low Dose] 81 mg PO DAILY Atorvastatin [Lipitor] 40 mg PO HS Discontinued Nitroglycerin Sl Tabs [Nitrostat] 0.4 mg SUBLINGUAL Q5M PRN #30 tab PRN Reason: Chest Pain amLODIPine [Norvasc] 5 mg PO DAILY No Action Fluticasone Nasal [place] [Flonase Nasal [place]] 1 spr EA NOSTRIL DAILY PRN PRN Reason: Congestion HYDROcodone/APAP 5-325MG [[place] 5-325] 1 tab PO Q8H PRN PRN Reason: Pain Discharge Medication List Clopidogrel [Plavix] 75 mg PO HS 12/12/19 [History] Losartan Potassium 50 mg PO DAILY 12/12/19 [History] Metoprolol Tartrate [Lopressor] 25 mg PO DAILY 12/12/19 [History] Aspirin EC [Ecotrin Low Dose] 81 mg PO DAILY 04/17/20 [History] Atorvastatin [Lipitor] 40 mg PO HS 04/17/20 [History] Fluticasone Nasal [place] [Flonase Nasal [place]] 1 spr EA NOSTRIL DAILY PRN 04/17/20 [History] HYDROcodone/APAP 5-325MG [[place] 5-325] 1 tab PO Q8H PRN 04/17/20 [History] Ferrous Sulfate [Iron (65 MG Elemental)] 325 mg PO BID-W/MEALS #60 tab 04/20/20 [Rx] Isosorbide Mononitrate ER [Imdur] 30 mg PO DAILY #30 tab.er.24h 04/20/20 [Rx] Nitroglycerin Sl Tabs [Nitrostat] 0.4 mg SUBLINGUAL Q5M PRN #25 tab 04/20/20 [Rx] Follow up Appointment(s)/Referral(s): Erick Harry MD [STAFF PHYSICIAN] - 04/26/20 10:00 am (WEDNESDAY) Rashid Price MD [Primary Care Provider] - 1-2 days (OFFICES ARE CLOSED PLEASE CALL WEDNESDAY TO MAKE A FOLLOW UP APPOINTMENT ) Patient Instructions/Handouts: Left Heart Catheterization (DC), Safe Use of Antiplatelet Medication (DC) Activity/Diet/Wound Care/Special Instructions: CARDIAC CATH Watch for any excessive bruising, active bleeding, a firm knot forming under your skin, extreme tenderness and signs of infection (redness, swelling, fever). Shower daily, do not soak puncture in a tub bath, jacuzzi, pool, barcenas etc. for 1 week. This is to prevent risk of infection. Drink plenty of fluids the day of and day after your procedure to flush contrast dye out of your kidneys. Take all medications as directed. Never stop any new medication without your physicians OK. No driving for 2 days after procedure. 5- pound weight lifting restriction for 1 week. Low sodium/low fat diet. Activity limited until follow up appointment with your security escort. In case of any problems, please call [facility] @ [phone]. Discharge Disposition: HOME SELF-CARE
== END 2020-04-20 11:46 | disposition home or self-care (01) | DRG 247 ==
LOC: EC 07:34 → 3SCARD 08:57 → OBSVTOIN 04-19 14:49
PROVIDERS: ADMIT Hospitalist; ATTEND Hospitalist
PROC: B2111ZZ Fluoroscopy of Multiple Coronary Arteries using Low Osmolar Contrast (ICD-10-PCS; principal; 2020-04-19 15:45)
PROC: 027034Z Dilation of Coronary Artery, One Artery with Drug-eluting Intraluminal Device, Percutaneous Approach (ICD-10-PCS; principal; 2020-04-19 15:45)
PROC: 4A023N7 Measurement of Cardiac Sampling and Pressure, Left Heart, Percutaneous Approach (ICD-10-PCS; principal; 2020-04-19 15:45)
DX: I21.4 Non-ST elevation (NSTEMI) myocardial infarction (principal); Z68.42 Body mass index [BMI] 45.0-49.9, adult; D50.9 Iron deficiency anemia, unspecified; E78.5 Hyperlipidemia, unspecified; F31.9 Bipolar disorder, unspecified; E66.01 Morbid (severe) obesity due to excess calories; F41.0 Panic disorder [episodic paroxysmal anxiety]; I10 Essential (primary) hypertension; I25.10 Atherosclerotic heart disease of native coronary artery without angina pectoris; M19.90 Unspecified osteoarthritis, unspecified site; Z98.84 Bariatric surgery status; Z91.19 Patient's noncompliance with other medical treatment and regimen; Z90.3 Acquired absence of stomach [part of]; Z82.49 Family history of ischemic heart disease and other diseases of the circulatory system; Z79.899 Other long term (current) drug therapy; Z79.82 Long term (current) use of aspirin; Z79.02 Long term (current) use of antithrombotics/antiplatelets; Z95.5 Presence of coronary angioplasty implant and graft; Z98.890 Other specified postprocedural states; Z81.8 Family history of other mental and behavioral disorders
CPT/HCPCS: 36415; 71046; 76705; 80048; 80053; 80061; 83735; 84484; 85025; 85027; 85379; 85610; 85730; 93005; 93306; 93458; 96374; 96375; 99285

== ENCOUNTER 2020-04-25 18:11 | Inpatient (IN) | payer OTHER ==
[2020-04-25] MEDS ORDERED: NITROGLYCERIN OINT 1 INCH/GM PACKET TOPICAL STA (18:16)
--- NOTE | 2020-04-25 18:23 | ED ---
General Adult HPI - General Stated complaint: STEMI Time Seen by Provider: 04/25/20 18:15 Source: patient, RN notes reviewed, old records reviewed - History of Present Illness Initial comments: This is a 54-year-old male with a past medical history significant for stent placement earlier this week. Patient comes in today because chest pain has returned. She has a past medical history significant for coronary artery disease diabetes hypertension high cholesterol. Patient denies any smoking. Patient states the pain is in the center of his chest is an ongoing for 2 hours. Patient states at least as bad as the pain he had when he came in the first time. Patient also states he short of breath. Patient denies any diaphoretic episodes. Patient states she's nauseated. Patient denies any radiation of the pain. Patient denies any recent fever chills or cough per patient denies any leg swelling or calf tenderness. - Related Data Home Medications Medication Instructions Recorded Confirmed Clopidogrel [Plavix] 75 mg PO HS 12/12/19 04/25/20 Losartan Potassium 50 mg PO DAILY 12/12/19 04/25/20 Metoprolol Tartrate [Lopressor] 25 mg PO DAILY 12/12/19 04/25/20 Aspirin EC [Ecotrin Low Dose] 81 mg PO DAILY 04/17/20 04/25/20 Atorvastatin [Lipitor] 40 mg PO HS 04/17/20 04/25/20 Fluticasone Nasal [place] [Flonase 1 spr EA NOSTRIL DAILY PRN 04/17/20 04/25/20 Nasal [place]] HYDROcodone/APAP 5-325MG [[place] 1 tab PO Q8H PRN 04/17/20 04/25/20 5-325] Previous Rx's Medication Instructions Recorded Ferrous Sulfate [Iron (65 MG 325 mg PO BID-W/MEALS #60 tab 04/20/20 Elemental)] Isosorbide Mononitrate ER [Imdur] 30 mg PO DAILY #30 tab.er.24h 04/20/20 Nitroglycerin Sl Tabs [Nitrostat] 0.4 mg SUBLINGUAL Q5M PRN #25 tab 04/20/20 Allergies Allergy/AdvReac Type Severity Reaction Status Date / Time No Known Allergies Allergy Verified 04/25/20 18:26 Review of Systems ROS Statement: Those systems with pertinent positive or pertinent negative responses have been documented in the HPI. ROS Other: All systems not noted in ROS Statement are negative. Past Medical History Past Medical History: Hypertension Additional Past Medical History / Comment(s): CHRONIC BACK PAIN which has increased significantly with major weight loss, sciatica, bronchitis, arthritis, borderline thyroid issues, NOT ON ANYTHING FOR B/P History of Any Multi-Drug Resistant Organisms: None Reported Past Surgical History: Bariatric Surgery, Heart Catheterization With Stent Additional Past Surgical History / Comment(s): EGD. GASTRIC SLEEVE PANNICULECTOMY 07-25-18 Past Anesthesia/Blood Transfusion Reactions: No Reported Reaction Additional Past Anesthesia/Blood Transfusion Reaction / Comment(s): HAS NEVER HAD GENERAL ANESTHESIA Date of Last Stent Placement:: July 2019 Past Psychological History: Anxiety, Bipolar, Depression, Panic Disorder Additional Psychological History / Comment(s): UNDER CONTROL AT THIS TIME Smoking Status: Never smoker Past Alcohol Use History: Rare Past Drug Use History: None Reported - Past Family History Father History Unknown: Yes Family Medical History: Hypertension Additional Family Medical History / Comment(s): mental disease, violent disorders Mother History Unknown: Yes Family Medical History: Hypertension General Exam - General Exam Comments Initial Comments: GENERAL: Patient is well-developed and well-nourished. Patient is nontoxic and well- hydrated and is in mild distress. ENT: Neck is soft and supple. No significant lymphadenopathy is noted. Oropharynx is clear. Moist mucous membranes. Neck has full range of motion without eliciting any pain. EYES: The sclera were anicteric and conjunctiva were pink and moist. Extraocular movements were intact and pupils were equal round and reactive to light. Eyelids were unremarkable. PULMONARY: Unlabored respirations. Good breath sounds bilaterally. No audible rales rhon chi or wheezing was noted. CARDIOVASCULAR: There is a regular rate and rhythm without any murmurs gallops or rubs. ABDOMEN: Soft and nontender with normal bowel sounds. SKIN: Skin is clear with no lesions or rashes and otherwise unremarkable. NEUROLOGIC: Patient is alert and oriented x3. Cranial nerves II through XII are grossly intact. Motor and sensory are also intact. Normal speech, volume and content. Symmetrical smile. MUSCULOSKELETAL: Normal extremities with adequate strength and full range of motion. LYMPHATICS: No significant lymphadenopathy is noted PSYCHIATRIC: Normal psychiatric evaluation. Course Vital Signs 04/25/20 04/25/20 04/25/20 18:13 19:24 20:15 Temperature 98.4 F Pulse Rate 63 61 65 Respiratory 20 18 18 Rate Blood Pressure 209/104 172/101 149/96 O2 Sat by Pulse 99 99 98 Oximetry Medical Decision Making - Medical Decision Making EKG shows sinus rhythm at 65 bpm ND interval 128 QRS is 92 QT interval 420 QTC is 436 per patient has some slight ST segment depression in leads 3 and aVF. Chest x-ray shows no acute abnormality. Patient's troponin is mildly elevated but possibly coming down from the elevated troponin he had when he was in patient. Patient is started on heparin emergency department. I spoke with Dr. Reyes he agreed to admit the patient admitted the patient wrote admitting orders. - Lab Data Result diagrams: 04/25/20 18:18 04/25/20 18:18 Lab Results 04/25/20 04/25/20 04/25/20 Range/Units 18:18 18:18 18:18 WBC 10.2 (3.8-10.6) k/uL RBC 4.93 (4.30-5.90) m/uL Hgb 8.9 L (13.0-17.5) gm/dL Hct 30.6 L (39.0-53.0) % MCV 62.0 L (80.0-100.0) fL MCH 17.9 L (25.0-35.0) pg MCHC 28.9 L (31.0-37.0) g/dL RDW 19.9 H (11.5-15.5) % Plt Count 406 (150-450) k/uL MPV 6.5 Neutrophils % 63 % Lymphocytes % 24 % Monocytes % 6 % Eosinophils % 3 % Basophils % 0 % Neutrophils # 6.4 (1.3-7.7) k/uL Lymphocytes # 2.5 (1.0-4.8) k/uL Monocytes # 0.6 (0-1.0) k/uL Eosinophils # 0.3 (0-0.7) k/uL Basophils # 0.0 (0-0.2) k/uL Hypochromasia Marked Poikilocytosis Slight Anisocytosis Slight Microcytosis Marked PT 10.2 (9.0-12.0) sec INR 1.0 (<1.2) APTT 22.0 (22.0-30.0) sec Sodium 140 (137-145) mmol/L Potassium 4.3 (3.5-5.1) mmol/L Chloride 109 H (98-107) mmol/L Carbon Dioxide 25 (22-30) mmol/L Anion Gap 6 mmol/L BUN 14 (9-20) mg/dL Creatinine 0.73 (0.66-1.25) mg/dL Est GFR (CKD-EPI)AfAm >90 (>60 ml/min/1.73 sqM) Est GFR (CKD-EPI)NonAf >90 (>60 ml/min/1.73 sqM) Glucose 99 (74-99) mg/dL Calcium 8.7 (8.4-10.2) mg/dL Magnesium 2.1 (1.6-2.3) mg/dL Total Bilirubin 0.3 (0.2-1.3) mg/dL AST 30 (17-59) U/L ALT 21 (4-49) U/L Alkaline Phosphatase 77 (38-126) U/L Troponin I (0.000-0.034) ng/mL Total Protein 6.9 (6.3-8.2) g/dL Albumin 4.0 (3.5-5.0) g/dL //20 Range/Units 18:18 WBC (3.8-10.6) k/uL RBC (4.30-5.90) m/uL Hgb (13.0-17.5) gm/dL Hct (39.0-53.0) % MCV (80.0-100.0) fL MCH (25.0-35.0) pg MCHC (31.0-37.0) g/dL RDW (11.5-15.5) % Plt Count (150-450) k/uL MPV Neutrophils % % Lymphocytes % % Monocytes % % Eosinophils % % Basophils % % Neutrophils # (1.3-7.7) k/uL Lymphocytes # (1.0-4.8) k/uL Monocytes # (0-1.0) k/uL Eosinophils # (0-0.7) k/uL Basophils # (0-0.2) k/uL Hypochromasia Poikilocytosis Anisocytosis Microcytosis PT (9.0-12.0) sec INR (<1.2) APTT (22.0-30.0) sec Sodium (137-145) mmol/L Potassium (3.5-5.1) mmol/L Chloride (98-107) mmol/L Carbon Dioxide (22-30) mmol/L Anion Gap mmol/L BUN (9-20) mg/dL Creatinine (0.66-1.25) mg/dL Est GFR (CKD-EPI)AfAm (>60 ml/min/1.73 sqM) Est GFR (CKD-EPI)NonAf (>60 ml/min/1.73 sqM) Glucose (74-99) mg/dL Calcium (8.4-10.2) mg/dL Magnesium (1.6-2.3) mg/dL Total Bilirubin (0.2-1.3) mg/dL AST (17-59) U/L ALT (4-49) U/L Alkaline Phosphatase (38-126) U/L Troponin I 0.073 H* (0.000-0.034) ng/mL Total Protein (6.3-8.2) g/dL Albumin (3.5-5.0) g/dL Critical Care Time Critical Care Time: Yes Total Critical Care Time: 35 Disposition Clinical Impression: Unstable angina Disposition: ADMITTED IP TO THIS [facility] Referrals: Rashid Price MD [Primary Care Provider] - 1-2 days Time of Disposition: 20:34
--- NOTE | 2020-04-25 19:26 | XR ---
EXAMINATION TYPE: XR chest 2V DATE OF EXAM: 04/25/2020 COMPARISON: 04/17/2020 HISTORY: Chest pain TECHNIQUE: FINDINGS: Heart and mediastinum are normal. Lungs are clear. Diaphragm is normal. Bony thorax appears normal. There are chest leads. IMPRESSION: Normal chest. No change.
[2020-04-25 19:58] LABS: Anisocytosis Slight; Basophils % (A) 0 %; Eosinophils # (A) 0.3 k/uL (0-0.7); Eosinophils % (A) 3 %; HCT 30.6 % (39.0-53.0); HGB 8.9 gm/dL (13.0-17.5); Hypochromasia Marked; Lymphocytes # (A) 2.5 k/uL (1.0-4.8); Lymphocytes % (A) 24 %; MCH 17.9 pg (25.0-35.0); MCHC 28.9 g/dL (31.0-37.0); Mean Platelet Volume 6.5; Microcytosis Marked; Monocytes # (A) 0.6 k/uL (0-1.0); Monocytes % (A) 6 %; Neutrophils # (A) 6.4 k/uL (1.3-7.7); Neutrophils % (A) 63 %; Platelet Count 406 k/uL (150-450); Poikilocytosis Slight; RBC 4.93 m/uL (4.30-5.90); RDW 19.9 % (11.5-15.5); WBC 10.2 k/uL (3.8-10.6)
[2020-04-25 20:01] LABS: ALT 21 U/L (4-49); AST 30 U/L (17-59); African American GFR (CKD) >90 (>60 ml/min/1.73 sqM); Alkaline Phosphatase 77 U/L (38-126); Anion Gap 6 mmol/L; Blood Urea Nitrogen 14 mg/dL (9-20); Calcium 8.7 mg/dL (8.4-10.2); Carbon Dioxide 25 mmol/L (22-30); Chloride 109 mmol/L (98-107); Glucose 99 mg/dL (74-99); Magnesium 2.1 mg/dL (1.6-2.3); Non-African American GFR(CKD) >90 (>60 ml/min/1.73 sqM); Potassium 4.3 mmol/L (3.5-5.1); Sodium 140 mmol/L (137-145); Total Bilirubin 0.3 mg/dL (0.2-1.3); Total Protein 6.9 g/dL (6.3-8.2)
[2020-04-25 20:10] LABS: Prothrombin Time 10.2 sec (9.0-12.0)
[2020-04-25] MEDS ORDERED: ACETAMINOPHEN TAB 500 MG TAB PO STA (20:31)
[2020-04-25] MEDS ORDERED: HEPARIN SODIUM,PORCINE 5,000 UNIT/ML 1 ML VIAL IV ONE (20:32)
[2020-04-25] MEDS ORDERED: NITROGLYCERIN SL TABS 0.4 MG TAB SUBLINGUAL PRN (20:34)
[2020-04-25] MEDS ORDERED: HEPARIN SOD,PORK IN 0.45% NACL 25,000 UNIT in 0.45% NACL 1 250ML.BAG IV SCH (20:45)
[2020-04-26] MEDS ORDERED: ACETAMINOPHEN TAB 500 MG TAB PO ONE (00:37)
[2020-04-26] MEDS: NITROGLYCERIN OINT 1 INCH/GM PACKET TOPICAL SCH ×2 (00:39→06:41)
[2020-04-26 02:57] LABS: Cholesterol 134 mg/dL (<200); HDL Cholesterol 36 mg/dL (40-60); LDL Cholesterol,Calculated 77 mg/dL (0-99); Triglycerides 106 mg/dL (<150)
[2020-04-26] MEDS: METOPROLOL TARTRATE 25 MG TAB PO SCH (08:21)
[2020-04-26] MEDS: ISOSORBIDE MONONITRATE ER 30 MG TAB.ER.24H PO SCH (08:21)
[2020-04-26] MEDS: LOSARTAN 50 MG TAB PO SCH (08:22)
[2020-04-26] MEDS ORDERED: SODIUM CHLORIDE 0.9% 1,000 ML in EMPTY BAG 1 BAG IV ONE (08:25)
[2020-04-26] MEDS ORDERED: ALPRAZolam 0.25 MG TAB PO PRN (08:25)
[2020-04-26] MEDS ORDERED: ASPIRIN 325 MG TAB PO STA (08:25)
[2020-04-26] MEDS ORDERED: ATORVASTATIN 80 MG TAB PO STA (08:25)
[2020-04-26] MEDS ORDERED: NITROGLYCERIN SL TABS 0.4 MG TAB SUBLINGUAL PRN (08:25)
[2020-04-26] MEDS ORDERED: ALPRAZolam 0.5 MG TAB PO PRN (08:25)
[2020-04-26] MEDS ORDERED: ASPIRIN 325 MG TAB PO SCH (09:00)
[2020-04-26] MEDS: CLOPIDOGREL 75 MG TAB PO SCH (09:49)
[2020-04-26] MEDS ORDERED: HYDROcodone/APAP 5-325MG 1 EACH TAB PO PRN (10:29)
[2020-04-26 10:43] LABS: D-Dimer 0.34 mg/L FEU (<0.60); Partial Thromboplastin Time 31.9 sec (22.0-30.0)
[2020-04-26] MEDS ORDERED: HEPARIN SODIUM 1,000 UN/ML (10ML VL) ONE (10:53)
[2020-04-26] MEDS ORDERED: LIDOCAINE 1% INJ 10MG/ML (20 ML MDV) ONE (10:53)
[2020-04-26] MEDS ORDERED: VERAPAMIL 2.5 MG/ML 2 ML AMP ONE (10:53)
[2020-04-26] MEDS ORDERED: IV FLUID CONTINUATION 50 ML IV ONE (11:05)
[2020-04-26] MEDS ORDERED: SODIUM CHLORIDE 0.9% 1,000 ML IV ONE (11:10)
--- NOTE | 2020-04-26 11:26 | ECHOF ---
Referral Reason:Chest pain, elevated troponin MEASUREMENTS -------- HEIGHT: 182.9 cm WEIGHT: 148.3 kg BP: RVIDd: 2.4 cm (< 3.3) IVSd: 1.8 cm (0.6 - 1.1) LVIDd: 5.5 cm (3.9 - 5.3) LVPWd: 1.8 cm (0.6 - 1.1) IVSs: 2.3 cm LVIDs: 3.0 cm LVPWs: 2.6 cm Ao Diam: 3.1 cm (2.0 - 3.7) AV Cusp: 2.3 cm (1.5 - 2.6) LA Diam: 4.4 cm (2.7 - 3.8) MV EXCURSION: 16.052 mm (> 18.000) MV EF SLOPE: 114 mm/s (70 - 150) EPSS: 1.2 cm MV E Ismael: 0.71 m/s MV DecT: 204 ms MV A Ismael: 0.82 m/s MV E/A Ratio: 0.87 RAP: 5.00 mmHg RVSP: 17.01 mmHg FINDINGS -------- This was a technically difficult study with suboptimal views. The left ventricular size is normal. There is severe concentric left ventricular hypertrophy. Ove rall left ventricular systolic function is low-normal with, an EF between 50 - 55 %. The right ventricle is normal in size. The left atrium is mildly dilated. The right atrial size is normal. Lumason used The aortic valve is trileaflet and appears structurally normal. The mitral valve is normal. Mild mitral regurgitation is present. The tricuspid valve appears structurally normal. Mild tricuspid regurgitation present. Right vent ricular systolic pressure is normal at < 35 mmHg. There is no pulmonic regurgitation present. The aortic root size is normal. IVC Not well visulized. There is no pericardial effusion. CONCLUSIONS -------- 1. The left ventricular size is normal. 2. There is severe concentric left ventricular hypertrophy. 3. Overall left ventricular systolic function is low-normal with, an EF between 50 - 55 %. 4. The left atrium is mildly dilated. 5. Mild mitral regurgitation is present. 6. Mild tricuspid regurgitation present. 7. There is no pericardial effusion. MATERIAL COORDINATOR: Pallavi Han [facility]
[2020-04-26] MEDS ORDERED: MIDAZOLAM 2 MG/2 ML VIAL IVP ONE ×2 (11:33)
[2020-04-26] MEDS ORDERED: LIDOCAINE 1% INJ 10MG/ML (20 ML MDV) SQ ONE (11:35)
[2020-04-26] MEDS: VERAPAMIL SYRINGE (5 MG/10 ML) INTRAARTER ONE ×2 (11:40→12:30)
[2020-04-26] MEDS ORDERED: HEPARIN SODIUM 1,000 UN/ML (10ML VL) IV ONE (11:43)
--- NOTE | 2020-04-26 11:55 | P.CRDCN ---
History of Present Illness Consult date: 04/26/20 History of present illness: CHIEF COMPLAINT: Chest pain HISTORY OF PRESENT ILLNESS: This is a 54-year old male with a past medical history significant for hypertension, hyperlipidemia, and coronary artery disease with stent placements. Patient follows in the office with Dr. Harry. We have been asked to see the patient in consultation for chest pain. It is noted that the patient underwent cardiac catheterization on 04/19/2020 with stent placement to the diagonal branch. Patient was also admitted to the hospital in July 2019 secondary to NSTEMI. He underwent a stent to the first obtuse marginal branch. 48 hours later he was taken back to the Timing Adjuster and had a stent placed to the mid circumflex. Patient examined this morning at the bedside. Patient some nausea and vomiting on Wednesday night. He also reports midsternal chest pain. He reports he thought it was secondary to his GERD so he waited to see if it would go away but it continued since that time. The patient is still reporting chest pain this morning 02/14. He reports radiation to his jaw and neck and left arm. He reports mild shortness of breath. Currently denies nausea or vomiting. DIAGNOSTICS: EKG reveals sinus rhythm. Chest xray negative for acute process. Laboratory data: WBC 10.2. Hemoglobin 8.9. Platelet count 406. Sodium 140. Potassium 4.3. BUN 14. Creatinine 0.73. Troponin 0.073. 0.833. 3.270. Current home cardiac medications include metoprolol 25 mg daily, losartan 50 mg daily, Imdur 30 mg daily, Plavix 75 mg daily, Lipitor 80 mg daily, and aspirin 81 mg daily REVIEW OF SYSTEMS: At the time of my exam: CONSTITUTIONAL: Denies fever or chills. HEENT: Denies blurred vision, vision changes, or eye pain. Denies hemoptysis CARDIOVASCULAR: Reports chest pain. Denies orthopnea, PND or palpitations RESPIRATORY: No shortness of breath. GASTROINTESTINAL: Denies abdominal pain. Denies nausea or vomiting. HEMATOLOGIC: Denies bleeding disorders. GENITOURINARY: Denies any blood in urine. SKIN: Denies pruitis. Denies rash. PHYSICAL EXAM: VITAL SIGNS: Reviewed. GENERAL: Well-developed in no acute distress. HEENT: Head is normocephalic. Pupils are equal, round. Sclerae anicteric. Mucous membranes of the mouth are moist. Neck supple. No JVD or thyromegaly LUNGS: Respirations even and unlabored. Lungs essentially clear to auscultation bilaterally. HEART: Regular rate and rhythm. S1 and S2 heard. ABDOMEN: Soft. Nondistended. Nontender. EXTREMITIES: Normal range of motion. No clubbing or cyanosis. Peripheral pulses intact. No lower extremity edema NEUROLOGIC: Awake and alert. Oriented x 3. ASSESSMENT: Non-ST elevated myocardial infection Coronary artery disease with recent PCI to diagonal branch 04/19/2020, previous PCI to first obtuse marginal branch and mid circumflex Hypertension Hyperlipidemia History of sleeve gastrectomy PLAN: Continue IV heparin Resume home cardiac medications Obtain 2-D echo to assess cardiac structure and function Patient to undergo cardiac catheterization today with Dr. Harry Nurse practitioner note has been reviewed by physician. Signing provider agrees with the documented findings, assessment, and plan of care. Past Medical History Past Medical History: Hypertension, Myocardial Infarction ([place]), Vascular Disorder Additional Past Medical History / Comment(s): CHRONIC BACK PAIN which has increased significantly with major weight loss, sciatica, bronchitis, arthritis, borderline thyroid issues, NOT ON ANYTHING FOR B/P Last Myocardial Infarction Date:: 04/17/20 History of Any Multi-Drug Resistant Organisms: None Reported Past Surgical History: Bariatric Surgery, Heart Catheterization With Stent Additional Past Surgical History / Comment(s): EGD. GASTRIC SLEEVE PANNICULECTOMY 07-25-18 Past Anesthesia/Blood Transfusion Reactions: No Reported Reaction Additional Past Anesthesia/Blood Transfusion Reaction / Comment(s): HAS NEVER HAD GENERAL ANESTHESIA Date of Last Stent Placement:: 04/19/20 Past Psychological History: Anxiety, Bipolar, Depression, Panic Disorder Additional Psychological History / Comment(s): UNDER CONTROL AT THIS TIME Smoking Status: Never smoker Past Alcohol Use History: Rare Past Drug Use History: None Reported - Past Family History Father History Unknown: Yes Family Medical History: Hypertension Additional Family Medical History / Comment(s): mental disease, violent disorders Mother History Unknown: Yes Family Medical History: Hypertension Medications and Allergies Home Medications Medication Instructions Recorded Confirmed Type Clopidogrel [Plavix] 75 mg PO HS 12/12/19 04/25/20 History Losartan Potassium 50 mg PO DAILY 12/12/19 04/25/20 History Metoprolol Tartrate [Lopressor] 25 mg PO DAILY 12/12/19 04/25/20 History Aspirin EC [Ecotrin Low Dose] 81 mg PO DAILY 04/17/20 04/25/20 History Atorvastatin [Lipitor] 40 mg PO HS 04/17/20 04/25/20 History Fluticasone Nasal [place] [Flonase 1 spr EA NOSTRIL DAILY PRN 04/17/20 04/25/20 History Nasal [place]] HYDROcodone/APAP 5-325MG [[place] 1 tab PO Q8H PRN 04/17/20 04/25/20 History 5-325] Ferrous Sulfate [Iron (65 MG 325 mg PO BID-W/MEALS #60 tab 04/20/20 04/25/20 Rx Elemental)] Isosorbide Mononitrate ER [Imdur] 30 mg PO DAILY #30 tab.er.24h 04/20/20 04/25/20 Rx Nitroglycerin Sl Tabs [Nitrostat] 0.4 mg SUBLINGUAL Q5M PRN #25 tab 04/20/20 04/25/20 Rx Allergies Allergy/AdvReac Type Severity Reaction Status Date / Time No Known Allergies Allergy Verified 04/25/20 18:26 Physical Exam Vitals: Vital Signs Temp Pulse Pulse Resp BP BP Pulse Ox 04/26/20 08:00 97.8 F 68 20 187/91 98 04/26/20 04:00 97.7 F 55 L 15 159/85 97 04/26/20 02:10 61 16 04/26/20 01:55 98.1 F 61 16 154/90 97 04/26/20 01:30 61 16 156/89 97 04/26/20 01:00 55 L 12 142/97 96 04/26/20 00:00 54 L 15 170/95 98 04/25/20 23:55 98 04/25/20 23:30 80 20 153/97 04/25/20 22:30 65 18 161/89 99 04/25/20 21:00 62 18 153/91 97 04/25/20 20:15 65 18 149/96 98 04/25/20 19:24 61 18 172/101 99 04/25/20 18:13 98.4 F 63 20 209/104 99 Intake and Output 04/25/20 04/26/20 04/26/20 22:59 06:59 14:59 Intake Total 72.841 25 Output Total 350 Balance -277.159 25 Intake: IV 25 Intake, IV Titration 72.841 Amount Heparin Sod,Pork in 0.45% 72.841 NaCl 25,000 unit In 0.45 % NaCl 1 250ml.bag @ 6. 805 UNITS/KG/HR 10.001 mls/hr IV .Q24H [facility] Rx#: [id number] Output: Urine 350 Other: Weight 146.964 kg 148.6 kg Results 04/25/20 18:18 04/25/20 18:18 Cardiac Enzymes 04/25/20 04/25/20 04/25/20 Range/Units 18:18 18:18 21:40 AST 30 (17-59) U/L Troponin I 0.073 H* 0.833 H* (0.000-0.034) ng/mL 04/26/20 Range/Units 00:15 AST (17-59) U/L Troponin I 3.270 H* (0.000-0.034) ng/mL Coagulation 04/25/20 04/26/20 04/26/20 Range/Units 18:18 02:27 09:37 PT 10.2 (9.0-12.0) sec APTT 22.0 30.7 H 31.9 H (22.0-30.0) sec Lipids 04/26/20 Range/Units 02:27 Triglycerides 106 (<150) mg/dL Cholesterol 134 (<200) mg/dL HDL Cholesterol 36 L (40-60) mg/dL CBC 04/25/20 Range/Units 18:18 WBC 10.2 (3.8-10.6) k/uL RBC 4.93 (4.30-5.90) m/uL Hgb 8.9 L (13.0-17.5) gm/dL Hct 30.6 L (39.0-53.0) % Plt Count 406 (150-450) k/uL Comprehensive Metabolic Panel 04/25/20 Range/Units 18:18 Sodium 140 (137-145) mmol/L Potassium 4.3 (3.5-5.1) mmol/L Chloride 109 H (98-107) mmol/L Carbon Dioxide 25 (22-30) mmol/L BUN 14 (9-20) mg/dL Creatinine 0.73 (0.66-1.25) mg/dL Glucose 99 (74-99) mg/dL Calcium 8.7 (8.4-10.2) mg/dL AST 30 (17-59) U/L ALT 21 (4-49) U/L Alkaline Phosphatase 77 (38-126) U/L Total Protein 6.9 (6.3-8.2) g/dL Albumin 4.0 (3.5-5.0) g/dL Current Medications Generic Name Dose Route Start Last Admin Trade Name Freq PRN Reason Stop Dose Admin Hydrocodone Bitart/Acetaminophen 1 each 04/26/20 10:29 Hydrocodone/Apap 5-325mg 1 Each Tab PO Q8H PRN Pain Alprazolam 0.25 mg 04/26/20 08:25 Alprazolam 0.25 Mg Tab PO Q6HR PRN Mild Anxiety Alprazolam 0.5 mg 04/26/20 08:25 Alprazolam 0.5 Mg Tab PO Q6HR PRN Moderate Anxiety Aspirin 81 mg 04/27/20 09:00 Aspirin 81 Mg PO DAILY [facility] Atorvastatin Calcium 40 mg 04/26/20 21:00 Atorvastatin 40 Mg Tab PO HS [facility] Clopidogrel Bisulfate 75 mg 04/26/20 10:00 04/26/20 09:49 Clopidogrel 75 Mg Tab PO 75 mg DAILY [facility] Administration Heparin Sodium/Sodium Chloride 250 mls @ 10.001 mls/hr 04/25/20 20:45 04/26/20 04:17 25,000 unit/ Sodium Chloride IV 9.805 units/kg/hr .Q24H ELADIO 14.41 mls/hr Titration Protocol 6.805 UNITS/KG/HR Sodium Chloride 1,000 ml/ IV 1,000 mls @ 148.6 mls/hr 04/26/20 08:25 04/26/20 09:49 Solution IV 04/26/20 15:08 148.6 mls/hr .Q6H44M ONE Administration 1 ML/KG/HR Isosorbide Mononitrate 30 mg 04/26/20 09:00 04/26/20 08:21 Isosorbide Mononitrate Er 30 Mg Tab.Er.24h PO 30 mg DAILY ELADIO Administration Losartan Potassium 50 mg 04/26/20 09:00 04/26/20 08:22 Losartan 50 Mg Tab PO 50 mg DAILY [facility] Administration Metoprolol Tartrate 25 mg 04/26/20 09:00 04/26/20 08:21 Metoprolol Tartrate 25 Mg Tab PO 25 mg DAILY [facility] Administration Nitroglycerin 0.4 mg 04/26/20 08:25 Nitroglycerin Sl Tabs 0.4 Mg Tab SUBLINGUAL Q5M PRN Chest Pain Intake and Output 04/25/20 04/26/20 04/26/20 22:59 06:59 14:59 Intake Total 72.841 25 Output Total 350 Balance -277.159 25 Intake: IV 25 Intake, IV Titration 72.841 Amount Heparin Sod,Pork in 0.45% 72.841 NaCl 25,000 unit In 0.45 % NaCl 1 250ml.bag @ 6. 805 UNITS/KG/HR 10.001 mls/hr IV .Q24H [facility] Rx#: [id number] Output: Urine 350 Other: Weight 146.964 kg 148.6 kg 04/25/20 18:18 04/25/20 18:18
[2020-04-26] MEDS ORDERED: BIVALIRUDIN 250 MG in SODIUM CHLORIDE 0.9% 50 ML IV ONE ×2 (12:00→12:16)
[2020-04-26] MEDS ORDERED: BIVALIRUDIN BOLUS 250 MG/50 ML IV ONE (12:00)
[2020-04-26] MEDS ORDERED: niCARdipine 25 MG/10 ML VIAL ONE (12:11)
[2020-04-26] MEDS ORDERED: IOPAMIDOL-370 100ML BTL INJ ONE (12:14)
[2020-04-26] MEDS ORDERED: CLOPIDOGREL 75 MG TAB ONE (12:15)
[2020-04-26] MEDS ORDERED: CLOPIDOGREL 75 MG TAB PO ONE (12:31)
[2020-04-26] MEDS ORDERED: IOPAMIDOL-370 125ML BTL INJ ONE (12:32)
--- NOTE | 2020-04-26 13:46 | CC ---
CARDIAC CATHETERIZATION REPORT DATE OF SERVICE: 04/26/2020 PROCEDURE: 1. Left heart catheterization and coronary angiography. 2. PTCA and stenting of major diagonal branch of LAD with a drug-eluting stent of an in-stent thrombotic lesion. PERFORMED BY: Dr. Roger Harry. Moderate conscious sedation time was 61 minutes. Patient was administered Versed. Oxygen saturation, hemodynamics and EKG were monitored closely. CLINICAL INFORMATION: Mr. Niles Bacon is a 54-year-old morbidly obese gentleman with a history of hypertension, hyperlipidemia, CAD with multivessel PCI. I performed previous PCI in July of this year when he presented with a non-ST elevation [place] performed. I performed PCI of the PDA branch of RCA and then the circumflex marginal and also mid circumflex. As recently as a week ago on the , I performed stenting of the major diagonal branch. He went home on Wednesday the ,. did not take any Plavix on Wednesday or Wednesday, started it on Wednesday and Wednesday and did not take it on and he came into the hospital last night. Apparently he had chest pain, nausea, vomiting troponin is elevated and EKG shows nonspecific ST changes. He presented with a non-ST elevation [place] with possible in-stent thrombosis, was advised cardiac catheterization after due discussion regarding risks, benefits, and options. PROCEDURE NOTE: Under local anesthesia and strict aseptic precautions, a 6-Syriac introducer was placed in the right radial artery. Using a JR5 and JL3.5 catheters, I performed coronary angiography. The same guide catheter was used to check LV pressure but LV gram was not performed. I proceeded with intervention of a totally occluded major diagonal branch which has in-stent thrombosis. CARDIAC CATHETERIZATION FINDINGS: Left ventricular end-diastolic pressure was about 12 mmHg without gradient across the aortic valve. CORONARY ANGIOGRAPHY FINDINGS: RIGHT CORONARY ARTERY: A large dominant vessel. No significant disease, distally the RCA is of good caliber, gives off a small PLV, good-sized PDA and PDA that was stented is widely patent with good flow. LEFT MAIN CORONARY ARTERY: Short patent disease-free vessel that bifurcates into LAD and circumflex. LEFT ANTERIOR DESCENDING CORONARY ARTERY: Good caliber vessel, has minor irregularities. The diagonal branch that was stented is now totally occluded at the site of stenting with very sluggish flow distally and thrombus. It appears like in- stent thrombosis involving the mid and distal aspect of the stent and also the thrombus is seen in the distal area as well with very limited antegrade flow. The LAD itself is free of significant disease. LEFT POSTERIOR CIRCUMFLEX CORONARY ARTERY: Probably technically nondominant, a codominant vessel, gives off a high first obtuse marginal that was stented, widely patent with good flow. The second obtuse marginal that had was dilated, is also having good flow, but has diffuse disease. Mid circumflex stent widely patent. There was a branch that comes off the stented area and mid circumflex and that branch has an 80% stenosis with MAXX-3 flow, unchanged from before. FINAL IMPRESSION: This patient has an in-stent thrombosis of major diagonal branch that was stented 1 week ago. Patient did not take his Plavix as advised. He refused to take it for the first 2 days after going home and took it only for 2 days since his discharge. He has no significant change in the overall anatomy of other vessels. The previously stented circumflex marginal, mid circumflex and PDA branch of RCA were widely patent. Filling pressures are normal and no gradient across the aortic valve. RECOMMENDATIONS: I recommended PCI of the major diagonal, proceeded to perform in the same setting. PCI PROCEDURE DETAILS: I used a .JL3.5, 6-Syriac guide catheter and a Whisper wire, with this I crossed the lesion. Predilatation was performed with a 2.5 caliber 12 mm NC Trek balloon. Multiple inflations were given distal and also within the stent. I noted that there was a lesion at the distal lateral 1/3 of the stent and also beyond it. After some deliberation, I deployed a 2.5 caliber 18 mm long Xience stent. The patient had an excellent angiographic result. He had mild chest discomfort. No significant EKG changes. Excellent angiographic result was achieved. He received 600 mg of Plavix. He also received Angiomax bolus and infusion. The excellent angiographic result was achieved. Results were discussed with the patient. I spoke to the by phone. The sheath was taken out and a TR band applied as per protocol and he was sent to the room in a stable condition. MMODL / IJN: [id number] /
[2020-04-26] MEDS: SODIUM CHLORIDE 0.9% 1,000 ML IV SCH (16:02)
--- NOTE | 2020-04-26 19:13 | P.HPIM ---
History of Present Illness H&P Date: 04/26/20 Chief Complaint: Chest pain History of presenting complaint: This is a pleasant 54-year-old patient of Dr. Price. Chronic stable medical conditions include hypertension, chronic low back pain, history of gastric sleeve with panniculectomy in July 2018 and has lost close to 300 pounds, coronary artery disease with stent-Jesus 2018. 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 In December of this year presented with GI bleed. Found to have grade C esophagitis. On April 19 patient underwent stenting to the mid diagonal branch. Patient now presents with 2 hours of chest pain yesterday. Some radiation to jaw and arm. Tired some shortness of breath. Pain was like his previous cardiac symptoms. Overnight patient ruled in for an MN with troponin climbing to 3.2. Taken back to the cardiac sanitation laborer. Patient's found to have in-stent thrombotic lesion on the major diagonal branch of LAD. Postprocedure laying in bed. Tired. Some discomfort. Review of systems: GEN.: Tired EYES: None HEENT: None NECK: None RESPIRATORY: As above CARDIOVASCULAR: As above GASTROINTESTINAL: None GENITOURINARY: None MUSCULOSKELETAL: Back pain LYMPHATICS: None HEMATOLOGICAL: None PSYCHIATRY: None NEUROLOGICAL: None Past medical history to include: Hypertension, chronic back pain, sciatica, coronary artery disease with stent to the obtuse marginal and circumflex, diagonal branch, gastric sleeve with panic colectomy in July 2018 has lost 200 pounds. 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 Physical examination: VITAL SIGNS: 98.4, 63, 20, 159/85, 97% room air GENERAL: BMI 47, laying in bed, awake EYES: Pupils equal. Conjunctiva normal. HEENT: External appearance of nose and ears normal, oral cavity grossly normal. NECK: JVD not raised; masses not palpable. HEART: First and second heart sounds are normal; no edema. LUNGS: Respiratory rate normal; clear to auscultation. ABDOMEN: Soft, minimal epigastric tenderness liver spleen not palpable, no masses palpable. PSYCH: Alert and oriented x3; mood and affect normal. NEUROLOGICAL: Cranial nerves grossly intact; no facial asymmetry, power and sensation grossly intact. LYMPHATICS: No lymph nodes palpable in the axilla and neck INVESTIGATIONS, reviewed in the clinical context: White count 10.2 hemoglobin 8.9 platelets 406 potassium 4.3 creatinine 0.73 Troponin I 0.073, 0.833, 3.2 LDL 77 EKG tracing personally reviewed by me-sinus rhythm, poor R-wave progression Chest x-ray from personally reviewed by me-query venous prominence 2-D echocardiogram-severe concentric LVH, EF 50-55% Assessment: -Acute non-ST elevation myocardial infarction -Urgent cardiac catheterization with a stent to major diagonal branch of the LAD for in-stent stenosis -Sleeve gastrectomy patient's loss 300 pounds since then -Morbid obesity BMI 47 -Hyperlipidemia -Essential hypertension -LA grade C esophagitis -Coronary artery disease with stent in July 2019 and April 19 of this year -Voodoo -Microcytic anemia from history of blood loss anemia from GI tract previously. Patient was not transfused because being a Voodoo Plan: Patient currently on aspirin, Lipitor, Plavix, Cozaar, Lopressor. Discussed with patient. Follow with cardiology. Add PPI Past Medical History Past Medical History: Hypertension, Myocardial Infarction ([place]), Vascular Disorder Additional Past Medical History / Comment(s): CHRONIC BACK PAIN which has increased significantly with major weight loss, sciatica, bronchitis, arthritis, borderline thyroid issues, NOT ON ANYTHING FOR B/P Last Myocardial Infarction Date:: 04/17/20 History of Any Multi-Drug Resistant Organisms: None Reported Past Surgical History: Bariatric Surgery, Heart Catheterization With Stent Additional Past Surgical History / Comment(s): EGD. GASTRIC SLEEVE PANNICULECTOMY 2- Past Anesthesia/Blood Transfusion Reactions: No Reported Reaction Additional Past Anesthesia/Blood Transfusion Reaction / Comment(s): HAS NEVER HAD GENERAL ANESTHESIA Date of Last Stent Placement:: 04/19/20 Past Psychological History: Anxiety, Bipolar, Depression, Panic Disorder Additional Psychological History / Comment(s): UNDER CONTROL AT THIS TIME Smoking Status: Never smoker Past Alcohol Use History: Rare Past Drug Use History: None Reported - Past Family History Father History Unknown: Yes Family Medical History: Hypertension Additional Family Medical History / Comment(s): mental disease, violent disorders Mother History Unknown: Yes Family Medical History: Hypertension Medications and Allergies Home Medications Medication Instructions Recorded Confirmed Type Clopidogrel [Plavix] 75 mg PO HS 12/12/19 04/25/20 History Losartan Potassium 50 mg PO DAILY 12/12/19 04/25/20 History Metoprolol Tartrate [Lopressor] 25 mg PO DAILY 12/12/19 04/25/20 History Aspirin EC [Ecotrin Low Dose] 81 mg PO DAILY 04/17/20 04/25/20 History Atorvastatin [Lipitor] 40 mg PO HS 04/17/20 04/25/20 History Fluticasone Nasal [place] [Flonase 1 spr EA NOSTRIL DAILY PRN 04/17/20 04/25/20 History Nasal [place]] HYDROcodone/APAP 5-325MG [[place] 1 tab PO Q8H PRN 04/17/20 04/25/20 History 5-325] Ferrous Sulfate [Iron (65 MG 325 mg PO BID-W/MEALS #60 tab 04/20/20 04/25/20 Rx Elemental)] Isosorbide Mononitrate ER [Imdur] 30 mg PO DAILY #30 tab.er.24h 04/20/20 04/25/20 Rx Nitroglycerin Sl Tabs [Nitrostat] 0.4 mg SUBLINGUAL Q5M PRN #25 tab 04/20/20 04/25/20 Rx Allergies Allergy/AdvReac Type Severity Reaction Status Date / Time No Known Allergies Allergy Verified 04/25/20 18:26 Physical Exam Vitals: Vital Signs Temp Pulse Pulse Resp BP BP Pulse Ox 04/26/20 08:00 97.8 F 68 20 187/91 98 04/26/20 04:00 97.7 F 55 L 15 159/85 97 04/26/20 02:10 61 16 04/26/20 01:55 98.1 F 61 16 154/90 97 04/26/20 01:30 61 16 156/89 97 04/26/20 01:00 55 L 12 142/97 96 04/26/20 00:00 54 L 15 170/95 98 04/25/20 23:55 98 04/25/20 23:30 80 20 153/97 04/25/20 22:30 65 18 161/89 99 04/25/20 21:00 62 18 153/91 97 04/25/20 20:15 65 18 149/96 98 04/25/20 19:24 61 18 172/101 99 04/25/20 18:13 98.4 F 63 20 209/104 99 Intake and Output 1104/26/20 04/26/20 22:59 06:59 14:59 Intake Total 72.841 Output Total 350 Balance -277.159 Intake: Intake, IV Titration 72.841 Amount Heparin Sod,Pork in 0.45% 72.841 NaCl 25,000 unit In 0.45 % NaCl 1 250ml.bag @ 6. 805 UNITS/KG/HR 10.001 mls/hr IV .Q24H [facility] Rx#: [id number] Output: Urine 350 Other: Weight 146.964 kg 148.6 kg Results CBC & Chem 7: 04/25/20 18:18 04/25/20 18:18 Labs: Abnormal Lab Results - Last 24 Hours (Table) 04/25/20 04/25/20 04/25/20 Range/Units 18:18 18:18 18:18 Hgb 8.9 L (13.0-17.5) gm/dL Hct 30.6 L (39.0-53.0) % MCV 62.0 L (80.0-100.0) fL MCH 17.9 L (25.0-35.0) pg MCHC 28.9 L (31.0-37.0) g/dL RDW 19.9 H (11.5-15.5) % APTT (22.0-30.0) sec Chloride 109 H (98-107) mmol/L Troponin I 0.073 H* (0.000-0.034) ng/mL HDL Cholesterol (40-60) mg/dL 04/25/20 04/26/20 04/26/20 Range/Units 21:40 00:15 02:27 Hgb (13.0-17.5) gm/dL Hct (39.0-53.0) % MCV (80.0-100.0) fL MCH (25.0-35.0) pg MCHC (31.0-37.0) g/dL RDW (11.5-15.5) % APTT (22.0-30.0) sec Chloride (98-107) mmol/L Troponin I 0.833 H* 3.270 H* (0.000-0.034) ng/mL HDL Cholesterol 36 L (40-60) mg/dL 04/26/20 Range/Units 02:27 Hgb (13.0-17.5) gm/dL Hct (39.0-53.0) % MCV (80.0-100.0) fL MCH (25.0-35.0) pg MCHC (31.0-37.0) g/dL RDW (11.5-15.5) % APTT 30.7 H (22.0-30.0) sec Chloride (98-107) mmol/L Troponin I (0.000-0.034) ng/mL HDL Cholesterol (40-60) mg/dL Thrombosis Risk Factor Assmnt - Choose All That Apply Any of the Below Risk Factors Present?: Yes Each Factor Represents 1 point: Age 41-60 years, Obesity (BMI >25) Other Risk Factors: Yes Each Risk Factor Represents 2 Points: Arthroscopic surgery Thrombosis Risk Factor Assessment Total Risk Factor Score: 4 Thrombosis Risk Factor Assessment Level: Moderate Risk
[2020-04-26] MEDS: PANTOPRAZOLE 40 MG TABLET PO SCH (19:54)
[2020-04-26] MEDS ORDERED: ATORVASTATIN 40 MG TAB PO SCH (21:00)
[2020-04-26] MEDS ORDERED: CLOPIDOGREL 75 MG TAB PO SCH (21:00)
[2020-04-27] MEDS: SODIUM CHLORIDE 0.9% 1,000 ML IV SCH (01:32)
[2020-04-27] MEDS: PANTOPRAZOLE 40 MG TABLET PO SCH (06:15)
[2020-04-27 08:02] LABS: Anisocytosis Moderate; HCT 31.7 % (39.0-53.0); HGB 9.1 gm/dL (13.0-17.5); Hypochromasia Marked; MCH 18.4 pg (25.0-35.0); MCHC 28.8 g/dL (31.0-37.0); MCV 63.7 fL (80.0-100.0); Mean Platelet Volume 6.8; Microcytosis Marked; Platelet Count 355 k/uL (150-450); Poikilocytosis Slight; RBC 4.97 m/uL (4.30-5.90); RDW 20.2 % (11.5-15.5); WBC 8.7 k/uL (3.8-10.6)
[2020-04-27 08:10] LABS: African American GFR (CKD) >90 (>60 ml/min/1.73 sqM); Anion Gap 8 mmol/L; Blood Urea Nitrogen 11 mg/dL (9-20); Calcium 8.4 mg/dL (8.4-10.2); Carbon Dioxide 22 mmol/L (22-30); Chloride 110 mmol/L (98-107); Glucose 126 mg/dL (74-99); Non-African American GFR(CKD) >90 (>60 ml/min/1.73 sqM); Potassium 4.1 mmol/L (3.5-5.1); Sodium 140 mmol/L (137-145)
[2020-04-27] MEDS: METOPROLOL TARTRATE 25 MG TAB PO SCH (08:19)
[2020-04-27] MEDS: LOSARTAN 50 MG TAB PO SCH (08:19)
[2020-04-27] MEDS: CLOPIDOGREL 75 MG TAB PO SCH (08:19)
[2020-04-27] MEDS: ISOSORBIDE MONONITRATE ER 30 MG TAB.ER.24H PO SCH (08:19)
[2020-04-27 08:32] VITALS: TEMP 98.3
[2020-04-27] MEDS ORDERED: ASPIRIN 81 MG PO SCH (09:00)
[2020-04-27 13:40] VITALS: BP 123/68; PULSE 57; RESP 18
--- NOTE | 2020-04-27 13:42 | PN ---
PROGRESS NOTE Mr. Bacon is a 54-year-old obese gentleman with history of hypertension, hyperlipidemia, CAD. Yesterday I performed stenting of a totally occluded major diagonal branch that was stented a week ago with in-stent thrombosis. After patient left the hospital on the of this month, he did not take Plavix and aspirin for 2 days and then resumed it for 2 days and then came into the hospital with chest pain and had a total occlusion of the major diagonal branch. This was opened up by a new stent and excellent result was achieved. Patient is comfortable, resting without symptoms. I spent time with him explaining the importance of taking all his medications, particularly dual antiplatelet therapy. He is ambulating without symptoms. Right radial site is clean and dry. Vital signs stable. No JVD. S1, S2 heard normally. Lungs are clear. Abdomen is soft, nontender. Lower extremities reveal normal pulses. No edema. Central nervous system is grossly within normal limits. EKG does not reveal any acute changes. LABORATORY DATA: Laboratory data revealed that hemoglobin, platelet count and renal function is normal. Plan is to continue current medications, increase activity, discharge him today and we will see him in the office in 7-10 days. Discharge instructions were given. Advised to be compliant with medications. MMODL / IJN: [id number] /
--- NOTE | 2020-04-27 22:49 | P.DS ---
Providers Date of admission: 04/25/20 20:34 Expected date of discharge: 04/27/20 Attending physician: Dwayne Reyes Consults: 04/25/20 20:34 Consult Physician Urgent Consulting Provider: [facility] Consult Reason/Comments: Unstable angina Do you want consulting provider notified?: Yes Primary care physician: Rashid Dee [facility] Course: Chief Complaint: Chest pain History of presenting complaint: This is a pleasant 54-year-old patient of Dr. Price. Chronic stable medical conditions include hypertension, chronic low back pain, history of gastric sleeve with panniculectomy in July 2018 and has lost close to 300 pounds, coronary artery disease with stent-Fabry 2018. 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 In December of this year presented with GI bleed. Found to have grade C esophagitis. On April 19 patient underwent stenting to the mid diagonal branch. Patient now presents with 2 hours of chest pain yesterday. Some radiation to jaw and arm. Tired some shortness of breath. Pain was like his previous cardiac symptoms. Overnight patient ruled in for an MS with troponin climbing to 3.2. 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 Patient's found to have in-stent thrombotic lesion on the major diagonal branch of LAD. Postprocedure laying in bed. Tired. Some discomfort. Today-feeling well. No chest pain or short of breath. Ambulating. Cleared by currently. Consultation: Dr. Davies/Dr. VERA [facility] Physical examination: VITAL SIGNS: 98.3, 63, 17, 138 with 76, 98% room air GENERAL: Laying up, comfortable EYES: Pupils equal. Conjunctiva normal. NECK: JVD not raised; masses not palpable. HEART: First and second heart sounds are normal; no edema. LUNGS: Respiratory rate normal; clear to auscultation. ABDOMEN: Soft, minimal epigastric tenderness liver spleen not palpable, no masses palpable. PSYCH: Alert and oriented x3; mood and affect normal. INVESTIGATIONS, reviewed in the clinical context: White count 8.7 hemoglobin 9.1 potassium 4.1 creatinine 0.75 Previous testing White count 10.2 hemoglobin 8.9 platelets 406 potassium 4.3 creatinine 0.73 Troponin I 0.073, 0.833, 3.2 LDL 77 EKG tracing personally reviewed by me-sinus rhythm, poor R-wave progression Chest x-ray from personally reviewed by me-query venous prominence 2-D echocardiogram-severe concentric LVH, EF 50-55% Assessment: -Acute non-ST elevation myocardial infarction -Urgent cardiac catheterization with a stent to major diagonal branch of the LAD for in-stent stenosis -Sleeve gastrectomy patient's loss 300 pounds since then -Morbid obesity BMI 47 -Hyperlipidemia -Essential hypertension -LA grade C esophagitis -Coronary artery disease with stent in July 2019 and April 19 of this year -Holiness -Microcytic anemia from history of blood loss anemia from GI tract previously. Patient was not transfused because being a Holiness Disposition: Home Patient Condition at Discharge: Stable Plan - Discharge Summary Discharge Rx Participant: Yes New Discharge Prescriptions: New Pantoprazole [Protonix] 40 mg PO AC-BID tablet. Continue Clopidogrel [Plavix] 75 mg PO HS Losartan Potassium 50 mg PO DAILY Aspirin EC [Ecotrin Low Dose] 81 mg PO DAILY Fluticasone Nasal [place] [Flonase Nasal [place]] 1 spr EA NOSTRIL DAILY PRN PRN Reason: Congestion HYDROcodone/APAP 5-325MG [[place] 5-325] 1 tab PO Q8H PRN PRN Reason: Pain Isosorbide Mononitrate ER [Imdur] 30 mg PO DAILY #30 tab.er.24h Ferrous Sulfate [Iron (65 MG Elemental)] 325 mg PO BID-W/MEALS #60 tab Nitroglycerin Sl Tabs [Nitrostat] 0.4 mg SUBLINGUAL Q5M PRN #25 tab PRN Reason: Chest Pain Changed Atorvastatin [Lipitor] 80 mg PO HS #30 tab Metoprolol Tartrate [Lopressor] 12.5 mg PO BID #0 Discharge Medication List Clopidogrel [Plavix] 75 mg PO HS 12/12/19 [History] Losartan Potassium 50 mg PO DAILY 12/12/19 [History] Aspirin EC [Ecotrin Low Dose] 81 mg PO DAILY 04/17/20 [History] Fluticasone Nasal [place] [Flonase Nasal [place]] 1 spr EA NOSTRIL DAILY PRN 04/17/20 [History] HYDROcodone/APAP 5-325MG [[place] 5-325] 1 tab PO Q8H PRN 04/17/20 [History] Ferrous Sulfate [Iron (65 MG Elemental)] 325 mg PO BID-W/MEALS #60 tab 04/20/20 [Rx] Isosorbide Mononitrate ER [Imdur] 30 mg PO DAILY #30 tab.er.24h 04/20/20 [Rx] Nitroglycerin Sl Tabs [Nitrostat] 0.4 mg SUBLINGUAL Q5M PRN #25 tab 04/20/20 [Rx] Atorvastatin [Lipitor] 80 mg PO HS #30 tab 04/27/20 [Rx] Metoprolol Tartrate [Lopressor] 12.5 mg PO BID #0 04/27/20 [Rx] Pantoprazole [Protonix] 40 mg PO AC-BID tablet. 04/27/20 [Rx] Follow up Appointment(s)/Referral(s): Rashid Price MD [Primary Care Provider] - 1-2 days Zehra Ward NPC [Nurse Practitioner] - 05/10/20 9:30 am Patient Instructions/Handouts: After Radial Heart Catheterization (GEN) Discharge Disposition: HOME SELF-CARE
== END 2020-04-27 14:45 | disposition home or self-care (01) | DRG 247 ==
LOC: EC 18:11 → 3SCARD 20:34
PROVIDERS: ADMIT Hospitalist; ATTEND Hospitalist
PROC: 4A023N7 Measurement of Cardiac Sampling and Pressure, Left Heart, Percutaneous Approach (ICD-10-PCS; principal; 2020-04-26 09:00)
PROC: 027034Z Dilation of Coronary Artery, One Artery with Drug-eluting Intraluminal Device, Percutaneous Approach (ICD-10-PCS; principal; 2020-04-26 09:00)
PROC: B2111ZZ Fluoroscopy of Multiple Coronary Arteries using Low Osmolar Contrast (ICD-10-PCS; principal; 2020-04-26 09:00)
DX: I21.4 Non-ST elevation (NSTEMI) myocardial infarction (principal); Z68.42 Body mass index [BMI] 45.0-49.9, adult; T82.867A Thrombosis due to cardiac prosthetic devices, implants and grafts, initial encounter; E66.01 Morbid (severe) obesity due to excess calories; E11.9 Type 2 diabetes mellitus without complications; E78.00 Pure hypercholesterolemia, unspecified; E78.5 Hyperlipidemia, unspecified; F31.9 Bipolar disorder, unspecified; F41.0 Panic disorder [episodic paroxysmal anxiety]; I10 Essential (primary) hypertension; Y83.1 Surgical operation with implant of artificial internal device as the cause of abnormal reaction of the patient, or of later complication, without mention of misadventure at the time of the procedure; K21.00 Gastro-esophageal reflux disease with esophagitis, without bleeding; M54.30 Sciatica, unspecified side; I25.10 Atherosclerotic heart disease of native coronary artery without angina pectoris; D50.0 Iron deficiency anemia secondary to blood loss (chronic); I25.2 Old myocardial infarction; Z79.899 Other long term (current) drug therapy; Z79.82 Long term (current) use of aspirin; Z82.49 Family history of ischemic heart disease and other diseases of the circulatory system; Z98.84 Bariatric surgery status; Z95.5 Presence of coronary angioplasty implant and graft; Z98.890 Other specified postprocedural states; Z81.8 Family history of other mental and behavioral disorders
CPT/HCPCS: 36415; 71046; 80048; 80053; 80061; 83735; 84484; 85025; 85027; 85379; 85610; 85730; 93005; 93306; 93458; 96365; 96366; 96376; 99291

== ENCOUNTER → 2020-10-31 | Outpatient (CLI) | payer OTHER ==
--- NOTE | 2020-10-31 18:35 | SFUN ---
SLEEP CENTER FOLLOW UP NOTE DATE OF SERVICE: 10/31/2020 This 55-year-old gentleman has been followed in Sleep Center for treatment of obstructive sleep apnea-hypopnea syndrome. The patient continues to use CPAP equipment every night, but sometimes during the second part of the night, because of back pain, he goes to the chair using CPAP at that moment. [place] Sleepiness Scale today is 11, which is slightly increased. The patient's weight increased since his previous visit, from 337 pounds up to 356 pounds. I checked his CPAP unit. CPAP pressure is 9 cm of water, usage 29/30 nights, but 13/30 nights for more than 4 hours. Average usage 4.1 hours per night. Leak is 37 L/minute. Apnea-hypopnea index is only 0.4, which is perfect. Patient is using a full-face Simplus mask, medium size. MEDICATIONS: Metoprolol, Xanax, Lipitor, Cozaar, losartan, amlodipine, clopidogrel, nitroglycerin on p.r.n. basis. PHYSICAL EXAMINATION: GENERAL: A pleasant patient in no distress. VITAL SIGNS: BP 150/93, HR 50, RR 18, height 5 feet 10 inches, weight 356.2, temperature 96.0, oxygen saturation at room air 97%. Body mass index 51. HEENT: PERRLA, EOMI. Evaluation of oropharynx showed tongue protrudes midline. Low position of soft palate. NECK: Supple. No JVD. Thyroid is not palpable. LUNGS: Clear to percussion and to auscultation. Good air exchange. No wheezing or rhonchi. HEART: S1, S2 regular. No murmurs, gallops or rubs. ABDOMEN: Obese. EXTREMITIES: No clubbing or cyanosis. WAITER/WAITRESS CABIN CLASS: Awake, alert, and oriented X3. Cranial nerves 2 to 7 intact. There is no fasciculation or atrophy. noted. No focal deficits observed. IMPRESSION: 1. Extremely severe obstructive sleep apnea-hypopnea syndrome; apnea-hypopnea index with oxygen desaturation to 75.5%. Normal respiration on CPAP, but leak increased and usage slightly short. 2. Morbid obesity. Body mass index 51.0. 3. Hypertension. 4. Coronary artery disease, status post stent insertion and history of myocardial infarction. 5. History of mini-stroke. 6. History of multiple intervertebral disc problems. 7. History of right leg weakness. 8. Hyperlipidemia. PLAN: 1. I discussed the necessity of using the machine for the whole night, especially in the morning hours, because during REM sleep problems with respiration are usually worse. 2. Prescription for all necessary CPAP supplies, including a full-face Simplus medium- sized mask was written and sent to [employer] [facility]. 3. Patient will continue to use PAP equipment every night for the whole night. 4. Sleep hygiene with regular time in bed for at least 7-1/2 to 8 hours. 5. Precautions related to driving. No driving if feeling sleepiness. 6. I will maintain all necessary prescription for PAP supplies including mask, tube, filters. 7. Watching weight. 8. Follow-up visit in 6 months or earlier if patient has any problems. Thank you very much for allowing me to participate in the management of your patient. Sincerely, Naman Sams MD, PhD, FAASM Diplomat of [place] [employer] [place] [employer] Compounder of [facility] [place] MMODL / MERLINN: [id number] /
== END ==
LOC: SLEEP 11:20
PROVIDERS: ATTEND Internal Medicine
DX: G47.33 Obstructive sleep apnea (adult) (pediatric) (principal); E66.01 Morbid (severe) obesity due to excess calories; I10 Essential (primary) hypertension; I25.10 Atherosclerotic heart disease of native coronary artery without angina pectoris; E78.5 Hyperlipidemia, unspecified; I25.2 Old myocardial infarction; Z68.43 Body mass index [BMI] 50.0-59.9, adult; Z87.39 Personal history of other diseases of the musculoskeletal system and connective tissue; Z86.73 Personal history of transient ischemic attack (TIA), and cerebral infarction without residual deficits; Z95.5 Presence of coronary angioplasty implant and graft; Z79.899 Other long term (current) drug therapy

== ENCOUNTER 2021-05-14 19:48 | Observation (INO) | payer OTHER ==
[2021-05-14] MEDS ORDERED: PANTOPRAZOLE 40 MG/10 ML VIAL IVP STA (20:01)
--- NOTE | 2021-05-14 20:31 | XR ---
EXAMINATION TYPE: XR chest 2V DATE OF EXAM: 05/14/2021 COMPARISON: 04/25/2020 HISTORY: Rectal bleeding TECHNIQUE: FINDINGS: There is no heart failure nor confluent pneumonic infiltrate. Costophrenic angles are clear . There are chest leads. IMPRESSION: No active cardiomegaly disease. Normal heart. No change.
[2021-05-14] MEDS ORDERED: ONDANSETRON 4 MG/2 ML VIAL IVP STA (20:39)
[2021-05-14] MEDS ORDERED: HYDROmorphone 0.5 MG/0.5 ML SYRINGE IVP STA (20:39)
[2021-05-14 20:52] LABS: Basophils % (A) 0 %; Eosinophils # (A) 0.3 k/uL (0-0.7); Eosinophils % (A) 3 %; HCT 47.2 % (39.0-53.0); HGB 15.4 gm/dL (13.0-17.5); Lymphocytes # (A) 1.7 k/uL (1.0-4.8); Lymphocytes % (A) 15 %; MCH 29.8 pg (25.0-35.0); MCHC 32.6 g/dL (31.0-37.0); MCV 91.5 fL (80.0-100.0); Mean Platelet Volume 7.4; Monocytes # (A) 0.6 k/uL (0-1.0); Monocytes % (A) 5 %; Neutrophils # (A) 8.1 k/uL (1.3-7.7); Neutrophils % (A) 75 %; Platelet Count 283 k/uL (150-450); RBC 5.16 m/uL (4.30-5.90); RDW 13.2 % (11.5-15.5); WBC 10.8 k/uL (3.8-10.6)
[2021-05-14 21:28] LABS: ALT 20 U/L (4-49); AST 26 U/L (17-59); African American GFR (CKD) >90 (>60 ml/min/1.73 sqM); Albumin 3.8 g/dL (3.5-5.0); Alkaline Phosphatase 99 U/L (38-126); Anion Gap 7 mmol/L; Blood Urea Nitrogen 16 mg/dL (9-20); Calcium 8.7 mg/dL (8.4-10.2); Carbon Dioxide 25 mmol/L (22-30); Chloride 106 mmol/L (98-107); Glucose 111 mg/dL (74-99); Lipase 150 U/L (23-300); Magnesium 2.2 mg/dL (1.6-2.3); Non-African American GFR(CKD) >90 (>60 ml/min/1.73 sqM); Potassium 4.2 mmol/L (3.5-5.1); Sodium 138 mmol/L (137-145); Total Bilirubin 0.3 mg/dL (0.2-1.3); Total Protein 6.7 g/dL (6.3-8.2)
[2021-05-14 21:29] LABS: Partial Thromboplastin Time 23.6 sec (22.0-30.0); Prothrombin Time 10.4 sec (9.0-12.0)
[2021-05-14] MEDS ORDERED: ONDANSETRON 4 MG/2 ML VIAL IVP PRN (21:46)
[2021-05-14] MEDS ORDERED: HYDROmorphone 0.5 MG/0.5 ML SYRINGE IVP PRN (21:46)
[2021-05-14] MEDS ORDERED: NALOXONE 0.4 MG/ML 1 ML VIAL IV PRN (21:46)
--- NOTE | 2021-05-14 21:53 | ED ---
General Adult HPI - General Chief complaint: Chest Pain Stated complaint: Chest Pain,Dizziness Time Seen by Provider: 05/14/21 19:49 Source: patient, EMS, RN notes reviewed, old records reviewed Mode of arrival: EMS - History of Present Illness Initial comments: 55-year-old male history of CAD resents for evaluation of chest pain, nausea vomiting. Patient has had multiple stents most recently approximately one year ago. He had called EMS for vomiting and chest pressure. He also had some dizziness and lightheadedness. Additionally he has had some dark stools and was uncertain if this was related to rectal bleeding or the iron supplementation that he is on. He states he has had workup in the past for possible gastrointestinal hemorrhage including pill endoscopy with no source found. He denies hematochezia. - Related Data Home Medications Medication Instructions Recorded Confirmed Losartan Potassium 50 mg PO DAILY 12/12/19 05/14/21 Aspirin EC [Ecotrin Low Dose] 81 mg PO DAILY 04/17/20 05/14/21 Atorvastatin [Lipitor] 40 mg PO HS 05/14/21 05/14/21 Clopidogrel [Plavix] 75 mg PO DAILY 05/14/21 05/14/21 Ferrous Sulfate [Iron (65 MG 325 mg PO DAILY 05/14/21 05/14/21 Elemental)] Pantoprazole [Protonix] 40 mg PO DAILY 05/14/21 05/14/21 Previous Rx's Medication Instructions Recorded Isosorbide Mononitrate ER [Imdur] 30 mg PO DAILY #30 tab.er.24h 04/20/20 Nitroglycerin Sl Tabs [Nitrostat] 0.4 mg SUBLINGUAL Q5M PRN #25 tab 04/20/20 Metoprolol Tartrate [Lopressor] 12.5 mg PO BID #0 04/27/20 Allergies Allergy/AdvReac Type Severity Reaction Status Date / Time No Known Allergies Allergy Verified 05/14/21 21:27 Review of Systems ROS Statement: Those systems with pertinent positive or pertinent negative responses have been documented in the HPI. ROS Other: All systems not noted in ROS Statement are negative. Past Medical History Past Medical History: Hypertension, Myocardial Infarction (OK), Vascular Disorder Additional Past Medical History / Comment(s): CHRONIC BACK PAIN which has increased significantly with major weight loss, sciatica, bronchitis, arthritis, borderline thyroid issues, NOT ON ANYTHING FOR B/P Last Myocardial Infarction Date:: 04/17/20 History of Any Multi-Drug Resistant Organisms: None Reported Past Surgical History: Bariatric Surgery, Heart Catheterization With Stent Additional Past Surgical History / Comment(s): EGD. GASTRIC SLEEVE PANNICULECTOMY 07-25-18 Past Anesthesia/Blood Transfusion Reactions: No Reported Reaction Additional Past Anesthesia/Blood Transfusion Reaction / Comment(s): HAS NEVER HAD GENERAL ANESTHESIA Date of Last Stent Placement:: 04/19/20 Past Psychological History: Anxiety, Bipolar, Depression, Panic Disorder Smoking Status: Never smoker Past Alcohol Use History: Rare Past Drug Use History: None Reported - Past Family History Father History Unknown: Yes Family Medical History: Hypertension Additional Family Medical History / Comment(s): mental disease, violent disorders Mother History Unknown: Yes Family Medical History: Hypertension General Exam General appearance: alert, in no apparent distress Head exam: Present: atraumatic, normocephalic Eye exam: Present: normal appearance, PERRL ENT exam: Present: normal exam Neck exam: Present: normal inspection. Absent: tenderness, meningismus Respiratory exam: Present: normal lung sounds bilaterally. Absent: respiratory distress, wheezes Cardiovascular Exam: Present: normal rhythm, bradycardia GI/Abdominal exam: Present: soft. Absent: distended, tenderness, guarding, rebound Rectal exam: Present: normal inspection, normal rectal tone, heme (-) stool. Absent: black stool, bloody stool, hemorrhoids, tenderness Extremities exam: Present: normal inspection, normal capillary refill. Absent: pedal edema Neurological exam: Present: alert, oriented X3, CN II-XII intact. Absent: motor sensory deficit Psychiatric exam: Present: normal affect, normal mood Skin exam: Present: warm, dry, intact. Absent: cyanosis, diaphoretic Course Vital Signs 05/14/21 19:49 Temperature 98.4 F Pulse Rate 64 Respiratory 20 Rate Blood Pressure 137/82 O2 Sat by Pulse 95 Oximetry EKG Findings - EKG Comments: EKG Findings:: EKG: Sinus rhythm with sinus arrhythmia rate of 60, MT interval 136, QRS duration 96, QTC 426 Medical Decision Making - Medical Decision Making 55-year-old male presenting with chest discomfort, lightheadedness, and vomiting. Patient did report some dark stools however his Hemoccult is negative, he is no active bleeding. His EKG is negative for ST segment elevation. Chest x-ray negative. CBC, CMP and initial troponin are unremarkable. Given the patient's risk factors he will be kept in observation for serial cardiac enzymes, telemetry. Case discussed with Dr. Reyes who will admit. Regarding the patient's possibility of gastrointestinal hemorrhage and will obtain serial hemoglobin testing, start the patient on proton pump inhibitor and consult general surgery. Doubt active GI bleed at this time. - Lab Data Result diagrams: 05/14/21 20:39 05/14/21 20:55 Lab Results 05/14/21 05/14/21 05/14/21 Range/Units 20:39 20:39 20:39 WBC 10.8 H (3.8-10.6) k/uL RBC 5.16 (4.30-5.90) m/uL Hgb 15.4 (13.0-17.5) gm/dL Hct 47.2 (39.0-53.0) % MCV 91.5 (80.0-100.0) fL MCH 29.8 (25.0-35.0) pg MCHC 32.6 (31.0-37.0) g/dL RDW 13.2 (11.5-15.5) % Plt Count 283 (150-450) k/uL MPV 7.4 Neutrophils % 75 % Lymphocytes % 15 % Monocytes % 5 % Eosinophils % 3 % Basophils % 0 % Neutrophils # 8.1 H (1.3-7.7) k/uL Lymphocytes # 1.7 (1.0-4.8) k/uL Monocytes # 0.6 (0-1.0) k/uL Eosinophils # 0.3 (0-0.7) k/uL Basophils # 0.0 (0-0.2) k/uL PT 10.4 (9.0-12.0) sec INR 1.0 (<1.2) APTT 23.6 (22.0-30.0) sec Sodium (137-145) mmol/L Potassium (3.5-5.1) mmol/L Chloride (98-107) mmol/L Carbon Dioxide (22-30) mmol/L Anion Gap mmol/L BUN (9-20) mg/dL Creatinine (0.66-1.25) mg/dL Est GFR (CKD-EPI)AfAm (>60 ml/min/1.73 sqM) Est GFR (CKD-EPI)NonAf (>60 ml/min/1.73 sqM) Glucose (74-99) mg/dL Calcium (8.4-10.2) mg/dL Magnesium (1.6-2.3) mg/dL Total Bilirubin (0.2-1.3) mg/dL AST (17-59) U/L ALT (4-49) U/L Alkaline Phosphatase (38-126) U/L Troponin I 0.021 (0.000-0.034) ng/mL NT-Pro-B Natriuret Pep pg/mL Total Protein (6.3-8.2) g/dL Albumin (3.5-5.0) g/dL Lipase (23-300) U/L Stool Occult Blood (Negative) 05/14/21 05/14/21 05/14/21 Range/Units 20:39 20:39 20:55 WBC (3.8-10.6) k/uL RBC (4.30-5.90) m/uL Hgb (13.0-17.5) gm/dL Hct (39.0-53.0) % MCV (80.0-100.0) fL MCH (25.0-35.0) pg MCHC (31.0-37.0) g/dL RDW (11.5-15.5) % Plt Count (150-450) k/uL MPV Neutrophils % % Lymphocytes % % Monocytes % % Eosinophils % % Basophils % % Neutrophils # (1.3-7.7) k/uL Lymphocytes # (1.0-4.8) k/uL Monocytes # (0-1.0) k/uL Eosinophils # (0-0.7) k/uL Basophils # (0-0.2) k/uL PT (9.0-12.0) sec INR (<1.2) APTT (22.0-30.0) sec Sodium 138 (137-145) mmol/L Potassium 4.2 (3.5-5.1) mmol/L Chloride 106 (98-107) mmol/L Carbon Dioxide 25 (22-30) mmol/L Anion Gap 7 mmol/L BUN 16 (9-20) mg/dL Creatinine 0.68 (0.66-1.25) mg/dL Est GFR (CKD-EPI)AfAm >90 (>60 ml/min/1.73 sqM) Est GFR (CKD-EPI)NonAf >90 (>60 ml/min/1.73 sqM) Glucose 111 H (74-99) mg/dL Calcium 8.7 (8.4-10.2) mg/dL Magnesium 2.2 (1.6-2.3) mg/dL Total Bilirubin 0.3 (0.2-1.3) mg/dL AST 26 (17-59) U/L ALT 20 (4-49) U/L Alkaline Phosphatase 99 (38-126) U/L Troponin I (0.000-0.034) ng/mL NT-Pro-B Natriuret Pep 131 pg/mL Total Protein 6.7 (6.3-8.2) g/dL Albumin 3.8 (3.5-5.0) g/dL Lipase 150 (23-300) U/L Stool Occult Blood Negative (Negative) Disposition Clinical Impression: Chest pain Disposition: ADMITTED IP TO THIS [facility] Condition: Stable Is patient prescribed a controlled substance at d/c from ED?: No Referrals: Rashid Price MD [Primary Care Provider] - 1-2 days Decision to Admit Reason: Admit from EC Decision Date: 05/14/21 Decision Time: 21:53
[2021-05-14] MEDS: SODIUM CHLORIDE 0.9% 1,000 ML IV SCH (21:57)
[2021-05-15 05:43] LABS: Basophils % (A) 0 %; Eosinophils # (A) 0.3 k/uL (0-0.7); Eosinophils % (A) 4 %; HCT 45.3 % (39.0-53.0); HGB 14.4 gm/dL (13.0-17.5); Lymphocytes # (A) 1.8 k/uL (1.0-4.8); Lymphocytes % (A) 21 %; MCH 29.1 pg (25.0-35.0); MCHC 31.8 g/dL (31.0-37.0); MCV 91.3 fL (80.0-100.0); Mean Platelet Volume 7.1; Monocytes # (A) 0.5 k/uL (0-1.0); Monocytes % (A) 6 %; Neutrophils % (A) 67 %; Platelet Count 248 k/uL (150-450); RBC 4.96 m/uL (4.30-5.90); RDW 13.1 % (11.5-15.5); WBC 8.8 k/uL (3.8-10.6)
[2021-05-15 06:07] LABS: ALT 19 U/L (4-49); AST 25 U/L (17-59); African American GFR (CKD) >90 (>60 ml/min/1.73 sqM); Albumin 3.4 g/dL (3.5-5.0); Alkaline Phosphatase 84 U/L (38-126); Anion Gap 8 mmol/L; Blood Urea Nitrogen 12 mg/dL (9-20); Calcium 8.5 mg/dL (8.4-10.2); Carbon Dioxide 24 mmol/L (22-30); Chloride 106 mmol/L (98-107); Glucose 97 mg/dL (74-99); Non-African American GFR(CKD) >90 (>60 ml/min/1.73 sqM); Potassium 4.3 mmol/L (3.5-5.1); Sodium 138 mmol/L (137-145); Total Bilirubin 0.4 mg/dL (0.2-1.3); Total Protein 6.3 g/dL (6.3-8.2)
[2021-05-15] MEDS ORDERED: PANTOPRAZOLE 40 MG/10 ML VIAL IV SCH (09:00)
[2021-05-15] MEDS ORDERED: CLOPIDOGREL 75 MG TAB PO SCH (09:00)
[2021-05-15] MEDS: LOSARTAN 50 MG TAB PO SCH (09:54)
--- NOTE | 2021-05-15 11:38 | P.CRDCN ---
History of Present Illness History of present illness: HISTORY OF PRESENTING ILLNESS This is a pleasant 55-year-old male past medical history significant for coronary artery disease status post PCI of the PDA branch of RCA, first OM branch of circumflex, second OM branch of the circumflex 07/2019, and PCI of the major diagonal in 04/2020, hypertension, dyslipidemia, bipolar disorder, anxiety/depression, morbid obesity, gastric bypass surgery, GI bleed. He follows in the office with Dr. Harry. We have been asked to see in consultation for ch est pain. Patient presents to the emergency department with complaints of black stools and intermittent bright red stools, nausea, vomiting, dry heaves, migraines, ringing in his ears, dizziness and lightheadedness. He states he did have an episode yesterday of chest pain with his nausea and vomiting. Non- radiating. Non-exertional. He denies palpitations, shortness of breath, orthopnea or PND. He denies any chest pain on exam. He thinks his nausea and vomiting is related to side effects of his medications, but unsure which one. His chest pain is different from his prior MIs. He is a non-smoker. Denies alchol use. DIAGNOSTICS EKG reveals sinus rhythm, heart rate 60, PAC, no significant ST or T-wave abnormalities. Prior EKG in 2019 with similar findings. Last Cardiac Catheterization 04/2020 revealed widely patent PDA branch of RCA, first obtuse marginal branch of circumflex, mid circumflex at a bifurcation are all widely patent. Second obtuse marginal that was dilated is also patent. LAD has no significant disease. Diagonal has a 95% mid lesion with haziness. Patient underwent PCI of major diagonal branch. echocardiogram 04/2020 revealed an EF of 5055 percent, severe concentric left ventricular hypertrophy, mild mitral regurgitation, mild tricuspid regurgitation. Chest xray no active cardiopulmonary disease. Laboratory reviewed, WBC 8.8, hemoglobin 14.4, platelets 248, sodium 138, potassium 4.3, BUN 12, serum creatinine 0.6, magnesium 2.2, troponin negative 3, proBNP 131, stool occult blood negative, COVID 19 PCR negative Current home medications include aspirin 81 mg daily, Plavix 75 mg daily, atorvastatin 40 mg nightly, Imdur 30 mg daily, losartan 50 mg daily, metoprolol titrate 25 mg twice a day, PRN nitro REVIEW OF SYSTEMS At the time of my exam: CONSTITUTIONAL: Denies fever or chills. CARDIOVASCULAR: +chest pain, Denies shortness of breath, orthopnea, PND or palpitations. RESPIRATORY: Denies cough. GASTROINTESTINAL: +nausea, +vomiting, +blood in stool, Denies abdominal pain, diarrhea, constipation, MUSCULOSKELETAL: Denies myalgias. NEUROLOGIC: +dizziness, +lightheadedness Denies numbness, tingling, headache or weakness. ENDOCRINE: Denies fatigue, weight change, polydipsia or polyurina. GENITOURINARY: Denies burning, hematuria or urgency with micturation. HEMATOLOGIC: + history of anemia and bleeding. PHYSICAL EXAMINATION Blood pressure 152/87, heart rate 71, afebrile, saturations greater than 92% on room air CONSTITUTIONAL: No apparent distress. HEENT: Head is normocephalic. Pupils are equal, round. Sclerae anicteric. Mucous membranes of the mouth are moist. No JVD. No carotid bruit. CHEST EXAMINATION: Lungs are clear to auscultation. No chest wall tenderness is noted on palpation or with deep breathing. HEART EXAMINATION: Regular rate and rhythm. S1, S2 heard. No murmurs, gallops or rub. ABDOMEN: Soft, nontender. Positive bowel sounds. EXTREMITIES: 2+ peripheral pulses, no lower extremity edema and no calf tenderness. SKIN: warm, dry NEUROLOGIC EXAMINATION: Patient is awake, alert and oriented x3. ASSESSMENT Chest pain, atypical, acute coronary event has been ruled out with negative cardiac enzymes and no EKG changes suggestive of ischemia. Hematochezia Symptoms of Tinnitus Nausea, vomiting Migraines Lightheadedness Coronary artery disease status post PCI of the PDA branch of RCA, first OM branch of circumflex, second OM branch of the circumflex 07/2019, and PCI of the major diagonal in 04/2020 Hypertension Dyslipidemia Bipolar disorder Anxiety/depression History of gastric bypass surgery PLAN -An acute coronary event has been ruled out with no EKG evidence of ischemia and negative cardiac enzymes. -Patient's chest pain does not appear to be cardiac etiology -Will hold aspirin and continue plavix for possible GI bleed -Continue statin, losartan -Will hold beta katalina at this time if possibly contributing to patient's symptoms -Ok from cardiology perspective to undergo GI workup if indicated -Restart aspirin and plavix per GI recommendations to ok to restart -From a cardiology perspective, we will follow the patient as needed. Recommend continuing hold patient's beta katalina until follow up with Dr. Harry in the office. Thank you kindly for this consultation. Nurse Practitioner note has been reviewed, I agree with a documented findings and plan of care. Patient was seen and examined. Past Medical History Past Medical History: Hypertension, Myocardial Infarction ([place]), Vascular Disorder Additional Past Medical History / Comment(s): CHRONIC BACK PAIN which has increased significantly with major weight loss, sciatica, bronchitis, arthritis, borderline thyroid issues, NOT ON ANYTHING FOR B/P Last Myocardial Infarction Date:: 04/17/20 History of Any Multi-Drug Resistant Organisms: None Reported Past Surgical History: Bariatric Surgery, Heart Catheterization With Stent Additional Past Surgical History / Comment(s): EGD. GASTRIC SLEEVE PANNICULECTOMY 07-25-18 Past Anesthesia/Blood Transfusion Reactions: No Reported Reaction Additional Past Anesthesia/Blood Transfusion Reaction / Comment(s): HAS NEVER HAD GENERAL ANESTHESIA Date of Last Stent Placement:: 04/19/20 Past Psychological History: Anxiety, Bipolar, Depression, Panic Disorder Smoking Status: Never smoker Past Alcohol Use History: Rare Past Drug Use History: None Reported - Past Family History Father History Unknown: Yes Family Medical History: Hypertension Additional Family Medical History / Comment(s): mental disease, violent disorders Mother History Unknown: Yes Family Medical History: Hypertension Medications and Allergies Home Medications Medication Instructions Recorded Confirmed Type Losartan Potassium 50 mg PO DAILY 12/12/19 05/14/21 History Aspirin EC [Ecotrin Low Dose] 81 mg PO DAILY 04/17/20 05/14/21 History Isosorbide Mononitrate ER [Imdur] 30 mg PO DAILY #30 tab.er.24h 04/20/20 05/14/21 Rx Nitroglycerin Sl Tabs [Nitrostat] 0.4 mg SUBLINGUAL Q5M PRN #25 tab 04/20/20 05/14/21 Rx Metoprolol Tartrate [Lopressor] 12.5 mg PO BID #0 04/27/20 05/14/21 Rx Atorvastatin [Lipitor] 40 mg PO HS 05/14/21 05/14/21 History Clopidogrel [Plavix] 75 mg PO DAILY 05/14/21 05/14/21 History Ferrous Sulfate [Iron (65 MG 325 mg PO DAILY 05/14/21 05/14/21 History Elemental)] Pantoprazole [Protonix] 40 mg PO DAILY 05/14/21 05/14/21 History Allergies Allergy/AdvReac Type Severity Reaction Status Date / Time No Known Allergies Allergy Verified 05/14/21 21:27 Physical Exam Vitals: Vital Signs Temp Pulse Resp BP Pulse Ox 05/15/21 07:00 71 18 152/87 98 05/15/21 03:00 70 20 157/85 96 05/15/21 01:00 51 L 20 164/84 95 05/14/21 21:53 52 L 22 160/94 97 05/14/21 19:49 98.4 F 64 20 137/82 95 Intake and Output 05/14/21 05/15/21 05/15/21 22:59 06:59 14:59 Other: Weight 157.397 kg Results 05/15/21 05:25 05/15/21 05:25 Cardiac Enzymes 05/14/21 05/14/21 05/15/21 Range/Units 20:39 20:55 00:00 AST 26 (17-59) U/L Troponin I 0.021 <0.012 (0.000-0.034) ng/mL 05/15/21 05/15/21 Range/Units 05:25 05:25 AST 25 (17-59) U/L Troponin I <0.012 (0.000-0.034) ng/mL Coagulation 05/14/21 Range/Units 20:39 PT 10.4 (9.0-12.0) sec APTT 23.6 (22.0-30.0) sec CBC 05/14/21 05/15/21 Range/Units 20:39 05:25 WBC 10.8 H 8.8 (3.8-10.6) k/uL RBC 5.16 4.96 (4.30-5.90) m/uL Hgb 15.4 14.4 (13.0-17.5) gm/dL Hct 47.2 45.3 (39.0-53.0) % Plt Count 283 248 (150-450) k/uL Comprehensive Metabolic Panel 05/14/21 05/15/21 Range/Units 20:55 05:25 Sodium 138 138 (137-145) mmol/L Potassium 4.2 4.3 (3.5-5.1) mmol/L Chloride 106 106 (98-107) mmol/L Carbon Dioxide 25 24 (22-30) mmol/L BUN 16 12 (9-20) mg/dL Creatinine 0.68 0.67 (0.66-1.25) mg/dL Glucose 111 H 97 (74-99) mg/dL Calcium 8.7 8.5 (8.4-10.2) mg/dL AST 26 25 (17-59) U/L ALT 20 19 (4-49) U/L Alkaline Phosphatase 99 84 (38-126) U/L Total Protein 6.7 6.3 (6.3-8.2) g/dL Albumin 3.8 3.4 L (3.5-5.0) g/dL Current Medications Generic Name Dose Route Start Last Admin Trade Name Freq PRN Reason Stop Dose Admin Hydromorphone HCl 0.5 mg 05/14/21 21:46 Hydromorphone 0.5 Mg/0.5 Ml Syringe IVP Q3HR PRN Moderate Pain Sodium Chloride 1,000 mls @ 75 mls/hr 05/14/21 22:00 05/14/21 21:57 Saline 0.9% IV 75 mls/hr .[id number] ELADIO Administration Naloxone HCl 0.2 mg 05/14/21 21:46 Naloxone 0.4 Mg/Ml 1 Ml Vial IV Q2M PRN Opioid Reversal Ondansetron HCl 4 mg 05/14/21 21:46 Ondansetron 4 Mg/2 Ml Vial IVP Q8HR PRN Nausea And Vomiting Pantoprazole Sodium 40 mg 05/15/21 09:00 Pantoprazole 40 Mg/10 Ml Vial IV DAILY ELADIO Intake and Output 05/14/21 05/15/21 05/15/21 22:59 06:59 14:59 Other: Weight 157.397 kg 05/15/21 05:25 05/15/21 05:25
--- NOTE | 2021-05-15 12:23 | P.GSCN ---
History of Present Illness Consult date: 05/15/21 History of present illness: CHIEF COMPLAINT: Chest pain with dizziness HISTORY OF PRESENT ILLNESS: This is a 55-year-old male with a known history of coronary artery disease with cardiac stents. He does take Plavix and aspirin at home. Patient reports yesterday he started having dizziness and migraine headache with nausea and vomiting. Also having some shortness of breath and chest pain. He was concerned that it might be his heart and came into the ER for further evaluation. His troponins were negative. He was seen evaluated by cardiology. They have ruled out any acute coronary event. Patient also reports that he's been having intermittent black stools with bright red blood. He is on iron at home. He reports that he has been having issues with GI bleed since his stents replaced and he is on blood thinners. He reports that he had EGD and colonoscopy in December 2019 that revealed no evidence of active bleeding. Colonoscopy did report internal hemorrhoid grade 1 and EGD and refilled esophagitis and hiatal hernia. Patient also had gone undergone a capsule endoscopy with GI service and per patient there is no evidence of GI bleed. He has remained on his aspirin and Plavix. Hemoglobin on admission 15 down to 14.4 and stool for occult blood was negative. He does take iron daily. Patient does admit to some lower abdominal pain and having issues with constipation. He denies any hematemesis. PAST MEDICAL HISTORY: See list. PAST SURGICAL HISTORY: Pansurgery and sleeve gastrectomy MEDICATIONS: See list. ALLERGIES: See list. SOCIAL HISTORY: No illicit drug use. REVIEW OF SYSTEMS: CONSTITUTIONAL: Denies fever or chills. HEENT: Denies blurred vision, vision changes, or eye pain. Denies hemoptysis ENDOCRINE: Denies heat or cold intolerance. CARDIOVASCULAR: Denies chest pain or pressure. RESPIRATORY: No shortness of breath. GASTROINTESTINAL: Please refer to HPI otherwise unremarkable NEURO: Denies history of seizures. PSYCH: No depression or suicidal ideation HEMATOLOGIC: Denies bleeding disorders. LYMPHATIC: The patient denies any lumps and bumps around the neck. GENITOURINARY: Denies any blood in urine or increased urinary frequency. MUSCULOSKELETAL: Denies myalgias. Denies joint swelling. Denies decreased range of motion beyond patients baseline. SKIN: Denies pruitis. Denies rash. PHYSICAL EXAM: VITAL SIGNS: Reviewed GENERAL: Well-developed in no acute distress. HEENT: No sclera icterus. Extraocular movements grossly intact. Moist buccal mucosa. Head is atraumatic, normocephalic. Hears conversational speech. No nasal drainage. NECK: Supple without lymphadenopathy. CHEST: Non-labored respirations and equal bilateral excursions. CARDIOVASCULAR: Palpable 2+ radial pulses. ABDOMEN: Soft. Nondistended. Minimal lower abdominal tenderness with palpation MUSCULOSKELETAL: No clubbing or cyanosis. NEUROLOGIC: No focal or lateralizing signs. Cranial nerves II through XII grossly intact. PSYCH: Appropriate affect. Alert and oriented to person, place and time. SKIN: Well perfused. Good skin turgor. LABORATORY DATA: WBC 10.8-8.8 Hgb 15.4- 14.4 platelets 248 INR 1.0 Sodium 138 potassium 4.3 BUN 12 creatinine 0.67 Magnesium 2.2 Troponins negative 3 LFTs and lipase normal IMAGING: Chest x-ray no active cardiomegaly disease. Normal heart. No change ASSESSMENT: 1. Intermittent Black stools with bright red blood 2. History of constipation 3. History of internal hemorrhoids 4. Chest pain and acute coronary event has been ruled out by cardiology 5. Migraine with nausea and vomiting 6. History of coronary artery disease with cardiac stents and takes Plavix at home 7. History of sleeve gastrectomy and a panniculectomy 8. Prior history of GI bleed PLAN: -Patient scheduled for EGD tomorrow on 05/16/[address] Mcarthur -Keep patient nothing by mouth after midnight -Continue Protonix -Hold Plavix -Continue IV fluid Thank you for this consultation Physician Assistant Manager Pt note has been reviewed by physician. Signing provider agrees with the documented findings, assessment, and plan of care. Past Medical History Past Medical History: Hypertension, Myocardial Infarction ([place]), Vascular Disorder Additional Past Medical History / Comment(s): CHRONIC BACK PAIN which has increased significantly with major weight loss, sciatica, bronchitis, arthritis, borderline thyroid issues, NOT ON ANYTHING FOR B/P Last Myocardial Infarction Date:: 04/17/20 History of Any Multi-Drug Resistant Organisms: None Reported Past Surgical History: Bariatric Surgery, Heart Catheterization With Stent Additional Past Surgical History / Comment(s): EGD. GASTRIC SLEEVE PANNICULECTOMY 2- Past Anesthesia/Blood Transfusion Reactions: No Reported Reaction Additional Past Anesthesia/Blood Transfusion Reaction / Comm: HAS NEVER HAD GENERAL ANESTHESIA Date of Last Stent Placement:: 04/19/20 Past Psychological History: Anxiety, Bipolar, Depression, Panic Disorder Smoking Status: Never smoker Past Alcohol Use History: Rare Past Drug Use History: None Reported - Past Family History Father History Unknown: Yes Family Medical History: Hypertension Additional Family Medical History / Comment(s): mental disease, violent disorders Mother History Unknown: Yes Family Medical History: Hypertension Additional Family Medical History / Comment(s): Lupus, cardiac stents Medications and Allergies Home Medications Medication Instructions Recorded Confirmed Type Losartan Potassium 50 mg PO DAILY 12/12/19 05/14/21 History Aspirin EC [Ecotrin Low Dose] 81 mg PO DAILY 04/17/20 05/14/21 History Isosorbide Mononitrate ER [Imdur] 30 mg PO DAILY #30 tab.er.24h 04/20/20 05/14/21 Rx Nitroglycerin Sl Tabs [Nitrostat] 0.4 mg SUBLINGUAL Q5M PRN #25 tab 04/20/20 05/14/21 Rx Metoprolol Tartrate [Lopressor] 12.5 mg PO BID #0 04/27/20 05/14/21 Rx Atorvastatin [Lipitor] 40 mg PO HS 05/14/21 05/14/21 History Clopidogrel [Plavix] 75 mg PO DAILY 05/14/21 05/14/21 History Ferrous Sulfate [Iron (65 MG 325 mg PO DAILY 05/14/21 05/14/21 History Elemental)] Pantoprazole [Protonix] 40 mg PO DAILY 05/14/21 05/14/21 History Allergies Allergy/AdvReac Type Severity Reaction Status Date / Time No Known Allergies Allergy Verified 05/14/21 21:27 Surgical - Exam Vital Signs Temp Pulse Resp BP Pulse Ox 98.4 F 64 20 137/82 95 05/14/21 19:49 05/14/21 19:49 05/14/21 19:49 05/14/21 19:49 05/14/21 19:49 Results - Labs 05/15/21 05:25 05/15/21 05:25 Abnormal Lab Results - Last 24 Hours (Table) 05/14/21 05/14/21 05/15/21 Range/Units 20:39 20:55 05:25 WBC 10.8 H (3.8-10.6) k/uL Neutrophils # 8.1 H (1.3-7.7) k/uL Glucose 111 H (74-99) mg/dL Albumin 3.4 L (3.5-5.0) g/dL Diabetes panel 05/14/21 05/15/21 Range/Units 20:55 05:25 Sodium 138 138 (137-145) mmol/L Potassium 4.2 4.3 (3.5-5.1) mmol/L Chloride 106 106 (98-107) mmol/L Carbon Dioxide 25 24 (22-30) mmol/L BUN 16 12 (9-20) mg/dL Creatinine 0.68 0.67 (0.66-1.25) mg/dL Glucose 111 H 97 (74-99) mg/dL Calcium 8.7 8.5 (8.4-10.2) mg/dL AST 26 25 (17-59) U/L ALT 20 19 (4-49) U/L Alkaline Phosphatase 99 84 (38-126) U/L Total Protein 6.7 6.3 (6.3-8.2) g/dL Albumin 3.8 3.4 L (3.5-5.0) g/dL Calcium panel 05/14/21 05/15/21 Range/Units 20:55 05:25 Calcium 8.7 8.5 (8.4-10.2) mg/dL Albumin 3.8 3.4 L (3.5-5.0) g/dL Pituitary panel 05/14/21 05/15/21 Range/Units 20:55 05:25 Sodium 138 138 (137-145) mmol/L Potassium 4.2 4.3 (3.5-5.1) mmol/L Chloride 106 106 (98-107) mmol/L Carbon Dioxide 25 24 (22-30) mmol/L BUN 16 12 (9-20) mg/dL Creatinine 0.68 0.67 (0.66-1.25) mg/dL Glucose 111 H 97 (74-99) mg/dL Calcium 8.7 8.5 (8.4-10.2) mg/dL Adrenal panel 05/14/21 05/15/21 Range/Units 20:55 05:25 Sodium 138 138 (137-145) mmol/L Potassium 4.2 4.3 (3.5-5.1) mmol/L Chloride 106 106 (98-107) mmol/L Carbon Dioxide 25 24 (22-30) mmol/L BUN 16 12 (9-20) mg/dL Creatinine 0.68 0.67 (0.66-1.25) mg/dL Glucose 111 H 97 (74-99) mg/dL Calcium 8.7 8.5 (8.4-10.2) mg/dL Total Bilirubin 0.3 0.4 (0.2-1.3) mg/dL AST 26 25 (17-59) U/L ALT 20 19 (4-49) U/L Alkaline Phosphatase 99 84 (38-126) U/L Total Protein 6.7 6.3 (6.3-8.2) g/dL Albumin 3.8 3.4 L (3.5-5.0) g/dL
[2021-05-15] MEDS: SODIUM CHLORIDE 0.9% 1,000 ML IV SCH (12:53)
[2021-05-15] MEDS ORDERED: POLYETHYLENE GLYCOL LYTES SOLN 4,000 ML SOLN.RECON PO ONE (13:23)
[2021-05-15] MEDS ORDERED: METOPROLOL TARTRATE 12.5 MG TAB PO SCH (13:45)
--- NOTE | 2021-05-15 15:05 | P.HPIM ---
History of Present Illness H&P Date: 05/15/21 Chief Complaint: Room spinning History of presenting complaint: This is a pleasant 55-year-old patient of Dr. Price. Chronic stable medical conditions include hypertension, chronic low back pain, gastric sleeve with panniculectomy in July 2018 and has lost close to 300 pounds, coronary artery disease with stent-. 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 In December 2019 hadGI bleed. Found to have grade C esophagitis. On April 19 2020 patient underwent stenting to the mid diagonal branch. Patient yesterday was watching television. He notices that the room started spinning. Became nauseated. Good walk. Nearly falling. Started dry heaving. Developed blurry vision. Patient's had symptoms in the right ear for a few days. Oftentimes when he yawns he gets discomfort in the right ear. He's also had some discharge through the right ear. Patient intermittently has had black stools for months off and on. No fever no chills. No abdominal pain. Had a very short left chest pain in the whole episode yesterday. Review of systems: GEN.: Tired EYES: None HEENT: None NECK: None RESPIRATORY: As above CARDIOVASCULAR: As above GASTROINTESTINAL: As above GENITOURINARY: None MUSCULOSKELETAL: Back pain LYMPHATICS: None HEMATOLOGICAL: None PSYCHIATRY: None NEUROLOGICAL: None Past medical history to include: Hypertension, chronic back pain, sciatica, coronary artery disease with stent , gastric sleeve with panniculectomy in July 2018 has lost 200 pounds. 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 Physical examination: VITAL SIGNS: 98.4, 64, 20, 137/82, 95% room air GENERAL: BMI 49.8, declining but awake, slightly tired EYES: Pupils equal. Conjunctiva normal. HEENT: External appearance of nose and ears normal, oral cavity grossly normal. Right ear: Questionable perforation of the eardrum. NECK: JVD not raised; masses not palpable. HEART: First and second heart sounds are normal; no edema. LUNGS: Respiratory rate normal; clear to auscultation. ABDOMEN: Soft, no tenderness liver spleen not palpable, no masses palpable. PSYCH: Alert and oriented x3; mood and affect normal. NEUROLOGICAL: Cranial nerves grossly intact; no facial asymmetry, power and sensation grossly intact. LYMPHATICS: No lymph nodes palpable in the axilla and neck INVESTIGATIONS, reviewed in the clinical context: White count 8.8 hemoglobin 13.4 platelets 240 potassium 4.3 creatinine 0.67 Stool occult blood negative Coronavirus [PCR]: Not detected EKG tracing personally reviewed by me-normal sinus rhythm. Some nonspecific changes Chest x-ray film personally reviewed by me-no obvious infiltrate Assessment and plan: -This is a patient has known GI bleed in the past with known esophagitis from antiplatelet agents. Now presents with few months of black stools present off and on. Patient has associates significant dyspepsia. Patient had a prior EGD by Dr. Lydnon Henderson. GI services not available in the hospital this week. Surgery consulted. PPI. -Acute labyrinthitis in a patient's who is had right ear infective symptoms. Antivert 12.5 by mouth 4 times a day -Bradycardia Hold Lopressor. -Possible right otitis media. Patient had some bloody drainage from the right ear. Has had otic symptoms. Ciprodex 2 drops 4 times a day right ear. Ciprofloxacin 500 mg daily. We'll have the patient follow-up with ENT outpatient. -CAD with stent Lopressor 12.5 by mouth twice a day. Plavix 75 mg daily -Sleeve gastrectomy patient's loss 300 pounds since then -Morbid obesity BMI 49.8 Weight loss measures -Hyperlipidemia Lipitor 40 mg daily at bedtime -Essential hypertension Lopressor discontinued because of bradycardia. Cozaar started -Chronic esophagitis On protonic 40 mg daily -Confucianist Consultation to surgery. Doubt primary cardiac event. Consult cardiology. Nuvia e medications resumed. Increased protonix to twice a day. Ciprodex eardrops. Ciprofloxacin. Antiplatelet agents as per cardiology. Past Medical History Past Medical History: Hypertension, Myocardial Infarction ([place]), Vascular Disorder Additional Past Medical History / Comment(s): CHRONIC BACK PAIN which has increased significantly with major weight loss, sciatica, bronchitis, arthritis, borderline thyroid issues, NOT ON ANYTHING FOR B/P Last Myocardial Infarction Date:: 04/17/20 History of Any Multi-Drug Resistant Organisms: None Reported Past Surgical History: Bariatric Surgery, Heart Catheterization With Stent Additional Past Surgical History / Comment(s): EGD. GASTRIC SLEEVE PANNICULECTOMY 2- Past Anesthesia/Blood Transfusion Reactions: No Reported Reaction Additional Past Anesthesia/Blood Transfusion Reaction / Comment(s): HAS NEVER HAD GENERAL ANESTHESIA Date of Last Stent Placement:: 04/19/20 Past Psychological History: Anxiety, Bipolar, Depression, Panic Disorder Smoking Status: Never smoker Past Alcohol Use History: Rare Past Drug Use History: None Reported - Past Family History Father History Unknown: Yes Family Medical History: Hypertension Additional Family Medical History / Comment(s): mental disease, violent diso rders Mother History Unknown: Yes Family Medical History: Hypertension Additional Family Medical History / Comment(s): Lupus, cardiac stents Medications and Allergies Home Medications Medication Instructions Recorded Confirmed Type Losartan Potassium 50 mg PO DAILY 12/12/19 05/14/21 History Aspirin EC [Ecotrin Low Dose] 81 mg PO DAILY 04/17/20 05/14/21 History Isosorbide Mononitrate ER [Imdur] 30 mg PO DAILY #30 tab.er.24h 04/20/20 05/14/21 Rx Nitroglycerin Sl Tabs [Nitrostat] 0.4 mg SUBLINGUAL Q5M PRN #25 tab 04/20/20 05/14/21 Rx Metoprolol Tartrate [Lopressor] 12.5 mg PO BID #0 04/27/20 05/14/21 Rx Atorvastatin [Lipitor] 40 mg PO HS 05/14/21 05/14/21 History Clopidogrel [Plavix] 75 mg PO DAILY 05/14/21 05/14/21 History Ferrous Sulfate [Iron (65 MG 325 mg PO DAILY 05/14/21 05/14/21 History Elemental)] Pantoprazole [Protonix] 40 mg PO DAILY 05/14/21 05/14/21 History Allergies Allergy/AdvReac Type Severity Reaction Status Date / Time No Known Allergies Allergy Verified 05/14/21 21:27 Physical Exam Vitals: Vital Signs Temp Pulse Pulse Resp BP BP Pulse Ox 05/15/21 08:00 97.8 F 49 L 18 155/90 95 05/15/21 07:00 71 18 152/87 98 05/15/21 03:00 70 20 157/85 96 05/15/21 01:00 51 L 20 164/84 95 05/14/21 21:53 52 L 22 160/94 97 05/14/21 19:49 98.4 F 64 20 137/82 95 Intake and Output 05/14/21 05/15/2105/15/21 22:59 06:59 14:59 Other: Weight 157.397 kg 157.397 kg Results CBC & Chem 7: 05/15/21 05:25 05/15/21 05:25 Labs: Abnormal Lab Results - Last 24 Hours (Table) 05/14/21 05/14/21 05/15/21 Range/Units 20:39 20:55 05:25 WBC 10.8 H (3.8-10.6) k/uL Neutrophils # 8.1 H (1.3-7.7) k/uL Glucose 111 H (74-99) mg/dL Albumin 3.4 L (3.5-5.0) g/dL Thrombosis Risk Factor Assmnt - Choose All That Apply Any of the Below Risk Factors Present?: Yes Each Factor Represents 1 point: Age 41-60 years, Obesity (BMI >25) Other Risk Factors: No Other congenital or acquired thrombophilia - If yes, enter type in comment: No Thrombosis Risk Factor Assessment Total Risk Factor Score: 2 Thrombosis Risk Factor Assessment Level: Low Risk
[2021-05-15] MEDS: PANTOPRAZOLE 40 MG TABLET PO SCH (15:37)
[2021-05-15] MEDS: MECLIZINE 12.5 MG TAB PO SCH ×3 (15:37→21:32)
[2021-05-15] MEDS: ISOSORBIDE MONONITRATE ER 30 MG TAB.ER.24H PO SCH (15:37)
[2021-05-15] MEDS: LEVOFLOXACIN 500 MG TAB PO SCH (15:37)
[2021-05-15] MEDS: CIPROFLOXACIN-DEXAMETH 0.3-0.1% DROPS 7.5 ML BTL RIGHT EAR SCH ×2 (16:23→20:46)
[2021-05-15] MEDS: ATORVASTATIN 40 MG TAB PO SCH (20:44)
[2021-05-16] MEDS: SODIUM CHLORIDE 0.9% 1,000 ML IV SCH ×2 (00:57→20:49)
[2021-05-16] MEDS: LOSARTAN 50 MG TAB PO SCH (10:42)
[2021-05-16] MEDS: MECLIZINE 12.5 MG TAB PO SCH ×4 (10:43→20:49)
[2021-05-16] MEDS: PANTOPRAZOLE 40 MG TABLET PO SCH ×2 (10:43→18:37)
[2021-05-16] MEDS: ISOSORBIDE MONONITRATE ER 30 MG TAB.ER.24H PO SCH (10:43)
[2021-05-16] MEDS: CIPROFLOXACIN-DEXAMETH 0.3-0.1% DROPS 7.5 ML BTL RIGHT EAR SCH ×2 (10:43→20:49)
[2021-05-16] MEDS ORDERED: IV FLUID CONTINUATION 1,000 ML IV ONE ×2 (14:57)
[2021-05-16] MEDS ORDERED: LIDOCAINE 1% INJ 10MG/ML (20 ML MDV) ONE (14:57)
[2021-05-16] MEDS ORDERED: PROPOFOL 10 MG/ML 20 ML VIAL IV ONE (14:57)
--- NOTE | 2021-05-16 16:45 | P.PN ---
Progress Note - Text Progress Note Date: 05/16/21 Chief Complaint: Room spinning History of presenting complaint: This is a pleasant 55-year-old patient of Dr. Price. Chronic stable medical conditions include hypertension, chronic low back pain, gastric sleeve with panniculectomy in July 2018 and has lost close to 300 pounds, coronary artery disease with stent-. 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 In December 2019 hadGI bleed. Found to have grade C esophagitis. On April 19 2020 patient underwent stenting to the mid diagonal branch. Patient yesterday was watching television. He notices that the room started spinning. Became nauseated. Good walk. Nearly falling. Started dry heaving. Developed blurry vision. Patient's had symptoms in the right ear for a few days. Oftentimes when he yawns he gets discomfort in the right ear. He's also had some discharge through the right ear. Patient intermittently has had black stools for months off and on. No fever no chills. No abdominal pain. Had a very short left chest pain in the whole episode yesterday. Patient admitted with acute right otitis media with possible perforation, acute labyrinthitis, acute on chronic GI bleed. Started on Ciprodex right eardrops, oral ciprofloxacin. Surgery consulted. May 16: Slight improvement in right ear symptoms. Less dizzy. Patient will get EGD/colonoscopy. Tired. Review of systems: Was done for constitutional, cardiovascular, GI, pulmonary. relevant finding as above Active Medications Atorvastatin Calcium (Atorvastatin 40 Mg Tab) 40 mg PO HS [facility] Last Admin: 05/15/21 20:44 Dose: 40 mg Documented by: Ciprofloxacin/Dexamethasone (Ciprofloxacin-Dexameth 0.3-0.1% Drops 7.5 Ml Btl) 4 drops RIGHT EAR BID [facility] Last Admin: 05/16/21 10:43 Dose: 4 drops Documented by: Hydromorphone HCl (Hydromorphone 0.5 Mg/0.5 Ml Syringe) 0.5 mg IVP Q3HR PRN PRN Reason: Moderate Pain Sodium Chloride (Saline 0.9%) 1,000 mls @ 75 mls/hr IV .[id number] [facility] Last Admin: 05/16/21 00:57 Dose: 75 mls/hr Documented by: Isosorbide Mononitrate (Isosorbide Mononitrate Er 30 Mg Tab.Er.24h) 30 mg PO DAILY [facility] Last Admin: 05/16/21 10:43 Dose: 30 mg Documented by: Levofloxacin (Levofloxacin 500 Mg Tab) 500 mg PO Q24H [facility] Last Admin: 05/15/21 15:37 Dose: 500 mg Documented by: Losartan Potassium (Losartan 50 Mg Tab) 50 mg PO DAILY [facility] Last Admin: 05/16/21 10:42 Dose: 50 mg Documented by: Meclizine HCl (Meclizine 12.5 Mg Tab) 12.5 mg PO QID [facility] Last Admin: 05/16/21 14:21 Dose: Not Given Documented by: Naloxone HCl (Naloxone 0.4 Mg/Ml 1 Ml Vial) 0.2 mg IV Q2M PRN PRN Reason: Opioid Reversal Ondansetron HCl (Ondansetron 4 Mg/2 Ml Vial) 4 mg IVP Q8HR PRN PRN Reason: Nausea And Vomiting Pantoprazole Sodium (Pantoprazole 40 Mg Tablet) 40 mg PO AC-BID [facility] Last Admin: 05/16/21 10:43 Dose: 40 mg Documented by: Past medical history to include: Hypertension, chronic back pain, sciatica, coronary artery disease with stent , gastric sleeve with panniculectomy in July 2018 has lost 200 pounds. 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 Physical examination: VITAL SIGNS: 97.9, 51, 18, 1 47 x 79, 96% room air GENERAL: Reclining in bed, awake, tired EYES: Pupils equal. Conjunctiva normal. HEENT: External appearance of nose and ears normal, oral cavity grossly normal. Right ear: Questionable perforation of the eardrum. NECK: JVD not raised; masses not palpable. HEART: First and second heart sounds are normal; no edema. LUNGS: Respiratory rate normal; clear to auscultation. ABDOMEN: Soft, no tenderness liver spleen not palpable, no masses palpable. PSYCH: Alert and oriented x3; mood and affect normal. INVESTIGATIONS, reviewed in the clinical context: May 16: White count 8.8 hemoglobin 14.4 White count 8.8 hemoglobin 13.4 platelets 240 potassium 4.3 creatinine 0.67 Stool occult blood negative Coronavirus [PCR]: Not detected EKG tracing personally reviewed by hi-normal sinus rhythm. Some nonspecific changes Chest x-ray film personally reviewed by me-no obvious infiltrate Assessment and plan: -This is a patient has known GI bleed in the past with known esophagitis from antiplatelet agents. Now presents with few months of black stools present off and on. Patient has associates significant dyspepsia. Patient had a prior EGD by Dr. Lyndon Henderson. GI services not available in the hospital this week. Pending EGD/colonoscopy PPI. -Acute labyrinthitis in a patient's who is had right ear infective symptoms. Antivert 12.5 by mouth 4 times a day -Bradycardia Hold Lopressor. -Possible right otitis media. Patient had some bloody drainage from the right ear. Has had otic symptoms. Ciprodex 2 drops 4 times a day right ear. Ciprofloxacin 500 mg daily. follow- up with ENT outpatient. -CAD with stent Lopressor 12.5 by mouth twice a day. Plavix 75 mg daily -Sleeve gastrectomy patient's loss 300 pounds since then -Morbid obesity BMI 49.8 Weight loss measures -Hyperlipidemia Lipitor 40 mg daily at bedtime -Essential hypertension Lopressor discontinued because of bradycardia. [place] started -Chronic esophagitis On protonic 40 mg daily -Spiritism protonix to twice a day. Ciprodex eardrops. Ciprofloxacin. Pending endoscopy. Discussed with patient.
--- NOTE | 2021-05-16 17:10 | P.PCN ---
Date of Procedure: 05/16/21 Description of Procedure: PREOPERATIVE DIAGNOSIS: Gastrointestinal bleeding with recent melanotic stool Morbid obesity due to excess calories, BMI 49.8 Status post sleeve gastrectomy. Ischemic cardiomyopathy status post stent placement Antiplatelet therapy POSTOPERATIVE DIAGNOSIS: Gastrointestinal bleeding with recent melanotic stool Morbid obesity due to excess calories, BMI 49.8 Status post sleeve gastrectomy. Ischemic cardiomyopathy status post stent placement Antiplatelet therapy Diaphragmatic hiatal hernia without obstruction. OPERATION: Esophagogastroduodenoscopy SURGEON: Dulce Mcarthur MD ANESTHESIA: MAC. INDICATIONS: The patient is a 55-year-old male who presents with abdominal pain including gastrointestinal bleeding with chronic antiplatelet therapy. Benefits and risks of the procedure were described. Informed consent was obtained. DESCRIPTION: The patient was brought into the endoscopy suite and laid in the left lateral decubitus position. An Olympus gastroscope was passed along the posterior oropharynx down to the distal esophagus where the squamocolumnar junction was at 40 centimeters from the incisors remarkable for chronic erosive esophagitis, LA grade B without ulceration. The stomach was entered where she had a 3-cm hiatal hernia with a diaphragmatic hiatus found at 43 cm. The sleeve reservoir moderately large allowing easy retroflexion of the scope to view the lower esophageal valve. No gastric or duodenal ulcers were found. The first through third portion of the duodenum was examined and unremarkable. The scope again had easily retroflexed along the antrum. The stomach was desufflated. The patient tolerated the procedure well. FINDINGS: No acute ulceration found along sleeve. No corkscrewing sleeve gastrectomy. Squamocolumnar junction at 40 cm from the incisors. Diaphragmatic hiatus at 43 cm. Moderate large gastric reservoir with prior history of sleeve gastrectomy allowing easy retroflexion of the gastroscope to view the lower esophageal valve. Hiatal hernia 3 cm, fixed. LA grade B erosive esophagitis. No active duodenitis, duodenal or gastric ulcers. RECOMMENDATIONS: Upper endoscopy as needed. Continue proton pump inhibitor.
--- NOTE | 2021-05-16 17:15 | P.PCN ---
Date of Procedure: 05/16/21 Description of Procedure: PREOPERATIVE DIAGNOSIS: Gastrointestinal bleeding with melanotic stool Chronic antiplatelet therapy Ischemic cardiomyopathy Morbid obesity due to excess calories, BMI 49.8 Coronary artery disease with stent placement POSTOPERATIVE DIAGNOSIS: Gastrointestinal bleeding with melanotic stool Chronic antiplatelet therapy Ischemic cardiomyopathy Morbid obesity due to excess calories, BMI 49.8 Coronary artery disease with stent placement Sigmoid diverticulosis without active bleeding OPERATION: Colonoscopy to the cecum, ileocecal valve and appendiceal orifice SURGEON: Dluce Mcarthur MD. ANESTHESIA: MAC. INDICATIONS: The patient is a 55-year-old male who presents with gastrointestinal bleeding and melanotic stools. Benefits and risks were described and informed consent was obtained. DESCRIPTION OF PROCEDURE: The patient had undergone attempted Golytely prep 2 L. The patient had been brought into the operating room and laid in the left lateral decubitus position. After adequate intravenous sedation, the rectum was examined with 2% lidocaine jelly. The prostate was unremarkable. No external hemorrhoids were identified. An Olympus colonoscope was gently advanced to the cecum with visualization of the ileocecal valve including appendiceal orifice. The prep was fair. Brown stool was found throughout the colon. Moderate sigmoid diverticulosis was encountered without active bleeding. No active colonic bleeding was found. No intraluminal masses were identified within the colon. No colonic polyps were found. No evidence of focal colitis was found. Retroflexion of the scope demonstrated grade 2 internal hemorrhoids with recent inflammation. The colon was desufflated. The patient had tolerated the procedure well. Withdrawal time was over 6 minutes. FINDINGS: Aronchick preparation quality scale 3 (1-5) Internal hemorrhoids, grade 2 with recent inflammation No thrombosed hemorrhoid identified. No arteriovenous malformations. No adenomatous polyps. No focal colitis. Brown stool found throughout the colon. RECOMMENDATIONS: 1. Diet as tolerated 2. Repeat lower endoscopy in 5 years, 2025 3. Low fiber diet for 3 days. 4. Bowel regimen Plan - Discharge Summary Discharge Rx Participant: No New Discharge Prescriptions: No Action Losartan Potassium 50 mg PO DAILY Aspirin EC [Ecotrin Low Dose] 81 mg PO DAILY Isosorbide Mononitrate ER [Imdur] 30 mg PO DAILY #30 tab.er.24h Nitroglycerin Sl Tabs [Nitrostat] 0.4 mg SUBLINGUAL Q5M PRN #25 tab PRN Reason: Chest Pain Metoprolol Tartrate [Lopressor] 12.5 mg PO BID #0 Atorvastatin [Lipitor] 40 mg PO HS Clopidogrel [Plavix] 75 mg PO DAILY Ferrous Sulfate [Iron (65 MG Elemental)] 325 mg PO DAILY Pantoprazole [Protonix] 40 mg PO DAILY Discharge Medication List Losartan Potassium 50 mg PO DAILY 12/12/19 [History] Aspirin EC [Ecotrin Low Dose] 81 mg PO DAILY 04/17/20 [History] Isosorbide Mononitrate ER [Imdur] 30 mg PO DAILY #30 tab.er.24h 04/20/20 [Rx] Nitroglycerin Sl Tabs [Nitrostat] 0.4 mg SUBLINGUAL Q5M PRN #25 tab 04/20/20 [Rx] Metoprolol Tartrate [Lopressor] 12.5 mg PO BID #0 04/27/20 [Rx] Atorvastatin [Lipitor] 40 mg PO HS 05/14/21 [History] Clopidogrel [Plavix] 75 mg PO DAILY 05/14/21 [History] Ferrous Sulfate [Iron (65 MG Elemental)] 325 mg PO DAILY 05/14/21 [History] Pantoprazole [Protonix] 40 mg PO DAILY 05/14/21 [History] Follow up Appointment(s)/Referral(s): Erick Harry MD [STAFF PHYSICIAN] - 1 Week Rashid Price MD [Primary Care Provider] - 1-2 days
[2021-05-16] MEDS: LEVOFLOXACIN 500 MG TAB PO SCH (18:55)
[2021-05-16] MEDS: ATORVASTATIN 40 MG TAB PO SCH (20:49)
[2021-05-16] MEDS ORDERED: TEMAZEPAM 15 MG CAP PO SCH (22:30)
--- NOTE | 2021-05-16 22:33 | P.PN ---
Subjective Progress Note Date: 05/16/21 CHIEF COMPLAINT: GI bleed HISTORY OF PRESENT ILLNESS: The patient is a 55-year-old male admitted for chest pain with incidental gastrointestinal bleeding. He completed upper and lower endoscopy. Lower endoscopy demonstrates diverticulosis. Upper endoscopy demonstrates moderately dilated sleeve gastrectomy with hiatal hernia. Patient tolerated diet. No reports of blood in stools following colonoscopy. ROS: No reports of nausea and vomiting. No fevers or chills. No new chest pain. No productive sputum PHYSICAL EXAM: VITAL SIGNS: Reviewed CONSTITUTIONAL: Well developed and in no acute distress. EYES: Conjuctivae without sclera icterus. Extraocular movements grossly intact. HEAD, EARS, NOSE, THROAT: Moist buccal mucosa. Head is atraumatic, normocephalic. Hears conversational speech. No nasal drainage. NECK: No gross thyroidomegaly. No jugular venous distention. RESPIRATORY: Non-labored respirations and equal bilateral excursions. CARDIOVASCULAR: Palpable 2+ radial pulses. Regular rate. Regular rhythm. ABDOMEN: Protuberant. No peritonitis.. MUSCULOSKELETAL: No gross deformity of the lower extremities noted. No clubbing. No cyanosis. SKIN: Good skin turgor. Well perfused. NEUROLOGIC: Cranial nerves II through XII grossly intact. No focal or lateralizing signs. PSYCH: Appropriate affect. Alert and oriented to person, place and time. CLINICAL LABS: White blood cell count normal down from 10.8 to 8.8. Hemoglobin 15.4-14.4. ASSESSMENT: 1. Gastrointestinal bleeding 2. Diverticulosis 3. Internal hemorrhoids PLAN: 1. Recommend omeprazole 40 mg daily 2. May resume antiplatelet therapy 3. Stable for discharge from surgical standpoint with follow-up as outpatient bariatric center Objective - Vital Signs Vital signs: Vital Signs Temp 98.2 F 05/16/21 19:44 Pulse 59 L 05/16/21 19:44 Resp 18 05/16/21 19:44 BP 178/93 05/16/21 19:44 Pulse Ox 92 L 05/16/21 19:44 Intake & Output 05/16/21 05/16/21 05/17/21 06:59 18:59 06:59 Intake Total 200 Balance 200 Intake: IV 200 Other: # Voids 3 5 # Bowel Movements 1 2 - Labs CBC & Chem 7: 05/15/21 05:25 12/09/21 05:25 Assessment and Plan (1) GI bleed Current Visit: Yes Status: Acute Code(s): K92.2 - GASTROINTESTINAL HEMO RRHAGE, UNSPECIFIED SNOMED Code(s): 51766060 (2) Chest pain Current Visit: Yes Status: Acute Code(s): R07.9 - CHEST PAIN, UNSPECIFIED SNOMED Code(s): 13453366 (3) History of sleeve gastrectomy Current Visit: No Status: Acute Code(s): Z90.3 - ACQUIRED ABSENCE OF STOMACH [PART OF] SNOMED Code(s): 404260780778747 (4) Melena Current Visit: No Status: Acute Code(s): K92.1 - MELENA SNOMED Code(s): 7935941
[2021-05-17] MEDS: SODIUM CHLORIDE 0.9% 1,000 ML IV SCH (05:11)
[2021-05-17 07:55] VITALS: BP 145/77; PULSE 52; RESP 17; TEMP 98.2
[2021-05-17] MEDS: CIPROFLOXACIN-DEXAMETH 0.3-0.1% DROPS 7.5 ML BTL RIGHT EAR SCH (09:13)
[2021-05-17] MEDS: PANTOPRAZOLE 40 MG TABLET PO SCH (09:14)
[2021-05-17] MEDS: LOSARTAN 50 MG TAB PO SCH (09:15)
[2021-05-17] MEDS: MECLIZINE 12.5 MG TAB PO SCH (09:15)
[2021-05-17] MEDS: ISOSORBIDE MONONITRATE ER 30 MG TAB.ER.24H PO SCH (09:15)
--- NOTE | 2021-05-17 11:01 | P.PN ---
Subjective Progress Note Date: 05/17/21 Principal diagnosis: GI bleed Patient doing well today. Denies abdominal pain. No further bleeding. He is anxious to go home. Objective - Vital Signs Vital signs: Vital Signs Temp 98.2 F 05/17/21 07:00 Pulse 52 L 05/17/21 08:00 Resp 17 05/17/21 08:00 BP 145/77 05/17/21 07:00 Pulse Ox 94 L 05/17/21 07:00 Intake & Output 05/16/21 05/17/21 05/17/21 18:59 06:59 18:59 Intake Total 200 1575 118 Balance 200 1575 118 Intake: IV 200 Intake, IV Titration 825 Amount Sodium Chloride 0.9% 1, 825 000 ml @ 75 mls/hr IV . [id number] [facility] Rx#:[id number] Oral 750 118 Other: Voiding Method Toilet # Voids 5 2 # Bowel Movements 2 - Exam Abdomen: Soft, nontender, nondistended - Labs CBC & Chem 7: 05/15/21 05:25 05/15/21 05:25 Assessment and Plan (1) GI bleed Narrative/Plan: Patient doing well at this time. Continue antiacids. Continue diet as tolerated. May discharge. Current Visit: Yes Status: Acute Code(s): K92.2 - GASTROINTESTINAL HEMORRHAGE, UNSPECIFIED SNOMED Code(s): 65639066
--- NOTE | 2021-05-17 19:34 | P.DS ---
Providers Date of admission: 05/14/21 21:46 Expected date of discharge: 05/17/21 Attending physician: Dwayne Reyes Consults: 05/14/21 21:47 Consult Physician Routine Consulting Provider: Avila Henderson Consult Reason/Comments: CP hx of CAD Do you want consulting provider notified?: Yes 05/15/21 11:07 Consult Physician Routine Consulting Provider: Dulce Mcarthur Consult Reason/Comments: possible GIB Do you want consulting provider notified?: Already Contacted Primary care physician: [facility] Course: Chief Complaint: Room spinning History of presenting complaint: This is a pleasant 55-year-old patient of Dr. Price. Chronic stable medical conditions include hypertension, chronic low back pain, gastric sleeve with panniculectomy in July 2018 and has lost close to 300 pounds, coronary artery disease with stent-. 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 In December 2019 hadGI bleed. Found to have grade C esophagitis. On April 19 2020 patient underwent stenting to the mid diagonal branch. Patient yesterday was watching television. He notices that the room started spinning. Became nauseated. Good walk. Nearly falling. Started dry heaving. Developed blurry vision. Patient's had symptoms in the right ear for a few days. Oftentimes when he yawns he gets discomfort in the right ear. He's also had some discharge through the right ear. Patient intermittently has had black stools for months off and on. No fever no chills. No abdominal pain. Had a very short left chest pain in the whole episode yesterday. Patient admitted with acute right otitis media with possible perforation, acute labyrinthitis, acute on chronic GI bleed. Started on Ciprodex right eardrops, oral ciprofloxacin. Patient also placed on Antivert. Symptoms greatly improved. Patient underwent EGD that showed LA grade B erosive esophagitis. Today: Patient feeling much better. Keen to go home. Patient to complete eardrops and oral Levaquin. Patient to follow-up with ENT outpatient. Outpatient follow-up for possible colonoscopy. Patient's last coronary intervention was close to a year ago. Therefore aspirin has been discontinued. Continue Plavix. Because of bradycardia Lopressor discontinued. Discussed with patient. 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 Discussion and discharge planning more than 35 minutes Consultation: Dr. Cohen from general surgery Past medical history to include: Hypertension, chronic back pain, sciatica, coronary artery disease with stent , gastric sleeve with panniculectomy in July 2018 has lost 200 pounds. 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 Physical examination: VITAL SIGNS: 98.2, 52, 17, 1 45 x 77, 94% room air GENERAL: Up in a chair, awake, tired EYES: Pupils equal. Conjunctiva normal. HEENT: External appearance of nose and ears normal, oral cavity grossly normal. Right ear: Questionable perforation of the eardrum. NECK: JVD not raised; masses not palpable. HEART: First and second heart sounds are normal; no edema. LUNGS: Respiratory rate normal; clear to auscultation. ABDOMEN: Soft, no tenderness liver spleen not palpable, no masses palpable. PSYCH: Alert and oriented x3; mood and affect normal. INVESTIGATIONS, reviewed in the clinical context: May 16: White count 8.8 hemoglobin 14.4 White count 8.8 hemoglobin 13.4 platelets 240 potassium 4.3 creatinine 0.67 Stool occult blood negative Coronavirus [PCR]: Not detected EKG tracing personally reviewed by me-normal sinus rhythm. Some nonspecific changes Chest x-ray film personally reviewed by me-no obvious infiltrate Assessment and plan: -GI bleed with some contribution from esophagitis. It's possible patient may be also having small bowel bleed. Continue PPI. Follow up with Dr. Lyndon Henderson as outpatient. For a possible small bowel study. -Acute labyrinthitis in a patient's who is had right ear infective symptoms.: Improved Antivert 12.5 by mouth 4 times a day -Bradycardia Stop Lopressor. -Possible right otitis media. Patient had some bloody drainage from the right ear. Has had otic symptoms. Ciprodex 2 drops 4 times a day right ear. Ciprofloxacin 500 mg daily. follow- up with ENT outpatient. -CAD with stent Aspirin discontinued Plavix 75 mg daily -Sleeve gastrectomy patient's loss 300 pounds since then -Morbid obesity BMI 49.8 Weight loss measures -Hyperlipidemia Lipitor 40 mg daily at bedtime -Essential hypertension Lopressor discontinued because of bradycardia. Cozaar started -Chronic esophagitis Increase protonic 40 mg twice a day -[facility] Disposition: Home Patient Condition at Discharge: Stable Plan - Discharge Summary Discharge Rx Participant: No New Discharge Prescriptions: New Ciprofloxacin-Dexameth [Ciprodex Otic Susp] 4 drops RIGHT EAR BID #0 ml Levofloxacin [Levaquin] 500 mg PO Q24H #7 tab Continue Losartan Potassium 50 mg PO DAILY Isosorbide Mononitrate ER [Imdur] 30 mg PO DAILY #30 tab.er.24h Nitroglycerin Sl Tabs [Nitrostat] 0.4 mg SUBLINGUAL Q5M PRN #25 tab PRN Reason: Chest Pain Atorvastatin [Lipitor] 40 mg PO HS Clopidogrel [Plavix] 75 mg PO DAILY Ferrous Sulfate [Iron (65 MG Elemental)] 325 mg PO DAILY Changed Pantoprazole [Protonix] 40 mg PO BID #60 tab Discontinued Aspirin EC [Ecotrin Low Dose] 81 mg PO DAILY Metoprolol Tartrate [Lopressor] 12.5 mg PO BID #0 Discharge Medication List Losartan Potassium 50 mg PO DAILY 12/12/19 [History] Isosorbide Mononitrate ER [Imdur] 30 mg PO DAILY #30 tab.er.24h 04/20/20 [Rx] Nitroglycerin Sl Tabs [Nitrostat] 0.4 mg SUBLINGUAL Q5M PRN #25 tab 04/20/20 [Rx] Atorvastatin [Lipitor] 40 mg PO HS 05/14/21 [History] Clopidogrel [Plavix] 75 mg PO DAILY 05/14/21 [History] Ferrous Sulfate [Iron (65 MG Elemental)] 325 mg PO DAILY 05/14/21 [History] Ciprofloxacin-Dexameth [Ciprodex Otic Susp] 4 drops RIGHT EAR BID #0 ml 05/17/21 [Rx] Levofloxacin [Levaquin] 500 mg PO Q24H #7 tab 05/17/21 [Rx] Pantoprazole [Protonix] 40 mg PO BID #60 tab 05/17/21 [Rx] Follow up Appointment(s)/Referral(s): Erick Harry MD [STAFF PHYSICIAN] - 1 Week Denzel Santos DO [Doctor of Osteopathic Medicine] - 1 Week Rashid Price MD [Primary Care Provider] - 1-2 days Joelle Henderson MD [STAFF PHYSICIAN] - 2 Weeks
== END 2021-05-17 12:36 ==
LOC: EC 19:48 → 6NMEDSUR 21:46
PROVIDERS: ADMIT Hospitalist; ATTEND Hospitalist
DX: K22.11 Ulcer of esophagus with bleeding (principal); H83.09 Labyrinthitis, unspecified ear; R00.1 Bradycardia, unspecified; I25.10 Atherosclerotic heart disease of native coronary artery without angina pectoris; I11.9 Hypertensive heart disease without heart failure; E66.01 Morbid (severe) obesity due to excess calories; I25.5 Ischemic cardiomyopathy; Z68.42 Body mass index [BMI] 45.0-49.9, adult; E78.5 Hyperlipidemia, unspecified; R07.89 Other chest pain; Z20.822 Contact with and (suspected) exposure to COVID-19; K44.9 Diaphragmatic hernia without obstruction or gangrene; G43.909 Migraine, unspecified, not intractable, without status migrainosus; H93.19 Tinnitus, unspecified ear; K57.30 Diverticulosis of large intestine without perforation or abscess without bleeding; K64.8 Other hemorrhoids; I25.2 Old myocardial infarction; K59.00 Constipation, unspecified; M19.90 Unspecified osteoarthritis, unspecified site; M54.30 Sciatica, unspecified side; G89.29 Other chronic pain; M54.50 Low back pain, unspecified; H66.91 Otitis media, unspecified, right ear; F31.9 Bipolar disorder, unspecified; F41.0 Panic disorder [episodic paroxysmal anxiety]; Z79.02 Long term (current) use of antithrombotics/antiplatelets; Z79.82 Long term (current) use of aspirin; Z79.899 Other long term (current) drug therapy; Z90.3 Acquired absence of stomach [part of]; Z87.2 Personal history of diseases of the skin and subcutaneous tissue; Z98.84 Bariatric surgery status; Z95.5 Presence of coronary angioplasty implant and graft; Z82.49 Family history of ischemic heart disease and other diseases of the circulatory system; Z82.69 Family history of other diseases of the musculoskeletal system and connective tissue
CPT/HCPCS: 43235; 45378; 99285; 96361 ×2; 96374; 96375; 36415; 93005; 86900; 86901; 83880; 80053 ×2; 83690; 83735; 84484 ×2; 85025 ×2; 85610; 85730; 86850; 82272; 87635; 71046; G0378 ×4; J2405; J2001; J2704; C9113 ×2; J1170

== ENCOUNTER → 2022-01-15 | Outpatient (CLI) | payer OTHER ==
[~2022-01-15] MED LIST changes: -DEXAMETHASONE SOD PHOSPHATE 10 MG/ML 1 ML VIAL IV ONE; -ENOXAPARIN 40 MG/0.4 ML SYRINGE SQ ONE; -HYDROmorphone 0.5 MG/0.5 ML SYRINGE IVP PRN; -LIDOCAINE 1% 20 ML VIAL (10MG/ML) FOR IV START INTRADERMA PRN; -MIDAZOLAM (PF) 2 MG/2 ML VIAL IV PRN; -ONDANSETRON 4 MG/2 ML VIAL IVP ONE; +REGADENOSON 0.4 MG/5 ML SYRINGE IV ONE; -ceFAZolin 3 GM in SODIUM CHLORIDE 0.9% 100 ML IVPB ONE; -fentaNYL (PF) 50 MCG/ML 2 ML AMP IV PRN
--- NOTE | 2022-01-15 12:08 | CA ---
Lexiscan Nuclear Stress Test Report Name: Niles Bacon Exam Date: 01/15/2022 09:58 Exam Location: [place] Stress Ht (in): 71 Wt (lb): 350 BSA: 2.68 Ordering Phys: Erick Harry MD Referring Phys: ZULAY, Technologist: Heladio Trevino Age: 56 Gender: M : 1965 Procedure CPT: Indications: I25.10 cardiovascular disease ICD-10 Codes: Patient History: ASCAD Medications: Clopidogrel, Lorsartan, Isosorbide, Ferosul, Pantoprazile, Metoprolol Meds past 24 hrs: Pretest Chest Pain: STRESS TEST Lexiscan Protocol Exercise Duration (min:sec): 02:[address] Depressions (mm): Angina Score: Lowry Score: Resting HR (bpm): 50 Peak HR (bpm): 69 Resting BP (mmHg): 149 / 82 Peak BP (mmHg): 144 / 92 MPHR: 166 Target HR: 141 % MPHR: 42 METS: 1.0 Total Dose: Peak Dose: Atropine: Double Product: 9936 BP Response: Stress Termination: Infusion complete Stress Symptoms: No chest pain or symptoms Stress Summary: ECG ANALYSIS Resting ECG: Normal sinus rhythm with poor R-wave progression Stress ECG: No ST segment depression CONCLUSIONS Negative stress test by EKG criteria Cardiolite portion of the stress test will be reported separately Dr. Avila Henderson MD (Electronically Signed) Final Date: 15 January 2022 12:06
--- NOTE | 2022-01-15 15:14 | NM ---
EXAMINATION TYPE: NM stress lexiscan cardiolite DATE OF EXAM: 01/15/2022 COMPARISON: NONE HISTORY: 56-year-old male I25.10, cardiovascular disease. TECHNIQUE: After the intravenous administration of 10.8 mCi Tc 99m Sestamibi - Cardiolite resting SP ECT images acquired 45 minutes post injection. The patient received 0.4mg Lexiscan, 26.8 mCi Tc 99m Sestamibi - Stress images obtained [address] injection FINDINGS: Review of stress and rest SPECT images demonstrates moderate to large perfusion defect anterior mid t o apical wall. This extends to the lateral apical wall and there is diffuse diminished signal along e ssentially the entire inferior wall. Gated analysis shows diminished augmentation at the sites of per fusion abnormality. Estimated LVEF of 44 %. TID is calculated at 1.06, upper limits of normal. IMPRESSION: 1. Moderate to large area of fixed defect mid to apical anterior wall, apex, and extending around to the lateral apical wall. Suspect prior infarct. Limited correlate. 2. Additional diminished perfusion along the entirety of the inferior wall is present on both rest an d stress imaging. This could represent additional infarct but more likely relates to prominent diaphr agmatic attenuation artifact. 3. Diminished LVEF of 44%.
== END | disposition home or self-care (01) ==
LOC: RADNMMAIN 08:03
PROVIDERS: ATTEND Internal Medicine Interventional Cardiology
DX: I25.10 Atherosclerotic heart disease of native coronary artery without angina pectoris (principal)
CPT/HCPCS: 93017; 78452; A9500; J2785

== ENCOUNTER → 2023-02-03 | Outpatient (CLI) | payer OTHER ==
[~2023-02-03] MED LIST changes: -REGADENOSON 0.4 MG/5 ML SYRINGE IV ONE; +REGADENOSON 0.4 MG/5 ML SYRINGE IV PRN
--- NOTE | 2023-02-03 14:56 | NM ---
EXAMINATION TYPE: NM stress lexiscan cardiolite DATE OF EXAM: 02/03/2023 COMPARISON: 01/15/2022 CLINICAL INDICATION: Male, 57 years old with history of CAD; TECHNIQUE: After the intravenous administration of 10.2 mCi Tc 99m Sestamibi - Cardiolite resting SP ECT images acquired 45 minutes post injection. The patient received 0.4mg Lexiscan, 26.9 mCi Tc 99m Sestamibi - Stress images obtained [address] injection FINDINGS: Review of stress and rest SPECT images demonstrates multiple fixed defects along the anterior and inf erior wall. Also along the inferolateral apical wall. However, the defect along the mid anterior wall enlarges on stress. Gated analysis shows global hypokinesis with an estimated left ventricular eject ion fraction of 30 %. TID is normal at 1.04. IMPRESSION: 1. Multiple fixed defects anteriorly, posteriorly, and along the apical inferolateral wall suggesting areas of old infarcts. Given the diminished LVEF of 30%, correlate for ischemic cardiomyopathy. 2. Findings suggest inducible beth-infarct ischemia along the mid anterior wall
--- NOTE | 2023-02-04 07:22 | CA ---
Lexiscan Nuclear Stress Test Report Name: Niles Bacon Exam Date: 02/03/2023 09:37 Exam Location: [place] Stress Ht (in): 70 Wt (lb): 342 BSA: 2.62 Ordering Phys: Erick Biswas MD Referring Phys: VERA BISWAS,, Technologist: Alfonzo Riggins Age: 57 Gender: M : 1965 Procedure CPT: Indications: CAD ICD-10 Codes: Patient History: Medications: Meds past 24 hrs: Pretest Chest Pain: STRESS TEST Lexiscan Protocol Exercise Duration (min:sec): 01:[address] Depressions (mm): Angina Score: Lowry Score: Resting HR (bpm): 53 Peak HR (bpm): 63 Resting BP (mmHg): 147 / 93 Peak BP (mmHg): 151 / 89 MPHR: 165 Target HR: 140 % MPHR: 38 METS: 1.0 Total Dose: Peak Dose: Atropine: Double Product: 9513 BP Response: Stress Termination: INFUSION COMPLETE Stress Symptoms: ABD CRAMPING Stress Summary: ECG ANALYSIS Resting ECG: Stress ECG: CONCLUSIONS None diagnostic electrocardiogram stress testing Dr. Santosh Harris MD (Electronically Signed) Final Date: 04 February 2023 07:21
== END | disposition home or self-care (01) ==
LOC: RADNMMAIN 07:57
PROVIDERS: ATTEND Internal Medicine Interventional Cardiology
DX: I25.10 Atherosclerotic heart disease of native coronary artery without angina pectoris (principal)
CPT/HCPCS: 93017; 78452; A9500; J2785

== ENCOUNTER → 2024-03-14 | Outpatient (CLI) | payer OTHER ==
[2024-03-14 15:17] LABS: Basophils # (A) 0.07 X 10*3/uL (0.00-0.10); Basophils % (A) 0.6 %; Eosinophils # (A) 0.28 X 10*3/uL (0.04-0.35); Eosinophils % (A) 2.3 %; HCT 48.9 % (39.6-50.0); HGB 15.8 g/dL (13.0-17.0); Lymphocytes # (A) 3.83 X 10*3/uL (0.90-5.00); Lymphocytes % (A) 30.8 %; MCH 29.2 pg (27.0-32.0); MCHC 32.3 g/dL (32.0-37.0); MCV 90.2 FL (80.0-97.0); Mean Platelet Volume 10.3 FL (9.5-12.2); Monocytes # (A) 0.91 X 10*3/uL (0.20-1.00); Monocytes % (A) 7.3 %; NRBC Per 100 WBC 0 X 10*3/uL (0.00-0.01); Neutrophils # (A) 7.29 X 10*3/uL (1.80-7.70); Neutrophils % (A) 58.5 %; Platelet Count 355 X 10*3/uL (140-440); RBC 5.42 X 10*6/uL (4.40-5.60); RDW 13.1 % (11.5-14.5); WBC 12.44 X 10*3/uL (4.50-10.00)
[2024-03-14 15:31] LABS: Blood Urea Nitrogen 15.6 mg/dL (9.0-27.0); Carbon Dioxide 25.3 mmol/L (21.6-31.8); Chloride 102 mmol/L (96-109); Glucose 107 mg/dL (70-110); Potassium 3.8 mmol/L (3.5-5.5); Sodium 140 mmol/L (135-145)
== END | disposition home or self-care (01) ==
LOC: LABWHC1 10:00
PROVIDERS: ATTEND Internal Medicine Interventional Cardiology
DX: I25.10 Atherosclerotic heart disease of native coronary artery without angina pectoris (principal); R53.83 Other fatigue
CPT/HCPCS: 36415; 80048; 84443; 85025

== ENCOUNTER → 2024-07-05 | Outpatient (CLI) | payer OTHER ==
[2024-07-05 16:22] VITALS: BP 152/87; PULSE 61; RESP 16; TEMP 98.7; BMI 49.4
--- NOTE | 2024-07-05 16:52 | P.BASOAP ---
Subjective Progress Note Date: 07/05/24 DATE OF SERVICE: 07/05/24 CHIEF COMPLAINT: Morbid obesity HISTORY OF PRESENT ILLNESS: Niles Bacon is a 59-year-old gentleman who is status post sleeve gastrectomy January 14, 2015. He is 10 years out. He has kept his weight down. He presents with new heart problems, including kidney stone and spinal problems. He is required to lose more weight prior to surgical invention for back pain. His spine is a problem for him. 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 He has progressive disease. He has bad knees from osteoarthritis. He has gained 34 pounds since his last visit. He presents for surgical intervention. At his height of 5 foot 10 inches, his ideal body weight is 170 pounds. His body mass index is reduced from 87.3 to 48.7 lifetime. His highest weight was 607 pounds. His body mass index was 87.3. Lowest is 310 pounds. His lifetime weight loss is 263 pounds. Lifetime total percent excess weight loss is 61%. He is 171 pounds overweight. PAST MEDICAL HISTORY: 1. Super morbid obesity, highest BMI 87.1 2. Depression. 3. Gastroesophageal reflux disease. 4. Hypertensive heart disease 5. Osteoarthritis bilateral knees 6. Chronic lower back pain. 7. Thyroid disorder. 8. Anxiety. 9. 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 10. Panniculitis. 11. History of myocardial infarction 12. Ischemic cardiomyopathy 13. Sciatica 14. Coronary artery disease 15. Kidney stones PAST SURGICAL HISTORY: 1. EGD. 2. Status post sleeve gastrectomy. 3. Status post panniculectomy 4. Cardiac catheterization with stent placement MEDICATIONS: Home Medications Medication Instructions Recorded Confirmed Metoprolol Tartrate [Lopressor] 25 mg PO DAILY 07/05/24 07/05/24 Previous Rx's Medication Instructions Recorded Aspirin 81 mg PO DAILY tab 03/05/24 Atorvastatin [Lipitor] 80 mg PO HS #90 tab 03/05/24 Chlorthalidone [Hygroton] 25 mg PO DAILY #90 tab 03/05/24 Losartan [Cozaar] 100 mg PO DAILY #90 tab 03/05/24 Nitroglycerin Sl Tabs [Nitrostat] 0.4 mg SUBLINGUAL Q5M PRN #25 tab 09/29/24 Pantoprazole [Protonix] 40 mg PO AC-BID #60 tab 03/05/24 Prasugrel [Effient] 10 mg PO DAILY #90 tab 03/05/24 ALLERGIES: Allergies Allergy/AdvReac Type Severity Reaction Status Date / Time No Known Allergies Allergy Verified 07/05/24 16:07 SOCIAL HISTORY: Lifelong nontobacco user. He is . FAMILY HISTORY: Pertinent for heart disease including morbid obesity. REVIEW OF SYSTEMS: MUSCULOSKELETAL: Developed sciatica. Reports severe lower back pain from weight of pannus. Also reports left shoulder pain and neck pain. GASTROINTESTINAL: Reports gastroesophageal reflux disease is resolved. No reports of dumping syndrome. PSYCH: History of bipolar disorder and depression. He is chemically sensitive. No suicidal ideation. CONSTITUTIONAL: Highest weight of 607 pounds. Highest body mass index of 87.1. [place] body weight of 173 pounds. CARDIOVASCULAR: Denies any active hypertensive medications or medications for dyslipidemia. HEENT: No dysphagia. No troubles with vision or hearing. HEMATOLOGIC: Has a personal history of chronically elevated white blood cell count including chronic infections. Also has history of lupus in his family. ENDOCRINE: Denies any diabetes. He does have history of thyroid disorder. CARDIOVASCULAR: Denies any heart attack or recent chest pain. RESPIRATORY: Has obstructive sleep apnea, now improved since surgery. No reports of asthma. NEURO: Denies any stroke or seizure disorders. SKIN: Chronic panniculitis. No skin cancer. PHYSICAL EXAM: VITAL SIGNS: Height 5 foot 10; 344 pounds. Body mass index is 49.4 Vital Signs Temp 98.7 F 07/05/24 16:06 Pulse 61 07/05/24 16:06 Resp 16 07/05/24 16:06 BP 152/87 07/05/24 16:06 Pulse Ox FiO2 GENERAL: Well-developed male in no acute distress. ABDOMEN: Soft, nontender. HEENT: Hears conversational speech. Moist buccal mucosa. Extraocular movements were grossly intact. No nasal drainage. NECK: Supple without lymphadenopathy. CHEST: Unlabored respirations, equal bilateral excursions. CARDIOVASCULAR: Regular rate and rhythm. 2+ radial pulses. MUSCULOSKELETAL: Bilateral lower extremity edema with 1+. No clubbing cyanosis or edema. NEURO: No focal or lateralizing signs. Cranial nerves II-12 grossly intact. PSYCH: Appropriate affect. Alert and oriented to person, place, and time. SKIN: Well perfused. Good skin turgor. LABS: WBC elevated ASSESSMENT: 1. Morbid obesity due to excess calories. 2. Body mass index lifetime reduced from 87.1 down to 49.4 3. Status post sleeve gastrectomy. 4. Chronic leukocytosis. 5. Gastroesophageal reflux disease 6. Chronic panniculitis. 7. History of massive weight loss, lifetime over 260 pounds. 8. Hypertensive heart disease. 9. History of vitamin D deficiency. 10. Chronic osteoarthritis of the lower back with degenerative joint disease. 11. Obstructive sleep apnea. 12. Chronic lower back pain. 13. Secondary hyperparathyroidism. 14. Hypercholesterolemia. 15. 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 16. Alcohol abuse. 17. Insomnia. 18. Coronary artery disease 19. Sciatica PLAN: 1. Recommend bariatric labs. 2. Recommend food diary journal for detailed dietary history. 3. As he still has moderate weight, may benefit from revision from sleeve to a gastric bypass. 4. Recommend cardiac risk assessment prior to any surgical intervention. Objective - Vital Signs Vital signs: Vital Signs Temp 98.7 F 07/05/24 16:06 Pulse 61 07/05/24 16:06 Resp 16 07/05/24 16:06 BP 152/87 07/05/24 16:06 Pulse Ox FiO2 Intake & Output 07/04/24 07/05/24 07/05/24 18:59 06:59 18:59 Weight 156.036 kg Assessment/Plan Plan: Date: 07/05/24 Initial Weight: 219.403 kg Initial BMI: 69.4 Current Weight: 156.036 kg Current BMI: 49.4 Type of Surgery: Total Volume in Band: Previous Volume: Volume Removed: Volume Added: Band Size:
== END ==
LOC: BARWHC3 15:22
PROVIDERS: ATTEND Surgery Plastic and Reconstructive Surgery
DX: E66.01 Morbid (severe) obesity due to excess calories (principal); D72.829 Elevated white blood cell count, unspecified; I11.9 Hypertensive heart disease without heart failure; Z86.39 Personal history of other endocrine, nutritional and metabolic disease; M19.09 Primary osteoarthritis, other specified site; G47.33 Obstructive sleep apnea (adult) (pediatric); I25.10 Atherosclerotic heart disease of native coronary artery without angina pectoris; G47.00 Insomnia, unspecified; M54.30 Sciatica, unspecified side; F31.9 Bipolar disorder, unspecified; E78.00 Pure hypercholesterolemia, unspecified; E03.9 Hypothyroidism, unspecified; Z68.45 Body mass index [BMI] 70 or greater, adult; Z98.84 Bariatric surgery status
CPT/HCPCS: 99211

== ENCOUNTER → 2024-07-31 | Outpatient (CLI) | payer OTHER ==
--- NOTE | 2024-08-02 22:51 | CT ---
EXAMINATION TYPE: CT abdomen wo/w con DATE OF EXAM: 07/31/2024 12:16 PM COMPARISON: None. 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 Reconstructed images are reviewed on the computer in the coronal plane. CONTRAST: 100ml mL of Isovue 300. Study performed with Oral Contrast DLP: 3714.6 mGycm, Automated exposure control for dose reduction was used. FINDINGS: Limited CT sections are obtained the lung bases. The lung bases are clear. Some coronary artery faith cifications present. Small hiatal hernia may be present. CT ABDOMEN: Liver: Normal Spleen: Normal Pancreas: Normal Adrenal glands: Left adrenal gland is thickened at 2.5 cm. Right adrenal gland appears normal Gallbladder: Normal Kidneys: No masses are evident. No hydronephrosis is present. There is a 3.6 cm cyst measuring 4 Ho unsfield units on the superior medial pole right kidney. No renal stones are evident. Aorta: Normal Inferior vena cava: Normal. Limited CT PELVIS: Loops of bowel within the abdomen and pelvis are normal. There are loops of bowel which are incom pletely distended or lack oral contrast limiting their evaluation. Appendix: Normal as visualized. IMPRESSION: 1. Mildly enlarged left adrenal gland. 2. Superior medial pole simple appearing right renal cyst [facility], , 08/02/2024 10:49 PM
== END | disposition home or self-care (01) ==
LOC: RADCTMAIN 10:28
PROVIDERS: ATTEND Urology
DX: D41.01 Neoplasm of uncertain behavior of right kidney (principal); N28.1 Cyst of kidney, acquired; E27.8 Other specified disorders of adrenal gland
CPT/HCPCS: 74170; Q9967

== ENCOUNTER → 2024-12-21 | Outpatient (CLI) | payer OTHER ==
[2024-12-21 10:23] LABS: HCT 44.6 % (39.6-50.0); HGB 14.2 g/dL (13.0-17.0); MCH 28.2 pg (27.0-32.0); MCHC 31.8 g/dL (32.0-37.0); MCV 88.7 FL (80.0-97.0); NRBC Per 100 WBC 0 X 10*3/uL (0.00-0.01); Platelet Count 251 X 10*3/uL (140-440); RBC 5.03 X 10*6/uL (4.40-5.60); RDW 13.5 % (11.5-14.5); WBC 13.48 X 10*3/uL (4.50-10.00)
[2024-12-21 15:18] LABS: NT-Pro-B-Type Natriuretic Pept 173 pg/mL (0-125)
[2024-12-21 16:02] LABS: ALT 33 U/L (10-49); AST 33 U/L (14-35); Albumin 4.2 g/dL (3.8-4.9); Albumin/Globulin Ratio 1.91 Ratio (1.60-3.17); Alkaline Phosphatase 82 U/L (41-126); Anion Gap 14.60 mmol/L (4.00-12.00); BUN/Creat Ratio 17.62 Ratio (12.00-20.00); Blood Urea Nitrogen 14.1 mg/dL (9.0-27.0); Calcium 8.7 mg/dL (8.7-10.3); Carbon Dioxide 23.4 mmol/L (21.6-31.8); Chloride 104 mmol/L (96-109); Cholesterol 172.00 mg/dL (0.00-200.00); Globulin 2.2 g/dL (1.6-3.3); Glucose 112 mg/dL (70-110); HDL Cholesterol 40.70 mg/dL (40.00-60.00); Iron 111 UG/DL (65-175); LDL Cholesterol,Calculated 98.9 mg/dL (0.0-131.0); Potassium 3.2 mmol/L (3.5-5.5); Sodium 142 mmol/L (135-145); Total Iron Binding Capacity 371 UG/DL (228-460); Total Protein 6.4 g/dL (6.2-8.2); Triglycerides 162.00 mg/dL (0.00-149.00); VLDL Calculation 32.40 mg/dL (5.00-40.00)
[2024-12-21 16:03] LABS: Ferritin 242.0 ng/mL (22.0-322.0)
== END | disposition home or self-care (01) ==
LOC: LABWHC1 08:01
PROVIDERS: ATTEND Student in an Organized Health Care Education/Training Program
DX: I50.9 Heart failure, unspecified (principal); E11.9 Type 2 diabetes mellitus without complications; E78.5 Hyperlipidemia, unspecified; E03.9 Hypothyroidism, unspecified; D35.00 Benign neoplasm of unspecified adrenal gland; D72.9 Disorder of white blood cells, unspecified; D50.9 Iron deficiency anemia, unspecified; R79.89 Other specified abnormal findings of blood chemistry
CPT/HCPCS: 36415; 80053; 80061; 82533; 82728; 83036; 83540; 83550; 83835; 83880; 84443; 85027